=== PATIENT | male | born 1955 | race Caucasian/White ===

== ENCOUNTER 2020-04-09 14:09 | Inpatient (IN) | payer MEDICARE ==
[2020-04-09] MEDS ORDERED: PANTOPRAZOLE 40 MG/10 ML VIAL IVP ONE (14:18)
[2020-04-09] MEDS ORDERED: SODIUM CHLORIDE 0.9% 1,000 ML IV STA (14:18)
[2020-04-09] MEDS ORDERED: fentaNYL (PF) 50 MCG/ML 2 ML AMP IVP STA (14:28)
--- NOTE | 2020-04-09 14:31 | ED ---
General Adult HPI - General Chief complaint: GI Bleed Stated complaint: GI Bleed Time Seen by Provider: 04/09/20 14:17 Source: patient, EMS Mode of arrival: EMS Limitations: no limitations - History of Present Illness Initial comments: Dictation was produced using Xtone dictation software. please excuse any grammatical, word or spelling errors. This patient was cared for during a federal and state declared state of emergency secondary to Covid 19 Chief Complaint: 65-year-old male presents with coffee-ground emesis and pain after fall History of Present Illness: 65-year-old male. He states that he fell today at approximately 2 AM. Patient states she's been having several hours of coffee- ground emesis. Patient has history of GI bleed in the past that required inpatient hospitalization and blood transfusions. Patient states that he fell doesn't really remember what happened. He woke up on the floor and had pain in his right hip arms and believes he hit his head. Patient denies any abdominal pain. Denies any shortness of breath. The ROS documented in this emergency department record has been reviewed and confirmed by me. Those systems with pertinent positive or negative responses have been documented in the HPI. All other systems are other negative and/or noncontributory. PHYSICAL EXAM: General Impression: Alert and oriented x3, not in acute distress, pale, with chemotherapy to his extremities HEENT: Normocephalic atraumatic, extra-ocular movements intact, pupils equal and reactive to light bilaterally, mucous membranes moist. Cardiovascular: Heart regular rate and rhythm Chest: Able to complete full sentences, no retractions, no tachypnea Abdomen: abdomen soft, non-tender, non-distended, no organomegaly Musculoskeletal: Pulses present and equal in all extremities, no peripheral edema Motor: no focal deficits noted Neurological: CN II-XII grossly intact, no focal motor or sensory deficits noted Skin: Intact with no visualized rashes Psych: Normal affect and mood Rectal exam: Dark stool on MI, multiple anal skin tags ED course: 65-year-old male presents with GI bleed and fall. Vital signs upon arrival are within acceptable limits. Laboratory evaluation obtained. Leukopenia 2.8, hemoglobin of 8.5. No old labs for comparison. RDW is increased. Coag panel shows INR of 4.6. Metabolic panel shows sodium 131, potassium 5.4. Creatinine 1.2. Lactic acidosis 3.5. Still cold was positive. Patient given 80 mg of IV Protonix, fentanyl.Patient observed in the emergency department for approximately one hour and 30 minutes. Patient clinically stable. No repeat episodes of GI bleeding or hematemesis or coffee-ground emesis. Patient currently stable at this time. Case was discus sed with son physician Dr. Pickens who is willing to accept patients care for hospital admission. GI will be on consultation. EKG interpretation: Ventricular rate 65, normal sinus rhythm,. 176, QRS 92, QTC 405. No TN prolongation, no QTC prolongation, no ST or T-wave changes noted. O verall, this EKG is unremarkable - Related Data Allergies Allergy/AdvReac Type Severity Reaction Status Date / Time No Known Allergies Allergy Verified 04/09/20 14:17 Review of Systems ROS Statement: Those systems with pertinent positive or pertinent negative responses have been documented in the HPI. ROS Other: All systems not noted in ROS Statement are negative. Past Medical History Past Medical History: Asthma, COPD, GI Bleed, Osteoarthritis (OA) Additional Past Medical History / Comment(s): celiac disease, IBS, colitis, central tremors, hepatitis at 12 History of Any Multi-Drug Resistant Organisms: None Reported Past Surgical History: Appendectomy, Cholecystectomy, Heart Catheterization Past Psychological History: Anxiety, Depression Smoking Status: Current every day smoker Past Alcohol Use History: Daily Past Drug Use History: Marijuana General Exam Limitations: no limitations Course Vital Signs 04/09/20 14:12 Temperature 97.6 F Pulse Rate 71 Respiratory 16 Rate Blood Pressure 106/60 O2 Sat by Pulse 94 L Oximetry Medical Decision Making - Lab Data Result diagrams: 04/09/20 14:30 04/09/20 14:30 Lab Results 04/09/20 04/09/20 04/09/20 Range/Units 14:22 14:25 14:30 WBC 2.8 L (3.8-10.6) k/uL RBC 2.54 L (4.30-5.90) m/uL Hgb 8.5 L (13.0-17.5) gm/dL Hct 25.0 L (39.0-53.0) % MCV 98.3 (80.0-100.0) fL MCH 33.6 (25.0-35.0) pg MCHC 34.2 (31.0-37.0) g/dL RDW 16.7 H (11.5-15.5) % Plt Count 102 L (150-450) k/uL MPV 8.9 Neutrophils % 70 % Lymphocytes % 19 % Monocytes % 7 % Eosinophils % 2 % Basophils % 0 % Neutrophils # 2.0 (1.3-7.7) k/uL Lymphocytes # 0.6 L (1.0-4.8) k/uL Monocytes # 0.2 (0-1.0) k/uL Eosinophils # 0.0 (0-0.7) k/uL Basophils # 0.0 (0-0.2) k/uL Anisocytosis Slight Macrocytosis Slight PT (9.0-12.0) sec INR (<1.2) APTT (22.0-30.0) sec Sodium (137-145) mmol/L Potassium (3.5-5.1) mmol/L Chloride (98-107) mmol/L Carbon Dioxide (22-30) mmol/L Anion Gap mmol/L BUN (9-20) mg/dL Creatinine (0.66-1.25) mg/dL Est GFR (CKD-EPI)AfAm (>60 ml/min/1.73 sqM) Est GFR (CKD-EPI)NonAf (>60 ml/min/1.73 sqM) Glucose (74-99) mg/dL Plasma Lactic Acid Todd (0.7-2.0) mmol/L Calcium (8.4-10.2) mg/dL Total Bilirubin (0.2-1.3) mg/dL AST (17-59) U/L ALT (4-49) U/L Alkaline Phosphatase (38-126) U/L Total Protein (6.3-8.2) g/dL Albumin (3.5-5.0) g/dL Stool Occult Blood (Negative) Blood Type Confirm A Negative Blood Type Recheck No Previous Record Bld Type Recheck Status CABO Indicated Spec Expiration Date 04/12/2020 - 232904/09/20 04/09/20 04/09/20 Range/Units 14:30 14:30 14:30 WBC (3.8-10.6) k/uL RBC (4.30-5.90) m/uL Hgb (13.0-17.5) gm/dL Hct (39.0-53.0) % MCV (80.0-100.0) fL MCH (25.0-35.0) pg MCHC (31.0-37.0) g/dL RDW (11.5-15.5) % Plt Count (150-450) k/uL MPV Neutrophils % % Lymphocytes % % Monocytes % % Eosinophils % % Basophils % % Neutrophils # (1.3-7.7) k/uL Lymphocytes # (1.0-4.8) k/uL Monocytes # (0-1.0) k/uL Eosinophils # (0-0.7) k/uL Basophils # (0-0.2) k/uL Anisocytosis Macrocytosis PT 45.8 H (9.0-12.0) sec INR 4.6 H (<1.2) APTT 48.9 H (22.0-30.0) sec Sodium 131 L (137-145) mmol/L Potassium 5.4 H (3.5-5.1) mmol/L Chloride 101 (98-107) mmol/L Carbon Dioxide 25 (22-30) mmol/L Anion Gap 5 mmol/L BUN 39 H (9-20) mg/dL Creatinine 1.82 H (0.66-1.25) mg/dL Est GFR (CKD-EPI)AfAm 44 (>60 ml/min/1.73 sqM) Est GFR (CKD-EPI)NonAf 38 (>60 ml/min/1.73 sqM) Glucose 130 H (74-99) mg/dL Plasma Lactic Acid Todd (0.7-2.0) mmol/L Calcium 7.3 L (8.4-10.2) mg/dL Total Bilirubin 1.7 H (0.2-1.3) mg/dL AST 91 H (17-59) U/L ALT 55 H (4-49) U/L Alkaline Phosphatase 91 (38-126) U/L Total Protein 4.7 L (6.3-8.2) g/dL Albumin 2.2 L (3.5-5.0) g/dL Stool Occult Blood Positive (Negative) Blood Type Confirm Blood Type Recheck Bld Type Recheck Status Spec Expiration Date 04/09/20 Range/Units 14:30 WBC (3.8-10.6) k/uL RBC (4.30-5.90) m/uL Hgb (13.0-17.5) gm/dL Hct (39.0-53.0) % MCV (80.0-100.0) fL MCH (25.0-35.0) pg MCHC (31.0-37.0) g/dL RDW (11.5-15.5) % Plt Count (150-450) k/uL MPV Neutrophils % % Lymphocytes % % Monocytes % % Eosinophils % % Basophils % % Neutrophils # (1.3-7.7) k/uL Lymphocytes # (1.0-4.8) k/uL Monocytes # (0-1.0) k/uL Eosinophils # (0-0.7) k/uL Basophils # (0-0.2) k/uL Anisocytosis Macrocytosis PT (9.0-12.0) sec INR (<1.2) APTT (22.0-30.0) sec Sodium (137-145) mmol/L Potassium (3.5-5.1) mmol/L Chloride (98-107) mmol/L Carbon Dioxide (22-30) mmol/L Anion Gap mmol/L BUN (9-20) mg/dL Creatinine (0.66-1.25) mg/dL Est GFR (CKD-EPI)AfAm (>60 ml/min/1.73 sqM) Est GFR (CKD-EPI)NonAf (>60 ml/min/1.73 sqM) Glucose (74-99) mg/dL Plasma Lactic Acid Todd 3.5 H* (0.7-2.0) mmol/L Calcium (8.4-10.2) mg/dL Total Bilirubin (0.2-1.3) mg/dL AST (17-59) U/L ALT (4-49) U/L Alkaline Phosphatase (38-126) U/L Total Protein (6.3-8.2) g/dL Albumin (3.5-5.0) g/dL Stool Occult Blood (Negative) Blood Type Confirm Blood Type Recheck Bld Type Recheck Status Spec Expiration Date Disposition Clinical Impression: GI bleed Disposition: ADMITTED IP TO THIS [facility] Condition: Critical Referrals: Nonstaff,Physician [Primary Care Provider] - 1-2 days Decision Time: 15:22
[2020-04-09] MEDS ORDERED: PANTOPRAZOLE 40 MG/10 ML VIAL IVP STA (14:36)
[2020-04-09 14:42] LABS: Anisocytosis Slight; Basophils % (A) 0 %; Eosinophils % (A) 2 %; HGB 8.5 gm/dL (13.0-17.5); Lymphocytes # (A) 0.6 k/uL (1.0-4.8); Lymphocytes % (A) 19 %; MCH 33.6 pg (25.0-35.0); MCHC 34.2 g/dL (31.0-37.0); MCV 98.3 fL (80.0-100.0); Macrocytosis Slight; Mean Platelet Volume 8.9; Monocytes # (A) 0.2 k/uL (0-1.0); Monocytes % (A) 7 %; Neutrophils % (A) 70 %; Platelet Count 102 k/uL (150-450); RBC 2.54 m/uL (4.30-5.90); RDW 16.7 % (11.5-15.5); WBC 2.8 k/uL (3.8-10.6)
[2020-04-09 14:51] LABS: Albumin 2.2 g/dL (3.5-5.0); Calcium 7.3 mg/dL (8.4-10.2); Potassium 5.4 mmol/L (3.5-5.1); Total Bilirubin 1.7 mg/dL (0.2-1.3); Total Protein 4.7 g/dL (6.3-8.2)
[2020-04-09 14:56] LABS: INR 4.6 (<1.2); Partial Thromboplastin Time 48.9 sec (22.0-30.0); Prothrombin Time 45.8 sec (9.0-12.0)
--- NOTE | 2020-04-09 15:08 | XR ---
EXAMINATION TYPE: XR chest 1V DATE OF EXAM: 04/09/2020 HISTORY: Shortness of breath. COMPARISON: None. TECHNIQUE: Single view of the chest is submitted. FINDINGS: Demonstrated are scattered senescent parenchymal change. There is no evidence for focal infiltrate. No evidence for pneumothorax. The heart is stable. There is left hilar prominence of uncertain etiology and may reflect normal variant. Underlying adeno rico is difficult to exclude. Consider CT on a nonemergent basis. Degenerative changes are seen of the dorsal spine. IMPRESSION: 1. No acute pulmonary disease.
--- NOTE | 2020-04-09 15:09 | XR ---
EXAMINATION TYPE: XR pelvis AP view DATE OF EXAM: 04/09/2020 CLINICAL HISTORY: pain TECHNIQUE: Single view the pelvis is submitted. FINDINGS: No evidence for fracture, dislocation or bony lesion. Joint spaces are well-preserved. S I joints appear symmetric. IMPRESSION: 1. No acute fracture or dislocation seen. ICD 10 NO FRACTURE, INITIAL EVALUATION
--- NOTE | 2020-04-09 15:10 | CT ---
EXAMINATION TYPE: CT brain maria l cason DATE OF EXAM: 04/09/2020 COMPARISON: None HISTORY: Fall today with head injury. CT DLP: 1464.[address] of the brain was performed. The ventricles, basal cisterns and sulci overlying the cerebral convexities demonstrate mild enlargem ent. There is no evidence for intracranial hemorrhage or sulcal effacement. There is decreased attenuatio n about the periventricular white matter and deep white matter of both cerebral hemispheres, compatib le with chronic small vessel ischemia. No mass effects are seen. If symptoms persist consider MRI. Chronic maxillary and ethmoidal sinusitis. Osseous calvarium is intact. IMPRESSION: 1. Age related atrophic and chronic small vessel ischemic change without acute intracranial process seen at this time. CT Cervical Spine: Unenhanced CT of the cervical spine was performed with bone and soft tissue window settings submitted . Coronal and sagittal reconstruction is obtained. There is normal alignment and prevertebral soft tissues. No evidence for acute cervical fracture . Scattered degenerative disc disease and spondylosis. Biapical scarring. IMPRESSION: 1. No evidence for acute fracture or subluxation of the cervical spine.
[2020-04-09] MEDS ORDERED: NALOXONE 0.4 MG/ML 1 ML VIAL IV PRN (15:16)
[2020-04-09] MEDS ORDERED: ONDANSETRON 4 MG/2 ML VIAL IVP PRN (15:16)
[2020-04-09] MEDS ORDERED: ACETAMINOPHEN TAB 325 MG TAB PO PRN (15:16)
--- NOTE | 2020-04-09 17:12 | P.HPIM ---
History of Present Illness H&P Date: 04/09/20 Chief Complaint: melena This is a 65-year-old white male who reported to the hospital with melena. Symptoms started earlier today around 2 AM. He reports several episodes of melena. He also reports some coffee-ground emesis. He denies chest pain, no shortness of breath, no subjective fever no chills. He denies loss of consciousness but felt a little bit dizzy. He denies hematochezia. Patient reports chronic abdominal pain, that is not different than baseline. He had similar presentation previously. He also reports that he had an EGD/colonoscopy at [facility] a few months ago. He is on anticoagulation for pulmonary embolism with Coumadin, he also has been taking occasional Motrin. At the time of examination patient is in bed, he does not appear to be in distress. Review of Systems 10 systems reviewed pertinent + and negative findings as in HPI. Melena, no chest pain Past Medical History Past Medical History: Asthma, COPD, GI Bleed, Osteoarthritis (OA) Additional Past Medical History / Comment(s): celiac disease, IBS, colitis, central tremors, hepatitis at 12 History of Any Multi-Drug Resistant Organisms: None Reported Past Surgical History: Appendectomy, Cholecystectomy, Heart Catheterization Past Psychological History: Anxiety, Depression Smoking Status: Current every day smoker Past Alcohol Use History: Daily Past Drug Use History: Marijuana Medications and Allergies Allergies Allergy/AdvReac Type Severity Reaction Status Date / Time No Known Allergies Allergy Verified 04/09/20 14:17 Physical Exam Vitals: Vital Signs Temp Pulse Resp BP Pulse Ox 04/09/20 16:30 85 16 87/53 97 04/09/20 15:15 72 16 95/60 96 04/09/20 14:45 70 16 101/66 95 04/09/20 14:15 72 16 98/63 95 04/09/20 14:12 97.6 F 71 16 106/60 94 L Intake and Output 04/09/20 04/09/20 04/09/20 06:59 14:59 22:59 Other: Weight 72.575 kg Constitutional: No acute distress, conversant, pleasant Eyes: Anicteric sclerae, moist conjunctiva, no lid-lag, PERRLA ENMT: NC/AT,Oropharynx clear, no erythema, exudates Neck:Supple, FROM, no masses, or JVD, No carotid bruits; No thyromegaly Lungs: Clear to auscultation, Clear to percussion, Normal respiratory effort, no accessory muscle use Cardiovascular: Heart regular in rate and rhythm, No murmurs, gallops, or rubs no peripheral edema Abdominal: Soft nom distended, no guarding, no rebound or rigidity, Normoactive bowel sounds No hepatomegaly, No splenomegaly, No palpable mass No abdominal wall hernia noted , tender. Skin: Normal temperature, tone, texture, turgor, No induration No subcutaneous nodules, No rash, lesions, No ulcers Extremities:No digital cyanosis No clubbing, Pedal pulses intact and symmetrical Radial pulses intact and symmetrical Normal gait and station, No calf tenderness Psychiatric: Alert and oriented to person, place and time, Appropriate affect Intact judgement Neuro: Muscles Strength 5/5 in all 4 extremities, Sensation to light touch grossly present throughout, Cranial nerves II-XII grossly intact. No focal se nsory deficits Results CBC & Chem 7: 04/09/20 14:30 04/09/20 14:30 Labs: Abnormal Lab Results - Last 24 Hours (Table) 04/09/20 04/09/20 04/09/20 Range/Units 14:30 14:30 14:30 WBC 2.8 L (3.8-10.6) k/uL RBC 2.54 L (4.30-5.90) m/uL Hgb 8.5 L (13.0-17.5) gm/dL Hct 25.0 L (39.0-53.0) % RDW 16.7 H (11.5-15.5) % Plt Count 102 L (150-450) k/uL Lymphocytes # 0.6 L (1.0-4.8) k/uL PT 45.8 H (9.0-12.0) sec INR 4.6 H (<1.2) APTT 48.9 H (22.0-30.0) sec Sodium 131 L (137-145) mmol/L Potassium 5.4 H (3.5-5.1) mmol/L BUN 39 H (9-20) mg/dL Creatinine 1.82 H (0.66-1.25) mg/dL Glucose 130 H (74-99) mg/dL Plasma Lactic Acid Todd (0.7-2.0) mmol/L Calcium 7.3 L (8.4-10.2) mg/dL Total Bilirubin 1.7 H (0.2-1.3) mg/dL AST 91 H (17-59) U/L ALT 55 H (4-49) U/L Total Protein 4.7 L (6.3-8.2) g/dL Albumin 2.2 L (3.5-5.0) g/dL 04/09/20 Range/Units 14:30 WBC (3.8-10.6) k/uL RBC (4.30-5.90) m/uL Hgb (13.0-17.5) gm/dL Hct (39.0-53.0) % RDW (11.5-15.5) % Plt Count (150-450) k/uL Lymphocytes # (1.0-4.8) k/uL PT (9.0-12.0) sec INR (<1.2) APTT (22.0-30.0) sec Sodium (137-145) mmol/L Potassium (3.5-5.1) mmol/L BUN (9-20) mg/dL Creatinine (0.66-1.25) mg/dL Glucose (74-99) mg/dL Plasma Lactic Acid Todd 3.5 H* (0.7-2.0) mmol/L Calcium (8.4-10.2) mg/dL Total Bilirubin (0.2-1.3) mg/dL AST (17-59) U/L ALT (4-49) U/L Total Protein (6.3-8.2) g/dL Albumin (3.5-5.0) g/dL Assessment and Plan Plan: 1. Melena/ Hematemesis: likely associated with coumadin and NSAIDS, hold coumadin , INR 4.6, IV fluids, IV Protonix, GI consultation. Monitor H&H, transfuse as indicated. 2. Anemia, likely multifactorial, chronic as well as associated with acute bleeding of unspecified location: Monitor H&H, hemoglobin 8.5, transfuse as indicated. 3. Mild thrombocytopenia/leukopenia: Monitor 4. History of pulmonary embolism on Coumadin: Supratherapeutic INR, hold Coumadin for now in the setting of bleeding. 5. Elevated serum creatinine, serum creatinine 1.8, unknown if it's acute or chronic: IV fluid resuscitation and monitor, avoid nephrotoxins. 6. Hyperkalemia: Potassium 5.4, IV fluids and monitor potassium. 7. Lactic acidosis: Likely associated with decreased perfusion, lactic acid 3.5, IV fluid resuscitation and recheck. 8. COPD without exacerbation: Oxygen and bronchodilators as indicated 9. History of celiac disease/irritable bowel syndrome: Monitor. 10. Elevated LFTs: Monitor Admit to inpatient DVT prophylaxis: Holding Coumadin for supratherapeutic INR Disposition: Home in 2-3 days
[2020-04-09] MEDS ORDERED: ALBUTEROL NEBULIZED 2.5 MG/3 ML INHALATION PRN (17:14)
[2020-04-09] MEDS ORDERED: SODIUM CHLORIDE 0.9% 1,000 ML IV ONE ×2 (17:37→18:56)
[2020-04-09] MEDS: PRIMIDONE 250 MG TAB PO SCH (18:51)
[2020-04-09] MEDS ORDERED: OCTREOTIDE 100 MCG/ML INJ IVP ONE (19:00)
[2020-04-09] MEDS ORDERED: OCTREOTIDE 200 MCG/ML 5 ML VIAL IVP ONE (19:15)
[2020-04-09 19:24] LABS: Anisocytosis Slight; HCT 21.8 % (39.0-53.0); HGB 7.2 gm/dL (13.0-17.5); MCH 32.9 pg (25.0-35.0); MCV 99.6 fL (80.0-100.0); Macrocytosis Slight; Mean Platelet Volume 9.2; Platelet Count 95 k/uL (150-450); RBC 2.19 m/uL (4.30-5.90); RDW 17.3 % (11.5-15.5); WBC 3.9 k/uL (3.8-10.6)
[2020-04-09] MEDS: OCTREOTIDE 500 MCG in SODIUM CHLORIDE 0.9% 250 ML IV SCH (19:25)
[2020-04-09] MEDS: SODIUM CHLORIDE 0.9% 1,000 ML IV SCH (19:26)
[2020-04-09] MEDS: NOREPINEPHRINE 8 MG in SODIUM CHLORIDE 0.9% 250 ML IV SCH (22:19)
[2020-04-09] MEDS: NOREPINEPHRINE 4 MG in SODIUM CHLORIDE 0.9% 250 ML IV SCH (22:32)
[2020-04-09] MEDS: PANTOPRAZOLE 40 MG/10 ML VIAL IVP SCH (22:41)
[2020-04-09 23:47] LABS: Glucose,Whole Blood 152 mg/dL (75-99)
[2020-04-10] MEDS ORDERED: MORPHINE SULFATE 2 MG/ML SYRINGE IVP STA (01:58)
[2020-04-10] MEDS: ALPRAZolam 0.5 MG TAB PO SCH ×2 (02:45→20:15)
[2020-04-10] MEDS: PRIMIDONE 250 MG TAB PO SCH ×3 (03:01→17:51)
[2020-04-10] MEDS: SODIUM CHLORIDE 0.9% 1,000 ML IV SCH ×3 (03:07→22:55)
[2020-04-10 03:11] LABS: Anisocytosis Slight; Basophils % (A) 0 %; Eosinophils # (A) 0.2 k/uL (0-0.7); Eosinophils % (A) 3 %; HCT 26.4 % (39.0-53.0); HGB 8.5 gm/dL (13.0-17.5); Lymphocytes # (A) 0.7 k/uL (1.0-4.8); Lymphocytes % (A) 10 %; MCH 31.7 pg (25.0-35.0); MCHC 32.2 g/dL (31.0-37.0); MCV 98.6 fL (80.0-100.0); Macrocytosis Slight; Mean Platelet Volume 9.4; Monocytes # (A) 0.3 k/uL (0-1.0); Monocytes % (A) 4 %; Neutrophils # (A) 5.8 k/uL (1.3-7.7); Neutrophils % (A) 83 %; Platelet Count 132 k/uL (150-450); RBC 2.68 m/uL (4.30-5.90); RDW 17.3 % (11.5-15.5)
[2020-04-10 03:23] LABS: Albumin 2.2 g/dL (3.5-5.0); Potassium 5.7 mmol/L (3.5-5.1); Total Bilirubin 1.8 mg/dL (0.2-1.3); Total Protein 4.8 g/dL (6.3-8.2)
[2020-04-10 08:17] LABS: Anisocytosis Slight; Basophils % (A) 0 %; Eosinophils % (A) 1 %; HCT 22.5 % (39.0-53.0); HGB 7.6 gm/dL (13.0-17.5); Lymphocytes # (A) 1.2 k/uL (1.0-4.8); Lymphocytes % (A) 15 %; MCH 32.6 pg (25.0-35.0); MCHC 33.8 g/dL (31.0-37.0); MCV 96.6 fL (80.0-100.0); Macrocytosis Slight; Mean Platelet Volume 11.1; Monocytes # (A) 0.4 k/uL (0-1.0); Monocytes % (A) 5 %; Neutrophils # (A) 6.1 k/uL (1.3-7.7); Neutrophils % (A) 79 %; Platelet Count 106 k/uL (150-450); RBC 2.32 m/uL (4.30-5.90); RDW 17.1 % (11.5-15.5); WBC 7.8 k/uL (3.8-10.6)
[2020-04-10] MEDS ORDERED: SODIUM CHLORIDE 0.9% 1,000 ML IV ONE (08:42)
[2020-04-10] MEDS ORDERED: SODIUM BICARB 8.4% 50 ML SYR (1 MEQ/ML) IV STA (08:44)
[2020-04-10] MEDS ORDERED: PANTOPRAZOLE 40 MG/10 ML VIAL IV SCH (09:00)
[2020-04-10] MEDS: TAMSULOSIN 0.4 MG CAP.ER.24H PO SCH (09:03)
[2020-04-10] MEDS: PANTOPRAZOLE 40 MG/10 ML VIAL IVP SCH ×2 (09:03→21:03)
[2020-04-10] MEDS: SODIUM BICARBONATE TAB 650 MG TAB PO SCH ×2 (09:03→21:04)
[2020-04-10] MEDS: ESCITALOPRAM 20 MG TAB PO SCH (09:03)
[2020-04-10] MEDS: NOREPINEPHRINE 8 MG in SODIUM CHLORIDE 0.9% 250 ML IV SCH (09:06)
[2020-04-10] MEDS: SYMBICORT 80-4.5 MCG INHALER INHALATION SCH ×2 (10:00→23:08)
--- NOTE | 2020-04-10 10:47 | P.PN ---
Subjective Progress Note Date: 04/10/20 Principal diagnosis: GI bleed Denies gross bleeding, no chest pain, no abdominal pain. Remains on pressors. Objective - Vital Signs Vital signs: Vital Signs Temp 98.3 F 04/10/20 08:00 Pulse 79 04/10/20 10:00 Resp 20 04/10/20 10:00 BP 119/78 04/10/20 10:00 Pulse Ox 92 L 04/10/20 10:00 Intake & Output 04/09/20 04/10/20 04/10/20 18:59 06:59 18:59 Intake Total 113.183 7381 Output Total 1610 830 Balance -669.117 570 Weight 72.575 kg 79.8 kg Intake: IV 500 400 Sodium Chloride 0.9% 1, 500 400 000 ml @ 100 mls/hr IV . Q10H [facility] Rx#:[id number] Intake, IV Titration 574.338 0932 Amount Norepinephrine 4 mg In 130.883 Sodium Chloride 0.9% 250 ml @ 0.05 MCG/KG/MIN 13. 826 mls/hr IV .[id number] [facility] Rx#:[id number] Sodium Chloride 0.9% 1, 1000 000 ml @ 999 mls/hr IV . Q1H1M [facility] Rx#:[id number] Blood Product 310 Rc Pheresis 2 As3 Unit 310 [id number] Output: Urine 1610 830 Uretheral ([place]) 1400 700 Other: Voiding Method Indwelling Catheter Indwelling Catheter # Bowel Movements 1 - Exam Constitutional: No acute distress, conversant, pleasant Eyes: Anicteric sclerae, moist conjunctiva, no lid-lag, PERRLA ENMT: NC/AT,Oropharynx clear, no erythema, exudates Neck:Supple, FROM, no masses, or JVD, No carotid bruits; No thyromegaly Lungs: Clear to auscultation, Clear to percussion, Normal respiratory effort, no accessory muscle use Cardiovascular: Heart regular in rate and rhythm, No murmurs, gallops, or rubs no peripheral edema Abdominal: Soft Nontender, nom distended, no guarding, no rebound or rigidity, Normoactive bowel sounds No hepatomegaly Skin: Normal temperature, tone, texture, turgor, No induration No subcutaneous nodules, No rash, lesions, No ulcers Extremities:No digital cyanosis No clubbing, Pedal pulses intact and symmetrical Radial pulses intact and symmetrical Normal gait and station, No calf tenderness Psychiatric: Alert and oriented to person, place and time, Appropriate affect Intact judgement Neuro: Muscles Strength 5/5 in all 4 extremities, Sensation to light touch grossly present throughout, Cranial nerves II-XII grossly intact. No focal sensory deficits - Labs CBC & Chem 7: 04/10/20 06:40 04/10/20 02:58 Labs: Abnormal Lab Results - Last 24 Hours (Table) 04/09/20 04/09/20 04/09/20 Range/Units 14:22 14:30 14:30 WBC 2.8 L (3.8-10.6) k/uL RBC 2.54 L (4.30-5.90) m/uL Hgb 8.5 L (13.0-17.5) gm/dL Hct 25.0 L (39.0-53.0) % RDW 16.7 H (11.5-15.5) % Plt Count 102 L (150-450) k/uL Lymphocytes # 0.6 L (1.0-4.8) k/uL PT 45.8 H (9.0-12.0) sec INR 4.6 H (<1.2) APTT 48.9 H (22.0-30.0) sec Sodium (137-145) mmol/L Potassium (3.5-5.1) mmol/L Chloride (98-107) mmol/L Carbon Dioxide (22-30) mmol/L BUN (9-20) mg/dL Creatinine (0.66-1.25) mg/dL Glucose (74-99) mg/dL POC Glucose (mg/dL) (75-99) mg/dL Plasma Lactic Acid Todd (0.7-2.0) mmol/L Calcium (8.4-10.2) mg/dL Total Bilirubin (0.2-1.3) mg/dL AST (17-59) U/L ALT (4-49) U/L Total Protein (6.3-8.2) g/dL Albumin (3.5-5.0) g/dL Crossmatch See Detail 04/09/20 04/09/20 04/09/20 Range/Units 14:30 14:30 17:03 WBC (3.8-10.6) k/uL RBC (4.30-5.90) m/uL Hgb (13.0-17.5) gm/dL Hct (39.0-53.0) % RDW (11.5-15.5) % Plt Count (150-450) k/uL Lymphocytes # (1.0-4.8) k/uL PT (9.0-12.0) sec INR (<1.2) APTT (22.0-30.0) sec Sodium 131 L (137-145) mmol/L Potassium 5.4 H (3.5-5.1) mmol/L Chloride (98-107) mmol/L Carbon Dioxide (22-30) mmol/L BUN 39 H (9-20) mg/dL Creatinine 1.82 H (0.66-1.25) mg/dL Glucose 130 H (74-99) mg/dL POC Glucose (mg/dL) (75-99) mg/dL Plasma Lactic Acid Todd 3.5 H* 2.6 H* (0.7-2.0) mmol/L Calcium 7.3 L (8.4-10.2) mg/dL Total Bilirubin 1.7 H (0.2-1.3) mg/dL AST 91 H (17-59) U/L ALT 55 H (4-49) U/L Total Protein 4.7 L (6.3-8.2) g/dL Albumin 2.2 L (3.5-5.0) g/dL Crossmatch 04/09/20 04/09/20 04/09/20 Range/Units 19:13 22:59 23:46 WBC (3.8-10.6) k/uL RBC 2.19 L (4.30-5.90) m/uL Hgb 7.2 L (13.0-17.5) gm/dL Hct 21.8 L (39.0-53.0) % RDW 17.3 H (11.5-15.5) % Plt Count 95 L (150-450) k/uL Lymphocytes # (1.0-4.8) k/uL PT (9.0-12.0) sec INR (<1.2) APTT (22.0-30.0) sec Sodium (137-145) mmol/L Potassium (3.5-5.1) mmol/L Chloride (98-107) mmol/L Carbon Dioxide (22-30) mmol/L BUN (9-20) mg/dL Creatinine (0.66-1.25) mg/dL Glucose (74-99) mg/dL POC Glucose (mg/dL) 152 H (75-99) mg/dL Plasma Lactic Acid Todd 3.5 H* (0.7-2.0) mmol/L Calcium (8.4-10.2) mg/dL Total Bilirubin (0.2-1.3) mg/dL AST (17-59) U/L ALT (4-49) U/L Total Protein (6.3-8.2) g/dL Albumin (3.5-5.0) g/dL Crossmatch 04/09/20 04/10/20 04/10/20 Range/Units Unknown 02:58 02:58 WBC (3.8-10.6) k/uL RBC 2.68 L (4.30-5.90) m/uL Hgb 8.5 L (13.0-17.5) gm/dL Hct 26.4 L (39.0-53.0) % RDW 17.3 H (11.5-15.5) % Plt Count 132 L (150-450) k/uL Lymphocytes # 0.7 L (1.0-4.8) k/uL PT (9.0-12.0) sec INR (<1.2) APTT (22.0-30.0) sec Sodium 135 L (137-145) mmol/L Potassium 5.7 H (3.5-5.1) mmol/L Chloride 111 H (98-107) mmol/L Carbon Dioxide 16 L (22-30) mmol/L BUN 45 H (9-20) mg/dL Creatinine 1.89 H (0.66-1.25) mg/dL Glucose 162 H (74-99) mg/dL POC Glucose (mg/dL) (75-99) mg/dL Plasma Lactic Acid Todd 2.3 H* (0.7-2.0) mmol/L Calcium 7.0 L (8.4-10.2) mg/dL Total Bilirubin 1.8 H (0.2-1.3) mg/dL AST 95 H (17-59) U/L ALT 54 H (4-49) U/L Total Protein 4.8 L (6.3-8.2) g/dL Albumin 2.2 L (3.5-5.0) g/dL Crossmatch 04/10/20 04/10/20 04/10/20 Range/Units 02:58 06:40 06:40 WBC (3.8-10.6) k/uL RBC 2.32 L (4.30-5.90) m/uL Hgb 7.6 L (13.0-17.5) gm/dL Hct 22.5 L (39.0-53.0) % RDW 17.1 H (11.5-15.5) % Plt Count 106 L (150-450) k/uL Lymphocytes # (1.0-4.8) k/uL PT (9.0-12.0) sec INR (<1.2) APTT (22.0-30.0) sec Sodium (137-145) mmol/L Potassium (3.5-5.1) mmol/L Chloride (98-107) mmol/L Carbon Dioxide (22-30) mmol/L BUN (9-20) mg/dL Creatinine (0.66-1.25) mg/dL Glucose (74-99) mg/dL POC Glucose (mg/dL) (75-99) mg/dL Plasma Lactic Acid Todd 4.3 H* 4.4 H* (0.7-2.0) mmol/L Calcium (8.4-10.2) mg/dL Total Bilirubin (0.2-1.3) mg/dL AST (17-59) U/L ALT (4-49) U/L Total Protein (6.3-8.2) g/dL Albumin (3.5-5.0) g/dL Crossmatch Assessment and Plan Plan: 1. Melena/ Hematemesis: likely associated with coumadin and NSAIDS, holding coum charlie , INR 4.6, IV fluids, IV Protonix, continue IV octreotide GI consultation. Monitor H&H, transfuse as indicated.sp 1 unit of prbc transfusion. 2. Anemia, likely multifactorial, chronic as well as associated with acute bleeding of unspecified location: Monitor H&H, hemoglobin 8.5 down to 7.6, transfuse as indicated. 3. Mild thrombocytopenia/leukopenia: Monitor 4. History of pulmonary embolism on Coumadin: Supratherapeutic INR, hold Coumadin for now in the setting of bleeding. 5. Elevated serum creatinine, serum creatinine 1.8, unknown if it's acute or chronic: IV fluid resuscitation and monitor, avoid nephrotoxins.Remains at 1.8 . Nephrology following 6. Hyperkalemia: Potassium 5.7, IV fluids and monitor potassium. 7. Lactic acidosis: Likely associated with decreased perfusion, continue IV fluid resuscitation 8. COPD without exacerbation: Oxygen and bronchodilators as indicated 9. History of celiac disease/irritable bowel syndrome: Monitor. 10. Elevated LFTs: Monitor 11. Severe hypotension 2/2 hypovolemia : continue IV fluids and pressors , apprecaite crtical care input 12. Metabolic acidosis: 2/2 renal failure and hypoperfusion , bicarb down to 16 , recheck , consider bicarb DVT prophylaxis: Holding Coumadin for supratherapeutic INR Disposition: Home in 2-3 days
[2020-04-10 12:30] LABS: Prothrombin Time 56.3 sec (9.0-12.0)
[2020-04-10 12:36] LABS: Anisocytosis Slight; MCH 32.7 pg (25.0-35.0); MCHC 33.7 g/dL (31.0-37.0); MCV 97.1 fL (80.0-100.0); Macrocytosis Slight; Mean Platelet Volume 11.1; RBC 1.91 m/uL (4.30-5.90); RDW 17.2 % (11.5-15.5)
[2020-04-10 12:44] LABS: INR 5.6 (<1.2)
[2020-04-10 12:45] LABS: HGB 6.2 gm/dL (13.0-17.5)
[2020-04-10 12:46] LABS: HCT 18.6 % (39.0-53.0)
[2020-04-10 12:57] LABS: Platelet Count 80 k/uL (150-450)
--- NOTE | 2020-04-10 13:02 | P.NPCON ---
History of Present Illness - Reason for Consult Consult date: 04/10/20 acute renal failure, hyperkalemia - Chief Complaint Melena - History of Present Illness Admitted to ICU with the above complaint. Currently on levo fed and IV fluids. Hemoglobin 8.5. He was on Coumadin and was also taking NSAIDs. Denies nausea. He hasn't episodes of hematemesis and melena nor hematochezia. Denies having kidney problems in the past. On admission creatinine was 1.8 MG per DL. Creatinine stable. Good urine output. No recent contrast studies. Review of Systems Constitutional: Reports as per HPI Past Medical History Past Medical History: Asthma, COPD, GI Bleed, Osteoarthritis (OA) Additional Past Medical History / Comment(s): celiac disease, IBS, colitis, central tremors, hepatitis at 12 History of Any Multi-Drug Resistant Organisms: None Reported Past Surgical History: Appendectomy, Cholecystectomy, Heart Catheterization Past Anesthesia/Blood Transfusion Reactions: No Reported Reaction Past Psychological History: Anxiety, Depression Smoking Status: Current every day smoker Past Alcohol Use History: Daily Past Drug Use History: Marijuana Medications and Allergies Home Medications Medication Instructions Recorded Confirmed Type ALPRAZolam [Xanax] 0.5 mg PO HS 04/09/20 04/09/20 History Albuterol Sulfate [Ventolin HFA] 2 puff INHALATION RT-Q6H PRN 04/09/20 04/09/20 History Escitalopram Oxalate [Lexapro] 20 mg PO DAILY 04/09/20 04/09/20 History Fluticasone/Vilanterol [Breo 1 puff INHALATION RT-DAILY 04/09/20 04/09/20 H istory Ellipta 100-25 Mcg Inhaler] Furosemide [Lasix] 20 mg PO DAILY PRN 04/09/20 04/09/20 History Primidone [Mysoline] 250 mg PO Q8H 04/09/20 04/09/20 History RX: Omeprazole 20 mg PO BID 04/09/20 04/09/20 History RX: Warfarin Sodium 5 mg PO SUTUTHSA 04/09/20 04/09/20 History RX: Warfarin Sodium 7.5 mg PO MOWEFR 04/09/20 04/09/20 History Tamsulosin HCl [Flomax] 0.4 mg PO DAILY 04/09/20 04/09/20 History Allergies Allergy/AdvReac Type Severity Reaction Status Date / Time No Known Allergies Allergy Verified 04/09/20 17:05 Physical Exam Vitals: Vital Signs Temp Pulse Resp BP Pulse Ox 04/10/20 11:00 91 17 103/60 88 L 04/10/20 10:30 95 19 113/65 88 L 04/10/20 10:00 79 20 119/78 92 L 04/10/20 09:30 86 20 95/57 04/10/20 09:00 96 23 114/75 91 L 04/10/20 08:30 89 22 163/81 04/10/20 08:00 98.3 F 87 22 102/61 96 04/10/20 07:30 80 20 90/52 91 L 04/10/20 07:00 86 19 121/67 92 L 04/10/20 06:30 88 14 112/62 96 04/10/20 06:00 77 15 100/59 92 L 04/10/20 05:30 81 18 105/60 88 L 04/10/20 05:00 79 12 111/67 87 L 04/10/20 04:30 82 16 123/70 91 L 04/10/20 04:00 98.9 F 93 17 68/35 98 04/10/20 03:30 84 21 88/57 92 L 04/10/20 03:20 84 20 88/57 90 L 04/10/20 03:10 82 20 100/61 89 L 04/10/20 03:00 85 16 99/56 94 L 04/10/20 02:50 86 12 99/56 95 04/10/20 02:40 81 21 98/59 91 L 04/10/20 02:30 80 18 83/57 91 L 04/10/20 02:20 80 20 75/60 91 L 04/10/20 02:10 84 21 83/57 92 L 04/10/20 02:00 92 5 L 91/66 94 L 04/10/20 01:50 102 H 18 91/66 95 04/10/20 01:40 86 9 L 93/56 88 L 04/10/20 01:30 86 15 85/51 85 L 04/10/20 01:20 85 20 85/51 85 L 04/10/20 01:10 85 15 87/49 84 L 04/09/20 23:50 89 14 119/97 91 L 04/09/20 23:44 119/97 04/09/20 23:30 80 95/53 95 04/09/20 23:25 81 16 95/53 95 04/09/20 23:21 97.8 F 84 93/55 92 L 04/09/20 23:20 81 16 93/55 95 04/09/20 23:19 97.6 F 82 16 90/54 04/09/20 23:15 81 16 90/57 93 L 04/09/20 22:15 81 16 83/53 94 L 04/09/20 22:00 86 16 86/49 95 04/09/20 21:36 98.0 F 76 16 86/49 04/09/20 21:15 84 16 71/38 93 L 04/09/20 21:06 97.6 F 80 16 70/45 04/09/20 21:00 87 16 71/46 94 L 04/09/20 20:56 97.6 F 85 16 71/38 04/09/20 20:49 98.0 F 86 16 71/46 04/09/20 20:30 91 16 75/50 93 L 04/09/20 20:15 90 16 81/49 85 L 04/09/20 20:00 96 16 86/53 94 L 04/09/20 19:45 87 16 82/51 94 L 04/09/20 19:30 88 16 91/57 94 L 04/09/20 19:15 86 16 91/57 95 04/09/20 18:30 80 16 87/50 95 04/09/20 17:45 84 16 82/50 96 04/09/20 17:30 78 16 81/54 92 L 04/09/20 17:15 81 16 74/53 98 04/09/20 17:01 80 16 84/50 95 04/09/20 16:30 85 16 87/53 97 04/09/20 15:15 72 16 95/60 96 04/09/20 14:45 70 16 101/66 95 04/09/20 14:15 72 16 98/63 95 04/09/20 14:12 97.6 F 71 16 106/60 94 L Intake and Output 04/09/20 04/10/20 04/10/20 22:59 06:59 14:59 Intake Total 5.761 108.190 5595.117 Output Total 1610 1530 Balance 5.761 -674.878 -6.883 Intake: IV 500 400 Sodium Chloride 0.9% 1, 500 400 000 ml @ 100 mls/hr IV . Q10H [facility] Rx#:[id number] Intake, IV Titration 5.761 245.108 8084.117 Amount Norepinephrine 4 mg In 5.761 125.122 123.117 Sodium Chloride 0.9% 250 ml @ 0.05 MCG/KG/MIN 13. 826 mls/hr IV .[id number] [facility] Rx#:[id number] Sodium Chloride 0.9% 1, 1000 000 ml @ 999 mls/hr IV . Q1H1M [facility] Rx#:[id number] Blood Product 0 310 Rc Pheresis 2 As3 Unit 0 310 [id number] Output: Urine 1610 1530 Uretheral ([place]) 1400 1400 Other: Voiding Method Indwelling Catheter Indwelling Catheter # Bowel Movements 1 Weight 72.575 kg 79.8 kg No acute distress S1-S2 heard Diminished breath sounds Abdomen soft [place] No edema Results - Lab Results Most recent lab results Calcium 7.0 mg/dL (8.4-10.2) L 04/10/20 02:58 04/10/20 10:43 04/10/20 02:58 Assessment and Plan Assessment: #1 acute kidney injury suspect hemodynamic ATN with GI bleed. #2 lactic acidosis suspect hypotension. Rule out ischemia #3 hyperkalemia suspect secondary to acute kidney injury/GI absorption of the blood. #4 GI bleed #5 hypovolemic shock on levo fed #6: Colopathy secondary to warfarin Plan: 1 repeat BMP, if potassium more than 5.5 treat medically. #2 monitor strict I's and O's #3 renal function stable at this time. Avoid nephrotoxic agents #4 ICU care
[2020-04-10] MEDS: OCTREOTIDE 500 MCG in SODIUM CHLORIDE 0.9% 250 ML IV SCH ×2 (13:04→22:55)
[2020-04-10] MEDS: NOREPINEPHRINE 4 MG in SODIUM CHLORIDE 0.9% 250 ML IV SCH ×3 (13:53→21:04)
--- NOTE | 2020-04-10 15:58 | P.CNPUL ---
History of Present Illness Consult date: 04/10/20 Requesting physician: Jeannine Dallas Reason for consult: other (GI bleeding, ICU management.) Chief complaint: Dizziness lightheadedness and black stool History of present illness: This is a 65-year-old white male with history of multiple medical problems including chronic recurrent history of GI bleeding, history of pulmonary embolism, maintained on Coumadin, history of celiac sprue and irritable bowel syndrome, history of chronic colitis, and history of chronic abdominal pain. Patient used to live in the [facility], and his primary care physician is supposedly from that area, and most [place], mostly at [facility]. Patient had history of pulmonary embolism, and has been in the past on Xarelto, however because of the cost, he was switched few years ago to Coumadin. Patient is compliant with his Coumadin, and intermittently he takes Motrin for some vague abdominal pain and low back pain. Lives with his sister in the [facility], and he developed an episode around 2 AM of black stools, and some coffee-ground emesis. Patient had no chest pain, no shortness of breath, he did feel lightheaded and dizzy. Patient was brought into the ER, and he was noted to have low hemoglobin, 7.2. Repeat was 6.2. His INR was 5.6. Supratherapeutic. BUN was 39 and creatinine was 1.82, and his lactic acid was slightly elevated at 2.3, follow-up was 4.4. Patient had stool occult blood positive. Since admission, the patient received 1 unit of packed RBCs, he also received 2 units of fresh frozen plasma. Patient is yet to be seen by gastroenterology on consultation. He was already seen by nephrology and felt that the patient had acute kidney injury secondary to acute tubular necrosis with GI bleeding. Chest x-ray on admission showed no evidence of active disease. CT of the head and spine was also unremarkable. Considering the patient was admitted to the ICU, I was asked to see him on consultation. During my evaluation, the patient had no shortness of breath, no cough no wheezing no chest pain, patient is known to have history of COPD, maintained on bronchodilators, but presently asymptomatic. Patient had vague abdominal discomfort, and he does have chronic low back pain. Review of Systems Constitutional: Weakness no fever no chills no weight loss. HEENT: Negative. Cardiac: Negative. Pulmonary: History of COPD and history of pulmonary embolism, but presently asymptomatic. GI: As noted in HPI. Genitourinary: Negative. Musculoskeletal: Low back pain. Endocrine: Negative. Hematologic: History of chronic anemia patient had some recent workup at [facility]/in [facility] Skin: Negative. Neurologic: Negative Past Medical History Past Medical History: Asthma, COPD, GI Bleed, Osteoarthritis (OA) Additional Past Medical History / Comment(s): celiac disease, IBS, colitis, central tremors, hepatitis at 12 History of Any Multi-Drug Resistant Organisms: None Reported Past Surgical History: Appendectomy, Cholecystectomy, Heart Catheterization Past Anesthesia/Blood Transfusion Reactions: No Reported Reaction Past Psychological History: Anxiety, Depression Smoking Status: Current every day smoker Past Alcohol Use History: Daily Past Drug Use History: Marijuana Medications and Allergies Home Medications Medication Instructions Recorded Confirmed Type ALPRAZolam [Xanax] 0.5 mg PO HS 04/09/20 04/09/20 History Albuterol Sulfate [Ventolin HFA] 2 puff INHALATION RT-Q6H PRN 04/09/20 04/09/20 History Escitalopram Oxalate [Lexapro] 20 mg PO DAILY 04/09/20 04/09/20 History Fluticasone/Vilanterol [Breo 1 puff INHALATION RT-DAILY 04/09/20 04/09/20 H istory Ellipta 100-25 Mcg Inhaler] Furosemide [Lasix] 20 mg PO DAILY PRN 04/09/20 04/09/20 History Omeprazole 20 mg PO BID 04/09/20 04/09/20 History Primidone [Mysoline] 250 mg PO Q8H 04/09/20 04/09/20 History Tamsulosin HCl [Flomax] 0.4 mg PO DAILY 04/09/20 04/09/20 History Warfarin Sodium 5 mg PO SUTUTHSA 04/09/20 04/09/20 History Warfarin Sodium 7.5 mg PO MOWEFR 04/09/20 04/09/20 History Allergies Allergy/AdvReac Type Severity Reaction Status Date / Time No Known Allergies Allergy Verified 04/09/20 17:05 Physical Exam Vitals: Vital Signs Temp Pulse Resp BP Pulse Ox 04/10/20 15:09 98.3 F 107 H 16 94/62 91 L 04/10/20 15:00 107 H 16 92/56 89 L 04/10/20 14:59 98.1 F 106 H 16 98/61 89 L 04/10/20 14:55 98.1 F 105 H 16 92/56 89 L 04/10/20 14:30 101 H 18 94/46 87 L 04/10/20 14:22 98.4 F 98 16 94/46 88 L 04/10/20 14:12 98.3 F 111 H 16 98/60 91 L 04/10/20 14:00 93 19 99/57 89 L 04/10/20 13:30 92 19 93/46 89 L 04/10/20 13:00 92 18 81/49 88 L 04/10/20 12:30 94 12 89/50 84 L 04/10/20 12:00 98.0 F 98 16 92/53 84 L 04/10/20 11:30 91 17 95/54 84 L 04/10/20 11:00 91 17 103/60 88 L 04/10/20 10:30 95 19 113/65 88 L 04/10/20 10:00 79 20 119/78 92 L 04/10/20 09:30 86 20 95/57 04/10/20 09:00 96 23 114/75 91 L 04/10/20 08:30 89 22 163/81 04/10/20 08:00 98.3 F 87 22 102/61 96 04/10/20 07:30 80 20 90/52 91 L 04/10/20 07:00 86 19 121/67 92 L 04/10/20 06:30 88 14 112/62 96 04/10/20 06:00 77 15 100/59 92 L 04/10/20 05:30 81 18 105/60 88 L 04/10/20 05:00 79 12 111/67 87 L 04/10/20 04:30 82 16 123/70 91 L 04/10/20 04:00 98.9 F 93 17 68/35 98 04/10/20 03:30 84 21 88/57 92 L 04/10/20 03:20 84 20 88/57 90 L 04/10/20 03:10 82 20 100/61 89 L 04/10/20 03:00 85 16 99/56 94 L 04/10/20 02:50 86 12 99/56 95 04/10/20 02:40 81 21 98/59 91 L 04/10/20 02:30 80 18 83/57 91 L 04/10/20 02:20 80 20 75/60 91 L 04/10/20 02:10 84 21 83/57 92 L 04/10/20 02:00 92 5 L 91/66 94 L 04/10/20 01:50 102 H 18 91/66 95 04/10/20 01:40 86 9 L 93/56 88 L 04/10/20 01:30 86 15 85/51 85 L 04/10/20 01:20 85 20 85/51 85 L 04/10/20 01:10 85 15 87/49 84 L 04/09/20 23:50 89 14 119/97 91 L 04/09/20 23:44 119/97 04/09/20 23:30 80 95/53 95 04/09/20 23:25 81 16 95/53 95 04/09/20 23:21 97.8 F 84 93/55 92 L 04/09/20 23:20 81 16 93/55 95 04/09/20 23:19 97.6 F 82 16 90/54 04/09/20 23:15 81 16 90/57 93 L 04/09/20 22:15 81 16 83/53 94 L 04/09/20 22:00 86 16 86/49 95 04/09/20 21:36 98.0 F 76 16 86/49 04/09/20 21:15 84 16 71/38 93 L 04/09/20 21:06 97.6 F 80 16 70/45 04/09/20 21:00 87 16 71/46 94 L 04/09/20 20:56 97.6 F 85 16 71/38 04/09/20 20:49 98.0 F 86 16 71/46 04/09/20 20:30 91 16 75/50 93 L 04/09/20 20:15 90 16 81/49 85 L 04/09/20 20:00 96 16 86/53 94 L 04/09/20 19:45 87 16 82/51 94 L 04/09/20 19:30 88 16 91/57 94 L 04/09/20 19:15 86 16 91/57 95 04/09/20 18:30 80 16 87/50 95 04/09/20 17:45 84 16 82/50 96 04/09/20 17:30 78 16 81/54 92 L 04/09/20 17:15 81 16 74/53 98 04/09/20 17:01 80 16 84/50 95 04/09/20 16:30 85 16 87/53 97 Intake and Output 04/10/20 04/10/20 04/10/20 06:59 14:59 22:59 Intake Total 7443.782 3886.117 Output Total 1610 1654 700 Balance -424.878 558.117 -700 Intake: IV 500 800 Sodium Chloride 0.9% 1, 500 800 000 ml @ 100 mls/hr IV . Q10H [facility] Rx#:[id number] Intake, IV Titration 507.713 4294.117 Amount Norepinephrine 4 mg In 125.122 123.117 Sodium Chloride 0.9% 250 ml @ 0.05 MCG/KG/MIN 13. 826 mls/hr IV .[id number] [facility] Rx#:[id number] Octreotide 500 mcg In 250 Sodium Chloride 0.9% 250 ml @ 50 MCG/HR 25 mls/hr IV .Q10H [facility] Rx#: [id number] Sodium Chloride 0.9% 1, 1000 000 ml @ 999 mls/hr IV . Q1H1M [facility] Rx#:[id number] Blood Product 310 289 Ffp 24 Cpd Unit 289 [id number] Ffp 24 Cpd Unit 0 [id number] Rc Pheresis 2 As3 Unit 310 [id number] Output: Urine 1610 1654 700 Uretheral ([place]) 1400 1400 700 Other: Voiding Method Indwelling Catheter Indwelling Catheter Indwelling Catheter # Bowel Movements 1 Weight 79.8 kg Physical Exam: Revealed a 65-year-old white male, in no distress. Head: Atraumatic,normocephalic. HEENT:[Neck is supple.] [No neck masses.] [No thyromegaly.] [No JVD.] Chest: [Symmetrical chest expansion, diminished breath sounds at the bases, no crackles or rhonchi or wheezes. Cardiac Exam: Regular rate and rhythm. [Normal S1 and S2, no S3 gallop, no murmur.] Abdomen: [Soft, slightly tender left lower quadrant., no megaly, no rebound, no guarding, normal bowel sounds.] Extremities: [No clubbing, no edema, no cyanosis.] Good pulses bilaterally Neurological Exam: [No focal neurologic deficit.] Alert and oriented 3. Psychiatric: Normal mood, affect and normal mental status examination. Skin: No rashes. Results - Laboratory Findings CBC and BMP: 04/10/20 10:43 04/10/20 13:25 PT/INR, D-dimer PT 56.3 sec (9.0-12.0) H 04/10/20 10:43 INR 5.6 (<1.2) H* 04/10/20 10:43 Abnormal lab findings: Abnormal Labs 04/09/20 04/09/20 04/09/20 14:22 14:30 14:30 WBC 2.8 L RBC 2.54 L Hgb 8.5 L Hct 25.0 L RDW 16.7 H Plt Count 102 L Lymphocytes # 0.6 L PT 45.8 H INR 4.6 H APTT 48.9 H Sodium Potassium Chloride Carbon Dioxide BUN Creatinine Glucose POC Glucose (mg/dL) Plasma Lactic Acid Todd Calcium Total Bilirubin AST ALT Total Protein Albumin Crossmatch See Detail 04/09/20 04/09/20 04/09/20 14:30 14:30 17:03 WBC RBC Hgb Hct RDW Plt Count Lymphocytes # PT INR APTT Sodium 131 L Potassium 5.4 H Chloride Carbon Dioxide BUN 39 H Creatinine 1.82 H Glucose 130 H POC Glucose (mg/dL) Plasma Lactic Acid Todd 3.5 H* 2.6 H* Calcium 7.3 L Total Bilirubin 1.7 H AST 91 H ALT 55 H Total Protein 4.7 L Albumin 2.2 L Crossmatch 04/09/20 04/09/20 04/09/20 19:13 22:59 23:46 WBC RBC 2.19 L Hgb 7.2 L Hct 21.8 L RDW 17.3 H Plt Count 95 L Lymphocytes # PT INR APTT Sodium Potassium Chloride Carbon Dioxide BUN Creatinine Glucose POC Glucose (mg/dL) 152 H Plasma Lactic Acid Todd 3.5 H* Calcium Total Bilirubin AST ALT Total Protein Albumin Crossmatch 04/09/20 04/10/20 04/10/20 Unknown 02:58 02:58 WBC RBC 2.68 L Hgb 8.5 L Hct 26.4 L RDW 17.3 H Plt Count 132 L Lymphocytes # 0.7 L PT INR APTT Sodium 135 L Potassium 5.7 H Chloride 111 H Carbon Dioxide 16 L BUN 45 H Creatinine 1.89 H Glucose 162 H POC Glucose (mg/dL) Plasma Lactic Acid Todd 2.3 H* Calcium 7.0 L Total Bilirubin 1.8 H AST 95 H ALT 54 H Total Protein 4.8 L Albumin 2.2 L Crossmatch 04/10/20 04/10/20 04/10/20 02:58 06:40 06:40 WBC RBC 2.32 L Hgb 7.6 L Hct 22.5 L RDW 17.1 H Plt Count 106 L Lymphocytes # PT INR APTT Sodium Potassium Chloride Carbon Dioxide BUN Creatinine Glucose POC Glucose (mg/dL) Plasma Lactic Acid Todd 4.3 H* 4.4 H* Calcium Total Bilirubin AST ALT Total Protein Albumin Crossmatch 04/10/20 04/10/20 10:43 10:43 WBC RBC 1.91 L Hgb 6.2 L* Hct 18.6 L* RDW 17.2 H Plt Count 80 L Lymphocytes # PT 56.3 H INR 5.6 H* APTT Sodium Potassium Chloride Carbon Dioxide BUN Creatinine Glucose POC Glucose (mg/dL) Plasma Lactic Acid Todd Calcium Total Bilirubin AST ALT Total Protein Albumin Crossmatch - Diagnostic Findings Chest x-ray: image reviewed (As noted in HPI.) Assessment and Plan Assessment: Impression: Acute GI bleeding, strongly suspect upper GI source, differential diagnoses includes gastric ulcer disease, erosive gastritis, possibility of lower GI bleeding is not entirely ruled out, but felt to be less likely. Exacerbated by Motrin and supratherapeutic Coumadin. Coumadin related coagulopathy. History of pulmonary embolism, maintained on Coumadin. Used to be on Xarelto in the past, discontinued because of the cost. Acute kidney injury likely secondary to acute tubular necrosis. Hyperkalemia secondary to acute kidney injury. Hypovolemic and hemorrhagic shock. History of chronic obstructive pulmonary disease, presently inactive. History of celiac sprue and irritable bowel syndrome with chronic abdominal pain. Acute metabolic acidosis secondary to hypoperfusion, hypovolemia, and hemorrhagic shock. And secondary to acute kidney injury. Recommendation: Continue present supportive care measures, Transfuse to keep hemoglobin above 7. Monitor coagulation profile/pro time, and corrected to a therapeutic level GI to see on consultation for possible EGD. Continue Protonix. Continue close monitoring of blood pressure, Hold all anticoagulation therapy for now. Based on the GI recommendation, and based on the GI findings, patient may require IVC filter placement if there is absent contraindication to anticoagulat ions therapy on this patient Continue bronchodilators that he usually takes at home. We'll continue to monitor in the ICU for the next 24 hours. Will follow. Time with Patient: Greater than 30
[2020-04-10 23:15] LABS: Basophils % (A) 0 %; Eosinophils # (A) 0.1 k/uL (0-0.7); Eosinophils % (A) 1 %; Lymphocytes # (A) 0.8 k/uL (1.0-4.8); Lymphocytes % (A) 19 %; MCH 31.6 pg (25.0-35.0); Mean Platelet Volume 9.3; Monocytes # (A) 0.2 k/uL (0-1.0); Monocytes % (A) 5 %; Neutrophils # (A) 3.1 k/uL (1.3-7.7); Neutrophils % (A) 73 %; RBC 1.95 m/uL (4.30-5.90); RDW 14.9 % (11.5-15.5); WBC 4.3 k/uL (3.8-10.6)
[2020-04-10 23:34] LABS: HGB 6.2 gm/dL (13.0-17.5)
[2020-04-10 23:35] LABS: HCT 18.1 % (39.0-53.0); Platelet Count 40 k/uL (150-450)
[2020-04-11] MEDS: NOREPINEPHRINE 4 MG in SODIUM CHLORIDE 0.9% 250 ML IV SCH ×3 (01:09→11:28)
[2020-04-11 01:13] LABS: Glucose,Whole Blood 162 mg/dL (75-99)
[2020-04-11] MEDS: OCTREOTIDE 500 MCG in SODIUM CHLORIDE 0.9% 250 ML IV SCH (02:11)
[2020-04-11] MEDS: SODIUM CHLORIDE 0.9% 1,000 ML IV SCH (06:48)
--- NOTE | 2020-04-11 06:53 | PCN ---
PROCEDURE NOTE PROCEDURE PERFORMED: Placement of the right femoral triple-lumen catheter. PREOPERATIVE DIAGNOSES: Acute gastrointestinal bleeding, and Coumadin coagulopathy. POSTOPERATIVE DIAGNOSES: Acute gastrointestinal bleeding, and Coumadin coagulopathy. ANESTHESIA: 2 ml of 1% lidocaine. PROCEDURE: The patient was placed in the supine position, the right groin was prepared in a sterile fashion and drapes were applied. The area was locally anesthetized. Then the right femoral vein was easily cannulated, a guidewire was placed. The area of the guidewire was dilated. A triple-lumen catheter was inserted over the guidewire, and the guidewire was removed. Good blood flow noted and heparin flushes were given. The line was secured using 3.0 silk sutures, and no evidence of any immediate complications. MMODL / IJN: [id number] /
[2020-04-11] MEDS: PANTOPRAZOLE 40 MG/10 ML VIAL IVP SCH (07:56)
[2020-04-11 08:47] LABS: Basophils % (A) 0 %; Eosinophils # (A) 0.2 k/uL (0-0.7); Eosinophils % (A) 4 %; Lymphocytes # (A) 0.9 k/uL (1.0-4.8); Lymphocytes % (A) 19 %; MCH 30.7 pg (25.0-35.0); MCHC 33.3 g/dL (31.0-37.0); MCV 92.2 fL (80.0-100.0); Mean Platelet Volume 9.2; Monocytes # (A) 0.2 k/uL (0-1.0); Monocytes % (A) 5 %; Neutrophils # (A) 3.2 k/uL (1.3-7.7); Neutrophils % (A) 70 %; RBC 2.61 m/uL (4.30-5.90); RDW 15.2 % (11.5-15.5); WBC 4.5 k/uL (3.8-10.6)
[2020-04-11 08:49] LABS: Albumin 1.5 g/dL (3.5-5.0); Potassium 4.3 mmol/L (3.5-5.1); Total Protein 3.3 g/dL (6.3-8.2)
[2020-04-11 08:50] LABS: Platelet Count 43 k/uL (150-450)
[2020-04-11 08:54] LABS: INR 3.5 (<1.2); Prothrombin Time 33.8 sec (9.0-12.0)
--- NOTE | 2020-04-11 08:59 | P.CONS ---
History of Present Illness - Reason for Consult Consult date: 04/10/20 GI bleed Requesting physician: Louis Kemp - Chief Complaint Melena - History of Present Illness 65-year-old male with multiple medical comorbidities including a history of pulmonary embolism on Coumadin therapy, celiac sprue, irritable bowel syndrome and colitis as per the patient reported presented due to melanotic stool. He presented to the hospital after developing multiple episodes of dark-colored stools after Thanksgiving. The patient denied any gross red blood per rectum but did report dark colored stool that was tarry in nature. He also reported some dark colored emesis. He states that previously he underwent EGD and colonoscopy at [facility] and that at that time he was told he had colitis. However the patient denies being started on any chronic maintenance medication for the colitis. He was found to have an acute fall in his hemoglobin on presentation from 8.5-6.2 and is currently receiving transfusion with both FFP for a supratherapeutic INR of 5.6 as well as the anemia with 3 units of packed red blood cells ordered. Other laboratory evaluation significant for liver enzymes with total bilirubin 1.8, alkaline phosphatase 87, AST 95 and ALT 54. Past Medical History Past Medical History: Asthma, COPD, GI Bleed, Osteoarthritis (OA) Additional Past Medical History / Comment(s): celiac disease, IBS, colitis, central tremors, hepatitis at 12 History of Any Multi-Drug Resistant Organisms: None Reported Past Surgical History: Appendectomy, Cholecystectomy, Heart Catheterization Past Anesthesia/Blood Transfusion Reactions: No Reported Reaction Past Psychological History: Anxiety, Depression Smoking Status: Current every day smoker Past Alcohol Use History: Daily Past Drug Use History: Marijuana Additional History: Family history: Reviewed with the patient and noncontributory to current medical presentation. Medications and Allergies Home Medications Medication Instructions Recorded Confirmed Type ALPRAZolam [Xanax] 0.5 mg PO HS 04/09/20 04/09/20 History Albuterol Sulfate [Ventolin HFA] 2 puff INHALATION RT-Q6H PRN 04/09/20 04/09/20 History Escitalopram Oxalate [Lexapro] 20 mg PO DAILY 04/09/20 04/09/20 History Fluticasone/Vilanterol [Breo 1 puff INHALATION RT-DAILY 04/09/20 04/09/20 History Ellipta 100-25 Mcg Inhaler] Furosemide [Lasix] 20 mg PO DAILY PRN 04/09/20 04/09/20 History Omeprazole 20 mg PO BID 04/09/20 04/09/20 History Primidone [Mysoline] 250 mg PO Q8H 04/09/20 04/09/20 History Tamsulosin HCl [Flomax] 0.4 mg PO DAILY 04/09/20 04/09/20 History Warfarin Sodium 5 mg PO SUTUTHSA 04/09/20 04/09/20 History Warfarin Sodium 7.5 mg PO MOWEFR 04/09/20 04/09/20 History Allergies Allergy/AdvReac Type Severity Reaction Status Date / Time No Known Allergies Allergy Verified 04/09/20 17:05 Physical Exam Vitals: Vital Signs Temp Pulse Resp BP Pulse Ox 04/10/20 13:00 92 18 81/49 88 L 04/10/20 12:30 94 12 89/50 84 L 04/10/20 12:00 98.0 F 98 16 92/53 84 L 04/10/20 11:30 91 17 95/54 84 L 04/10/20 11:00 91 17 103/60 88 L 04/10/20 10:30 95 19 113/65 88 L 04/10/20 10:00 79 20 119/78 92 L 04/10/20 09:30 86 20 95/57 04/10/20 09:00 96 23 114/75 91 L 04/10/20 08:30 89 22 163/81 04/10/20 08:00 98.3 F 87 22 102/61 96 04/10/20 07:30 80 20 90/52 91 L 04/10/20 07:00 86 19 121/67 92 L 04/10/20 06:30 88 14 112/62 96 04/10/20 06:00 77 15 100/59 92 L 04/10/20 05:30 81 18 105/60 88 L 04/10/20 05:00 79 12 111/67 87 L 04/10/20 04:30 82 16 123/70 91 L 04/10/20 04:00 98.9 F 93 17 68/35 98 04/10/20 03:30 84 21 88/57 92 L 04/10/20 03:20 84 20 88/57 90 L 04/10/20 03:10 82 20 100/61 89 L 04/10/20 03:00 85 16 99/56 94 L 04/10/20 02:50 86 12 99/56 95 04/10/20 02:40 81 21 98/59 91 L 04/10/20 02:30 80 18 83/57 91 L 04/10/20 02:20 80 20 75/60 91 L 04/10/20 02:10 84 21 83/57 92 L 04/10/20 02:00 92 5 L 91/66 94 L 04/10/20 01:50 102 H 18 91/66 95 04/10/20 01:40 86 9 L 93/56 88 L 04/10/20 01:30 86 15 85/51 85 L 04/10/20 01:20 85 20 85/51 85 L 04/10/20 01:10 85 15 87/49 84 L 04/09/20 23:50 89 14 119/97 91 L 04/09/20 23:44 119/97 04/09/20 23:30 80 95/53 95 04/09/20 23:25 81 16 95/53 95 04/09/20 23:21 97.8 F 84 93/55 92 L 04/09/20 23:20 81 16 93/55 95 04/09/20 23:19 97.6 F 82 16 90/54 04/09/20 23:15 81 16 90/57 93 L 04/09/20 22:15 81 16 83/53 94 L 04/09/20 22:00 86 16 86/49 95 04/09/20 21:36 98.0 F 76 16 86/49 04/09/20 21:15 84 16 71/38 93 L 04/09/20 21:06 97.6 F 80 16 70/45 04/09/20 21:00 87 16 71/46 94 L 04/09/20 20:56 97.6 F 85 16 71/38 04/09/20 20:49 98.0 F 86 16 71/46 04/09/20 20:30 91 16 75/50 93 L 04/09/20 20:15 90 16 81/49 85 L 04/09/20 20:00 96 16 86/53 94 L 04/09/20 19:45 87 16 82/51 94 L 04/09/20 19:30 88 16 91/57 94 L 04/09/20 19:15 86 16 91/57 95 04/09/20 18:30 80 16 87/50 95 04/09/20 17:45 84 16 82/50 96 04/09/20 17:30 78 16 81/54 92 L 04/09/20 17:15 81 16 74/53 98 04/09/20 17:01 80 16 84/50 95 04/09/20 16:30 85 16 87/53 97 04/09/20 15:15 72 16 95/60 96 04/09/20 14:45 70 16 101/66 95 04/09/20 14:15 72 16 98/63 95 04/09/20 14:12 97.6 F 71 16 106/60 94 L Intake and Output 04/09/20 04/10/20 04/10/20 22:59 06:59 14:59 Intake Total 5.761 7200.980 4346.117 Output Total 1610 1530 Balance 5.761 -424.878 -6.883 Intake: IV 500 400 Sodium Chloride 0.9% 1, 500 400 000 ml @ 100 mls/hr IV . Q10H [facility] Rx#:[id number] Intake, IV Titration 5.761 547.588 4512.117 Amount Norepinephrine 4 mg In 5.761 125.122 123.117 Sodium Chloride 0.9% 250 ml @ 0.05 MCG/KG/MIN 13. 826 mls/hr IV .[id number] [facility] Rx#:[id number] Octreotide 500 mcg In 250 Sodium Chloride 0.9% 250 ml @ 50 MCG/HR 25 mls/hr IV .Q10H [facility] Rx#: [id number] Sodium Chloride 0.9% 1, 1000 000 ml @ 999 mls/hr IV . Q1H1M [facility] Rx#:[id number] Blood Product 0 310 Rc Pheresis 2 As3 Unit 0 310 [id number] Output: Urine 1610 1530 Uretheral ([place]) 1400 1400 Other: Voiding Method Indwelling Catheter Indwelling Catheter # Bowel Movements 1 Weight 72.575 kg 79.8 kg On physical examination, patient appears comfortable in no apparent distress. HEAD: Normocephalic, atraumatic. EYES: No scleral icterus. No conjunctival injection. MOUTH: No lesions, tongue midline. NECK: Trachea midline, no gross abnormalities. CHEST: Decreased air entry in all lung macias. HEART: Regular rate and rhythm. ABDOMEN: Soft, obese and mildly tender to palpation. Bowel sounds are positive. No organomegaly. No guarding or rigidity. EXTREMITIES: No pedal edema. SKIN: No rashes, no jaundice. NEUROLOGIC: Alert and oriented x3. No focal deficits. Results CBC & Chem 7: 04/10/20 23:00 04/10/20 13:25 Labs: Abnormal Lab Results - Last 24 Hours (Table) 04/09/20 04/09/20 04/09/20 Range/Units 14:22 14:30 14:30 WBC 2.8 L (3.8-10.6) k/uL RBC 2.54 L (4.30-5.90) m/uL Hgb 8.5 L (13.0-17.5) gm/dL Hct 25.0 L (39.0-53.0) % RDW 16.7 H (11.5-15.5) % Plt Count 102 L (150-450) k/uL Lymphocytes # 0.6 L (1.0-4.8) k/uL PT 45.8 H (9.0-12.0) sec INR 4.6 H (<1.2) APTT 48.9 H (22.0-30.0) sec Sodium (137-145) mmol/L Potassium (3.5-5.1) mmol/L Chloride (98-107) mmol/L Carbon Dioxide (22-30) mmol/L BUN (9-20) mg/dL Creatinine (0.66-1.25) mg/dL Glucose (74-99) mg/dL POC Glucose (mg/dL) (75-99) mg/dL Plasma Lactic Acid Todd (0.7-2.0) mmol/L Calcium (8.4-10.2) mg/dL Total Bilirubin (0.2-1.3) mg/dL AST (17-59) U/L ALT (4-49) U/L Total Protein (6.3-8.2) g/dL Albumin (3.5-5.0) g/dL Crossmatch See Detail 04/09/20 04/09/20 04/09/20 Range/Units 14:30 14:30 17:03 WBC (3.8-10.6) k/uL RBC (4.30-5.90) m/uL Hgb (13.0-17.5) gm/dL Hct (39.0-53.0) % RDW (11.5-15.5) % Plt Count (150-450) k/uL Lymphocytes # (1.0-4.8) k/uL PT (9.0-12.0) sec INR (<1.2) APTT (22.0-30.0) sec Sodium 131 L (137-145) mmol/L Potassium 5.4 H (3.5-5.1) mmol/L Chloride (98-107) mmol/L Carbon Dioxide (22-30) mmol/L BUN 39 H (9-20) mg/dL Creatinine 1.82 H (0.66-1.25) mg/dL Glucose 130 H (74-99) mg/dL POC Glucose (mg/dL) (75-99) mg/dL Plasma Lactic Acid Todd 3.5 H* 2.6 H* (0.7-2.0) mmol/L Calcium 7.3 L (8.4-10.2) mg/dL Total Bilirubin 1.7 H (0.2-1.3) mg/dL AST 91 H (17-59) U/L ALT 55 H (4-49) U/L Total Protein 4.7 L (6.3-8.2) g/dL Albumin 2.2 L (3.5-5.0) g/dL Crossmatch 04/09/20 04/09/20 04/09/20 Range/Units 19:13 22:59 23:46 WBC (3.8-10.6) k/uL RBC 2.19 L (4.30-5.90) m/uL Hgb 7.2 L (13.0-17.5) gm/dL Hct 21.8 L (39.0-53.0) % RDW 17.3 H (11.5-15.5) % Plt Count 95 L (150-450) k/uL Lymphocytes # (1.0-4.8) k/uL PT (9.0-12.0) sec INR (<1.2) APTT (22.0-30.0) sec Sodium (137-145) mmol/L Potassium (3.5-5.1) mmol/L Chloride (98-107) mmol/L Carbon Dioxide (22-30) mmol/L BUN (9-20) mg/dL Creatinine (0.66-1.25) mg/dL Glucose (74-99) mg/dL POC Glucose (mg/dL) 152 H (75-99) mg/dL Plasma Lactic Acid Todd 3.5 H* (0.7-2.0) mmol/L Calcium (8.4-10.2) mg/dL Total Bilirubin (0.2-1.3) mg/dL AST (17-59) U/L ALT (4-49) U/L Total Protein (6.3-8.2) g/dL Albumin (3.5-5.0) g/dL Crossmatch 04/09/20 04/10/20 04/10/20 Range/Units Unknown 02:58 02:58 WBC (3.8-10.6) k/uL RBC 2.68 L (4.30-5.90) m/uL Hgb 8.5 L (13.0-17.5) gm/dL Hct 26.4 L (39.0-53.0) % RDW 17.3 H (11.5-15.5) % Plt Count 132 L (150-450) k/uL Lymphocytes # 0.7 L (1.0-4.8) k/uL PT (9.0-12.0) sec INR (<1.2) APTT (22.0-30.0) sec Sodium 135 L (137-145) mmol/L Potassium 5.7 H (3.5-5.1) mmol/L Chloride 111 H (98-107) mmol/L Carbon Dioxide 16 L (22-30) mmol/L BUN 45 H (9-20) mg/dL Creatinine 1.89 H (0.66-1.25) mg/dL Glucose 162 H (74-99) mg/dL POC Glucose (mg/dL) (75-99) mg/dL Plasma Lactic Acid Todd 2.3 H* (0.7-2.0) mmol/L Calcium 7.0 L (8.4-10.2) mg/dL Total Bilirubin 1.8 H (0.2-1.3) mg/dL AST 95 H (17-59) U/L ALT 54 H (4-49) U/L Total Protein 4.8 L (6.3-8.2) g/dL Albumin 2.2 L (3.5-5.0) g/dL Crossmatch 04/10/20 04/10/20 04/10/20 Range/Units 02:58 06:40 06:40 WBC (3.8-10.6) k/uL RBC 2.32 L (4.30-5.90) m/uL Hgb 7.6 L (13.0-17.5) gm/dL Hct 22.5 L (39.0-53.0) % RDW 17.1 H (11.5-15.5) % Plt Count 106 L (150-450) k/uL Lymphocytes # (1.0-4.8) k/uL PT (9.0-12.0) sec INR (<1.2) APTT (22.0-30.0) sec Sodium (137-145) mmol/L Potassium (3.5-5.1) mmol/L Chloride (98-107) mmol/L Carbon Dioxide (22-30) mmol/L BUN (9-20) mg/dL Creatinine (0.66-1.25) mg/dL Glucose (74-99) mg/dL POC Glucose (mg/dL) (75-99) mg/dL Plasma Lactic Acid Todd 4.3 H* 4.4 H* (0.7-2.0) mmol/L Calcium (8.4-10.2) mg/dL Total Bilirubin (0.2-1.3) mg/dL AST (17-59) U/L ALT (4-49) U/L Total Protein (6.3-8.2) g/dL Albumin (3.5-5.0) g/dL Crossmatch 04/10/20 04/10/20 Range/Units 10:43 10:43 WBC (3.8-10.6) k/uL RBC 1.91 L (4.30-5.90) m/uL Hgb 6.2 L* (13.0-17.5) gm/dL Hct 18.6 L* (39.0-53.0) % RDW 17.2 H (11.5-15.5) % Plt Count 80 L (150-450) k/uL Lymphocytes # (1.0-4.8) k/uL PT 56.3 H (9.0-12.0) sec INR 5.6 H* (<1.2) APTT (22.0-30.0) sec Sodium (137-145) mmol/L Potassium (3.5-5.1) mmol/L Chloride (98-107) mmol/L Carbon Dioxide (22-30) mmol/L BUN (9-20) mg/dL Creatinine (0.66-1.25) mg/dL Glucose (74-99) mg/dL POC Glucose (mg/dL) (75-99) mg/dL Plasma Lactic Acid Todd (0.7-2.0) mmol/L Calcium (8.4-10.2) mg/dL Total Bilirubin (0.2-1.3) mg/dL AST (17-59) U/L ALT (4-49) U/L Total Protein (6.3-8.2) g/dL Albumin (3.5-5.0) g/dL Crossmatch Chest x-ray: report reviewed (No acute pulmonary disease on chest x-ray) Assessment and Plan (1) Melena Narrative/Plan: 65-year-old male with multiple medical comorbidities who presented with complaints of melena and coffee-ground emesis. The patient does report taking Motrin occasionally for pain. He is also on Coumadin therapy due to a pulmonary embolism. The patient had endoscopic evaluation within the past few months at [facility] for what he describes as abdominal pain and was told that he had colitis at that time but is not on any current medical treatment for colitis. He was found to have an acute fall in his hemoglobin at 6.2 from 8.5 on presentation and is currently receiving 3 units of packed red blood cells. Liver enzymes also mildly elevated with total bilirubin 1.8, alkaline phosphatase 87, AST 95 and ALT 54. Patient's INR was supratherapeutic on presentation of 5.6 and he has received FFP. Unclear etiology, concern is for u pper GI bleed with differential including peptic ulcer disease, esophagitis, gastritis, AVM or other etiology. Current Visit: Yes Status: Acute Code(s): K92.1 - MELENA SNOMED Code(s): 0273059 (2) Anemia associated with acute blood loss Current Visit: Yes Status: Acute Code(s): D62 - ACUTE POSTHEMORRHAGIC ANEMIA SNOMED Code(s): 582199253 (3) GI bleed Current Visit: Yes Status: Acute Code(s): K92.2 - GASTROINTESTINAL HEMORRHAGE, UNSPECIFIED SNOMED Code(s): 79970557 Plan: Supportive care Nothing by mouth Continue monitor hemoglobin and hematocrit and transfuse as needed Continue IV Protonix therapy Patient started on octreotide due to elevated liver enzymes and thrombocytopenia and unknown status of his liver Avoid NSAID use Plan for EGD tomorrow for further evaluation Appreciate recommendations from the full stack web developer service Thank you for allowing us to participate in the care of the patient
[2020-04-11] MEDS ORDERED: PROPOFOL 10 MG/ML 20 ML VIAL IV ONE (09:02)
[2020-04-11] MEDS ORDERED: WATER FOR INJECTION, STERILE 10 ML VIAL IV ONE (09:02)
[2020-04-11] MEDS ORDERED: PHENYLEPHRINE-0.9% NACL SYG 1 MG/10 ML SYRINGE ONE (09:02)
[2020-04-11] MEDS ORDERED: LIDOCAINE 1% INJ 10MG/ML (20 ML MDV) ONE (09:02)
[2020-04-11] MEDS ORDERED: IV FLUID CONTINUATION 1,000 ML IV ONE ×2 (09:04)
[2020-04-11] MEDS ORDERED: EPINEPHrine 10 ML SYRINGE (0.1 MG/ML) MISCELLANE ONE ×2 (09:22→09:32)
[2020-04-11] MEDS ORDERED: PHYTONADIONE 10 MG in SODIUM CHLORIDE 0.9% 50 ML IVPB STA (10:04)
--- NOTE | 2020-04-11 10:09 | P.PCN ---
Date of Procedure: 04/11/20 Description of Procedure: BRIEF HISTORY: 65-year-old male with multiple medical comorbidities including a history of pulmonary embolism on Coumadin therapy, celiac sprue, irritable bowel syndrome and colitis as per the patient reported presented due to melanotic stool. He presented to the hospital after developing multiple episodes of dark-colored stools after Thanksgiving. The patient denied any gross red blood per rectum but did report dark colored stool that was tarry in nature. He also reported some dark colored emesis. He states that previously he underwent EGD and colonoscopy at [facility] and that at that time he was told he had colitis. However the patient denies being started on any chronic maintenance medication for the colitis. He was found to have an acute fall in his hemoglobin on presentation from 8.5-6.2 and is currently receiving t ransfusion with both FFP for a supratherapeutic INR of 5.6 as well as the anemia with 3 units of packed red blood cells ordered. Other laboratory evaluation significant for liver enzymes with total bilirubin 1.8, alkaline phosphatase 87, AST 95 and ALT 54.. PROCEDURE PERFORMED: Esophagogastroduodenoscopy with epinephrine injection and Endo Clip placement. PREOPERATIVE DIAGNOSIS: GI bleed, anemia of acute blood loss. ESTIMATED BLOOD LOSS: Minimal. IV sedation per anesthesia. PROCEDURE: After informed consent was obtained, the patient was brought into the endoscopy unit. IV sedation was administered by Anesthesia under continuous monitoring. Initially the Olympus GIF-190 video endoscope was inserted into the mouth. Esophagus intubated without any difficulty. It was gradually advanced into the stomach and duodenum and carefully examined. The bulb and the second part of the duodenum appeared normal. The scope at this time was withdrawn to the stomach, adequately insufflated with air, and upon careful examination, mucosa of the antrum, body, cardia and the fundus appeared normal, with large amounts of blood noted which was lavaged and suctioned. The scope was then withdrawn into the esophagus. The GE junction was located at 38 cm from the incisors. The esophagus was significant for an actively bleeding tear in the distal esophagus just proximal to the gastroesophageal junction. Circumferential injection around the tear with 16 mL of epinephrine as well as Endo Clip placement 6 were used for hemostasis. No bleeding was noted at the end of the procedure. The patient tolerated the procedure well. IMPRESSION: 1. Actively bleeding distal esophageal tear treated with epinephrine injection and Endo Clip placement, with hemostasis achieved. 2. Fresh blood noted in the stomach and duodenum, lavaged and with no active bleeding in these areas. RECOMMENDATIONS: The findings of this examination were discussed with the patient . The ICU team and primary service were called and informed of the findings. If the patient has further bleeding he would not be a good candidate for local endoscopic evaluation and would benefit from transfer to a tertiary center for evaluation by cardiothoracic surgery and possibly advanced endoscopy for intervention. Continue to monitor hemoglobin and hematocrit and transfuse as needed. Vitamin K and platelets will be given. Continue with tonic therapy patient should remain nothing by mouth.
[2020-04-11] MEDS: SYMBICORT 80-4.5 MCG INHALER INHALATION SCH ×2 (10:24→11:56)
[2020-04-11] MEDS ORDERED: MORPHINE SULFATE 2 MG/ML SYRINGE IVP PRN (11:30)
[2020-04-11] MEDS: TAMSULOSIN 0.4 MG CAP.ER.24H PO SCH (11:38)
[2020-04-11] MEDS: ESCITALOPRAM 20 MG TAB PO SCH (11:38)
[2020-04-11] MEDS: SODIUM BICARBONATE TAB 650 MG TAB PO SCH (11:38)
[2020-04-11] MEDS: PRIMIDONE 250 MG TAB PO SCH ×2 (11:38)
[2020-04-11] MEDS ORDERED: OCTREOTIDE 500 MCG in SODIUM CHLORIDE 0.9% 250 ML IV SCH (11:45)
[2020-04-11] MEDS ORDERED: NOREPINEPHRINE 32 MG in SODIUM CHLORIDE 0.9% 218 ML IV SCH (13:00)
--- NOTE | 2020-04-11 14:35 | P.DS ---
Providers Date of admission: 04/09/20 15:16 Expected date of discharge: 04/11/20 Attending physician: Zenaida Pickens MD Consults: 04/09/20 15:15 Consult Physician Routine Consulting Provider: Laz Almanzar Consult Reason/Comments: gi bleed Do you want consulting provider notified?: Yes 04/09/20 19:00 Consult Physician Routine Consulting Provider: Louis Kemp Consult Reason/Comments: GI bleed needs octreotide Do you want consulting provider notified?: Yes 04/10/20 08:43 Consult Physician Routine Consulting Provider: Salma Gallegos Consult Reason/Comments: Renal failure Do you want consulting provider notified?: Yes Primary care physician: Physician Nonstaff Hospital Course: Discharge Diagnosis: #Hemorrhagic shock #Acute GI bleeding secondary to esophageal tear complicated by supratherapeutic INR and thrombocytopenia #Coumadin related coagulopathy. #Thrombocytopenia unknown etiology #History of pulmonary embolism, maintained on Coumadin. Used to be on Xarelto in the past, discontinued because of the cost. #Acute kidney injury likely secondary to acute tubular necrosis. #Hyperkalemia secondary to acute kidney injury. #History of chronic obstructive pulmonary disease, presently inactive. #History of celiac sprue and irritable bowel syndrome with chronic abdominal pain. #Acute metabolic acidosis secondary to hypoperfusion, hypovolemia, and hemorrhagic shock. And secondary to acute kidney injury. Hospital Course: Patient is a 65-year-old male who presented to the hospital with melanotic stool and coffee ground emesis. Patient is on anticoagulation for pulmonary embolism. He is on Coumadin. Patient has also been occasionally taking Motrin for vague abdominal pain. Patient was found to have elevated INR greater than 5. His initial hemoglobin was 7.2. Repeat hemoglobin was 6.2. Patient was admitted to the ICU for acute GI bleed. In ICU patient was started on pressors for hemorrhagic shock. Patient was seen by GI and he was found to have an esophageal tear. Patient had epinephrine injection as well as 6 clips. During EGD homeostasis was achieved. However GI recommended to transfer patient to a tertiary care center because if patient had recurrent bleed there was nothing that could be done by GI. During hospital course patient received a total of 6 units RBC, 3 units FFP and 1 unit platelets. Patient was accepted by reproduction technician at [facility]. At the time of transfer patient was hemodynamically stable. General examination - Alert and Oriented 3 in NAD Heart - + S1S2 no murmurs Lungs - Clear to auscultation Abdomen soft epigastric tenderness to palpate ND +ve BS Extremities - No edema WINDOW AND DOOR INSTALLER - Moving all 4 extremities spontaneously Psych - Calm and cooperative A total of 40 minutes of time were spent preparing this complex discharge summary . Patient Condition at Discharge: Critical Plan - Discharge Summary Discharge Rx Participant: Yes New Discharge Prescriptions: No Action Tamsulosin HCl [Flomax] 0.4 mg PO DAILY RX: Omeprazole 20 mg PO BID Furosemide [Lasix] 20 mg PO DAILY PRN PRN Reason: Edema Albuterol Sulfate [Ventolin HFA] 2 puff INHALATION RT-Q6H PRN PRN Reason: Shortness Of Breath Fluticasone/Vilanterol [Breo Ellipta 100-25 Mcg Inhaler] 1 puff INHALATION RT-DAILY RX: Warfarin Sodium 5 mg PO SUTUTHSA RX: Warfarin Sodium 7.5 mg PO MOWEFR Escitalopram Oxalate [Lexapro] 20 mg PO DAILY Primidone [Mysoline] 250 mg PO Q8H ALPRAZolam [Xanax] 0.5 mg PO HS Discharge Medication List ALPRAZolam [Xanax] 0.5 mg PO HS 04/09/20 [History] Albuterol Sulfate [Ventolin HFA] 2 puff INHALATION RT-Q6H PRN 04/09/20 [History] Escitalopram Oxalate [Lexapro] 20 mg PO DAILY 04/09/20 [History] Fluticasone/Vilanterol [Breo Ellipta 100-25 Mcg Inhaler] 1 puff INHALATION RT- DAILY 04/09/20 [History] Furosemide [Lasix] 20 mg PO DAILY PRN 04/09/20 [History] Primidone [Mysoline] 250 mg PO Q8H 04/09/20 [History] RX: Omeprazole 20 mg PO BID 04/09/20 [History] RX: Warfarin Sodium 5 mg PO SUTUTHSA 04/09/20 [History] RX: Warfarin Sodium 7.5 mg PO MOWEFR 04/09/20 [History] Tamsulosin HCl [Flomax] 0.4 mg PO DAILY 04/09/20 [History] Follow up Appointment(s)/Referral(s): Nonstaff,Physician [Primary Care Provider] - 1-2 days Discharge Disposition: OTHER INSTITUTION NOT DEFINED
[2020-04-11 14:36] LABS: MCH 31.8 pg (25.0-35.0); MCHC 34.4 g/dL (31.0-37.0); MCV 92.4 fL (80.0-100.0); Mean Platelet Volume 8.4; RBC 2.16 m/uL (4.30-5.90); RDW 15.6 % (11.5-15.5); WBC 5.2 k/uL (3.8-10.6)
--- NOTE | 2020-04-11 14:50 | P.PN ---
Subjective Progress Note Date: 04/11/20 Principal diagnosis: Acute upper GI bleeding secondary to esophageal tear This is a 65-year-old white male with history of multiple medical problems including chronic recurrent history of GI bleeding, history of pulmonary embolism, maintained on Coumadin, history of celiac sprue and irritable bowel syndrome, history of chronic colitis, and history of chronic abdominal pain. Teri hanna used to live in the [facility], and his primary care physician is supposedly from that area, and most of [place] [facility], mostly at [facility]. Patient had history of pulmonary embolism, and has been in the past on Xarelto, however because of the cost, he was switched few years ago to Coumadin. Patient is compliant with his Coumadin, and intermittently he takes Motrin for some vague abdominal pain and low back pain. Lives with his sister in the [facility], and he developed an episode around 2 AM of black stools, and some coffee-ground emesis. Patient had no chest pain, no shortness of breath, he did feel lightheaded and dizzy. Patient was brought into the ER, and he was noted to have low hemoglobin, 7.2. Repeat was 6.2. His INR was 5.6. Supratherapeutic. BUN was 39 and creatinine was 1.82, and his lactic acid was slightly elevated at 2.3, follow-up was 4.4. Patient had stool occult blood positive. Since admission, the patient received 1 unit of packed RBCs, he also received 2 units of fresh frozen plasma. Patient is yet to be seen by gastroenterology on consultation. He was already seen by nephrology and felt that the patient had acute kidney injury secondary to acute tubular necrosis with GI bleeding. Chest x-ray on admission showed no evidence of active disease. CT of the head and spine was also unremarkable. Considering the patient was admitted to the ICU, I was asked to see him on consultation. During my evaluation, the patient had no shortness of breath, no cough no wheezing no chest pain, patient is known to have history of COPD, maintained on bronchodilators, but presently asymptomatic. Patient had vague abdominal discomfort, and he does have chronic low back pain. Patient was reevaluated today on 04/11/20. Patient continues to have some active GI bleeding with melena, and he received a total of 6 units of packed RBCs 3 units of fresh frozen plasma and 1 unit of platelets since admission. His hemoglobin today is 8.0. Underwent EGD, and he was found to have an actively bleeding distal esophageal tear, treated with epinephrine injection and Endo Clip placement hemostasis was achieved, however the restaurant neurologist on the case felt that the patient could break loose again any time. And he felt it would be best to transfer the patient to a tertiary care center where cardiothoracic surgery would be available in the case that the patient requires surgical intervention on his esophagus. He also recommended more vitamin K and platelets given. Patient continues to have slightly elevated INR of 3.5. His electrolytes were normal except for bicarb of 20 BUN of 40 creatinine 1.73, and that seems to be improving compared to his admission creatinine. Patient remains on IV fluid at 100 mL/h in the form of 0.9 normal saline, he is still receiving Sandostatin, and on norepinephrine at 0.15 mcg/kg/m. Serum cortisol is normal. Albumin is 1.5 and calcium is 6.0, considering low albumin will not require calcium replacement. Objective - Vital Signs Vital signs: Vital Signs Temp 98.5 F 04/11/20 12:45 Pulse 88 04/11/20 13:00 Resp 23 04/11/20 13:00 BP 126/67 04/11/20 13:00 Pulse Ox 88 L 04/11/20 13:00 Intake & Output 04/10/20 04/11/20 04/11/20 18:59 06:59 18:59 Intake Total 3994.996 3637.548 971.236 Output Total 2644 920 130 Balance 1671.447 1232.548 841.236 Weight 82.5 kg Intake: IV 1300 1275 225 Octreotide 500 mcg In 75 25 Sodium Chloride 0.9% 250 ml @ 50 MCG/HR 25 mls/hr IV .Q10H [facility] Rx#: [id number] Sodium Chloride 0.9% 1, 1300 1200 100 000 ml @ 100 mls/hr IV . Q10H [facility] Rx#:[id number] Intake, IV Titration 1512.996 812.548 354.236 Amount Norepinephrine 4 mg In 512.996 566.298 354.236 Sodium Chloride 0.9% 250 ml @ 0.05 MCG/KG/MIN 13. 826 mls/hr IV .[id number] [facility] Rx#:[id number] Octreotide 500 mcg In 246.25 Sodium Chloride 0.9% 250 ml @ 50 MCG/HR 25 mls/hr IV .Q10H [facility] Rx#: [id number] Sodium Chloride 0.9% 1, 1000 000 ml @ 999 mls/hr IV . Q1H1M [facility] Rx#:[id number] Blood Product 1182 1550 392 Ffp 24 Cpd Unit 289 [id number] Ffp 24 Cpd Unit 283 [id number] Ffp 24 Cpd Unit 300 [id number] Platelet Pheresis Acd-A 392 Pasc 1 Unit [id number] Rc As-1 Unit 310 [id number] Rc As-1 Unit 310 [id number] Rc As-1 Unit 0 310 [id number] Rc As-1 Unit 310 [id number] Rc Pheresis 2 As3 Unit 310 [id number] Output: Urine 2644 920 130 Uretheral ([place]) 2100 Other: Voiding Method Indwelling Catheter Indwelling Catheter Indwelling Catheter # Bowel Movements 1 1 - Exam Physical Exam: Revealed a 65-year-old white male, in no distress. Head: Atraumatic,normocephalic. HEENT:[Neck is supple.] [No neck masses.] [No thyromegaly.] [No JVD.] Chest: [Symmetrical chest expansion, diminished breath sounds at the bases, no c rackles or rhonchi or wheezes. Cardiac Exam: Regular rate and rhythm. [Normal S1 and S2, no S3 gallop, no murmur.] Abdomen: [Soft, slightly tender left lower quadrant., no megaly, no rebound, no guarding, normal bowel sounds.] Extremities: [No clubbing, no edema, no cyanosis.] Good pulses bilaterally Neurological Exam: [No focal neurologic deficit.] Alert and oriented 3. Psychiatric: Normal mood, affect and normal mental status examination. Skin: No rashes. - Labs CBC & Chem 7: 04/11/20 07:47 04/11/20 07:47 Labs: Abnormal Lab Results - Last 24 Hours (Table) 04/09/20 04/10/20 04/11/20 Range/Units 14:22 23:00 01:11 RBC 1.95 L (4.30-5.90) m/uL Hgb 6.2 L* (13.0-17.5) gm/dL Hct 18.1 L* (39.0-53.0) % Plt Count 40 L (150-450) k/uL Lymphocytes # 0.8 L (1.0-4.8) k/uL PT (9.0-12.0) sec INR (<1.2) Chloride (98-107) mmol/L Carbon Dioxide (22-30) mmol/L BUN (9-20) mg/dL Creatinine (0.66-1.25) mg/dL Glucose (74-99) mg/dL POC Glucose (mg/dL) 162 H (75-99) mg/dL Calcium (8.4-10.2) mg/dL Total Protein (6.3-8.2) g/dL Albumin (3.5-5.0) g/dL Crossmatch See Detail 04/11/20 04/11/20 04/11/20 Range/Units 07:47 07:47 07:47 RBC 2.61 L (4.30-5.90) m/uL Hgb 8.0 L D (13.0-17.5) gm/dL Hct 24.0 L (39.0-53.0) % Plt Count 43 L (150-450) k/uL Lymphocytes # 0.9 L (1.0-4.8) k/uL PT 33.8 H (9.0-12.0) sec INR 3.5 H (<1.2) Chloride 117 H (98-107) mmol/L Carbon Dioxide 20 L (22-30) mmol/L BUN 40 H (9-20) mg/dL Creatinine 1.73 H (0.66-1.25) mg/dL Glucose 175 H (74-99) mg/dL POC Glucose (mg/dL) (75-99) mg/dL Calcium 6.0 L* (8.4-10.2) mg/dL Total Protein 3.3 L (6.3-8.2) g/dL Albumin 1.5 L (3.5-5.0) g/dL Crossmatch Assessment and Plan Assessment: Impression: Acute upper GI bleeding secondary to esophageal tear, exacerbated by the fact that the patient is on Coumadin with supratherapeutic dose, and taking Motrin in addition to Coumadin. Coumadin related coagulopathy. History of pulmonary embolism, maintained on Coumadin. Used to be on Xarelto in the past, discontinued because of the cost. Acute kidney injury likely secondary to acute tubular necrosis. Hyperkalemia secondary to acute kidney injury. Resolved. Hypovolemic and hemorrhagic shock. History of chronic obstructive pulmonary disease, presently inactive. History of celiac sprue and irritable bowel syndrome with chronic abdominal pain. Acute metabolic acidosis secondary to hypoperfusion, hypovolemia, and hemorrhagic shock. And secondary to acute kidney injury. Recommendation: Continue present supportive care measures, Maintain hemoglobin above 7, transfuse accordingly. Address the issue of his Coumadin coagulopathy. May have to consider IVC filter placement if the patient cannot be placed on anticoagulation therapy again. Or if there is absent contraindication to anticoagulation. Agree with transfer to tertiary care center after discussing the case with the wire lather. Continue Protonix. Continue hemodynamic support/norepinephrine for now. And transfuse accordingly. Keep hemoglobin above 8. Continue to hold any anticoagulation therapy for now.. Based on the GI recommendation, and based on the GI findings, patient may require IVC filter placement if there is absent contraindication to anticoagulations therapy on this patient Continue bronchodilators that he usually takes at home. We'll continue to follow while inpatient until transfer is made to a tertiary care center. Patient is critically ill. Critical care time is over 30 minutes Time with Patient: Greater than 30
[2020-04-11 14:53] LABS: HCT 19.9 % (39.0-53.0); HGB 6.9 gm/dL (13.0-17.5)
[2020-04-11 14:54] LABS: Platelet Count 77 k/uL (150-450)
--- NOTE | 2020-04-11 14:55 | P.PN ---
Subjective Progress Note Date: 04/11/20 Follow-up for acute kidney injury. EGD consistent with esophageal tear. Objective - Vital Signs Vital signs: Vital Signs Temp 98.5 F 04/11/20 12:45 Pulse 88 04/11/20 13:00 Resp 23 04/11/20 13:00 BP 126/67 04/11/20 13:00 Pulse Ox 88 L 04/11/20 13:00 Intake & Output 04/10/20 04/11/20 04/11/20 18:59 06:59 18:59 Intake Total 3994.996 3637.548 971.236 Output Total 2644 920 130 Balance 7520.768 3194.548 841.236 Weight 82.5 kg Intake: IV 1300 1275 225 Octreotide 500 mcg In 75 25 Sodium Chloride 0.9% 250 ml @ 50 MCG/HR 25 mls/hr IV .Q10H [facility] Rx#: [id number] Sodium Chloride 0.9% 1, 1300 1200 100 000 ml @ 100 mls/hr IV . Q10H [facility] Rx#:[id number] Intake, IV Titration 1512.996 812.548 354.236 Amount Norepinephrine 4 mg In 512.996 566.298 354.236 Sodium Chloride 0.9% 250 ml @ 0.05 MCG/KG/MIN 13. 826 mls/hr IV .[id number] [facility] Rx#:[id number] Octreotide 500 mcg In 246.25 Sodium Chloride 0.9% 250 ml @ 50 MCG/HR 25 mls/hr IV .Q10H [facility] Rx#: [id number] Sodium Chloride 0.9% 1, 1000 000 ml @ 999 mls/hr IV . Q1H1M [facility] Rx#:[id number] Blood Product 1182 1550 392 Ffp 24 Cpd Unit 289 [id number] Ffp 24 Cpd Unit 283 [id number] Ffp 24 Cpd Unit 300 [id number] Platelet Pheresis Acd-A 392 Pasc 1 Unit [id number] Rc As-1 Unit 310 [id number] Rc As-1 Unit 310 [id number] Rc As-1 Unit 0 310 [id number] Rc As-1 Unit 310 [id number] Rc Pheresis 2 As3 Unit 310 [id number] Output: Urine 2644 920 130 Uretheral ([place]) 2100 Other: Voiding Method Indwelling Catheter Indwelling Catheter Indwelling Catheter # Bowel Movements 1 1 - Exam Exam limited secondary to covid-19 pandemic and to limit PPE - Labs CBC & Chem 7: 04/11/20 07:47 04/11/20 07:47 Labs: Abnormal Lab Results - Last 24 Hours (Table) 04/09/20 04/10/20 04/11/20 Range/Units 14:22 23:00 01:11 RBC 1.95 L (4.30-5.90) m/uL Hgb 6.2 L* (13.0-17.5) gm/dL Hct 18.1 L* (39.0-53.0) % Plt Count 40 L (150-450) k/uL Lymphocytes # 0.8 L (1.0-4.8) k/uL PT (9.0-12.0) sec INR (<1.2) Chloride (98-107) mmol/L Carbon Dioxide (22-30) mmol/L BUN (9-20) mg/dL Creatinine (0.66-1.25) mg/dL Glucose (74-99) mg/dL POC Glucose (mg/dL) 162 H (75-99) mg/dL Calcium (8.4-10.2) mg/dL Total Protein (6.3-8.2) g/dL Albumin (3.5-5.0) g/dL Crossmatch See Detail 04/11/20 04/11/20 04/11/20 Range/Units 07:47 07:47 07:47 RBC 2.61 L (4.30-5.90) m/uL Hgb 8.0 L D (13.0-17.5) gm/dL Hct 24.0 L (39.0-53.0) % Plt Count 43 L (150-450) k/uL Lymphocytes # 0.9 L (1.0-4.8) k/uL PT 33.8 H (9.0-12.0) sec INR 3.5 H (<1.2) Chloride 117 H (98-107) mmol/L Carbon Dioxide 20 L (22-30) mmol/L BUN 40 H (9-20) mg/dL Creatinine 1.73 H (0.66-1.25) mg/dL Glucose 175 H (74-99) mg/dL POC Glucose (mg/dL) (75-99) mg/dL Calcium 6.0 L* (8.4-10.2) mg/dL Total Protein 3.3 L (6.3-8.2) g/dL Albumin 1.5 L (3.5-5.0) g/dL Crossmatch Assessment and Plan Assessment: #1 acute kidney injury suspect hemodynamic ATN with GI bleed. #2 lactic acidosis suspect hypotension. #3 hyperkalemia suspect secondary to acute kidney injury/GI absorption of the blood. #4 GI bleed #5 hypovolemic shock on levo fed #6: Colopathy secondary to warfarin Plan: 1 renal function improving, potassium better. #2 monitor strict I's and O's #3 ICU care
[2020-04-11 15:16] VITALS: PULSE 80
[2020-04-11 15:40] VITALS: BP 92/52; RESP 16; TEMP 98.1
== END 2020-04-11 15:30 | disposition short-term general hospital (02) | DRG 368 ==
LOC: EC 14:09 → 3SCARD 15:16 → 2SICU 19:08
PROVIDERS: ADMIT Internal Medicine; ATTEND Internal Medicine
DX: K22.3 Perforation of esophagus (principal); N17.0 Acute kidney failure with tubular necrosis; R57.1 Hypovolemic shock; R57.8 Other shock; D68.32 Hemorrhagic disorder due to extrinsic circulating anticoagulants; E87.2 Acidosis; D62 Acute posthemorrhagic anemia; D69.6 Thrombocytopenia, unspecified; Z20.828 Contact with and (suspected) exposure to other viral communicable diseases; D72.819 Decreased white blood cell count, unspecified; E86.1 Hypovolemia; E87.5 Hyperkalemia; F17.210 Nicotine dependence, cigarettes, uncomplicated; F32.9 Major depressive disorder, single episode, unspecified; F41.9 Anxiety disorder, unspecified; G89.29 Other chronic pain; Z86.711 Personal history of pulmonary embolism; Z79.01 Long term (current) use of anticoagulants; J44.9 Chronic obstructive pulmonary disease, unspecified; K64.4 Residual hemorrhoidal skin tags; K90.0 Celiac disease; T45.515A Adverse effect of anticoagulants, initial encounter; W19.XXXA Unspecified fall, initial encounter; Z79.899 Other long term (current) drug therapy; Z79.1 Long term (current) use of non-steroidal anti-inflammatories (NSAID); Z90.49 Acquired absence of other specified parts of digestive tract; R94.5 Abnormal results of liver function studies; M19.90 Unspecified osteoarthritis, unspecified site; K58.9 Irritable bowel syndrome, unspecified
CPT/HCPCS: 36415; 36430; 43243; 43255; 51702; 70450; 71045; 72125; 72170; 80053; 82140; 82272; 82533; 83605; 84132; 85025; 85027; 85610; 85730; 86850; 86900; 86901; 86920; 87635; 93005; 93306; 94640; 96361; 96374; 96375; 99285

== ENCOUNTER → 2020-11-03 | Outpatient (CLI) | payer MEDICARE ==
[2020-11-03 18:47] LABS: HCT 34.5 % (39.6-50.0); HGB 11.7 g/dL (13.0-17.0); MCH 35.2 pg (27.0-32.0); MCHC 33.9 g/dL (32.0-37.0); MCV 103.9 fL (80.0-97.0); Mean Platelet Volume 10.8 fL (9.5-12.2); Platelet Count 139 X 10*3/uL (140-440); RBC 3.32 X 10*6/uL (4.40-5.60); RDW 13.2 % (11.5-14.5); WBC 3.56 X 10*3/uL (4.50-10.00)
[2020-11-03 19:35] LABS: Basophils # (A) 0.03 X 10*3/uL (0.00-0.10); Basophils % (A) 0.8 %; Eosinophils # (A) 0.12 X 10*3/uL (0.04-0.35); Eosinophils % (A) 3.4 %; Lymphocytes # (A) 1.26 X 10*3/uL (0.90-5.00); Lymphocytes % (A) 35.4 %; Monocytes # (A) 0.36 X 10*3/uL (0.20-1.00); Monocytes % (A) 10.1 %; Neutrophils # (A) 1.78 X 10*3/uL (1.80-7.70)
[2020-11-04 01:18] LABS: Albumin 3.9 g/dL (3.80-4.90); Albumin/Globulin Ratio 1.5 (1.60-3.17); Bilirubin, Conjugated 0.2 mg/dL (0.20-0.40); Bilirubin,Unconjugated 0.3 mg/dL; Globulin 2.6 g/dL (1.6-3.3); Total Bilirubin 0.5 mg/dL (0.3-1.2); Total Protein 6.5 g/dL (6.2-8.2)
[2020-11-04 02:59] LABS: Hepatitis A Antibody IgM Non-Reactive (Non-Reactive); Hepatitis B Core IgM Non-Reactive (Non-Reactive); Hepatitis B Surface Antigen Non-Reactive (Non-Reactive); Hepatitis C IgG Antibody Non-Reactive (Non-Reactive)
== END | disposition home or self-care (01) ==
LOC: LABWHC1 14:10
PROVIDERS: ATTEND Family Medicine
DX: I10 Essential (primary) hypertension (principal); R97.8 Other abnormal tumor markers
CPT/HCPCS: 36415; 80074; 80076; 85025

== ENCOUNTER → 2020-11-26 | Outpatient (CLI) | payer MEDICARE ==
--- NOTE | 2020-11-28 12:17 | CT ---
EXAMINATION TYPE: CT lumbar spine wo con DATE OF EXAM: 11/26/2020 COMPARISON: None HISTORY: chronic low back pain CT DLP: 646.6 mGycm CONTRAST: None TECHNIQUE: CT of the lumbar spine is performed on a spiral scan at 3 mm thick sections. Reconstructed images are performed in the coronal and sagittal planes. FINDINGS: T12-L1: No focal disc herniation or significant disc bulge is evident. No spinal canal stenosis or neural foraminal stenosis is present. L1-L2: Mild disc bulges anterior thecal sac contact. No AP spinal canal stenosis is present. Neural f oramen are patent. L2-L3: There is a suggestion of minimal retrolisthesis of L2 on L3. Loss of disc height is present at this level. Nodule Disc bulges anterior thecal sac contact. Severe left foraminal stenosis is presen t. A small amount of air may be present within the left foramen L3-L4: Broad-based disc bulge is present with anterior thecal sac flattening. No AP spinal canal sten osis is present. Severe bilateral foraminal stenosis is present. L4-L5: Based disc bulge is present with mild anterior thecal sac compression. No AP spinal canal sten osis is present. Mild facet degenerative changes is present. Severe bilateral foraminal stenosis is p resent L5-S1: Minimal disc bulge is present with anterior thecal sac contact. No spinal canal stenosis is pr esent. Facet degenerative changes are present. Moderate to severe bilateral foraminal narrowing is pr esent. IMPRESSION: Moderate to severe foraminal stenosis is present L2-3 through L5-S1 discussed above. Consider MRI for additional evaluation. 2. Multilevel degenerative disc changes with disc bulges. Greatest degenerative disc changes present at L2-3. 3. Minimal retrolisthesis of L2 on L3.
== END | disposition home or self-care (01) ==
LOC: RADCTMAIN 18:11
PROVIDERS: ATTEND Family Medicine
DX: M51.27 Other intervertebral disc displacement, lumbosacral region (principal); M51.36 Other intervertebral disc degeneration, lumbar region; M99.73 Connective tissue and disc stenosis of intervertebral foramina of lumbar region; M43.16 Spondylolisthesis, lumbar region
CPT/HCPCS: 72131

== ENCOUNTER → 2020-12-20 | Outpatient (CLI) | payer MEDICARE ==
[2020-12-20 21:36] LABS: Hepatitis A Antibody IgM Non-Reactive (Non-Reactive); Hepatitis B Core IgM Non-Reactive (Non-Reactive); Hepatitis B Surface Antigen Non-Reactive (Non-Reactive); Hepatitis C IgG Antibody Non-Reactive (Non-Reactive)
== END | disposition home or self-care (01) ==
LOC: LABWHC1 12:27
PROVIDERS: ATTEND Family Medicine
DX: B89 Unspecified parasitic disease (principal)
CPT/HCPCS: 36415; 80074; 87522

== ENCOUNTER → 2021-04-12 | Outpatient (CLI) | payer MEDICARE ==
--- NOTE | 2021-04-13 04:43 | MR ---
EXAMINATION TYPE: MR lumbar spine wo con DATE OF EXAM: 04/12/2021 COMPARISON: None HISTORY: Low back pain into lower extremities Multiplanar multiecho imaging of the lumbar spine without contrast. Lumbar vertebra have normal alignment. There is degenerative disc space narrowing in the lumbar spine mainly at L2-3. There is no compression fracture. I see no focal bone destruction. There is small po sterior disc bulging from L1 to L5. There is no significant lumbar spinal stenosis. There is no lumba r paraspinal mass. Sacroiliac joints are intact. There is a small focal sequestered disc herniation i n the neural foramen of L2-3 on the left side measuring 6 mm. IMPRESSION: Spondylotic changes. Small sequestered disc herniation in the left side L2-3 neural foramen. No fract ure. No significant spinal stenosis. Multilevel posterior disc bulging.
== END | disposition home or self-care (01) ==
LOC: RADMRIMAIN 12:51
PROVIDERS: ATTEND Orthopaedic Surgery
DX: M51.26 Other intervertebral disc displacement, lumbar region (principal)
CPT/HCPCS: 72148

== ENCOUNTER 2021-12-05 11:40 | Observation (INO) | payer MEDICARE ==
[2021-12-05] MEDS ORDERED: SODIUM CHLORIDE 0.9% 500 ML 500 ML IV STA (12:16)
[2021-12-05] MEDS ORDERED: ASPIRIN 81 MG PO STA (12:16)
[2021-12-05] MEDS ORDERED: NITROGLYCERIN SL TABS 0.4 MG TAB SUBLINGUAL STA (12:16)
[2021-12-05] MEDS ORDERED: PANTOPRAZOLE 40 MG/10 ML VIAL IVP STA (12:17)
--- NOTE | 2021-12-05 12:22 | ED ---
General Adult HPI - General Chief complaint: Chest Pain Stated complaint: Chest Pain Time Seen by Provider: 12/05/21 11:55 Source: patient, family (sister), RN notes reviewed, old records reviewed Mode of arrival: wheelchair Limitations: no limitations - History of Present Illness Initial comments: 66-year-old male patient, alert and oriented 4, presents to the emergency room with midsternal chest pain for one week. Patient states chest pain presented while at rest. He states it feels like a pressure and is constant. He denies any nausea, vomiting, diarrhea or fevers. He does have a cough however states he does have COPD. He was given Trelegy by his primary care doctor but has been out of this for over a month. He states he drinks 2-3 beers a day and smokes one and a half pack of cigarettes a day. He does have a history of COPD, chroni c back pain, PE, gastrointestinal bleeding and IBS. States he has been off all anticoagulants and blood thinners since GI bleeding -: week(s) (1) Location: chest (Mid sternal) Severity scale (1-10): 10 Quality: constant, other (Pressure) Consistency: constant Improves with: none Worsens with: none Associated Symptoms: chest pain, cough, loss of appetite, shortness of breath Treatments Prior to Arrival: none - Related Data Home Medications Medication Instructions Recorded Confirmed Albuterol Sulfate [Ventolin HFA] 2 puff INHALATION RT-Q6H PRN 04/09/20 12/05/21 Primidone [Mysoline] 250 - 500 mg PO Q8H 04/09/20 12/05/21 Tamsulosin HCl [Flomax] 0.8 mg PO DAILY 04/09/20 12/05/21 ALPRAZolam [Xanax] 1 mg PO HS 12/05/21 12/05/21 Fexofenadine HCl [Jailyn Allergy] 180 mg PO DAILY 12/05/21 12/05/21 HYDROcodone/APAP 10-325MG [Taylor 1 tab PO BID 12/05/21 12/05/21 10-325] Indomethacin [Indocin] 50 mg PO TID 12/05/21 12/05/21 Montelukast [Singulair] 10 mg PO HS 12/05/21 12/05/21 Potassium Chloride [Klor-Con 10 ER] 10 meq PO DAILY 12/05/21 12/05/21 allopurinoL 300 mg PO DAILY 12/05/21 12/05/21 diphenhydrAMINE HCL [Benadryl] 25 mg PO QID PRN 12/05/21 12/05/21 Allergies Allergy/AdvReac Type Severity Reaction Status Date / Time No Known Allergies Allergy Verified 12/05/21 13:55 Review of Systems ROS Statement: Those systems with pertinent positive or pertinent negative responses have been documented in the HPI. ROS Other: All systems not noted in ROS Statement are negative. Past Medical History Past Medical History: Asthma, COPD, GI Bleed, Osteoarthritis (OA) Additional Past Medical History / Comment(s): celiac disease, IBS, colitis, central tremors, hepatitis at 12 History of Any Multi-Drug Resistant Organisms: None Reported Past Surgical History: Appendectomy, Cholecystectomy, Heart Catheterization Past Anesthesia/Blood Transfusion Reactions: No Reported Reaction Past Psychological History: Anxiety, Depression Smoking Status: Current every day smoker Past Alcohol Use History: Daily Past Drug Use History: Marijuana General Exam Limitations: no limitations General appearance: alert, in no apparent distress Head exam: Present: atraumatic Eye exam: Present: EOMI ENT exam: Present: mucous membranes moist Neck exam: Absent: tenderness, meningismus Respiratory exam: Present: wheezes, decreased breath sounds. Absent: respiratory distress, accessory muscle use Cardiovascular Exam: Present: regular rate, normal rhythm GI/Abdominal exam: Present: soft. Absent: distended, tenderness Extremities exam: Present: normal capillary refill, pedal edema Back exam: Absent: tenderness, CVA tenderness (R), CVA tenderness (L) Neurological exam: Present: alert, oriented X3, normal gait (with walker) Psychiatric exam: Present: normal affect, normal mood Skin exam: Present: warm, dry, other (Bilateral lower extremity purpura). Absent: cyanosis, diaphoretic Course Vital Signs 12/05/21 12/05/21 12/05/21 11:42 11:52 14:32 Temperature 98.2 F Pulse Rate 83 66 Pulse Rate [ 83 Manufacturing Tech ] Respiratory 20 Rate Blood Pressure 118/80 O2 Sat by Pulse 95 Oximetry 12/05/21 14:45 Temperature Pulse Rate 68 Pulse Rate [ Manufacturing Tech ] Respiratory Rate Blood Pressure O2 Sat by Pulse Oximetry EKG Findings - EKG Results: EKG: sinus rhythm (Ventricular rate 79, MA interval 0.180, QRS 0.92, QTC 0.403; right axis deviation ) Medical Decision Making - Medical Decision Making Patient presents with chest pain worsening over the past week with SOB. He does have history of asthma, COPD, and pulmonary embolism. He is a daily smoker and daily drinker. He does not take any blood thinners. He does have history of GI bleed when he was taking Coumadin and Xarelto. Chest x-ray shows heart above normal in size. Suggestion of some hilar/suprahilar opacity with no other consolidation or pleural effusion seen. Underlying pneumonia versus abnormal lymphadenopathy. There is no evidence of leukocytosis. Hemoglobin and hematocrit are stable. BUN and creatinine elevated however consistent with previous labs. Troponin is negative at 0.012, EKG shows sinus rhythm with no acute changes. BNP 3520. Patient was given IV Lasix in the ER. Patient states that Dr. Langford did increase his Lasix dose 2 weeks ago, however he continues to have shortness of breath and leg swelling. Lungs sounds are diminished in the bases. Case discussed with Dr. Owen. He does have a moderate heart score. He will be admitted to the hospital for cardiac evaluation and trending troponin. I did speak with Dr. Langford who recommended admission with cardiac consult and CT of the chest due to changes on chest x-ray. Patient was notified of the results and is agreeable to this plan of care. Sister at bedside. Vital signs are stable. - Lab Data Result diagrams: 12/05/21 12:37 12/05/21 12:37 Lab Results 12/05/21 12/05/21 12/05/21 Range/Units 12:37 12:37 12:37 WBC 5.1 (3.8-10.6) k/uL RBC 3.62 L (4.30-5.90) m/uL Hgb 12.3 L (13.0-17.5) gm/dL Hct 38.4 L (39.0-53.0) % MCV 106.2 H (80.0-100.0) fL MCH 33.8 (25.0-35.0) pg MCHC 31.9 (31.0-37.0) g/dL RDW 16.0 H (11.5-15.5) % Plt Count 100 L (150-450) k/uL MPV 11.0 Neutrophils % 69 % Lymphocytes % 15 % Monocytes % 10 % Eosinophils % 4 % Basophils % 1 % Neutrophils # 3.5 (1.3-7.7) k/uL Lymphocytes # 0.8 L (1.0-4.8) k/uL Monocytes # 0.5 (0-1.0) k/uL Eosinophils # 0.2 (0-0.7) k/uL Basophils # 0.0 (0-0.2) k/uL Hypochromasia Slight Anisocytosis Slight Macrocytosis Moderate PT 10.9 (9.0-12.0) sec INR 1.0 (<1.2) APTT 24.4 (22.0-30.0) sec Sodium 133 L (137-145) mmol/L Potassium 5.0 (3.5-5.1) mmol/L Chloride 103 (98-107) mmol/L Carbon Dioxide 23 (22-30) mmol/L Anion Gap 7 mmol/L BUN 38 H (9-20) mg/dL Creatinine 1.26 H (0.66-1.25) mg/dL Est GFR (CKD-EPI)AfAm 69 (>60 ml/min/1.73 sqM) Est GFR (CKD-EPI)NonAf 59 (>60 ml/min/1.73 sqM) Glucose 100 H (74-99) mg/dL Calcium 8.7 (8.4-10.2) mg/dL Magnesium 1.9 (1.6-2.3) mg/dL Total Bilirubin 0.6 (0.2-1.3) mg/dL AST 51 (17-59) U/L ALT 34 (4-49) U/L Alkaline Phosphatase 143 H (38-126) U/L Troponin I (0.000-0.034) ng/mL NT-Pro-B Natriuret Pep pg/mL Total Protein 7.3 (6.3-8.2) g/dL Albumin 3.9 (3.5-5.0) g/dL Serum Alcohol <10 mg/dL 12/05/21 12/05/21 Range/Units 12:37 12:37 WBC (3.8-10.6) k/uL RBC (4.30-5.90) m/uL Hgb (13.0-17.5) gm/dL Hct (39.0-53.0) % MCV (80.0-100.0) fL MCH (25.0-35.0) pg MCHC (31.0-37.0) g/dL RDW (11.5-15.5) % Plt Count (150-450) k/uL MPV Neutrophils % % Lymphocytes % % Monocytes % % Eosinophils % % Basophils % % Neutrophils # (1.3-7.7) k/uL Lymphocytes # (1.0-4.8) k/uL Monocytes # (0-1.0) k/uL Eosinophils # (0-0.7) k/uL Basophils # (0-0.2) k/uL Hypochromasia Anisocytosis Macrocytosis PT (9.0-12.0) sec INR (<1.2) APTT (22.0-30.0) sec Sodium (137-145) mmol/L Potassium (3.5-5.1) mmol/L Chloride (98-107) mmol/L Carbon Dioxide (22-30) mmol/L Anion Gap mmol/L BUN (9-20) mg/dL Creatinine (0.66-1.25) mg/dL Est GFR (CKD-EPI)AfAm (>60 ml/min/1.73 sqM) Est GFR (CKD-EPI)NonAf (>60 ml/min/1.73 sqM) Glucose (74-99) mg/dL Calcium (8.4-10.2) mg/dL Magnesium (1.6-2.3) mg/dL Total Bilirubin (0.2-1.3) mg/dL AST (17-59) U/L ALT (4-49) U/L Alkaline Phosphatase (38-126) U/L Troponin I <0.012 (0.000-0.034) ng/mL NT-Pro-B Natriuret Pep 3520 pg/mL Total Protein (6.3-8.2) g/dL Albumin (3.5-5.0) g/dL Serum Alcohol mg/dL Disposition Clinical Impression: CHF (congestive heart failure), Chest pain, COPD (chronic obstructive pulmonary disease), Generalized weakness Disposition: ADMITTED IP TO THIS [facility] Decision Date: 12/05/21 Decision Time: 14:26
[2021-12-05 12:59] LABS: Partial Thromboplastin Time 24.4 sec (22.0-30.0); Prothrombin Time 10.9 sec (9.0-12.0)
[2021-12-05 13:04] LABS: ALT 34 U/L (4-49); AST 51 U/L (17-59); African American GFR (CKD) 69 (>60 ml/min/1.73 sqM); Albumin 3.9 g/dL (3.5-5.0); Alcohol <10 mg/dL; Alkaline Phosphatase 143 U/L (38-126); Anion Gap 7 mmol/L; Blood Urea Nitrogen 38 mg/dL (9-20); Calcium 8.7 mg/dL (8.4-10.2); Carbon Dioxide 23 mmol/L (22-30); Chloride 103 mmol/L (98-107); Glucose 100 mg/dL (74-99); Magnesium 1.9 mg/dL (1.6-2.3); Non-African American GFR(CKD) 59 (>60 ml/min/1.73 sqM); Sodium 133 mmol/L (137-145); Total Bilirubin 0.6 mg/dL (0.2-1.3); Total Protein 7.3 g/dL (6.3-8.2)
--- NOTE | 2021-12-05 13:07 | XR ---
EXAMINATION TYPE: XR chest 2V DATE OF EXAM: 12/05/2021 COMPARISON: 04/09/2020 HISTORY: 66-year-old male with chest pain and cough TECHNIQUE: AP and lateral views FINDINGS: Heart upper limits of normal in size. There is suggestion of some or hilar/suprahilar opacity. No oth er consolidation or pleural effusion seen. IMPRESSION: Questionable hilar/suprahilar opacities. Underlying pneumonia or abnormal lymphadenopathy is difficul t to exclude.
[2021-12-05 13:09] LABS: Anisocytosis Slight; Basophils % (A) 1 %; Eosinophils # (A) 0.2 k/uL (0-0.7); Eosinophils % (A) 4 %; HCT 38.4 % (39.0-53.0); HGB 12.3 gm/dL (13.0-17.5); Hypochromasia Slight; Lymphocytes # (A) 0.8 k/uL (1.0-4.8); Lymphocytes % (A) 15 %; MCH 33.8 pg (25.0-35.0); MCHC 31.9 g/dL (31.0-37.0); MCV 106.2 fL (80.0-100.0); Macrocytosis Moderate; Monocytes # (A) 0.5 k/uL (0-1.0); Monocytes % (A) 10 %; Neutrophils # (A) 3.5 k/uL (1.3-7.7); Neutrophils % (A) 69 %; Platelet Count 100 k/uL (150-450); RBC 3.62 m/uL (4.30-5.90); WBC 5.1 k/uL (3.8-10.6)
[2021-12-05] MEDS ORDERED: FUROSEMIDE 10 MG/ML 4 ML VIAL IV STA (13:50)
[2021-12-05] MEDS ORDERED: IPRATROPIUM-ALBUTEROL 3 ML NEB INHALATION STA (13:53)
[2021-12-05] MEDS ORDERED: NALOXONE 0.4 MG/ML 1 ML VIAL IV PRN (14:36)
[2021-12-05] MEDS ORDERED: ACETAMINOPHEN TAB 325 MG TAB PO PRN (14:36)
--- NOTE | 2021-12-05 15:38 | CT ---
EXAMINATION TYPE: CT angio chest DATE OF EXAM: 12/05/2021 COMPARISON: Radiograph same day HISTORY: 66-year-old male Chest pain. SOB, hx PE TECHNIQUE: Contiguous axial scanning of the chest performed with IV Contrast, patient injected with 1 00 mL of Isovue 370. Coronal/sagittal MIP reconstructions performed. CT DLP: 338.6 mGycm Automated exposure control for dose reduction was used. FINDINGS: Heart normal size with small anterior pericardial effusion measuring 6 mm thick. No flattening of the interventricular septum though there is asymmetric enlargement of the right side of the heart. LAD c oronary artery calcifications. Moderate aortic valvular calcifications. Conventional vessel branching anatomy. Satisfactory opacification of the pulmonary to systemic. Large caliber to the main left pulmonary art angie at 3.1 cm. There is fairly heavy mural based soft tissue along the right main pulmonary artery wi th some extension into the lobar branches. Essential occlusion of the right lower lobar and subsequen t branches. Some extension into the right upper lobar branch. Mural based soft tissue density left lower lobar and segmental branch point levels, refer to axial im ages 65 through 67. Some web is noted as well, axial image 69. Mildly enlarged precarinal lymph node measuring up to 1.6 cm. COPD with mild emphysema. Scattered pleural parenchymal scarring. There is multifocal patchy groundglass change in the right lower lobe. Some possible small areas of c avitation also noted. Trace right pleural effusion. Mild generalized anasarca change. Visualized upper abdomen shows cholecystectomy clips. Bones: Normal variant sternal fragment. No osseous destructive process. IMPRESSION: 1. FAIRLY HEAVY MURAL BASED SOFT TISSUE INVOLVING THE RIGHT MAIN PULMONARY ARTERY. THE LUMEN IS NARRO WED BUT REMAINS PATENT. SOFT TISSUE EXTENDS INTO RIGHT-SIDED LOBAR ARTERIAL BRANCHES, OCCLUDING THE R IGHT LOWER LOBAR BRANCH. FINDINGS FAVORED TO REPRESENT CHRONIC PE RATHER THAN MURAL BASED NEOPLASM OLIVEIRA CH ANGIOSARCOMA. SHORT INTERVAL FOLLOW-UP IS RECOMMENDED AFTER INITIATION OF TREATMENT. 2. SMALLER, CHRONIC PULMONARY EMBOLI LEFT LOWER LOBAR BRANCH CHARACTERIZE BY MURAL BASED CLOT AND GORDO E WEB FORMATION. 3. ELEVATED RIGHT HEART PRESSURES WITH PULMONARY ARTERIAL HYPERTENSION. NO FLATTENING OF THE INTERVEN TRICULAR SEPTUM TO SUGGEST ALYCIA RIGHT HEART STRAIN. 4. MULTIFOCAL PATCHY GROUNDGLASS CHANGES IN THE RIGHT LOWER LOBE WITH POSSIBLE SMALL AREAS OF CAVITAT ION. CONSIDER PATCHY PNEUMONIA AND CORRELATE TO EXCLUDE SEPTIC EMBOLI. TRACE RIGHT EFFUSION. 5. COPD WITH MILD EMPHYSEMA. MILD ANASARCA CHANGE.
[2021-12-05] MEDS: INDOMETHACIN 25 MG CAP PO SCH ×2 (16:00→21:03)
[2021-12-05] MEDS: HEPARIN SODIUM,PORCINE/PF 5,000 UNIT/0.5 ML SYRINGE SQ SCH ×2 (17:46→21:08)
[2021-12-05] MEDS: ALBUTEROL NEBULIZED 2.5 MG/3 ML INHALATION PRN (19:24)
[2021-12-05] MEDS: ALPRAZolam 1 MG TAB PO SCH (21:03)
[2021-12-05] MEDS: MONTELUKAST 10 MG TAB PO SCH (21:03)
[2021-12-05] MEDS: HYDROcodone/APAP 10-325MG 1 EACH TAB PO SCH (21:06)
--- NOTE | 2021-12-05 21:31 | US ---
EXAMINATION TYPE: US venous doppler duplex LE DATE OF EXAM: 12/05/2021 9:04 PM COMPARISON: NONE CLINICAL HISTORY: dvt. Bilateral leg swelling Exam done portable SIDE PERFORMED: Bilateral TECHNIQUE: The lower extremity deep venous system is examined utilizing real time linear array sonog karlo with graded compression, doppler sonography and color-flow sonography. VESSELS IMAGED: Common Femoral Vein Deep Femoral Vein Greater Saphenous Vein * Femoral Vein Popliteal Vein Small Saphenous Vein * Proximal Calf Veins (* superficial vessels) 1. Right Leg: Positive for DVT external iliac vein and common femoral vein with partial compression of vein. Left Leg: Positive for DVT popliteal vein with no flow and unable to compress vein Thrombus seen and unable to compress left superficial greater saphenous vein. Streaky edema seen in the bilateral lower extremities. IMPRESSION: 1. Positive bilateral deep vein thrombosis in the left popliteal vein and the right external iliac v ein 2. Streaky bilateral subcutaneous edema.
[2021-12-06] MEDS ORDERED: HEPARIN SODIUM 1,000 UN/ML (10ML VL) IV ONE (00:40)
[2021-12-06] MEDS ORDERED: HEPARIN SODIUM 1,000 UN/ML (10ML VL) IV PRN (00:40)
[2021-12-06 01:03] LABS: Anisocytosis Slight; Basophils % (A) 1 %; Eosinophils # (A) 0.2 k/uL (0-0.7); Eosinophils % (A) 5 %; HCT 35.5 % (39.0-53.0); HGB 11.1 gm/dL (13.0-17.5); Hypochromasia Slight; Lymphocytes # (A) 0.7 k/uL (1.0-4.8); Lymphocytes % (A) 18 %; MCHC 31.3 g/dL (31.0-37.0); MCV 105.4 fL (80.0-100.0); Macrocytosis Moderate; Mean Platelet Volume 10.5; Monocytes # (A) 0.3 k/uL (0-1.0); Monocytes % (A) 9 %; Neutrophils # (A) 2.6 k/uL (1.3-7.7); Neutrophils % (A) 66 %; Platelet Count 100 k/uL (150-450); RBC 3.37 m/uL (4.30-5.90); RDW 16.1 % (11.5-15.5)
[2021-12-06 01:42] LABS: Partial Thromboplastin Time 25.3 sec (22.0-30.0); Prothrombin Time 11.2 sec (9.0-12.0)
[2021-12-06] MEDS: HEPARIN SOD,PORK IN 0.45% NACL 25,000 UNIT in 0.45% NACL 1 250ML.BAG IV SCH ×2 (01:42→20:46)
[2021-12-06] MEDS: POTASSIUM CHLORIDE ER 10 MEQ TAB.ER.PRT PO SCH (08:56)
[2021-12-06] MEDS: LORATADINE 10 MG TAB PO SCH (08:56)
[2021-12-06] MEDS: TAMSULOSIN 0.4 MG CAP.ER.24H PO SCH (08:56)
[2021-12-06] MEDS: INDOMETHACIN 25 MG CAP PO SCH ×3 (08:56→20:45)
[2021-12-06] MEDS: allopurinoL 300 MG TAB PO SCH (08:57)
[2021-12-06] MEDS: HYDROmorphone 1 MG/ML 1 ML SYRINGE IVP PRN ×2 (08:57→17:02)
--- NOTE | 2021-12-06 10:06 | P.CRDCN ---
History of Present Illness Consult date: 12/06/21 History of present illness: HISTORY OF PRESENT ILLNESS: This is a 66-year-old male with a past medical history significant for chronic back pain, COPD, GI bleeding, pulmonary embolism. Anxiety, depression, daily alcohol use, and nicotine dependence. Patient does not follow with a [employer]. We have been asked to see the patient in consultation for chest pain. Patient examined at the bedside. Patient presented to the hospital with a chief complaint of chest pain. He states the pain has been present for approximately one week. He denied any worsening shortness of breath. Denied nausea or vomiting. Denies dizziness or lightheadedness. * EKG reveals sinus mechanism with no signs of acute ischemia * Chest xray questionable hilar/suprahilar opacities. Underlying pneumonia or abnormal lymphadenopathy is difficult to exclude * Chest CT: Fairly have mural based soft tissue involving the right main pulmonary artery. The lumen is narrow but remains pain. Soft tissue extends into right-sided lobar arterial branches, occluding the right lower lobar branch. Findings favored to represent chronic PE rather than mural based neoplasm. Small or chronic pulmonary emboli left lower lobar branch. Elevated right heart pressures with pulmonary arterial hypertension. No flattening of the intraventricular septum to suggest perez right heart strain. Multifocal patchy groundglass changes in the right lower lobe with possible small areas of cavitation. Consider patchy pneumonia and correlate to exclude septic emboli. Trace right effusion. COPD with mild emphysema. Mild anasarca changes. * Lower extremity Doppler: Positive for DVT bilaterally * Laboratory data: WBC 4.0. Hemoglobin 11.1. Platelet count 100. Sodium 133. Potassium 5.0. BUN 38. Creatinine 1.26. Troponin negative 1 * Current home cardiac medications include none * Most recent echocardiogram obtained in March 2020 revealed ejection fraction 55-60% with severely enlarged right ventricle REVIEW OF SYSTEMS: At the time of my exam: CONSTITUTIONAL: Denies fever or chills. HEENT: Denies blurred vision, vision changes, or eye pain. Denies hemoptysis CARDIOVASCULAR: Denies chest pain. Denies orthopnea. Denies PND. Denies palpita tions RESPIRATORY: Denies shortness of breath. GASTROINTESTINAL: Denies abdominal pain. Denies nausea or vomiting. HEMATOLOGIC: Denies bleeding disorders. GENITOURINARY: Denies any blood in urine. SKIN: Denies pruitis. Denies rash. PHYSICAL EXAM: VITAL SIGNS: Reviewed. GENERAL: Well-developed in no acute distress. HEENT: Head is normocephalic. Pupils are equal, round. Sclerae anicteric. Mucous membranes of the mouth are moist. Neck supple. No JVD or thyromegaly LUNGS: Respirations even and unlabored. Lungs diminished to auscultation bilaterally. HEART: Regular rate and rhythm. S1 and S2 heard. ABDOMEN: Soft. Nondistended. Nontender. EXTREMITIES: Normal range of motion. No clubbing or cyanosis. Peripheral pulses intact. No lower extremity edema NEUROLOGIC: Awake and alert. Oriented x 3. ASSESSMENT: Chest pain, atypical, ACS ruled out History of pulmonary embolism Acute bilateral DVT History of GI bleeding History of Danny filter placement Chronic back pain COPD Anxiety Depression Daily alcohol use Nicotine dependence PLAN: Obtain 2D echo to assess cardiac structure and function Continue IV heparin. Defer transition to oral anticoagulation to pulmonary/primary medicine Further recommendations pending patient course Nurse practitioner note has been reviewed by physician. Signing provider agrees with the documented findings, assessment, and plan of care. Past Medical History Past Medical History: Asthma, COPD, GI Bleed, Osteoarthritis (OA) Additional Past Medical History / Comment(s): celiac disease, IBS, colitis, central tremors, hepatitis at 12 History of Any Multi-Drug Resistant Organisms: None Reported Past Surgical History: Appendectomy, Cholecystectomy, Heart Catheterization Past Anesthesia/Blood Transfusion Reactions: No Reported Reaction Past Psychological History: Anxiety, Depression Smoking Status: Current every day smoker Past Alcohol Use History: Daily Past Drug Use History: Marijuana Medications and Allergies Home Medications Medication Instructions Recorded Confirmed Type Albuterol Sulfate [Ventolin HFA] 2 puff INHALATION RT-Q6H PRN 04/09/20 12/05/21 History Primidone [Mysoline] 250 - 500 mg PO Q8H 04/09/20 12/05/21 History Tamsulosin HCl [Flomax] 0.8 mg PO DAILY 04/09/20 12/05/21 History ALPRAZolam [Xanax] 1 mg PO HS 12/05/21 12/05/21 History Fexofenadine HCl [Jailyn Allergy] 180 mg PO DAILY 12/05/21 12/05/21 History HYDROcodone/APAP 10-325MG [[place] 1 tab PO BID 12/05/21 12/05/21 History 10-325] Indomethacin [Indocin] 50 mg PO TID 12/05/21 12/05/21 History Montelukast [Singulair] 10 mg PO HS 12/05/21 12/05/21 History Potassium Chloride [Klor-Con 10 ER] 10 meq PO DAILY 12/05/21 12/05/21 History allopurinoL 300 mg PO DAILY 12/05/21 12/05/21 History diphenhydrAMINE HCL [Benadryl] 25 mg PO QID PRN 12/05/21 12/05/21 History Allergies Allergy/AdvReac Type Severity Reaction Status Date / Time No Known Allergies Allergy Verified 12/05/21 13:55 Physical Exam Vitals: Vital Signs Temp Pulse Pulse Pulse Resp BP BP 12/06/21 07:00 97.8 F 73 16 94/62 12/06/21 01:35 97.4 F L 69 15 96/68 12/05/21 20:00 18 12/05/21 19:37 83 12/05/21 19:24 87 12/05/21 19:21 97.6 F 85 17 101/68 12/05/21 16:00 97.9 F 79 18 143/91 12/05/21 14:45 68 12/05/21 14:32 66 12/05/21 11:52 83 12/05/21 11:42 98.2 F 83 20 118/80 Pulse Ox 12/06/21 07:00 92 L 12/06/21 01:35 92 L 12/05/21 20:00 12/05/21 19:37 12/05/21 19:24 12/05/21 19:21 94 L 12/05/21 16:00 97 12/05/21 14:45 12/05/21 14:32 12/05/21 11:52 12/05/21 11:42 95 Intake and Output 12/05/21 12/06/21 12/06/21 22:59 06:59 14:59 Intake Total 118 92.392 Balance 118 92.392 Intake: Intake, IV Titration 92.392 Amount Heparin Sod,Pork in 0.45% 92.392 NaCl 25,000 unit In 0.45 % NaCl 1 250ml.bag @ 18 UNITS/KG/HR 15.105 mls/hr IV .[id number] [facility] Rx#: [id number] Oral 118 Other: # Voids 0 1 Results 12/06/21 00:49 12/05/21 12:37 Cardiac Enzymes 12/05/21 12/05/21 Range/Units 12:37 12:37 AST 51 (17-59) U/L Troponin I <0.012 (0.000-0.034) ng/mL Coagulation 12/05/21 12/06/21 12/06/21 Range/Units 12:37 00:49 06:29 PT 10.9 11.2 (9.0-12.0) sec APTT 24.4 25.3 108.9 H* (22.0-30.0) sec CBC 12/05/21 12/06/21 Range/Units 12:37 00:49 WBC 5.1 4.0 (3.8-10.6) k/uL RBC 3.62 L 3.37 L (4.30-5.90) m/uL Hgb 12.3 L 11.1 L (13.0-17.5) gm/dL Hct 38.4 L 35.5 L (39.0-53.0) % Plt Count 100 L 100 L (150-450) k/uL Comprehensive Metabolic Panel 12/05/21 Range/Units 12:37 Sodium 133 L (137-145) mmol/L Potassium 5.0 (3.5-5.1) mmol/L Chloride 103 (98-107) mmol/L Carbon Dioxide 23 (22-30) mmol/L BUN 38 H (9-20) mg/dL Creatinine 1.26 H (0.66-1.25) mg/dL Glucose 100 H (74-99) mg/dL Calcium 8.7 (8.4-10.2) mg/dL AST 51 (17-59) U/L ALT 34 (4-49) U/L Alkaline Phosphatase 143 H (38-126) U/L Total Protein 7.3 (6.3-8.2) g/dL Albumin 3.9 (3.5-5.0) g/dL Current Medications Generic Name Dose Route Start Last Admin Trade Name Freq PRN Reason Stop Dose Admin Acetaminophen 650 mg 12/05/21 14:36 Acetaminophen Tab 325 Mg Tab PO Q6HR PRN Mild Pain or Fever > 100.5 Hydrocodone Bitart/Acetaminophen 1 each 12/05/21 21:00 12/05/21 21:06 Hydrocodone/Apap 10-325mg 1 Each Tab PO 1 each BID JILL Administration Albuterol Sulfate 2.5 mg 12/05/21 14:38 12/05/21 19:24 Albuterol Nebulized 2.5 Mg/3 Ml INHALATION 2.5 mg RT-Q6H PRN Administration Shortness Of Breath Allopurinol 300 mg 12/06/21 09:00 12/06/21 08:57 Allopurinol 300 Mg Tab PO 300 mg DAILY JILL Administration Alprazolam 1 mg 12/05/21 21:00 12/05/21 21:03 Alprazolam 1 Mg Tab PO 1 mg HS JILL Administration Heparin Sodium (Porcine) 0 unit 12/06/21 00:40 Heparin Sodium 1,000 Un/Ml (10ml Vl) IV PER PROTOCOL PRN Low PTT Protocol Hydromorphone HCl 1 mg 12/05/21 14:36 12/06/21 08:57 Hydromorphone 1 Mg/Ml 1 Ml Syringe IVP 1 mg Q3HR PRN Administration Severe Pain Heparin Sodium/Sodium Chloride 250 mls @ 15.105 mls/hr 12/06/21 00:45 12/06/21 09:01 25,000 unit/ Sodium Chloride IV 15 units/kg/hr .[id number] JILL 12.587 mls/hr Titration Protocol 18 UNITS/KG/HR Indomethacin 50 mg 12/05/21 16:00 12/06/21 08:56 Indomethacin 25 Mg Cap PO 50 mg TID JILL Administration Loratadine 10 mg 12/06/21 09:00 12/06/21 08:56 Loratadine 10 Mg Tab PO 10 mg DAILY JILL Administration Montelukast Sodium 10 mg 12/05/21 21:00 12/05/21 21:03 Montelukast 10 Mg Tab PO 10 mg HS JILL Administration Naloxone HCl 0.2 mg 12/05/21 14:36 Naloxone 0.4 Mg/Ml 1 Ml Vial IV Q2M PRN Opioid Reversal Potassium Chloride 10 meq 12/06/21 09:00 12/06/21 08:56 Potassium Chloride Er 10 Meq Tab.Er.Prt PO 10 meq DAILY JILL Administration Tamsulosin HCl 0.8 mg 12/06/21 09:00 12/06/21 08:56 Tamsulosin 0.4 Mg Cap.Er.24h PO 0.8 mg DAILY JILL Administration Intake and Output 12/05/21 12/06/21 12/06/21 22:59 06:59 14:59 Intake Total 118 92.392 Balance 118 92.392 Intake: Intake, IV Titration 92.392 Amount Heparin Sod,Pork in 0.45% 92.392 NaCl 25,000 unit In 0.45 % NaCl 1 250ml.bag @ 18 UNITS/KG/HR 15.105 mls/hr IV .[id number] [facility] Rx#: [id number] Oral 118 Other: # Voids 0 1 12/06/21 00:49 12/05/21 12:37
--- NOTE | 2021-12-06 10:11 | CA ---
Transthoracic Echo Report Name: Steven Steele Age: 66 Gender: M : 1955 Exam Date: 12/06/2021 08:13 Exam Location: [facility] Ht (in): 69 Wt (lb): 185 Ordering Physician: Giovanni Carroll Attending/Referring Phys: Dentist Attendant Zoey Henning RDCS Procedure CPT: Indications: Chest Pain Cardiac Hx: Technical Quality: Fair Contrast 1: Total Dose (mL): Contrast 2: Total Dose (mL): MEASUREMENTS (Male / Female) Normal Values 2D ECHO LV Diastolic Diameter PLAX 3.7 cm 4.2 - 5.9 / 3.9 - 5.3 cm LV Systolic Diameter PLAX 2.2 cm IVS Diastolic Thickness 1.3 cm 0.6 - 1.0 / 0.6 - 0.9 cm LVPW Diastolic Thickness 1.2 cm 0.6 - 1.0 / 0.6 - 0.9 cm LV Relative Wall Thickness 0.7 RV Internal Dim ED PLAX 4.7 cm LVOT Diameter 2.2 cm LA Systolic Diameter LX 3.5 cm 3.0 - 4.0 / 2.7 - 3.8 cm LA Volume 32.9 cm??? 18 - 58 / 22 - 52 cm??? M-MODE Aortic Root Diameter MM 3.3 cm MV E Point Septal Separation 1.0 cm AV Cusp Separation MM 1.8 cm DOPPLER AV Peak Velocity 208.7 cm/s AV Peak Gradient 17.4 mmHg AV Mean Velocity 143.9 cm/s AV Mean Gradient 9.6 mmHg AV Velocity Time Integral 35.8 cm LVOT Peak Velocity 83.0 cm/s LVOT Peak Gradient 2.8 mmHg AV Area Cont Eq pk 1.5 cm??? MV Area PHT 2.4 cm??? Mitral E Point Velocity 48.4 cm/s Mitral A Point Velocity 66.2 cm/s Mitral E to A Ratio 0.7 MV Deceleration Time 310.5 ms TR Peak Velocity 410.1 cm/s TR Peak Gradient 67.3 mmHg Right Ventricular Systolic Press 69.2 mmHg FINDINGS Left Ventricle Left ventricular ejection fraction is estimated at 50-55 %. Small left ventricular cavity. Mildly increased left ventricular wall thickness. Right Ventricle Severe right ventricular dilatation. Severe pulmonary hypertension. Right Atrium Moderate right atrial dilatation. Left Atrium Normal left atrial size. No evidence for an atrial septal defect. Mitral Valve Structurally normal mitral valve. No mitral stenosis, regurgitation or prolapse. Aortic Valve Trileaflet aortic valve. Mild aortic stenosis with a peak gradient of 17 mmHg and a mean gradient of 10 mmHg. Focal thickening of the aortic valve cusps. Tricuspid Valve [id number] tricuspid regurgitation. Pulmonic Valve Structurally normal pulmonic valve. Pericardium Normal pericardium. No pericardial effusion. Aorta Normal size aortic root and proximal ascending aorta. CONCLUSIONS LV size and systolic function is normal. There is severe right ventricular enlargement with severe pulmonary hypertension. Mild aortic valve sclerosis without significant restriction. Small moderate to severe tricuspid regurgitation. No pericardial effusion Previewed by: Dr. Katina Dunne MD (Electronically Signed) Final Date: 06 December 2021 10:10
[2021-12-06] MEDS: HYDROcodone/APAP 10-325MG 1 EACH TAB PO SCH ×2 (11:09→20:46)
[2021-12-06] MEDS: ALBUTEROL NEBULIZED 2.5 MG/3 ML INHALATION PRN ×2 (11:40→20:06)
--- NOTE | 2021-12-06 11:52 | P.CNPUL ---
History of Present Illness Consult date: 12/06/21 Requesting physician: Jethro Owen Chief complaint: Chest pain History of present illness: 66-year-old white male patient of Dr. Langford came into the emergency department on 12/05/2021 complaining of chest discomfort, which was midsternal, pressure-like, constant, and would come on at rest with the duration of symptoms for one week. This chest pain was not associated with any nausea or vomiting, no diarrhea, no fever or chills. Patient reports having a cough for the past 2 months, she was recently treated with antibiotics by his PCP. At times he has been coughing up some blood specks in his phlegm. He has been having increased nasal congestion as well. Patient has a long history of smoking, recently quit smoking 2 months ago for an upcoming back surgery. Patient used to be on blood thinners in the past including Coumadin and Xarelto, however he had GI bleeding episode in 2019. He did have IVC filter placed at that time, and had not been on any blood thinners since then. Other medical history includes celiac disease, IBS, anxiety, depression, chronic back pain. His EKG reveals sinus mechanism with no signs of acute ischemia, chest x-ray showed questionable hilar and suprahilar opacities. CTA chest showed fairly heavy based soft tissue involving the right main pulmonary artery narrowing the lumen and extending into the right sided lobar arterial branches, occluding the right lower lobar branch. These findings favored to represent chronic pulmonary embolism rather than mural based neoplasm. And there were smaller chronic pulmonary emboli in the left lower lobar branch characterized by mural based clot and some web formation. Elevated right heart pressures were noted with pulmonary arterial hypertension, there was no flattening of the intraventricular septum to suggest perez right heart strain. Multifocal patchy groundglass changes in the right lower lobe with possible small areas of cavitation with consideration of patchy pneumonia or septic emboli. However the serum procalcitonin level was low at 0.122 to suggest pneumonia. Lower extremity Dopplers showed positive bilateral DVT in the left popliteal vein in the right external iliac vein. Lab evaluation showed normal white count of 5.1, hemoglobin is 12.3, platelet count of 100, INR of 1.0, sodium of 133, potassium is 5.0, chloride is 103, BUN is 38 creatinine is 1.26, alk phos was 143, AST and ALT were within normal limits, troponin was less than 0.012, and 0.015, proBNP was 3520. Patient was started on heparin infusion for the findings of bilateral DVT and chronic pulmonary embolism echocardiogram has been completed showing EF 50-55%, small left ventricular cavity, severe right ventricular diameter patient, severe pulmonary hypertension moderate to severe tricuspid regurgitation. Review of Systems All systems: negative Constitutional: Denies chills, Denies fever Eyes: denies blurred vision, denies pain Ears, nose, mouth and throat: Denies headache, Denies sore throat Cardiovascular: Reports chest pain, Denies shortness of breath Respiratory: Reports cough, Reports cough with sputum Gastrointestinal: Denies abdominal pain, Denies diarrhea, Denies nausea, Denies vomiting Musculoskeletal: Denies myalgias Integumentary: Denies pruritus, Denies rash Neurological: Denies numbness, Denies weakness Psychiatric: Denies anxiety, Denies depression Endocrine: Denies fatigue, Denies weight change Past Medical History Past Medical History: Asthma, COPD, GI Bleed, Osteoarthritis (OA) Additional Past Medical History / Comment(s): celiac disease, IBS, colitis, central tremors, hepatitis at 12 History of Any Multi-Drug Resistant Organisms: None Reported Past Surgical History: Appendectomy, Cholecystectomy, Heart Catheterization Past Anesthesia/Blood Transfusion Reactions: No Reported Reaction Past Psychological History: Anxiety, Depression Smoking Status: Current every day smoker Past Alcohol Use History: Daily Past Drug Use History: Marijuana Medications and Allergies Home Medications Medication Instructions Recorded Confirmed Type Albuterol Sulfate [Ventolin HFA] 2 puff INHALATION RT-Q6H PRN 04/09/20 12/05/21 History Primidone [Mysoline] 250 - 500 mg PO Q8H 04/09/20 12/05/21 History Tamsulosin HCl [Flomax] 0.8 mg PO DAILY 04/09/20 12/05/21 History ALPRAZolam [Xanax] 1 mg PO HS 12/05/21 12/05/21 History Fexofenadine HCl [Jailyn Allergy] 180 mg PO DAILY 12/05/21 12/05/21 History HYDROcodone/APAP 10-325MG [[place] 1 tab PO BID 12/05/21 12/05/21 History 10-325] Indomethacin [Indocin] 50 mg PO TID 12/05/21 12/05/21 History Montelukast [Singulair] 10 mg PO HS 12/05/21 12/05/21 History Potassium Chloride [Klor-Con 10 ER] 10 meq PO DAILY 12/05/21 12/05/21 History allopurinoL 300 mg PO DAILY 12/05/21 12/05/21 History diphenhydrAMINE HCL [Benadryl] 25 mg PO QID PRN 12/05/21 12/05/21 History Allergies Allergy/AdvReac Type Severity Reaction Status Date / Time No Known Allergies Allergy Verified 12/05/21 13:55 Physical Exam Vitals: Vital Signs Temp Pulse Pulse Pulse Resp BP BP 12/06/21 07:00 97.8 F 73 16 94/62 12/06/21 01:35 97.4 F L 69 15 96/68 12/05/21 20:00 18 12/05/21 19:37 83 12/05/21 19:24 87 12/05/21 19:21 97.6 F 85 17 101/68 12/05/21 16:00 97.9 F 79 18 143/91 12/05/21 14:45 68 12/05/21 14:32 66 12/05/21 11:52 83 12/05/21 11:42 98.2 F 83 20 118/80 Pulse Ox 12/06/21 07:00 92 L 12/06/21 01:35 92 L 12/05/21 20:00 12/05/21 19:37 12/05/21 19:24 12/05/21 19:21 94 L 12/05/21 16:00 97 12/05/21 14:45 12/05/21 14:32 12/05/21 11:52 12/05/21 11:42 95 Intake and Output 12/05/21 12/06/21 12/06/21 22:59 06:59 14:59 Intake Total 118 332.392 Balance 118 332.392 Intake: Intake, IV Titration 92.392 Amount Heparin Sod,Pork in 0.45% 92.392 NaCl 25,000 unit In 0.45 % NaCl 1 250ml.bag @ 18 UNITS/KG/HR 15.105 mls/hr IV [id number] [facility] Rx#: [id number] Oral 118 240 Other: # Voids 0 1 GENERAL EXAM: Alert, pleasant, chronically ill-looking 66-year-old white male on room air with a pulse ox of 92% comfortable in no apparent distress. HEAD: Normocephalic/atraumatic. EYES: Normal reaction of pupils, equal size. Conjunctiva pink, sclera white. NOSE: Clear with pink turbinates. THROAT: No erythema or exudates. NECK: No masses, no JVD, no thyroid enlargement, no adenopathy. CHEST: No chest wall deformity. Symmetrical expansion. LUNGS: Equal air entry with no crackles, wheeze, rhonchi or dullness. CVS: Regular rate and rhythm, normal S1 and S2, no gallops, no murmurs, no rubs ABDOMEN: Soft, nontender. No hepatosplenomegaly, normal bowel sounds, no guarding or rigidity. EXTREMITIES: No clubbing, 1+ nonpitting edema, no cyanosis, 2+ pulses and upper and lower extremities. MUSCULOSKELETAL: Muscle strength and tone normal. SPINE: No scoliosis or deformity SKIN: No rashes CENTRAL NERVOUS SYSTEM: Alert and oriented -3. No focal deficits, tone is normal in all 4 extremities. PSYCHIATRIC: Alert and oriented -3. Appropriate affect. Intact judgment and insight. Results - Laboratory Findings CBC and BMP: 12/06/21 00:49 12/05/21 12:37 PT/INR, D-dimer PT 11.2 sec (9.0-12.0) 12/06/21 00:49 INR 1.0 (<1.2) 12/06/21 00:49 Abnormal lab findings: Abnormal Labs 12/05/21 12/05/21 12/05/21 12:37 12:37 12:37 RBC 3.62 L Hgb 12.3 L Hct 38.4 L MCV 106.2 H RDW 16.0 H Plt Count 100 L Lymphocytes # 0.8 L APTT Sodium 133 L BUN 38 H Creatinine 1.26 H Glucose 100 H Alkaline Phosphatase 143 H Procalcitonin 0.12 H 12/06/21 12/06/21 00:49 06:29 RBC 3.37 L Hgb 11.1 L Hct 35.5 L MCV 105.4 H RDW 16.1 H Plt Count 100 L Lymphocytes # 0.7 L APTT 108.9 H* Sodium BUN Creatinine Glucose Alkaline Phosphatase Procalcitonin - Diagnostic Findings Chest x-ray: report reviewed, image reviewed CT scan - chest: report reviewed, image reviewed Additional studies: Lower extremity Doppler reviewed EKG reviewed Assessment and Plan Plan: Assessment: #1. Chest pain, rule out ACS, cardiology is on the case, please refer to their consultation note #2. Chronic pulmonary embolism, CTA chest showed have a pleural-based soft tissue in the right main pulmonary artery narrowing the lumen and extending into the lobar arterial branches occluding the right lower lobar branch. In the findings favored to represent chronic pulmonary embolism rather than mural based neoplasm. Short interval follow-up was recommended #3. Bilateral lower extremity DVTs #4. History of pulmonary embolism, previously on Coumadin, currently not on any chronic anticoagulation related to an episode of GI bleeding #5. History of IVC filter placement in 2019 #6. Chronic back pain and chronic pain syndrome #7. History of celiac sprue and irritable bowel syndrome #8. History of chronic colitis #9. COPD, stable at this time #10. Anxiety/depression #11. Long history of smoking, currently in remission for the past 2 months Plan: Chest x-ray, CT chest, echocardiogram results reviewed Patient was seen and evaluated at the bedside Pulmonary embolism on CT chest although extensive but his chronic Continue with heparin infusion Patient will need oral anticoagulation, possibly with Xarelto, if his insurance covers it No right heart strain on the CTA scan of the chest Patient already has an IVC filter Patient's COPD is stable Pain management per primary care Patient likely will not be able to have his back surgery for at least 3 months, because his anticoagulation will not be able to be interrupted for at least 3 months We'll continue to follow and make further recommendations I have personally seen and examined the patient, performed the documentation and the assessment and plan as written. Number of minutes spent on the visit: [15] Time with Patient: Greater than 30
--- NOTE | 2021-12-06 20:07 | HP ---
HISTORY AND PHYSICAL DATE OF SERVICE: 12/05/2021 This is a 66-year-old white male with midsternal chest pain for one week. His chest pain presented while at rest. It feels like a pressure and is constant. Denies any nausea, vomiting, diarrhea or fevers. He has a cough; however, he states that is due to COPD. He by his primary care. He drinks 2 or 3 beers a day. He smokes half a pack a day of cigarettes. He is pending lumbar disc surgery per Dr. Khalil. He has a history of COPD, chronic back pain, PE with a [place] filter, GI bleeding, IBS. He has been off all anticoagulants since his GI bleeding and with blood thinners. MEDICATIONS: Please see list. They include albuterol, Flomax, Mysoline, Xanax, [place], Indocin, Singulair, Klor-Con, Benadryl. ALLERGIES: NEGATIVE. REVIEW OF SYSTEMS: Fourteen-point review of systems otherwise negative except for leg swelling and edema. PAST MEDICAL HISTORY: Asthma, COPD, GI bleed, osteoarthritis, DVT, PE, [place] filter, celiac disease, IBS, colitis. Current everyday smoker. Blood pressure 118/80, O2 saturation 90 to 95, respiratory rate 18 to 20, temperature 98.2, pulse is 60s to 80s. Cardiovascular S1-S2. Lungs scattered rhonchi and wheeze. Hematology negative Homans. Psych fair mood and affect. Ophthalmologic: Pupils equal, round, reactive. Neurologic: Alert and oriented x3. Extremities 2 to 3+ edema bilaterally. Skin warm, dry, intact. Sodium 133, potassium 5.0, BUN 38, creatinine 1.26, hemoglobin is 12.3. He has atypical chest pain over the last week with shortness of breath. He has asthma, COPD and new-onset pulmonary embolism with DVTs. Start him on IV heparin at this time due to diffuse pulmonary emboli, possibly pneumonia. Wait for pulmonary consultation. Treatment of some CHF with Cardiology. Prognosis is guarded. Wait for pulmonary and cardiology notes. MMODL / IJN: [id number] /
[2021-12-06] MEDS: MONTELUKAST 10 MG TAB PO SCH (20:45)
[2021-12-06] MEDS: ALPRAZolam 1 MG TAB PO SCH (20:45)
--- NOTE | 2021-12-06 23:15 | P.CONS ---
History of Present Illness - Reason for Consult Consult date: 12/06/21 Acute DVT BLE Requesting physician: Luisito Langford - Chief Complaint chest pain, SOB - History of Present Illness Mr. Steele is a pleasant man we have been asked to see for acute DVT. He states lots of leg swelling in recent few weeks, tops of his feet have been painful, de nied any pain or tenderness in calves. He showed us few scattered purpura on his BLE which he states are new. He denies any recent injury. Has Hx of PE- denied any provoking factors, has not been on any blood thinners for about 4 years-actually since 2019 on chart review. Chart review showed admit 04/09/20 for coffee ground emesis and melena after a fall. He was on coumadin, supratheraeutic INR >5. Had EGD 04/11/20 with findings of a ruptured esophagus, endo clip and epi injection. He received 6 units PRBCs, 3 units FFP, and 1 unit of platelets. Transferred to [place], coumadin discontinued. Reports he used to weigh 365 lbs. No personal history of cancer. He consumes ETOH daily, c urrent smoker. Review of Systems 10 point ROS is neg except as stated in HPI Past Medical History Past Medical History: Asthma, COPD, GI Bleed, Osteoarthritis (OA), Pulmonary Embolus (PE) Additional Past Medical History / Comment(s): celiac disease, IBS, colitis, central tremors, hepatitis at 12 History of Any Multi-Drug Resistant Organisms: None Reported Past Surgical History: Appendectomy, Cholecystectomy, Heart Catheterization Past Anesthesia/Blood Transfusion Reactions: No Reported Reaction Past Psychological History: Anxiety, Depression Smoking Status: Current every day smoker Past Alcohol Use History: Daily Past Drug Use History: Marijuana - Past Family History Father Family Medical History: Deep Vein Thrombosis (DVT) Medications and Allergies Home Medications Medication Instructions Recorded Confirmed Type Albuterol Sulfate [Ventolin HFA] 2 puff INHALATION RT-Q6H PRN 04/09/20 12/05/21 History Primidone [Mysoline] 250 - 500 mg PO Q8H 04/09/20 12/05/21 History Tamsulosin HCl [Flomax] 0.8 mg PO DAILY 04/09/20 12/05/21 History ALPRAZolam [Xanax] 1 mg PO HS 12/05/21 12/05/21 History Fexofenadine HCl [Jailyn Allergy] 180 mg PO DAILY 12/05/21 12/05/21 History HYDROcodone/APAP 10-325MG [[place] 1 tab PO BID 12/05/21 12/05/21 History 10-325] Indomethacin [Indocin] 50 mg PO TID 12/05/21 12/05/21 History Montelukast [Singulair] 10 mg PO HS 12/05/21 12/05/21 History Potassium Chloride [Klor-Con 10 ER] 10 meq PO DAILY 12/05/21 12/05/21 History allopurinoL 300 mg PO DAILY 12/05/21 12/05/21 History diphenhydrAMINE HCL [Benadryl] 25 mg PO QID PRN 12/05/21 12/05/21 History Allergies Allergy/AdvReac Type Severity Reaction Status Date / Time No Known Allergies Allergy Verified 12/05/21 13:55 Physical Exam Vitals: Vital Signs Temp Pulse Pulse Resp BP Pulse Ox 12/06/21 20:17 84 12/06/21 20:06 78 12/06/21 16:17 90 L 12/06/21 14:00 91 16 12/06/21 13:46 98.6 F 91 16 121/80 96 12/06/21 11:58 94 12/06/21 11:45 93 L 12/06/21 11:44 91 12/06/21 11:30 119/72 12/06/21 07:00 97.8 F 73 16 94/62 92 L 12/06/21 01:35 97.4 F L 69 15 96/68 92 L Intake and Output 12/06/21 12/06/21 12/06/21 06:59 14:59 22:59 Intake Total 450.392 265.897 Balance 450.392 265.897 Intake: Intake, IV Titration 92.392 147.897 Amount Heparin Sod,Pork in 0.45% 92.392 147.897 NaCl 25,000 unit In 0.45 % NaCl 1 250ml.bag @ 18 UNITS/KG/HR 15.105 mls/hr IV .[id number] [facility] Rx#: [id number] Oral 358 118 Other: # Voids 1 1 - Constitutional General appearance: cooperative, no acute distress, thin - EENT Eyes: anicteric sclerae, EOMI ENT: hearing grossly normal, normal oropharynx - Neck Neck: no lymphadenopathy - Respiratory Respiratory: bilateral: diminished - Cardiovascular Rhythm: regular Heart sounds: normal: S1, S2 Abnormal Heart Sounds: no systolic murmur, no diastolic murmur, no rub, no S3 Gallop, no S4 Gallop, no click, no other leg Peripheral Edema: bilateral: 2+ - Gastrointestinal General gastrointestinal: no absent bowel sounds, no decreased bowel sounds, no distended, no hepatomegaly, no hyperactive bowel sounds, normal bowel sounds, no organomegaly, no rigid, no scaphoid, soft, no splenomegaly, no tenderness, no umbilical hernia, no ventral hernia - Integumentary purpurpura on BLE Integumentary: normal - Neurologic Neurologic: CNII-XII intact - Musculoskeletal Musculoskeletal: strength equal bilaterally - Psychiatric Psychiatric: A&O x's 3, appropriate affect, intact judgment & insight Results CBC & Chem 7: 12/06/21 00:49 12/05/21 12:37 Labs: Abnormal Lab Results - Last 24 Hours (Table) 12/05/21 12/06/21 12/06/21 Range/Units 12:37 00:49 06:29 RBC 3.37 L (4.30-5.90) m/uL Hgb 11.1 L (13.0-17.5) gm/dL Hct 35.5 L (39.0-53.0) % MCV 105.4 H (80.0-100.0) fL RDW 16.1 H (11.5-15.5) % Plt Count 100 L (150-450) k/uL Lymphocytes # 0.7 L (1.0-4.8) k/uL APTT 108.9 H* (22.0-30.0) sec Procalcitonin 0.12 H (0.02-0.09) ng/mL CT scan - chest: report reviewed Venous US: report reviewed Assessment and Plan (1) DVT (deep venous thrombosis) Current Visit: Yes Status: Acute Priority: High Code(s): I82.409 - ACUTE EMBOLISM AND THOMBOS UNSP DEEP VN UNSP LOWER EXTREMITY SNOMED Code(s): 026005564 (2) Pulmonary embolism Current Visit: No Status: Chronic Priority: Low Code(s): I26.99 - OTHER PULMONARY EMBOLISM WITHOUT ACUTE COR PULMONALE SNOMED Code(s): 30482015 (3) History of GI bleed Current Visit: Yes Status: Chronic Priority: Medium Code(s): Z87.19 - PERSONAL HISTORY OF OTHER DISEASES OF THE DIGESTIVE SYSTEM SNOMED Code(s): 804593101 (4) History of fall within past 90 days Current Visit: Yes Status: Acute Priority: High Code(s): Z91.81 - HISTORY OF FALLING SNOMED Code(s): 416871053 Plan: Pt has Hx of PE, he cannot recall any precipitating events. CTA reporting chronic PE, nothing acute. Acute BLE DVT. Pt reports significant decrease in activity 2/2 pain. He is a current smoker. He has apnea and does not use his c-pap. Pt reports at least 10 falls in the last 6 months, last time he fell was 2-3 weeks ago. Has history of ruptured esophagus in 2019. This has been repaired. No documentation of bleeding or pt report of bleeding since. He was on coumadin at the time and INR was supratherapeutic when he bled. Agree with heparin drip for now, monitoring Hgb/Hct for preciptious drop, occult is pending. Phospholipid ab ordered. Pt reports father had blood clots, hypercoaguable work up outpt recommended. Risk vs benefit of anticoagulation being considered. See how pt does on heparin drip. Further recommendations to follow. Doctor attests: I performed a history and physical examination of this patient, developed impression and plan of care. Discussed with dictator. I agree with dictators note, documented as a scribe. Time with Patient: Greater than 30
[2021-12-07] MEDS: INDOMETHACIN 25 MG CAP PO SCH ×3 (07:59→20:10)
[2021-12-07] MEDS: TAMSULOSIN 0.4 MG CAP.ER.24H PO SCH (07:59)
[2021-12-07] MEDS: allopurinoL 300 MG TAB PO SCH (08:00)
[2021-12-07] MEDS: LORATADINE 10 MG TAB PO SCH (08:00)
[2021-12-07] MEDS: HYDROcodone/APAP 10-325MG 1 EACH TAB PO SCH ×2 (08:00→20:10)
[2021-12-07] MEDS: POTASSIUM CHLORIDE ER 10 MEQ TAB.ER.PRT PO SCH (08:01)
[2021-12-07] MEDS: ALBUTEROL NEBULIZED 2.5 MG/3 ML INHALATION PRN ×2 (08:53→20:14)
[2021-12-07 09:30] LABS: Basophils # (A) 0.04 X 10*3/uL (0.00-0.10); Eosinophils # (A) 0.17 X 10*3/uL (0.04-0.35); Eosinophils % (A) 4.1 %; HCT 30.2 % (39.6-50.0); HGB 9.9 g/dL (13.0-17.0); Immature Grans, Automated 0.2 %; Lymphocytes # (A) 1.06 X 10*3/uL (0.90-5.00); Lymphocytes % (A) 25.5 %; MCH 33.4 pg (27.0-32.0); MCHC 32.8 g/dL (32.0-37.0); Mean Platelet Volume 12.8 fL (9.5-12.2); Monocytes # (A) 0.52 X 10*3/uL (0.20-1.00); Monocytes % (A) 12.5 %; NRBC Per 100 WBC 0 /100 WBCS (0.0-0.0); Neutrophils # (A) 2.36 X 10*3/uL (1.80-7.70); Neutrophils % (A) 56.7 %; Platelet Count 111 X 10*3/uL (140-440); RBC 2.96 X 10*6/uL (4.40-5.60); WBC 4.16 X 10*3/uL (4.50-10.00)
--- NOTE | 2021-12-07 09:57 | P.PN ---
Subjective Progress Note Date: 12/07/21 HISTORY OF PRESENT ILLNESS: This is a 66-year-old male with a past medical history significant for chronic back pain, COPD, GI bleeding, pulmonary embolism. Anxiety, depression, daily alcohol use, and nicotine dependence. Patient does not follow with a chipper operator. We have been asked to see the patient in consultation for chest pain. Patient examined at the bedside. Patient presented to the hospital with a chief complaint of chest pain. He states the pain has been present for approximately one week. He denied any worsening shortness of breath. Denied nausea or vomiting. Denies dizziness or lightheadedness. * EKG reveals sinus mechanism with no signs of acute ischemia * Chest xray questionable hilar/suprahilar opacities. Underlying pneumonia or abnormal lymphadenopathy is difficult to exclude * Chest CT: Fairly have mural based soft tissue involving the right main pulmo nary artery. The lumen is narrow but remains pain. Soft tissue extends into right-sided lobar arterial branches, occluding the right lower lobar branch. Findings favored to represent chronic PE rather than mural based neoplasm. Small or chronic pulmonary emboli left lower lobar branch. Elevated right heart pressures with pulmonary arterial hypertension. No flattening of the intraventricular septum to suggest perez right heart strain. Multifocal patchy groundglass changes in the right lower lobe with possible small areas of cavitation. Consider patchy pneumonia and correlate to exclude septic emboli. Trace right effusion. COPD with mild emphysema. Mild anasarca changes. * Lower extremity Doppler: Positive for DVT bilaterally * Laboratory data: WBC 4.0. Hemoglobin 11.1. Platelet count 100. Sodium 133. Potassium 5.0. BUN 38. Creatinine 1.26. Troponin negative 1 * Current home cardiac medications include none * Most recent echocardiogram obtained in March 2020 revealed ejection fraction 55-60% with severely enlarged right ventricle 12/07/2021 Patient examined this morning at the bedside. He continues to report back pain which he states is chronic for him. He denies chest pain or pressure. Denies SOB. He remains on IV heparin. Echocardiogram completed revealing ejection fraction 50-55%, severe pulmonary hypertension, mild aortic stenosis, moderate to severe tricuspid regurgitation. PHYSICAL EXAM: VITAL SIGNS: Reviewed. GENERAL: Well-developed in no acute distress. HEENT: Head is normocephalic. Pupils are equal, round. Sclerae anicteric. Mucous membranes of the mouth are moist. Neck supple. No JVD or thyromegaly LUNGS: Respirations even and unlabored. Lungs diminished to auscultation bilaterally. HEART: Regular rate and rhythm. S1 and S2 heard. ABDOMEN: Soft. Nondistended. Nontender. EXTREMITIES: Normal range of motion. No clubbing or cyanosis. Peripheral pulses intact. No lower extremity edema NEUROLOGIC: Awake and alert. Oriented x 3. ASSESSMENT: Chest pain, atypical, ACS ruled out History of pulmonary embolism Acute bilateral DVT History of GI bleeding History of [place] filter placement Chronic back pain COPD Anxiety Depression Daily alcohol use Nicotine dependence PLAN: Patient currently stable from a cardiac standpoint Continue IV heparin. Defer transition to oral anticoagulation to pulmonary/primary medicine We will sign off. Please reconsult if needed. Nurse practitioner note has been reviewed by physician. Signing provider agrees with the documented findings, assessment, and plan of care. Objective - Vital Signs Vital signs: Vital Signs Temp 97.5 F L 12/07/21 07:00 Pulse 91 12/07/21 09:07 Resp 20 12/07/21 08:00 BP 112/77 12/07/21 07:00 Pulse Ox 95 12/07/21 07:00 FiO2 Intake & Output 12/06/21 12/07/21 12/07/21 18:59 06:59 18:59 Intake Total 568.392 220.272 209.54 Balance 568.392 220.272 209.54 Intake: Intake, IV Titration 92.392 220.272 91.54 Amount Heparin Sod,Pork in 0.45% 92.392 220.272 91.54 NaCl 25,000 unit In 0.45 % NaCl 1 250ml.bag @ 18 UNITS/KG/HR 15.105 mls/hr IV .[id number] [facility] Rx#: [id number] Oral 476 118 Other: Voiding Method Toilet Toilet # Voids 1 2 - Labs CBC & Chem 7: 12/07/21 04:32 12/05/21 12:37 Labs: Abnormal Lab Results - Last 24 Hours (Table) 12/07/21 12/07/21 12/07/21 Range/Units 00:57 04:32 07:23 WBC 4.16 L (4.50-10.00) X 10*3/uL RBC 2.96 L (4.40-5.60) X 10*6/uL Hgb 9.9 L (13.0-17.0) g/dL Hct 30.2 L (39.6-50.0) % MCV 102.0 H (80.0-97.0) fL MCH 33.4 H (27.0-32.0) pg RDW 16.0 H (11.5-14.5) % Plt Count 111 L (140-440) X 10*3/uL MPV 12.8 H (9.5-12.2) fL APTT 37.1 H 68.3 H (22.0-30.0) sec
--- NOTE | 2021-12-07 12:32 | P.PN ---
Subjective Progress Note Date: 12/07/21 Principal diagnosis: Chest discomfort 66-year-old white male patient of Dr. Langford came into the emergency department on 12/05/2021 complaining of chest discomfort, which was midsternal, pressure-like, constant, and would come on at rest with the duration of symptoms for one week. This chest pain was not associated with any nausea or vomiting, no diarrhea, no fever or chills. Patient reports having a cough for the past 2 months, she was recently treated with antibiotics by his PCP. At times he has been coughing up some blood specks in his phlegm. He has been having increased nasal congestion as well. Patient has a long history of smoking, recently quit smoking 2 months ago for an upcoming back surgery. Patient used to be on blood thinners in the past including Coumadin and Xarelto, however he had GI bleeding episode in 2019. He did have IVC filter placed at that time, and had not been on any blood thinners since then. Other medical history includes celiac disease, IBS, anxiety, depression, chronic back pain. His EKG reveals sinus mechanism with no signs of acute ischemia, chest x-ray showed questionable hilar and suprahilar opacities. CTA chest showed fairly heavy based soft tissue involving the right main pulmonary artery narrowing the lumen and extending into the right sided lobar arterial branches, occluding the right lower lobar branch. These findings favored to represent chronic pulmonary embolism rather than mural based neoplasm. And there were smaller chronic pulmonary emboli in the left lower lobar branch characterized by mural based clot and some web formation. Elevated right heart pressures were noted with pulmonary arterial h ypertension, there was no flattening of the intraventricular septum to suggest perez right heart strain. Multifocal patchy groundglass changes in the right lower lobe with possible small areas of cavitation with consideration of patchy pneumonia or septic emboli. However the serum procalcitonin level was low at 0.122 to suggest pneumonia. Lower extremity Dopplers showed positive bilateral DVT in the left popliteal vein in the right external iliac vein. Lab evaluation showed normal white count of 5.1, hemoglobin is 12.3, platelet count of 100, INR of 1.0, sodium of 133, potassium is 5.0, chloride is 103, BUN is 38 creatinine is 1.26, alk phos was 143, AST and ALT were within normal limits, troponin was less than 0.012, and 0.015, proBNP was 3520. Patient was started on heparin infusion for the findings of bilateral DVT and chronic pulmonary embolism echocardiogram has been completed showing EF 50-55%, small left ventricular cavity, severe right ventricular diameter patient, severe pulmonary hypertension moderate to severe tricuspid regurgitation. On 12/07/2021 patient seen in follow-up on medical surgical floor. Patient is breathing comfortably, room air pulse ox is 95%. Denies any worsening shortness of breath, no coughing or wheezing, no hemoptysis, no nausea or vomiting. Denies any chest pain. Patient remains on IV heparin. Echocardiogram showed EF of 50-55%, severe pulmonary hypertension, mild aortic stenosis, moderate to severe tricuspid regurgitation. No acute events overnight, from pulmonary perspective patient can be switched over to oral anticoagulants possibly with Eliquis or Xarelto, if insurance covers it, and heparin drip can be discontinued. Objective - Vital Signs Vital signs: Vital Signs Temp 97.5 F L 12/07/21 07:00 Pulse 91 12/07/21 09:07 Resp 20 12/07/21 08:00 BP 112/77 12/07/21 07:00 Pulse Ox 95 12/07/21 07:00 FiO2 Intake & Output 12/06/21 12/07/21 12/07/21 18:59 06:59 18:59 Intake Total 568.392 220.272 209.54 Balance 568.392 220.272 209.54 Intake: Intake, IV Titration 92.392 220.272 91.54 Amount Heparin Sod,Pork in 0.45% 92.392 220.272 91.54 NaCl 25,000 unit In 0.45 % NaCl 1 250ml.bag @ 18 UNITS/KG/HR 15.105 mls/hr IV .[id number] [facility] Rx#: [id number] Oral 476 118 Other: Voiding Method Toilet Toilet # Voids 1 2 - Exam GENERAL EXAM: Alert, pleasant, chronically ill-looking 66-year-old white male on room air with a pulse ox of 95% comfortable in no apparent distress. HEAD: Normocephalic/atraumatic. EYES: Normal reaction of pupils, equal size. Conjunctiva pink, sclera white. NOSE: Clear with pink turbinates. THROAT: No erythema or exudates. NECK: No masses, no JVD, no thyroid enlargement, no adenopathy. CHEST: No chest wall deformity. Symmetrical expansion. LUNGS: Equal air entry with no crackles, wheeze, rhonchi or dullness. CVS: Regular rate and rhythm, normal S1 and S2, no gallops, no murmurs, no rubs ABDOMEN: Soft, nontender. No hepatosplenomegaly, normal bowel sounds, no guarding or rigidity. EXTREMITIES: No clubbing, 1+ nonpitting edema, no cyanosis, 2+ pulses and upper and lower extremities. MUSCULOSKELETAL: Muscle strength and tone normal. SPINE: No scoliosis or deformity SKIN: No rashes CENTRAL NERVOUS SYSTEM: Alert and oriented -3. No focal deficits, tone is normal in all 4 extremities. PSYCHIATRIC: Alert and oriented -3. Appropriate affect. Intact judgment and insight. - Labs CBC & Chem 7: 12/07/21 04:32 12/05/21 12:37 Labs: Abnormal Lab Results - Last 24 Hours (Table) 12/07/21 12/07/21 12/07/21 Range/Units 00:57 04:32 07:23 WBC 4.16 L (4.50-10.00) X 10*3/uL RBC 2.96 L (4.40-5.60) X 10*6/uL Hgb 9.9 L (13.0-17.0) g/dL Hct 30.2 L (39.6-50.0) % MCV 102.0 H (80.0-97.0) fL MCH 33.4 H (27.0-32.0) pg RDW 16.0 H (11.5-14.5) % Plt Count 111 L (140-440) X 10*3/uL MPV 12.8 H (9.5-12.2) fL APTT 37.1 H 68.3 H (22.0-30.0) sec Assessment and Plan Plan: Assessment: #1. Chest pain, rule out ACS, cardiology is on the case, please refer to their consultation note #2. Chronic pulmonary embolism, CTA chest showed have a pleural-based soft tissue in the right main pulmonary artery narrowing the lumen and extending into the lobar arterial branches occluding the right lower lobar branch. The findings favored to represent chronic pulmonary embolism rather than mural based neoplasm. Short interval follow-up was recommended #3. Bilateral lower extremity DVTs #4. History of pulmonary embolism, previously on Coumadin, currently not on any chronic anticoagulation related to an episode of GI bleeding #5. History of IVC filter placement in 2019 #6. Chronic back pain and chronic pain syndrome #7. History of celiac sprue and irritable bowel syndrome #8. History of chronic colitis #9. COPD, stable at this time #10. Anxiety/depression #11. Long history of smoking, currently in remission for the past 2 months Plan: No complaints of chest pain, patient is breathing comfortably Vital signs are stable Echocardiogram results have been noted Patient can be switched over to Eliquis or Xarelto Eliquis prescription has been sent to pharmacy to check coverage We can stop the heparin infusion, if Eliquis is covered Patient can be considered for discharge home today I have personally seen and examined the patient, performed the documentation and the assessment and plan as written. Number of minutes spent on the visit: [15] Time with Patient: Less than 30
[2021-12-07 13:00] LABS: Cardiolipin Ab IgG Interp NEGATIVE (NEGATIVE); Cardiolipin Ab IgM Interp NEGATIVE (NEGATIVE); Cardiolipin IgA Antibody <2.0 U/mL; Cardiolipin IgM Antibody <1.5 U/mL
[2021-12-07] MEDS: HYDROmorphone 1 MG/ML 1 ML SYRINGE IVP PRN (14:00)
[2021-12-07 15:12] LABS: Reticulocyte % 1.66 % (0.10-1.80)
[2021-12-07] MEDS: APIXABAN 5 MG TAB PO SCH (15:42)
--- NOTE | 2021-12-07 16:24 | P.PN ---
Subjective Progress Note Date: 12/07/21 Principal diagnosis: Hx PE, new BLE DVT, Hx of GI bleed In f/u today on heparin drip pt reports no bleeding. Objective - Vital Signs Vital signs: Vital Signs Temp 98 F 12/07/21 13:53 Pulse 69 12/07/21 14:00 Resp 18 12/07/21 14:00 BP 99/61 12/07/21 13:53 Pulse Ox 92 L 12/07/21 13:53 FiO2 Intake & Output 12/06/21 12/07/21 12/07/21 18:59 06:59 18:59 Intake Total 568.392 220.272 209.54 Balance 568.392 220.272 209.54 Intake: Intake, IV Titration 92.392 220.272 91.54 Amount Heparin Sod,Pork in 0.45% 92.392 220.272 91.54 NaCl 25,000 unit In 0.45 % NaCl 1 250ml.bag @ 18 UNITS/KG/HR 15.105 mls/hr IV .[id number] [facility] Rx#: [id number] Oral 476 118 Other: Voiding Method Toilet Toilet # Voids 1 2 3 - Constitutional General appearance: Present: average body habitus, cooperative, no acute distress - EENT Eyes: Present: anicteric sclerae, EOMI ENT: Present: hearing grossly normal - Respiratory Details: resp even and unlabored at rest - Neurologic Neurologic: Present: CNII-XII intact (grossly) - Psychiatric Psychiatric: Present: A&O x's 3, appropriate affect, intact judgment & insight - Labs CBC & Chem 7: 12/07/21 04:32 12/05/21 12:37 Labs: Abnormal Lab Results - Last 24 Hours (Table) 12/07/21 12/07/21 12/07/21 Range/Units 00:57 04:32 07:23 WBC 4.16 L (4.50-10.00) X 10*3/uL RBC 2.96 L (4.40-5.60) X 10*6/uL Hgb 9.9 L (13.0-17.0) g/dL Hct 30.2 L (39.6-50.0) % MCV 102.0 H (80.0-97.0) fL MCH 33.4 H (27.0-32.0) pg RDW 16.0 H (11.5-14.5) % Plt Count 111 L (140-440) X 10*3/uL MPV 12.8 H (9.5-12.2) fL APTT 37.1 H 68.3 H (22.0-30.0) sec Assessment and Plan (1) DVT (deep venous thrombosis) Current Visit: Yes Status: Acute Priority: High Code(s): I82.409 - ACUTE EMBOLISM AND THOMBOS UNSP DEEP VN UNSP LOWER EXTREMITY SNOMED Code(s): 969147906 (2) Pulmonary embolism Current Visit: No Status: Chronic Priority: Low Code(s): I26.99 - OTHER PULMONARY EMBOLISM WITHOUT ACUTE COR PULMONALE SNOMED Code(s): 43666286 (3) History of GI bleed Current Visit: Yes Status: Chronic Priority: Medium Code(s): Z87.19 - PERSONAL HISTORY OF OTHER DISEASES OF THE DIGESTIVE SYSTEM SNOMED Code(s): 848427620 (4) History of fall within past 90 days Current Visit: Yes Status: Acute Priority: High Code(s): Z91.81 - HISTORY OF FALLING SNOMED Code(s): 004903925 Plan: Pt has Hx of dago filter, he doesn't remember when inserted but, thinks it was when he was transferred 2020 for bleed and taken off coumadin. If filter is several years old effectiveness is likely diminished 2/2 collateral circulation. Unknown if a retrievable filter. Pt started on eliquis by Attending. Pt will f/u with PCP for CBC monitoring. Phospholipid ab ordered, so far, neg results. Pt reports father had blood clots, hypercoaguable work up outpt recommended. Doctor attests: I performed a history and physical examination of this patient, developed impression and plan of care. Discussed with dictator. I agree with dictators note, documented as a scribe.
[2021-12-07] MEDS: HEPARIN SOD,PORK IN 0.45% NACL 25,000 UNIT in 0.45% NACL 1 250ML.BAG IV SCH (18:06)
[2021-12-07] MEDS: ALPRAZolam 1 MG TAB PO SCH (20:10)
[2021-12-07] MEDS: MONTELUKAST 10 MG TAB PO SCH (20:10)
[2021-12-08] MEDS: HYDROmorphone 1 MG/ML 1 ML SYRINGE IVP PRN (03:02)
[2021-12-08 04:15] VITALS: RESP 18
[2021-12-08 05:53] LABS: Anisocytosis Slight; Basophils % (A) 1 %; Eosinophils # (A) 0.1 k/uL (0-0.7); Eosinophils % (A) 5 %; HCT 34.4 % (39.0-53.0); HGB 10.5 gm/dL (13.0-17.5); Hypochromasia Moderate; Lymphocytes # (A) 0.7 k/uL (1.0-4.8); Lymphocytes % (A) 26 %; MCH 32.7 pg (25.0-35.0); MCHC 30.5 g/dL (31.0-37.0); MCV 107.1 fL (80.0-100.0); Macrocytosis Marked; Mean Platelet Volume 9.9; Monocytes # (A) 0.3 k/uL (0-1.0); Monocytes % (A) 10 %; Neutrophils # (A) 1.6 k/uL (1.3-7.7); Neutrophils % (A) 56 %; Platelet Count 108 k/uL (150-450); RBC 3.21 m/uL (4.30-5.90); RDW 16.2 % (11.5-15.5); WBC 2.8 k/uL (3.8-10.6)
[2021-12-08 06:17] LABS: Polychromasia Present
[2021-12-08] MEDS: POTASSIUM CHLORIDE ER 10 MEQ TAB.ER.PRT PO SCH (08:30)
[2021-12-08] MEDS: allopurinoL 300 MG TAB PO SCH (08:30)
[2021-12-08] MEDS: TAMSULOSIN 0.4 MG CAP.ER.24H PO SCH (08:30)
[2021-12-08] MEDS: INDOMETHACIN 25 MG CAP PO SCH ×2 (08:30→16:01)
[2021-12-08] MEDS: APIXABAN 5 MG TAB PO SCH (08:31)
[2021-12-08] MEDS: HYDROcodone/APAP 10-325MG 1 EACH TAB PO SCH (08:31)
[2021-12-08] MEDS: LORATADINE 10 MG TAB PO SCH (08:31)
--- NOTE | 2021-12-08 09:35 | CDI ---
Documentation Clarification Form Date: 12/08/2021 09:17:08 AM From: Raegan Ramirez RN, CCDS Admit Date: 12/05/2021 02:36:00 PM Patient Name: Steven Steele Visit Number: [id number] Discharge Date: ATTENTION: The Clinical Documentation Specialists (CDI) and [facility] Coding Staff appreciate your assistance in clarifying documentation. Please respond to the clarification below the line at the bottom and electronically sign. The CDI & [facility] Coding staff will review the response and follow-up if needed. Please note: Queries are made part of the Legal Health Record. If you have any questions, please contact the author of this message via ITS. Dr. Katina Dunne The patient has the documented diagnosis of unspecified CHF in the ER assessment. Additional information regarding the [type, acuity] of CHF is requested. History/Risk Factors: COPD, Asthma PE, current smoker, daily alcohol use Clinical Indicators: 66-year-old male present with midsternal chest pain for one week. He was short of breath with respiratory exam finding wheezes, decreased breath sounds. 12/05 VS Pulse OX: 118/80 83 20 98.2 95 % ra 12/05 BNP: 3520 12/06 Echocardiogram Results: EF 50-55 % severe right ventricular dilation. Severe pulmonary hypertension. Moderate right atrium dilation. Small moderate to severe tricuspid regurgitation. 12/05 Chest X Ray: questionable hilar/suprahilar opacities. Underlying pneumonia or abnormal lymphadenopathy is difficult to exclude Treatment: Cardiac/Telemetry monitoring Lasix 40 MG IVP Once In your professional opinion, can you please clarify the acuity and type of CHF if known? [ ] Acute Systolic Heart Failure (reduced EF) [ ] Chronic Systolic Heart Failure (reduced EF) [ ] Acute on Chronic Systolic Heart Failure (reduced EF) [ ] Acute Diastolic Heart Failure (preserved EF) [ ] Chronic Diastolic Heart Failure (preserved EF) [ ] Acute on Chronic Diastolic Heart Failure (preserved EF) [ ] Acute Systolic & Diastolic Heart Failure [ ] Chronic Systolic & Diastolic Heart Failure [ ] Acute on Chronic Heart Failure Systolic & Diastolic Heart Failure [ ] CHF Ruled out [ ] Other, please specify [ ] Unable to determine (Template Last Revised: June 2020) CHF Ruled out MTDD
--- NOTE | 2021-12-08 09:44 | PN ---
PROGRESS NOTE 66-year-old white male admitted with bilateral DVTs, worsening pulmonary embolism. IV heparin for the last 2 to 3 days. We are going to switch over to Eliquis 5 mg b.i.d. and possible discharge home tomorrow. Cardiovascular S1-S2. Lungs: Rhonchi and wheeze. Hematology: . GI is soft. ASSESSMENT AND PLAN: 1. Chest pain. 2. Pulmonary embolism. 3. Deep vein thrombosis bilaterally. 4. Generalized weakness. 5. Possible discharge home tomorrow as he is stable, ambulating on Eliquis. PROGNOSIS: Extremely guarded. MMODL / IJN: [id number] /
--- NOTE | 2021-12-08 10:47 | P.PN ---
Subjective Progress Note Date: 12/08/21 66-year-old white male patient of Dr. Langford came into the emergency department on 12/05/2021 complaining of chest discomfort, which was midsternal, pressure-like, constant, and would come on at rest with the duration of symptoms for one week. This chest pain was not associated with any nausea or vomiting, no diarrhea, no fever or chills. Patient reports having a cough for the past 2 months, she was recently treated with antibiotics by his PCP. At times he has been coughing up some blood specks in his phlegm. He has been having increased nasal congestion as well. Patient has a long history of smoking, recently quit smoking 2 months ago for an upcoming back surgery. Patient used to be on blood thinners in the past including Coumadin and Xarelto, however he had GI bleeding episode in 2019. He did have IVC filter placed at that time, and had not been on any blood thinners since then. Other medical history includes celiac disease, IBS, anxiety, depression, chronic back pain. His EKG reveals sinus mechanism with no signs of acute ischemia, chest x-ray showed questionable hilar and suprahilar opacities. CTA chest showed fairly heavy based soft tissue involving the right main pulmonary artery narrowing the lumen and extending into the right sided lobar arterial branches, occluding the right lower lobar branch. These findings favored to represent chronic pulmonary embolism rather than mural based neoplasm. And there were smaller chronic pulmonary emboli in the left lower lobar branch characterized by mural based clot and some web formation. Elevated right heart pressures were noted with pulmonary arterial hypertension, there was no flattening of the intraventricular septum to suggest perez right heart strain. Multifocal patchy groundglass changes in the right lower lobe with possible small areas of cavitation with consideration of patchy pneumonia or septic emboli. However the serum procalcitonin level was low at 0.122 to suggest pneumonia. Lower extremity Dopplers showed positive bilateral DVT in the left popliteal vein in the right external iliac vein. Lab evaluation showed normal white count of 5.1, hemoglobin is 12.3, platelet count of 100, INR of 1.0, sodium of 133, potassium is 5.0, chloride is 103, BUN is 38 creatinine is 1.26, alk phos was 143, AST and ALT were within normal limits, troponin was less than 0.012, and 0.015, proBNP was 3520. Patient was started on heparin infusion for the findings of bilateral DVT and chronic pulmonary embolism echocardiogram has been completed showing EF 50-55%, small left ventricular cavity, severe right ventricular diameter patient, severe pulmonary hypertension moderate to severe tricuspid regurgitation. On 12/07/2021 patient seen in follow-up on medical surgical floor. Patient is breathing comfortably, room air pulse ox is 95%. Denies any worsening shortness of breath, no coughing or wheezing, no hemoptysis, no nausea or vomiting. Denies any chest pain. Patient remains on IV heparin. Echocardiogram showed EF of 50-55%, severe pulmonary hypertension, mild aortic stenosis, moderate to severe tricuspid regurgitation. No acute events overnight, from pulmonary perspective patient can be switched over to oral anticoagulants possibly with Eliquis or Xarelto, if insurance covers it, and heparin drip can be discontinued. The patient is seen today 12/08/2021 in follow-up on the regular medical floor. He is currently sitting up in bed having breakfast. Awake and alert in no acute distress. No shortness of breath cough or congestion. No chest pain or palpitations. He is maintaining O2 saturations in the 90s on room air. Afebrile. Hemodynamically stable. White count 2.8. Hemoglobin 10.5. Platelets 108. He is currently on Eliquis. Objective - Vital Signs Vital signs: Vital Signs Temp 97.7 F 12/08/21 07:23 Pulse 89 12/08/21 07:23 Resp 18 12/08/21 08:00 BP 109/75 12/08/21 07:23 Pulse Ox 96 12/08/21 08:21 FiO2 Intake & Output 12/07/21 12/08/21 12/08/21 18:59 06:59 18:59 Intake Total 295.625 Balance 295.625 Intake: Intake, IV Titration 177.625 Amount Heparin Sod,Pork in 0.45% 177.625 NaCl 25,000 unit In 0.45 % NaCl 1 250ml.bag @ 18 UNITS/KG/HR 15.105 mls/hr IV .[id number] [facility] Rx#: [id number] Oral 118 Other: Voiding Method Toilet Toilet Toilet # Voids 3 2 1 - Exam GENERAL EXAM: Alert, pleasant 66-year-old male patient, on room air, comfortable in no apparent distress. HEAD: Normocephalic. EYES: Normal reaction of pupils, equal size. NOSE: Clear with pink turbinates. THROAT: No erythema or exudates. NECK: No masses, no JVD. CHEST: No chest wall deformity. LUNGS: Equal air entry with no crackles, wheeze, rhonchi or dullness. CVS: S1 and S2 normal with no audible murmur, regular rhythm. ABDOMEN: No hepatosplenomegaly, normal bowel sounds, no guarding or rigidity. SPINE: No scoliosis or deformity SKIN: No rashes CENTRAL NERVOUS SYSTEM: No focal deficits, tone is normal in all 4 extremities. EXTREMITIES: There is no peripheral edema. No clubbing, no cyanosis. Peripheral pulses are intact. - Labs CBC & Chem 7: 12/08/21 05:36 12/05/21 12:37 Labs: Abnormal Lab Results - Last 24 Hours (Table) 12/08/21 Range/Units 05:36 WBC 2.8 L (3.8-10.6) k/uL RBC 3.21 L (4.30-5.90) m/uL Hgb 10.5 L (13.0-17.5) gm/dL Hct 34.4 L (39.0-53.0) % MCV 107.1 H (80.0-100.0) fL MCHC 30.5 L (31.0-37.0) g/dL RDW 16.2 H (11.5-15.5) % Plt Count 108 L (150-450) k/uL Lymphocytes # 0.7 L (1.0-4.8) k/uL Macrocytosis Marked A Assessment and Plan Assessment: 1 Chest pain, rule out ACS, cardiology is on the case, please refer to their consultation note 2 Chronic pulmonary embolism, CTA chest showed have a pleural-based soft tissue in the right main pulmonary artery narrowing the lumen and extending into the lobar arterial branches occluding the right lower lobar branch. The findings favored to represent chronic pulmonary embolism rather than mural based neoplasm. Short interval follow-up was recommended 3 Bilateral lower extremity DVTs 4 History of pulmonary embolism, previously on Coumadin, currently not on any chronic anticoagulation related to an episode of GI bleeding 5 History of IVC filter placement in 2019 6 Chronic back pain and chronic pain syndrome 7 History of celiac sprue and irritable bowel syndrome 8 History of chronic colitis 9 COPD, stable at this time 10 Anxiety/depression 11 Long history of smoking, currently in remission for the past 2 months Plan: The patient was seen and evaluated Stable and on room air Cleared for discharge from pulmonary standpoint Remains on Eliquis I have personally seen and examined the patient, performed the documentation and the assessment and plan as written. Number of minutes spent on the visit: 10.
[2021-12-08 13:39] LABS: APTT >180 Sec(s) (<43); APTT 1:1 Mix 113 Sec(s) (<43); Dilute Russell Viper Venom 44 Sec(s) (<44); Hexagonal Phase Neutralization Positive (Negative)
[2021-12-08 13:42] VITALS: BP 126/83; TEMP 98.1
[2021-12-08 14:24] LABS: % Iron Saturation 14.4 (15.00-50.00); Ferritin 45.3 ng/mL (22.0-322.0)
[2021-12-08] MEDS: ALBUTEROL NEBULIZED 2.5 MG/3 ML INHALATION PRN (15:12)
[2021-12-08 15:17] VITALS: PULSE 88
== END 2021-12-08 18:24 | disposition home or self-care (01) ==
LOC: EC 11:40 → OBSVTOIN 14:36 → INTOOBSV 14:36 → 6NMEDSUR 14:36 → UNDODISIN 12-08 18:24
PROVIDERS: ADMIT Family Medicine; ATTEND Family Medicine
DX: R07.89 Other chest pain (principal); I27.82 Chronic pulmonary embolism; I82.411 Acute embolism and thrombosis of right femoral vein; I82.421 Acute embolism and thrombosis of right iliac vein; I82.432 Acute embolism and thrombosis of left popliteal vein; I27.21 Secondary pulmonary arterial hypertension; I87.1 Compression of vein; J43.9 Emphysema, unspecified; K90.0 Celiac disease; F17.210 Nicotine dependence, cigarettes, uncomplicated; D69.2 Other nonthrombocytopenic purpura; I08.2 Rheumatic disorders of both aortic and tricuspid valves; J45.909 Unspecified asthma, uncomplicated; M19.90 Unspecified osteoarthritis, unspecified site; G89.4 Chronic pain syndrome; M54.9 Dorsalgia, unspecified; F32.A Depression, unspecified; F41.9 Anxiety disorder, unspecified; K58.9 Irritable bowel syndrome, unspecified; Z79.1 Long term (current) use of non-steroidal anti-inflammatories (NSAID); Z79.891 Long term (current) use of opiate analgesic; Z79.899 Other long term (current) drug therapy; Z91.81 History of falling; Z95.828 Presence of other vascular implants and grafts; Z87.19 Personal history of other diseases of the digestive system; Z90.49 Acquired absence of other specified parts of digestive tract; Z98.890 Other specified postprocedural states; Z82.49 Family history of ischemic heart disease and other diseases of the circulatory system
CPT/HCPCS: 96376 ×3; 96361 ×3; 96365; 96366; 96372; 96375 ×2; 99285; 36415; 94640 ×6; 94760; 93005; 93306; 83921; 86146; 82747; 83880; 80053; 82607; 82728; 83540; 83550; 83735; 84484 ×2; 85025 ×4; 85610 ×2; 85045; 85730 ×3; 85613; 85732; 85598; 86147; 84145; 71046; 93970; 71275; G0378 ×4; G0480; J1940; J1644 ×4; J1170 ×3; C9113; Q9967; 80320; 96374

== ENCOUNTER → 2022-03-07 | Outpatient (CLI) | payer MEDICARE ==
--- NOTE | 2022-03-07 14:44 | CT ---
EXAMINATION TYPE: CT angio chest DATE OF EXAM: 03/07/2022 COMPARISON: 12/05/2021 HISTORY: 66-year-old male I27.24, thromboembolic pulmonary hypertension, blood clots, pre op screenin g TECHNIQUE: Contiguous axial scanning of the chest performed with IV Contrast, patient injected with 8 0 mL of Isovue 370. Coronal/sagittal MIP reconstructions performed. CT DLP: 320.1 mGycm Automated exposure control for dose reduction was used. FINDINGS: Heart normal size with trace pericardial fluid. While there is asymmetric enlargement of the right si de of the heart, there is no flattening of the interventricular septum. Some reflux of contrast is no kamini into the hepatic veins. Scattered three-vessel coronary artery calcifications are remarkable for coronary artery disease. [id number] aortic valvular calcifications noted. Aorta normal caliber with conventional arch vessel branching anatomy. Satisfactory opacification the pulmonary arterial system. Similar fairly heavy mural based soft tissu e along the right main pulmonary artery. This soft tissue density measures up to 7.5 x 2.7 cm, simila r to prior exam. However, the overall luminal caliber of the right main pulmonary artery shows slight improvement of 2.0 cm versus 1.7 cm, previously. Soft tissue continues to extend along the proximal lobar branches, narrowing part of the right upper lobe and right lower lobar branches. Eventual occlu adrian of the left lower lobar pulmonary artery, similar to prior exam. On the left, there is similar chronic embolus characterized by some mural based thrombus and webs wit hin the left lower lobar branch. No new pulmonary embolus is seen. Large caliber to the main left pul monary artery of 3.1 cm suggesting underlying pulmonary hypertension. Redemonstrated patchy opacities in the right mid and lower lung. A new cavitary area is present measu ring up to 1.3 cm peripheral right upper lobe. Other areas appear to show some improvement and greate r cystic component in the areas of previous cavitation, for example, right lower lobe axial image 89. Ongoing follow-up will be needed. Background mild emphysema. No pleural effusion. Small hiatal hernia. Cholecystectomy clips in the visualized upper abdomen. Bones: No osseous destructive process. IMPRESSION: 1. SIMILAR FAIRLY HEAVY MURAL BASED SOFT TISSUE INVOLVING THE RIGHT MAIN PULMONARY ARTERY. THE OVERAL L DEGREE OF LUMINAL NARROWING SHOWS SLIGHT IMPROVEMENT. HOWEVER, SOFT TISSUE CONTINUES TO EXTEND INTO RIGHT-SIDED LOBAR ARTERIAL BRANCHES. THE RIGHT LOWER LOBAR ARTERIAL BRANCH REMAINS OCCLUDED. THE BUL KIEST PART OF THE MURAL BASED DENSITY MEASURES UP TO 7.5 X 2.7 CM, SIMILAR TO PRIOR EXAM. AGAIN, EXTE NSIVE CHRONIC PE REMAINS FAVORED OVER NEOPLASM LIKE ANGIOSARCOMA. ONGOING FOLLOW-UP RECOMMENDED. 2. SIMILAR CHRONIC PE WITH WEBS IN THE LEFT LOWER LOBAR PULMONARY ARTERY BRANCH. 3. PULMONARY ARTERIAL HYPERTENSION. MILD EMPHYSEMA. 4. ONGOING PATCHY OPACITIES ON THE RIGHT WITH SOME ASSOCIATED CAVITARY CHANGE. THE AREAS SHOW SLIGHT IMPROVEMENT FROM 12/05/2021. HOWEVER, A NEW CAVITARY LESION MEASURING 1.3 CM IS NOW SEEN IN THE RIGHT UPPER LOBE. QUERY RECURRENT OR ONGOING ATYPICAL INFECTIONS OR SEPTIC EMBOLI.
== END | disposition home or self-care (01) ==
LOC: RADCTMAIN 11:47
PROVIDERS: ATTEND Internal Medicine
DX: I27.24 Chronic thromboembolic pulmonary hypertension (principal)
CPT/HCPCS: 82565; 84520; 71275; 36415; Q9967

== ENCOUNTER 2022-08-14 17:36 | Observation (INO) | payer MEDICARE ==
[2022-08-14] MEDS ORDERED: NALOXONE 0.4 MG/ML 1 ML VIAL IVP STA ×2 (17:52→18:38)
[2022-08-14] MEDS ORDERED: SODIUM CHLORIDE 0.9% 500 ML 500 ML IV STA (17:53)
[2022-08-14] MEDS ORDERED: ONDANSETRON 4 MG/2 ML VIAL IVP STA (17:55)
[2022-08-14 18:26] LABS: Basophils % (A) 0 %; Eosinophils # (A) 0.1 k/uL (0-0.7); Eosinophils % (A) 3 %; HCT 36.3 % (39.0-53.0); HGB 11.9 gm/dL (13.0-17.5); Hypochromasia Slight; Lymphocytes # (A) 0.5 k/uL (1.0-4.8); Lymphocytes % (A) 14 %; MCH 31.7 pg (25.0-35.0); MCHC 32.8 g/dL (31.0-37.0); Mean Platelet Volume 8.3; Monocytes # (A) 0.2 k/uL (0-1.0); Monocytes % (A) 7 %; Neutrophils # (A) 2.7 k/uL (1.3-7.7); Neutrophils % (A) 73 %; Platelet Count 137 k/uL (150-450); RBC 3.76 m/uL (4.30-5.90); RDW 15.6 % (11.5-15.5); WBC 3.7 k/uL (3.8-10.6)
[2022-08-14 18:33] LABS: MCV 96.4 fL (80.0-100.0)
[2022-08-14 18:34] LABS: Albumin 3.5 g/dL (3.5-5.0); Calcium 8.7 mg/dL (8.4-10.2); Magnesium 1.9 mg/dL (1.6-2.3); Potassium 4.3 mmol/L (3.5-5.1); Total Bilirubin 0.4 mg/dL (0.2-1.3); Total Protein 6.8 g/dL (6.3-8.2)
[2022-08-14 18:40] LABS: Partial Thromboplastin Time 28.5 sec (22.0-30.0); Prothrombin Time 55.2 sec (9.0-12.0)
--- NOTE | 2022-08-14 18:41 | CT ---
EXAMINATION TYPE: CT brain wo con CT DLP: 1184.4 mGycm, Automated exposure control for dose reduction was used. DATE OF EXAM: 08/14/2022 6:33 PM COMPARISON: 06/13/2022. CLINICAL INDICATION:Male, 67 years old with history of weakness, Hypotension and fatigued. TECHNIQUE: Brain: Axial CT images of the brain were obtained with coronal and sagittal reformats created and rev iewed. Contrast used: None. Oral contrast used: None. FINDINGS: Brain: Extra-axial spaces: No abnormal extra-axial fluid collections. Ventricular system: Within normal limits Cerebral parenchyma: No acute intraparenchymal hemorrhage or mass effect. The crisostomo-white junction is well differentiated. Cerebellum: Unremarkable. Mass effect: No evidence of midline shift. Intracranial vasculature: unremarkable Soft tissues: Normal. Calvarium/osseous structures: No depressed skull fracture. Paranasal sinuses and mastoid air cells: Mild scattered paranasal sinus disease most pronounced in th e right maxillary sinus with near complete opacification. Visualized orbits: Orbital contents are intact. IMPRESSION: 1. No acute intracranial process. 2. Paranasal sinus disease with near complete opacification of the right maxillary sinus.
[2022-08-14 18:43] LABS: INR 5.6 (<1.2)
--- NOTE | 2022-08-14 19:31 | XR ---
EXAMINATION TYPE: XR chest 2V DATE OF EXAM: 08/14/2022 6:34 PM COMPARISON: Chest radiographs from 06/14/2022 TECHNIQUE: XR chest 2V Frontal and lateral views of the chest. CLINICAL INDICATION:Male, 67 years old with history of Weakness; FINDINGS: Lungs/Pleura: Low lung volumes are present. There is no evidence of pleural effusion, focal consolida tion, or pneumothorax. Pulmonary vascularity: Unremarkable. Heart/mediastinum: Cardiomediastinal silhouette is unremarkable. Musculoskeletal: No acute osseous pathology. IMPRESSION: Low lung volumes, haziness of lungs could represent pulmonary vascular congestion. Correlate with BNP for congestive heart failure.
[2022-08-14 20:18] LABS: Appearance,Urine Clear (Clear); Bacteria,Urine Rare /hpf; Bilirubin,Urine Negative (Negative); Blood,Urine Small (Negative); Color,Urine Yellow; Glucose,Urine (UA) Negative (Negative); Hyaline Casts,Urine 7 /lpf (0-2); Ketones,Urine Negative (Negative); Leukocyte Esterase,Urine Negative (Negative); Mucus,Urine Rare /hpf; Nitrite,Urine Negative (Negative); PH, Urine 5.5 (5.0-8.0); Protein,Urine Trace (Negative); RBC,Urine <1 /hpf (0-5); Specific Gravity,Urine 1.023 (1.001-1.035); Squamous Epithelial Cell,Urine <1 /hpf (0-4); Urobilinogen,Urine <2.0 mg/dL (<2.0); WBC,Urine 1 /hpf (0-5)
[2022-08-14] MEDS ORDERED: NALOXONE 0.4 MG/ML 1 ML VIAL IV PRN (20:57)
[2022-08-14] MEDS ORDERED: ALBUTEROL NEBULIZED 2.5 MG/3 ML INHALATION PRN (21:11)
--- NOTE | 2022-08-15 01:02 | ED ---
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 Patient states he may have taken one to many of his pain medications. Presents drowsy, with a slower rate of breathing. Denies any chest pain, shortness breath, abdominal pain, nausea, vomiting. Apparently was hypotensive by home health nurse who called EMS, however patient had blood pressures with systolics in the 90s for a mass which appears to be at the patient's baseline. Denies any hematemesis or GI bleeding. His no other acute complaints at this time. Denies any fevers, chills, cough. Presents for further evaluation. - Related Data Home Medications Medication Instructions Recorded Confirmed Albuterol Sulfate [Ventolin HFA] 2 puff INHALATION RT-Q6H PRN 04/09/20 08/14/22 Tamsulosin HCl [Flomax] 0.4 mg PO DAILY 04/09/20 08/14/22 ALPRAZolam [Xanax] 1 mg PO BID PRN 12/05/21 08/14/22 allopurinoL 300 mg PO DAILY 12/05/21 08/14/22 Cyanocobalamin (Vitamin B-12) 2,000 mcg PO DAILY 06/14/22 08/14/22 [Vitamin B-12] Midodrine [ProAmatine] 5 mg PO BID@0900,1700 06/14/22 08/14/22 Montelukast [Singulair] 10 mg PO DAILY 06/14/22 08/14/22 Omeprazole 20 mg PO DAILY 06/14/22 08/14/22 Sildenafil [Revatio] 20 mg PO AC-TID 06/14/22 08/14/22 lamoTRIgine 50 mg PO BID 06/14/22 08/14/22 HYDROcodone/APAP 7.5-325MG [[place] 1 tab PO TID PRN 08/14/22 08/14/22 7.5-325] Tiotropium 2.5 Mcg/Puff [Spiriva 2 puff INHALATION RT-DAILY 08/14/22 08/14/22 Respimat 2.5 Mcg] Warfarin [Coumadin] 10 mg PO SUTUTHSA 08/14/22 08/14/22 Warfarin [Coumadin] 15 mg PO MOWEFR 08/14/22 08/14/22 Previous Rx's Medication Instructions Recorded Budesonide-Formot 160-4.5 Mcg 2 puff INHALATION RT-BID each 06/15/22 [Symbicort 160-4.5 Mcg Inhaler] Allergies Allergy/AdvReac Type Severity Reaction Status Date / Time No Known Allergies Allergy Verified 12/05/21 13:55 Review of Systems ROS Statement: Those systems with pertinent positive or pertinent negative responses have been documented in the HPI. Review of Systems: CONST: Denies fever EYES: Denies blurry vision ENT: Denies nasal congestion C/V: Denies Chest pain RESP: Denies shortness of breath GI: Denies abdominal pain : Denies dysuria SKIN: Denies rash. MSK: Denies joint pain. NEURO: Endorses fatigue ROS Other: All systems not noted in ROS Statement are negative. Past Medical History Past Medical History: Asthma, COPD, GI Bleed, Osteoarthritis (OA), Pulmonary Embolus (PE) Additional Past Medical History / Comment(s): celiac disease, IBS, colitis, central tremors, hepatitis at 12 History of Any Multi-Drug Resistant Organisms: None Reported Past Surgical History: Appendectomy, Cholecystectomy, Heart Catheterization Past Anesthesia/Blood Transfusion Reactions: No Reported Reaction Past Psychological History: Anxiety, Depression Smoking Status: Former smoker Past Alcohol Use History: Daily Past Drug Use History: Marijuana - Past Family History Father Family Medical History: Deep Vein Thrombosis (DVT) General Exam - General Exam Comments Initial Comments: General: He is drowsy, suspect opiate intoxication. HEAD: Normal with no signs of head trauma. EYES: EOMI, conjunctiva normal. Pinpoint pupils. Minimal reactive to light. ENT: Hearing grossly intact, normal oropharynx. RESPIRATORY: Clear breath sounds bilaterally. No wheezes, rales, or rhonchi. Decreased work of breathing, mild hypoxia. C/V: Regular rate and rhythm. S1 and S2 auscultated, no edema, peripheral pulses 2+ and intact throughout ABD: Abd is soft, nontender, nondistended EXT: Normal range of motion, no obvious deformity SKIN: No rashes or lesions observed on exposed skin. NEURO: Alert and oriented x 4. Cranial nerves II-XII intact. No focal sensory or strength deficits. Appears drowsy. Limitations: no limitations Course Vital Signs 08/14/22 08/14/22 08/14/22 17:37 17:42 17:51 Temperature 97.0 F L Pulse Rate 75 73 Pulse Rate [ 75 Form Tamper Operator ] Respiratory 8 L 8 L Rate Blood Pressure 87/53 93/58 O2 Sat by Pulse 90 L 98 Oximetry 08/14/22 08/14/22 08/14/22 18:00 18:38 18:41 Temperature Pulse Rate 70 Pulse Rate [ Form Tamper Operator ] Respiratory 8 L 10 L 10 L Rate Blood Pressure 94/54 O2 Sat by Pulse 100 Oximetry 08/14/22 08/14/22 08/14/22 19:40 21:32 23:05 Temperature Pulse Rate 71 79 66 Pulse Rate [ Form Tamper Operator ] Respiratory 16 20 18 Rate Blood Pressure 100/63 93/62 106/63 O2 Sat by Pulse 95 95 93 L Oximetry Medical Decision Making - Medical Decision Making Was pt. sent in by a medical professional or institution (, PA, MECHANICAL MAINTENANCE TECHNICIAN, urgent care, hospital, or care home...) When possible be specific @ -Sent in by home nursing care reevaluation for drowsiness and low blood pressure Did you speak to anyone other than the patient for history (EMS, parent, family, police, friend...)? What history was obtained from this source @ -No Did you review nursing and triage notes (agree or disagree)? Why? @ -I reviewed and agree with nursing and triage notes Were old charts reviewed (outside hosp., previous admission, EMS record, old EKG, old radiological studies, urgent care reports/EKG's, care home records)? Report findings @ -old charts reviewed from June 2022. Differential Diagnosis (chest pain, altered mental status, abdominal pain women, abdominal pain men, vaginal bleeding, weakness, fever, dyspnea, syncope, headache, dizziness, GI bleed, back pain, seizure, CVA, palpatations, mental health, musculoskeletal)? @ -Differential Weakness: Hypoglycemia, shock, sepsis, hyponatremia, anemia, infection, UT, ETOH, adverse medicine reaction, overdose, stroke, this is not meant to be an all-inclusive list. EKG interpreted by me (3pts min.). @ -As above X-rays interpreted by me (1pt min.). @ -Chest x-ray reveals no obvious acute cardiopulmonary process. Possible mild pulmonary vascular congestion. CT interpreted by me (1pt min.). @ -CT brain reveals no acute obvious intracranial process. U/S interpreted by me (1pt. min.). @ -None done What testing was considered but not performed or refused? (CT, X-rays, U/S, labs)? Why? @ -None What meds were considered but not given or refused? Why? @ -None Did you discuss the management of the patient with other professionals (professionals i.e. , PA, MECHANICAL MAINTENANCE TECHNICIAN, lab, RT, psych nurse, medical social worker, doctor's assistant, teacher, tax compliance officer, rn case management)? Give summary @ -Spoke with [facility] JOHN North who accepted the patient. Was smoking cessation discussed for >3mins.? @ -No Was critical care preformed (if so, how long)? @ -No Were there social determinants of health that impacted care today? How? (Homelessness, low income, unemployed, alcoholism, drug addiction, trans portation, low edu. Level, literacy, decrease access to med. care, shelter, rehab)? @ -No Was there de-escalation of care discussed even if they declined (Discuss DNR or withdrawal of care, Hospice)? DNR status @ -No What co-morbidities impacted this encounter? (DM, HTN, Smoking, COPD, CAD, Cancer, CVA, ARF, Chemo, Hep., AIDS, mental health diagnosis, sleep apnea, morbid obesity)? @ -On blood thinners for chronic thromboembolic process of the lungs, pulmonary hypertension, hypertension, and chronic pain meds Was patient admitted / discharged? Hospital course, mention meds given and route, prescriptions, significant lab abnormalities, going to OR and other pertinent info. @ -Based on the presentation and physical exam, does appear to be drowsy from likely opiate intoxication. Does admit to using some of his extra pain pills possibly. We will obtain a general workup, CT brain and patient will be administered Narcan and a low-dose fluid bolus. He was in agreement this plan. Vital signs otherwise within except for limits.Patient is chronically mildly hy potensive with normal systolics ranging from the mid 90s to 110. Following Narcan administration, patient is more alert, awake, interactive. Respiratory depression has resolved. Hypoxia is resolved. We will continue to monitor. Imaging is unremarkable. Labs are remarkable for chronic anemia, a supratherapeutic INR of 5.6 in the setting of Coumadin use, and undetectable troponin. On reevaluation, patient is resting comfortably. Due to his high risk factors, multiple Narcan administration said did recommend we observe him overnight for evaluation considering his supratherapeutic INR as well. He was in agreement with this plan. He is a fall risk. I spoke with admitting team JOHN North of [facility] who accepted the patient. We will hold his Coumadin. No active source of bleeding at this time and therefore we will continue to monitor. Does not require vitamin K or other intervention at this time. We will also hold his pain medication until he is fully back to baseline. Undiagnosed new problem with uncertain prognosis? @ -No Drug Therapy requiring intensive monitoring for toxicity (Heparin, Nitro, Insulin, Cardizem)? @ -No Were any procedures done? @ -No Diagnosis/symptom? @ -Accidental opiate overdose Acute, or Chronic, or Acute on Chronic? @ -Acute Uncomplicated (without systemic symptoms) or Complicated (systemic symptoms)? @ -.Complicated Side effects of treatment? @ -No Exacerbation, Progression, or Severe Exacerbation? @ -No Poses a threat to life or bodily function? How? (Chest pain, [place], UT, pneumonia, PE, COPD, DKA, ARF, appy, cholecystitis, CVA, Diverticulitis, Homicidal, Suicidal, threat to staff... and all critical care pts) @ -Yes Diagnosis/symptom? @ -Supratherapeutic INR Acute, or Chronic, or Acute on Chronic? @ -Acute Uncomplicated (without systemic symptoms) or Complicated (systemic symptoms)? @ -Uncomplicated Side effects of treatment? @ -none Exacerbation, Progression, or Severe Exacerbation] @ -no Poses a threat to life or bodily function? @ -Yes, if bleeding can result in significant morbidity and mortality. - Lab Data Result diagrams: 08/14/22 18:02 08/14/22 18:02 Lab Results 08/14/22 08/14/22 08/14/22 Range/Units 18:02 18:02 18:02 WBC 3.7 L (3.8-10.6) k/uL RBC 3.76 L (4.30-5.90) m/uL Hgb 11.9 L (13.0-17.5) gm/dL Hct 36.3 L (39.0-53.0) % MCV 96.4 D (80.0-100.0) fL MCH 31.7 (25.0-35.0) pg MCHC 32.8 (31.0-37.0) g/dL RDW 15.6 H (11.5-15.5) % Plt Count 137 L (150-450) k/uL MPV 8.3 Neutrophils % 73 % Lymphocytes % 14 % Monocytes % 7 % Eosinophils % 3 % Basophils % 0 % Neutrophils # 2.7 (1.3-7.7) k/uL Lymphocytes # 0.5 L (1.0-4.8) k/uL Monocytes # 0.2 (0-1.0) k/uL Eosinophils # 0.1 (0-0.7) k/uL Basophils # 0.0 (0-0.2) k/uL Hypochromasia Slight PT 55.2 H (9.0-12.0) sec INR 5.6 H* (<1.2) APTT 28.5 (22.0-30.0) sec Sodium 139 (137-145) mmol/L Potassium 4.3 (3.5-5.1) mmol/L Chloride 108 H (98-107) mmol/L Carbon Dioxide 21 L (22-30) mmol/L Anion Gap 10 mmol/L BUN 43 H (9-20) mg/dL Creatinine 1.17 (0.66-1.25) mg/dL Est GFR (CKD-EPI)AfAm 75 (>60 ml/min/1.73 sqM) Est GFR (CKD-EPI)NonAf 65 (>60 ml/min/1.73 sqM) Glucose 108 H (74-99) mg/dL Plasma Lactic Acid Todd (0.7-2.0) mmol/L Calcium 8.7 (8.4-10.2) mg/dL Magnesium 1.9 (1.6-2.3) mg/dL Total Bilirubin 0.4 (0.2-1.3) mg/dL AST 173 H (17-59) U/L ALT 54 H (4-49) U/L Alkaline Phosphatase 73 (38-126) U/L Troponin I (0.000-0.034) ng/mL NT-Pro-B Natriuret Pep pg/mL Total Protein 6.8 (6.3-8.2) g/dL Albumin 3.5 (3.5-5.0) g/dL Urine Color Urine Appearance (Clear) Urine pH (5.0-8.0) Ur Specific Gladys (1.001-1.035) Urine Protein (Negative) Urine Glucose (UA) (Negative) Urine Ketones (Negative) Urine Blood (Negative) Urine Nitrite (Negative) Urine Bilirubin (Negative) Urine Urobilinogen (<2.0) mg/dL Ur Leukocyte Esterase (Negative) Urine RBC (0-5) /hpf Urine WBC (0-5) /hpf Ur Squamous Epith Cells (0-4) /hpf Urine Bacteria (None) /hpf Hyaline Casts (0-2) /lpf Urine Mucus (None) /hpf Influenza Type A (PCR) (Not Detectd) Influenza Type B (PCR) (Not Detectd) RSV (PCR) (Not Detectd) SARS-CoV-2 (PCR) (Not Detectd) 08/14/22 08/14/22 08/14/22 Range/Units 18:02 18:02 18:02 WBC (3.8-10.6) k/uL RBC (4.30-5.90) m/uL Hgb (13.0-17.5) gm/dL Hct (39.0-53.0) % MCV (80.0-100.0) fL MCH (25.0-35.0) pg MCHC (31.0-37.0) g/dL RDW (11.5-15.5) % Plt Count (150-450) k/uL MPV Neutrophils % % Lymphocytes % % Monocytes % % Eosinophils % % Basophils % % Neutrophils # (1.3-7.7) k/uL Lymphocytes # (1.0-4.8) k/uL Monocytes # (0-1.0) k/uL Eosinophils # (0-0.7) k/uL Basophils # (0-0.2) k/uL Hypochromasia PT (9.0-12.0) sec INR (<1.2) APTT (22.0-30.0) sec Sodium (137-145) mmol/L Potassium (3.5-5.1) mmol/L Chloride (98-107) mmol/L Carbon Dioxide (22-30) mmol/L Anion Gap mmol/L BUN (9-20) mg/dL Creatinine (0.66-1.25) mg/dL Est GFR (CKD-EPI)AfAm (>60 ml/min/1.73 sqM) Est GFR (CKD-EPI)NonAf (>60 ml/min/1.73 sqM) Glucose (74-99) mg/dL Plasma Lactic Acid Todd 1.2 (0.7-2.0) mmol/L Calcium (8.4-10.2) mg/dL Magnesium (1.6-2.3) mg/dL Total Bilirubin (0.2-1.3) mg/dL AST (17-59) U/L ALT (4-49) U/L Alkaline Phosphatase (38-126) U/L Troponin I <0.012 (0.000-0.034) ng/mL NT-Pro-B Natriuret Pep 1330 pg/mL Total Protein (6.3-8.2) g/dL Albumin (3.5-5.0) g/dL Urine Color Urine Appearance (Clear) Urine pH (5.0-8.0) Ur Specific Gladys (1.001-1.035) Urine Protein (Negative) Urine Glucose (UA) (Negative) Urine Ketones (Negative) Urine Blood (Negative) Urine Nitrite (Negative) Urine Bilirubin (Negative) Urine Urobilinogen (<2.0) mg/dL Ur Leukocyte Esterase (Negative) Urine RBC (0-5) /hpf Urine WBC (0-5) /hpf Ur Squamous Epith Cells (0-4) /hpf Urine Bacteria (None) /hpf Hyaline Casts (0-2) /lpf Urine Mucus (None) /hpf Influenza Type A (PCR) (Not Detectd) Influenza Type B (PCR) (Not Detectd) RSV (PCR) (Not Detectd) SARS-CoV-2 (PCR) (Not Detectd) 08/14/22 08/14/22 Range/Units 18:02 19:50 WBC (3.8-10.6) k/uL RBC (4.30-5.90) m/uL Hgb (13.0-17.5) gm/dL Hct (39.0-53.0) % MCV (80.0-100.0) fL MCH (25.0-35.0) pg MCHC (31.0-37.0) g/dL RDW (11.5-15.5) % Plt Count (150-450) k/uL MPV Neutrophils % % Lymphocytes % % Monocytes % % Eosinophils % % Basophils % % Neutrophils # (1.3-7.7) k/uL Lymphocytes # (1.0-4.8) k/uL Monocytes # (0-1.0) k/uL Eosinophils # (0-0.7) k/uL Basophils # (0-0.2) k/uL Hypochromasia PT (9.0-12.0) sec INR (<1.2) APTT (22.0-30.0) sec Sodium (137-145) mmol/L Potassium (3.5-5.1) mmol/L Chloride (98-107) mmol/L Carbon Dioxide (22-30) mmol/L Anion Gap mmol/L BUN (9-20) mg/dL Creatinine (0.66-1.25) mg/dL Est GFR (CKD-EPI)AfAm (>60 ml/min/1.73 sqM) Est GFR (CKD-EPI)NonAf (>60 ml/min/1.73 sqM) Glucose (74-99) mg/dL Plasma Lactic Acid Todd (0.7-2.0) mmol/L Calcium (8.4-10.2) mg/dL Magnesium (1.6-2.3) mg/dL Total Bilirubin (0.2-1.3) mg/dL AST (17-59) U/L ALT (4-49) U/L Alkaline Phosphatase (38-126) U/L Troponin I (0.000-0.034) ng/mL NT-Pro-B Natriuret Pep pg/mL Total Protein (6.3-8.2) g/dL Albumin (3.5-5.0) g/dL Urine Color Yellow Urine Appearance Clear (Clear) Urine pH 5.5 (5.0-8.0) Ur Specific Gladys 1.023 (1.001-1.035) Urine Protein Trace H (Negative) Urine Glucose (UA) Negative (Negative) Urine Ketones Negative (Negative) Urine Blood Small H (Negative) Urine Nitrite Negative (Negative) Urine Bilirubin Negative (Negative) Urine Urobilinogen <2.0 (<2.0) mg/dL Ur Leukocyte Esterase Negative (Negative) Urine RBC <1 (0-5) /hpf Urine WBC 1 (0-5) /hpf Ur Squamous Epith Cells <1 (0-4) /hpf Urine Bacteria Rare H (None) /hpf Hyaline Casts 7 H (0-2) /lpf Urine Mucus Rare H (None) /hpf Influenza Type A (PCR) Not Detected (Not Detectd) Influenza Type B (PCR) Not Detected (Not Detectd) RSV (PCR) Not Detected (Not Detectd) SARS-CoV-2 (PCR) Not Detected (Not Detectd) - EKG Data -: EKG Interpreted by Me EKG Comments: 12-lead Electrocardiogram Interpretation Note EKG was reviewed and interpreted by myself. 12-lead ECG performed at 1757 is interpreted by me as revealing normal sinus rhythm at a rate of 75 beats per minute.. Boaz deviation. IL interval is 143 ms, QRS duration is 98 ms, QTc is 407 ms.. There were no ST or T wave abnormalities to suggest myocardial ischemia or injury. R wave progression across the precordium was satisfactory. By my interpretation this EKG is non-diagnostic for acute ischemia. When compared with EKG from May 2022, no significant change. Disposition Clinical Impression: Supratherapeutic INR, Opiate overdose Disposition: ADMITTED IP TO THIS HOSP Condition: Stable Time of Disposition: 20:40
[2022-08-15] MEDS: ACETAMINOPHEN TAB 325 MG TAB PO PRN (04:36)
[2022-08-15 07:18] LABS: African American GFR (CKD) >90 (>60 ml/min/1.73 sqM); Anion Gap 7 mmol/L; Blood Urea Nitrogen 32 mg/dL (9-20); Calcium 8.7 mg/dL (8.4-10.2); Carbon Dioxide 25 mmol/L (22-30); Chloride 109 mmol/L (98-107); Glucose 80 mg/dL (74-99); Non-African American GFR(CKD) 79 (>60 ml/min/1.73 sqM); Potassium 4.3 mmol/L (3.5-5.1); Sodium 141 mmol/L (137-145)
[2022-08-15 07:21] LABS: Basophils % (A) 0 %; Eosinophils # (A) 0.3 k/uL (0-0.7); Eosinophils % (A) 7 %; HCT 26.7 % (39.0-53.0); Hypochromasia Slight; Lymphocytes # (A) 1.1 k/uL (1.0-4.8); Lymphocytes % (A) 24 %; MCH 31.4 pg (25.0-35.0); MCHC 32.5 g/dL (31.0-37.0); MCV 96.7 fL (80.0-100.0); Mean Platelet Volume 8.5; Monocytes # (A) 0.4 k/uL (0-1.0); Monocytes % (A) 8 %; Neutrophils # (A) 2.7 k/uL (1.3-7.7); Neutrophils % (A) 59 %; Platelet Count 213 k/uL (150-450); RBC 2.76 m/uL (4.30-5.90); RDW 15.7 % (11.5-15.5); WBC 4.6 k/uL (3.8-10.6)
[2022-08-15 07:24] LABS: Prothrombin Time 57.5 sec (9.0-12.0)
[2022-08-15 07:29] LABS: INR 5.8 (<1.2)
[2022-08-15 07:52] LABS: HGB 8.7 gm/dL (13.0-17.5)
[2022-08-15] MEDS: allopurinoL 300 MG TAB PO SCH (10:41)
[2022-08-15] MEDS: MONTELUKAST 10 MG TAB PO SCH (10:41)
[2022-08-15] MEDS: PANTOPRAZOLE 40 MG TABLET PO SCH (10:42)
[2022-08-15] MEDS: SYMBICORT 160-4.5 MCG INHALER INHALATION SCH ×2 (10:51→18:35)
[2022-08-15] MEDS: MIDODRINE 5 MG TAB PO SCH ×2 (10:51→19:01)
[2022-08-15] MEDS: SILDENAFIL 20 MG TAB PO SCH ×3 (10:51→19:02)
[2022-08-15] MEDS: TIOTROPIUM 2.5 MCG INHALER INHALATION SCH (10:52)
[2022-08-15] MEDS: lamoTRIgine 25 MG TAB PO SCH ×2 (13:11→20:10)
[2022-08-15] MEDS: TAMSULOSIN 0.4 MG CAP.ER.24H PO SCH (13:11)
[2022-08-15] MEDS: HYDROcodone/APAP 7.5-325MG 1 EACH TAB PO PRN (18:21)
[2022-08-15] MEDS ORDERED: PHYTONADIONE 10 MG in SODIUM CHLORIDE 0.9% 50 ML IVPB STA (18:57)
[2022-08-15] MEDS: ALPRAZolam 0.25 MG TAB PO PRN (23:34)
[2022-08-16] MEDS: HYDROcodone/APAP 7.5-325MG 1 EACH TAB PO PRN ×3 (03:58→22:23)
--- NOTE | 2022-08-16 05:00 | HP ---
HISTORY AND PHYSICAL HISTORY OF PRESENT ILLNESS: This is a 67-year-old white male with chronic thromboembolism of the lungs, status post valve repair down in the tertiary center, came in with elevated INRs. He was called from [facility] to tell him he had a high INR up to 8, he has been 5.7, we are going to reverse it with vitamin K. Denies any fever, chills, or GI bleeding. HOME MEDICINES: 1. Singulair 10 mg daily. 2. 5 mg b.i.d. orthostatic hypotension. 3. Vitamin B12 2000 mcg daily. 4. Allopurinol 300 mg daily for gout. 5. Xanax 1 mg b.i.d. 6. Flomax 0.4 mg daily. 7. Albuterol sulfate 2 puffs q.4 hours p.r.n. 8. Omeprazole 20 daily. 9. Revatio 20 mg t.i.d. 10.Lamictal 50 b.i.d. 11.Sobieski 7.5 t.i.d. 12.Spiriva 2 puffs daily. 13.Coumadin, he was on 15 mg 3 days a week and 10 mg 4 days a week. ALLERGIES: Negative. REVIEW OF SYSTEMS: A 14-point review of systems otherwise negative. PAST MEDICAL HISTORY: History of asthma, COPD, GI bleed, osteoarthritis, pulmonary embolism, pulmonary hypertension, celiac disease, IBS, colitis, status post valve repair, appendectomy, cholecystectomy, heart catheterization, history of anxiety and depression. PHYSICAL EXAMINATION: GENERAL: He is sitting up, giving appropriate answers. HEENT: Normocephalic, atraumatic. Pupils equal, round, reactive. LUNGS: Clear. GI: Soft, hematology negative Homans. NEUROLOGIC: Cranial nerves are intact. PSYCH: He is appropriate to me. EXTREMITIES: No cyanosis, clubbing, or edema. SKIN: No rash or excoriations. LABORATORY DATA: Labs are reviewed. Vital signs are reviewed. INR is elevated. He has hypotension. He will probably need increase in midodrine, gave him some fluids. He has elevated INR in the setting of Coumadin use. Prognosis is guarded. Reverse Coumadin levels. Vitamin K will be given. Prognosis guarded. Please see further orders. MMODL / IJN: [id number] /
[2022-08-16] MEDS: PANTOPRAZOLE 40 MG TABLET PO SCH (06:33)
[2022-08-16] MEDS: MIDODRINE 5 MG TAB PO SCH ×2 (06:33→17:43)
[2022-08-16] MEDS: SILDENAFIL 20 MG TAB PO SCH ×3 (06:33→17:43)
[2022-08-16 07:54] LABS: Basophils % (A) 0 %; Eosinophils # (A) 0.3 k/uL (0-0.7); Eosinophils % (A) 8 %; HCT 28.8 % (39.0-53.0); HGB 9.4 gm/dL (13.0-17.5); Lymphocytes # (A) 1.1 k/uL (1.0-4.8); Lymphocytes % (A) 26 %; MCH 31.5 pg (25.0-35.0); MCHC 32.8 g/dL (31.0-37.0); MCV 96.2 fL (80.0-100.0); Mean Platelet Volume 7.6; Monocytes # (A) 0.3 k/uL (0-1.0); Monocytes % (A) 7 %; Neutrophils # (A) 2.4 k/uL (1.3-7.7); Neutrophils % (A) 57 %; Platelet Count 221 k/uL (150-450); RBC 2.99 m/uL (4.30-5.90); RDW 15.3 % (11.5-15.5); WBC 4.1 k/uL (3.8-10.6)
[2022-08-16 08:05] LABS: INR 1.2 (<1.2); Prothrombin Time 12.7 sec (9.0-12.0)
[2022-08-16] MEDS: MONTELUKAST 10 MG TAB PO SCH (08:12)
[2022-08-16] MEDS: lamoTRIgine 25 MG TAB PO SCH ×2 (08:12→20:05)
[2022-08-16] MEDS: TAMSULOSIN 0.4 MG CAP.ER.24H PO SCH (08:12)
[2022-08-16] MEDS: allopurinoL 300 MG TAB PO SCH (08:14)
[2022-08-16] MEDS: SYMBICORT 160-4.5 MCG INHALER INHALATION SCH ×2 (08:55→18:38)
[2022-08-16] MEDS: TIOTROPIUM 2.5 MCG INHALER INHALATION SCH (08:56)
[2022-08-16] MEDS: ACETAMINOPHEN TAB 325 MG TAB PO PRN (09:40)
[2022-08-16] MEDS ORDERED: WARFARIN 5 MG TAB PO ONE (18:15)
[2022-08-16 21:03] LABS: % Iron Saturation 17.2 (15.00-50.00); Ferritin 34.8 ng/mL (22.0-322.0)
[2022-08-16] MEDS: ALPRAZolam 0.25 MG TAB PO PRN (22:23)
[2022-08-17] MEDS: MIDODRINE 5 MG TAB PO SCH ×2 (06:20→17:28)
[2022-08-17] MEDS: SILDENAFIL 20 MG TAB PO SCH ×3 (06:20→17:28)
[2022-08-17] MEDS: PANTOPRAZOLE 40 MG TABLET PO SCH (06:20)
[2022-08-17] MEDS: HYDROcodone/APAP 7.5-325MG 1 EACH TAB PO PRN ×2 (07:20→23:31)
[2022-08-17] MEDS: lamoTRIgine 25 MG TAB PO SCH ×2 (09:03→20:35)
[2022-08-17] MEDS: allopurinoL 300 MG TAB PO SCH (09:03)
[2022-08-17] MEDS: MONTELUKAST 10 MG TAB PO SCH (09:03)
[2022-08-17] MEDS: TAMSULOSIN 0.4 MG CAP.ER.24H PO SCH (09:03)
[2022-08-17 09:35] LABS: Basophils # (A) 0.01 X 10*3/uL (0.00-0.10); Basophils % (A) 0.2 %; Eosinophils # (A) 0.43 X 10*3/uL (0.04-0.35); Eosinophils % (A) 8.6 %; HCT 28.5 % (39.6-50.0); HGB 9.2 g/dL (13.0-17.0); Immature Grans, Automated 0 %; Lymphocytes # (A) 1.37 X 10*3/uL (0.90-5.00); Lymphocytes % (A) 27.4 %; MCH 31.1 pg (27.0-32.0); MCHC 32.3 g/dL (32.0-37.0); MCV 96.3 fL (80.0-97.0); Mean Platelet Volume 10.2 fL (9.5-12.2); Monocytes # (A) 0.59 X 10*3/uL (0.20-1.00); Monocytes % (A) 11.8 %; NRBC Per 100 WBC 0 /100 WBCS (0.0-0.0); Platelet Count 208 X 10*3/uL (140-440); RBC 2.96 X 10*6/uL (4.40-5.60); RDW 14.8 % (11.5-14.5)
[2022-08-17 09:45] LABS: African American GFR (CKD) 102.8 (60.0-200.0); Albumin 3.4 g/dL (3.8-4.9); Albumin/Globulin Ratio 1.17 (1.60-3.17); Anion Gap 7.3 mmol/L (10.00-18.00); BUN/Creat Ratio 16.89 Ratio (12.00-20.00); Blood Urea Nitrogen 15.2 mg/dL (9.0-27.0); Calcium 9.2 mg/dL (8.7-10.3); Carbon Dioxide 27.7 mmol/L (20.0-27.5); Globulin 2.9 g/dL (1.6-3.3); Non-African American GFR(CKD) 88.7 (60.0-200.0); Potassium 4.8 mmol/L (3.5-5.5); Total Bilirubin 0.3 mg/dL (0.30-1.20); Total Protein 6.3 g/dL (6.2-8.2)
[2022-08-17] MEDS: SYMBICORT 160-4.5 MCG INHALER INHALATION SCH ×2 (10:08→18:25)
[2022-08-17] MEDS: TIOTROPIUM 2.5 MCG INHALER INHALATION SCH (10:08)
[2022-08-17 11:49] LABS: INR 0.95 (0.90-1.11); Prothrombin Time 10.8 sec (9.9-11.9)
[2022-08-17] MEDS: FOLIC ACID 1 MG TAB PO SCH (15:05)
[2022-08-17] MEDS: ENOXAPARIN 80 MG/0.8 ML SYRINGE SQ SCH (17:26)
[2022-08-17] MEDS: WARFARIN 10 MG TAB PO SCH (17:28)
--- NOTE | 2022-08-17 22:23 | P.CONS ---
History of Present Illness - Reason for Consult Consult date: 08/17/22 supratherapeutic INR Requesting physician: Luisito Langford - Chief Complaint Supratherapeutic INR - History of Present Illness Mr. Steele is a 66 year old male PMH CAD, [place], Hx PE, ruptured esophagus after a fall 03/2020 while on anticoagulation leading to a significant GI bleed, BLE DVT 12/02. He was on coumadin in the past, he was started on eliquis November 2021. He was seen in the office 01/18/[address] Karel Murcia's recommendation was, having a second episode of pulmonary embolism, family history, smoking and limited mobility-lifelong anticoagulation. Patient previously had an IVC filter placed and the patient was referred to have removed but, is not sure if that happened. Patient was prescribed oral iron and B12. He no call, no showed subsequent appointment. He has not been seen since. Patient is currently admitted because of supratherapeutic INR. He reports INR 8.1 was communicated to him and he was told to come in to hospital. In the system the first INR is 5.6, and next was 5.8, 10mg vit K IV was given, subsequent INR 1.2. He denied any bleeding prior to admit. He reports he was on eliquis up until his hospitalization at of in Jun. He reports that he had a pulm thrombectomy, it is reported in the medical record he had a heart valve repaired/replaced. He has been on Coumadin since then. Patient is also noted to be anemic. Hemoglobin is stable today. RBC indices are normal, ferritin and saturation are low normal, iron is low. Review of Systems 10 point ROS is neg except as stated in HPI Past Medical History Past Medical History: Asthma, COPD, GI Bleed, Osteoarthritis (OA), Pulmonary Embolus (PE) Additional Past Medical History / Comment(s): celiac disease, IBS, colitis, central tremors, hepatitis at 12 History of Any Multi-Drug Resistant Organisms: None Reported Past Surgical History: Appendectomy, Cholecystectomy, Heart Catheterization Past Anesthesia/Blood Transfusion Reactions: No Reported Reaction Past Psychological History: Anxiety, Depression Smoking Status: Former smoker Past Alcohol Use History: Daily Additional Past Alcohol Use History / Comment(s): PT STATES HE DRINKS 3 BEERS A DAY Past Drug Use History: Marijuana - Past Family History Father Family Medical History: Deep Vein Thrombosis (DVT) Medications and Allergies Home Medications Medication Instructions Recorded Confirmed Type Albuterol Sulfate [Ventolin HFA] 2 puff INHALATION RT-Q6H PRN 04/09/20 08/14/22 History Tamsulosin HCl [Flomax] 0.4 mg PO DAILY 04/09/20 08/14/22 History ALPRAZolam [Xanax] 1 mg PO BID PRN 12/05/21 08/14/22 History allopurinoL 300 mg PO DAILY 12/05/21 08/14/22 History Cyanocobalamin (Vitamin B-12) 2,000 mcg PO DAILY 06/14/22 08/14/22 History [Vitamin B-12] Midodrine [ProAmatine] 5 mg PO BID@0900,1700 06/14/22 08/14/22 History Montelukast [Singulair] 10 mg PO DAILY 06/14/22 08/14/22 History Omeprazole 20 mg PO DAILY 06/14/22 08/14/22 History Sildenafil [Revatio] 20 mg PO AC-TID 06/14/22 08/14/22 History lamoTRIgine 50 mg PO BID 06/14/22 08/14/22 History Budesonide-Formot 160-4.5 Mcg 2 puff INHALATION RT-BID each 06/15/22 08/14/22 Rx [Symbicort 160-4.5 Mcg Inhaler] HYDROcodone/APAP 7.5-325MG [[employer] 1 tab PO TID PRN 08/14/22 08/14/22 History 7.5-325] Tiotropium 2.5 Mcg/Puff [Spiriva 2 puff INHALATION RT-DAILY 08/14/22 08/14/22 History Respimat 2.5 Mcg] Warfarin [Coumadin] 10 mg PO SUTUTHSA 08/14/22 08/14/22 History Warfarin [Coumadin] 15 mg PO MOWEFR 08/14/22 08/14/22 History Allergies Allergy/AdvReac Type Severity Reaction Status Date / Time No Known Allergies Allergy Verified 12/05/21 13:55 Physical Exam Vitals: Vital Signs Temp Pulse Resp BP BP Pulse Ox 08/17/22 10:55 16 08/17/22 07:02 98.2 F 57 L 17 149/88 100 08/17/22 06:20 147/86 08/17/22 02:00 98.5 F 64 15 121/65 95 08/16/22 20:45 98.9 F 67 18 120/74 97 08/16/22 17:39 97 08/16/22 14:54 98.4 F 70 17 104/65 97 08/16/22 12:30 133/82 Intake and Output 08/16/22 08/17/22 08/17/22 22:59 06:59 14:59 Intake Total 118 240 Output Total 800 Balance 118 -800 240 Intake: Oral 118 240 Output: Urine 800 Other: Voiding Method Urinal # Voids 1 # Bowel Movements 1 - Constitutional General appearance: average body habitus, cooperative, no acute distress - EENT Eyes: anicteric sclerae, EOMI ENT: hearing grossly normal, normal oropharynx - Neck Neck: no lymphadenopathy - Respiratory Respiratory: bilateral: CTA - Cardiovascular Rhythm: regular Heart sounds: normal: S1, S2 Abnormal Heart Sounds: systolic murmur leg Peripheral Edema: bilateral: None - Gastrointestinal General gastrointestinal: no absent bowel sounds, no decreased bowel sounds, distended, hepatomegaly, no hyperactive bowel sounds, normal bowel sounds, no o rganomegaly, no rigid, no scaphoid, soft, no splenomegaly, no tenderness, no umbilical hernia, no ventral hernia - Integumentary Integumentary: normal - Neurologic Essential hand tremor bilaterally Neurologic: CNII-XII intact (Grossly) - Musculoskeletal Musculoskeletal: generalized weakness, strength equal bilaterally - Psychiatric Psychiatric: A&O x's 3, appropriate affect, intact judgment & insight Results CBC & Chem 7: 08/17/22 05:13 08/17/22 05:13 Labs: Abnormal Lab Results - Last 24 Hours (Table) 08/16/22 08/16/22 08/17/22 Range/Units 13:01 13:01 05:13 RBC 2.96 L (4.40-5.60) X 10*6/uL Hgb 9.2 L (13.0-17.0) g/dL Hct 28.5 L (39.6-50.0) % RDW 14.8 H (11.5-14.5) % Eosinophils # 0.43 H (0.04-0.35) X 10*3/uL Carbon Dioxide (20.0-27.5) mmol/L Anion Gap (10.00-18.00) mmol/L Iron 61 L (65-175) ug/dL AST (14-35) U/L Albumin (3.8-4.9) g/dL Albumin/Globulin Ratio (1.60-3.17) g/dL Vitamin B12 1158.0 H (200.0-944.0) pg/mL Homocysteine 14.10 H (4.00-14.00) umol/L 08/17/22 Range/Units 05:13 RBC (4.40-5.60) X 10*6/uL Hgb (13.0-17.0) g/dL Hct (39.6-50.0) % RDW (11.5-14.5) % Eosinophils # (0.04-0.35) X 10*3/uL Carbon Dioxide 27.7 H (20.0-27.5) mmol/L Anion Gap 7.30 L (10.00-18.00) mmol/L Iron (65-175) ug/dL AST 55 H (14-35) U/L Albumin 3.4 L (3.8-4.9) g/dL Albumin/Globulin Ratio 1.17 L (1.60-3.17) g/dL Vitamin B12 (200.0-944.0) pg/mL Homocysteine (4.00-14.00) umol/L Chest x-ray: report reviewed CT Scan - head: report reviewed Assessment and Plan (1) Supratherapeutic INR Current Visit: Yes Status: Acute Priority: Medium Code(s): R79.1 - ABNORMAL COAGULATION PROFILE SNOMED Code(s): 729230926 (2) DVT (deep venous thrombosis) Current Visit: No Status: Chronic Priority: Low Code(s): I82.409 - ACUTE EMBOLISM AND THOMBOS UNSP DEEP VN UNSP LOWER EXTREMITY SNOMED Code(s): 808895275 (3) History of GI bleed Current Visit: No Status: Chronic Priority: Medium Code(s): Z87.19 - PERSONAL HISTORY OF OTHER DISEASES OF THE DIGESTIVE SYSTEM SNOMED Code(s): 975516095 (4) Pulmonary embolism Current Visit: No Status: Chronic Priority: Low Code(s): I26.99 - OTHER PULMONARY EMBOLISM WITHOUT ACUTE COR PULMONALE SNOMED Code(s): 44823285 Plan: Supratherapeutic INR -INR reversed with vit K -Pt is resumed on coumadin DVT/PE -Blow Down Helper recommended lifelong anticoagulation 01/2022 due to unprovoked DVT and PE 2, family history, smoking and mobility issues. Pt was on eliquis at that time. Had been on since at least November of 2021 for blood clots. Pt did not f/u as scheduled and has not been in office since. Unfortunately pt a very poor historian and is not able to communicate his medical history, what procedures he has had done or when and why his anticoagulation was changed. It is not exactly clear if pt HAS to be on coumadin. IF pt is on because of Hx DVT/PE, then DOAC is reasonable. We requested info from [facility] but, from the reports we received, pt had no procedures or new diagnoses that would have warranted a change from eliquis to coumadin in Jun 2022. It was documented in [facility] paperwork that the pt was at [facility] recently as well so, we are looking into that to see if something happened there that he needs to be on coumadin. We will see what we are able to find out. Pt will need to remain on coumadin for now until more is known. Time with Patient: Greater than 30 (75 min spent requesting info, sorting through documents and reports)
[2022-08-17] MEDS: ALPRAZolam 0.25 MG TAB PO PRN (23:32)
[2022-08-18] MEDS: PANTOPRAZOLE 40 MG TABLET PO SCH (06:04)
[2022-08-18] MEDS: SILDENAFIL 20 MG TAB PO SCH ×3 (06:04→16:58)
[2022-08-18] MEDS: MIDODRINE 5 MG TAB PO SCH ×3 (06:04→19:47)
[2022-08-18] MEDS: SYMBICORT 160-4.5 MCG INHALER INHALATION SCH ×2 (08:31→21:07)
[2022-08-18] MEDS: TIOTROPIUM 2.5 MCG INHALER INHALATION SCH (08:32)
[2022-08-18] MEDS: allopurinoL 300 MG TAB PO SCH (08:47)
[2022-08-18] MEDS: HYDROcodone/APAP 7.5-325MG 1 EACH TAB PO PRN ×2 (08:47→16:58)
[2022-08-18] MEDS: TAMSULOSIN 0.4 MG CAP.ER.24H PO SCH (08:47)
[2022-08-18] MEDS: FOLIC ACID 1 MG TAB PO SCH (08:47)
[2022-08-18] MEDS: MONTELUKAST 10 MG TAB PO SCH (08:47)
[2022-08-18] MEDS: ENOXAPARIN 80 MG/0.8 ML SYRINGE SQ SCH (08:48)
[2022-08-18] MEDS: lamoTRIgine 25 MG TAB PO SCH ×2 (08:48→19:47)
[2022-08-18 09:37] LABS: INR 0.98 (0.90-1.11); Prothrombin Time 11.1 sec (9.9-11.9)
[2022-08-18 13:23] LABS: Basophils % (A) 0 %; Eosinophils # (A) 0.3 k/uL (0-0.7); Eosinophils % (A) 7 %; HCT 32.6 % (39.0-53.0); HGB 10.3 gm/dL (13.0-17.5); Hypochromasia Slight; Lymphocytes % (A) 21 %; MCH 31.3 pg (25.0-35.0); MCHC 31.5 g/dL (31.0-37.0); MCV 99.4 fL (80.0-100.0); Macrocytosis Slight; Monocytes # (A) 0.3 k/uL (0-1.0); Monocytes % (A) 6 %; Neutrophils # (A) 3.1 k/uL (1.3-7.7); Neutrophils % (A) 65 %; Platelet Count 246 k/uL (150-450); RBC 3.28 m/uL (4.30-5.90); RDW 15.7 % (11.5-15.5); WBC 4.7 k/uL (3.8-10.6)
--- NOTE | 2022-08-18 13:28 | PN ---
PROGRESS NOTE SUBJECTIVE: Steven Steele status post valvular heart disease repair, PE. He has been on Coumadin since leaving [facility]. Due to PE, he was started on Coumadin at [facility], status post valvular repair. We gave him vitamin K and took his INR down to 1.2 and then went to 0.9, gave him 10 mg Coumadin yesterday. OBJECTIVE: CARDIOVASCULAR: S1, S2. LUNGS: Clear. O2 is 2 L. GI: Soft. HEMATOLOGY: Negative Homans. PSYCH: Fair mood and affect. Hand tremors stable. LABORATORY DATA: White count is 5, and hemoglobin is 9.2, BUN is 15, creatinine 0.9, supratherapeutic INR. ASSESSMENT: DVT, history of PE, history of GI bleed. Status post valvular heart repair, lifelong anticoagulation per Hematology. Continue Coumadin, wait for therapeutic prior to discharge. MMODL / SAVANNAHN: [id number] /
[2022-08-18] MEDS: FERROUS SULFATE 325 MG TAB PO SCH (16:11)
[2022-08-18] MEDS: WARFARIN 10 MG TAB PO SCH (16:59)
[2022-08-19] MEDS: ALPRAZolam 0.25 MG TAB PO PRN ×2 (00:33→13:29)
[2022-08-19] MEDS: HYDROcodone/APAP 7.5-325MG 1 EACH TAB PO PRN ×2 (00:33→09:41)
[2022-08-19 04:02] VITALS: RESP 18; TEMP 97.9
[2022-08-19] MEDS: PANTOPRAZOLE 40 MG TABLET PO SCH (06:11)
[2022-08-19] MEDS: SILDENAFIL 20 MG TAB PO SCH ×2 (06:11→13:29)
[2022-08-19] MEDS: TIOTROPIUM 2.5 MCG INHALER INHALATION SCH (07:39)
[2022-08-19] MEDS: SYMBICORT 160-4.5 MCG INHALER INHALATION SCH (07:39)
[2022-08-19 08:47] VITALS: BP 142/84; PULSE 73
[2022-08-19 08:56] LABS: INR 1.1 (<1.2); Prothrombin Time 11.1 sec (9.0-12.0)
[2022-08-19] MEDS: ENOXAPARIN 80 MG/0.8 ML SYRINGE SQ SCH (09:35)
[2022-08-19] MEDS: lamoTRIgine 25 MG TAB PO SCH (09:35)
[2022-08-19] MEDS: MONTELUKAST 10 MG TAB PO SCH (09:35)
[2022-08-19] MEDS: FERROUS SULFATE 325 MG TAB PO SCH (09:36)
[2022-08-19] MEDS: allopurinoL 300 MG TAB PO SCH (09:36)
[2022-08-19] MEDS: FOLIC ACID 1 MG TAB PO SCH (09:36)
[2022-08-19] MEDS: TAMSULOSIN 0.4 MG CAP.ER.24H PO SCH (09:36)
[2022-08-19] MEDS ORDERED: WARFARIN 7.5 MG TAB PO SCH (18:00)
== END 2022-08-19 14:20 ==
LOC: EC 17:36 → 6NMEDSUR 08-15 00:17
PROVIDERS: ADMIT Family Medicine; ATTEND Family Medicine
DX: I10 Essential (primary) hypertension (principal); J44.9 Chronic obstructive pulmonary disease, unspecified; K92.2 Gastrointestinal hemorrhage, unspecified; I95.9 Hypotension, unspecified; M19.90 Unspecified osteoarthritis, unspecified site; Z86.711 Personal history of pulmonary embolism; K58.9 Irritable bowel syndrome, unspecified; K90.0 Celiac disease; G25.2 Other specified forms of tremor; Z90.49 Acquired absence of other specified parts of digestive tract; Z98.890 Other specified postprocedural states; F41.9 Anxiety disorder, unspecified; F32.A Depression, unspecified; Z87.891 Personal history of nicotine dependence; Z82.49 Family history of ischemic heart disease and other diseases of the circulatory system; Z79.899 Other long term (current) drug therapy; Z79.51 Long term (current) use of inhaled steroids; Z79.01 Long term (current) use of anticoagulants
CPT/HCPCS: 96376 ×2; 96365; 96375 ×2; 96361; 99285; 36415; 94640 ×8; 94760; 93005; 97116; 97530; 97162; 97535 ×2; 97166; 83921; 83880; 80053 ×2; 80048; 82607; 82728; 82746; 83540; 83550; 83605; 83735; 84484; 85025 ×5; 85610 ×6; 85730; 81001; 83090; 87636; 71046; 70450; G0378 ×6; J3430; J2310; J2405; J1650 ×3

== ENCOUNTER → 2022-11-13 | Outpatient (CLI) | payer MEDICARE ==
[2022-11-13 12:42] LABS: African American GFR (CKD) >90 (>60 ml/min/1.73 sqM); Blood Urea Nitrogen 30 mg/dL (9-20); Non-African American GFR(CKD) 79 (>60 ml/min/1.73 sqM)
--- NOTE | 2022-11-13 13:54 | CT ---
EXAMINATION TYPE: CT angio chest DATE OF EXAM: 11/13/2022 COMPARISON: 06/14/2022 HISTORY: SOB, hx of PE CT DLP: 378.8 mGycm CONTRAST: CT chest with contrast and 3D reconstruction with MIP imaging is performed with IV Contrast, patient injected with 100 mL of Isovue 370. Contrast-enhanced CT of the chest was performed through the course of the pulmonary arteries with marcella g and mediastinal window settings submitted. 3D reconstruction with MIP imaging was also performed. PULMONARY ARTERIES: Previously noted right infrahilar mass is not redemonstrated on today's study. In addition there is improved filling of the lower lobe pulmonary arteries compatible with resolution o f previously noted chronic PE. No acute disease this time. Prominence of the central pulmonary arteri es compatible pulmonary arterial hypertension. ] LUNGS: The lungs are clear and free of infiltrate. No evidence for atelectasis. No pulmonary nodule or mass is detected. No pleural effusion. Mild scattered subpleural fibrosis. MEDIASTINUM: Thoracic aorta is of normal caliber. If there is concern for thoracic aortic pathology consider TREY. Correlate clinically . The heart is not enlarged. No evidence for mediastinal mass. No mediastinal lymph nodes greater than 1cm. HILAR STRUCTURES: No evidence for mass. No hilar lymph nodes greater than 1 cm. UPPER ABDOMEN: No significant abnormality is seen. IMPRESSION: 1. Previously noted right infrahilar mass is not redemonstrated on today's study. In addition there is improved filling of the lower lobe pulmonary arteries compatible with resolution of previously not ed chronic PE. No acute disease this time. Prominence of the central pulmonary arteries compatible pu lmonary arterial hypertension.
== END | disposition home or self-care (01) ==
LOC: RADCTMAIN 11:57
PROVIDERS: ATTEND Internal Medicine
DX: I27.24 Chronic thromboembolic pulmonary hypertension (principal)
CPT/HCPCS: 82565; 84520; 71275; 36415; Q9967

== ENCOUNTER → 2022-11-21 | Outpatient (CLI) | payer MEDICARE ==
--- NOTE | 2022-11-22 08:50 | MR ---
EXAMINATION TYPE: MR brain wo/w con DATE OF EXAM: 11/21/2022 5:10 PM CLINICAL INDICATION:Male, 67 years old with history of I63.9 CEREBRAL INFARCTION, UNSPECIFIED CVA COMPARISON: 06/15/2022 TECHNIQUE: Multi planar, multi sequence imaging was performed through the brain including: T1, T2, In version recovery, susceptibility weighted imaging and gradient echo imaging and Diffusion weighted im aging. The patient was then given intravenous contrast and multi planar, T1 fat-saturation images wer e obtained. IV Contrast: 8 cc Gadavist FINDINGS: The crisostomo-white junctions, ventricular system, basal cisterns appear unremarkable. Diffusion-weighted imaging shows no evidence of restricted diffusion to suggest acute/subacute infarct. Intracranial art erial flow voids are maintained. Midline structures show no abnormality. Scattered foci of high T2 si gnal intensity are seen within the periventricular white matter. The susceptibility weighted images d o not reveal any evidence for micro-hemorrhage. After administration of gadolinium, no abnormal enhan cement is seen. The bone marrow signal is within normal limits. Paranasal sinuses and mastoid air cells: Mild scattered paranasal sinus disease. Visualized orbits: Orbital contents are intact. IMPRESSION: 1. No evidence of intracranial mass, acute/subacute infarct, or abnormal enhancement. 2. Nonspecific white matter changes, likely related to small vessel ischemic disease 3. Right maxillary sinus paranasal sinus disease.
== END | disposition home or self-care (01) ==
LOC: RADMRIMAIN 15:23
PROVIDERS: ATTEND Family Medicine
DX: I63.9 Cerebral infarction, unspecified (principal); J34.89 Other specified disorders of nose and nasal sinuses; R90.82 White matter disease, unspecified
CPT/HCPCS: 70553; A9585

== ENCOUNTER → 2023-01-11 | Outpatient (CLI) | payer MEDICARE ==
[2023-01-11 12:00] LABS: INR 1.1 (<1.2); Prothrombin Time 11.1 sec (9.0-12.0)
== END | disposition home or self-care (01) ==
LOC: LABWHC1 11:01
PROVIDERS: ATTEND Family Medicine
DX: Z51.81 Encounter for therapeutic drug level monitoring (principal); Z79.01 Long term (current) use of anticoagulants
CPT/HCPCS: 36415; 85610

== ENCOUNTER 2023-04-12 10:06 | Observation (INO) | payer MEDICARE ==
--- NOTE | 2023-04-12 11:06 | ED ---
Extremity Problem HPI - General Source: patient, RN notes reviewed Mode of arrival: wheelchair Limitations: no limitations <Aniket Rubalcava - Last Filed: 04/12/23 11:03> <Domingo Roberto - Last Filed: 04/12/23 13:28> - General Chief complaint: Extremity Problem,Nontraumatic Stated complaint: Leg swelling Time Seen by Provider: 04/12/23 11:03 - History of Present Illness Initial comments: 68-year-old male presents emergency Department with chief complaint of back pain, leg pain. Patient states he fell couple weeks ago he states he has a bad back but states worse now. He states now he has bilateral leg swelling, redness. patient denies any chest pain currently states he does feel very weak, shortness of breath. (Aniket Rubalcava) - Related Data Home Medications Medication Instructions Recorded Confirmed Albuterol Sulfate [Ventolin HFA] 2 puff INHALATION RT-Q6H PRN 04/09/20 08/14/22 Tamsulosin HCl [Flomax] 0.4 mg PO DAILY 04/09/20 08/14/22 ALPRAZolam [Xanax] 1 mg PO BID PRN 12/05/21 08/14/22 allopurinoL 300 mg PO DAILY 12/05/21 08/14/22 Cyanocobalamin (Vitamin B-12) 2,000 mcg PO DAILY 06/14/22 08/14/22 [Vitamin B-12] Midodrine [ProAmatine] 5 mg PO BID@0900,1700 06/14/22 08/14/22 Montelukast [Singulair] 10 mg PO DAILY 06/14/22 08/14/22 Omeprazole 20 mg PO DAILY 06/14/22 08/14/22 Sildenafil [Revatio] 20 mg PO AC-TID 06/14/22 08/14/22 lamoTRIgine 50 mg PO BID 06/14/22 08/14/22 HYDROcodone/APAP 10-325MG [[employer] 1 tab PO TID 04/12/23 04/12/23 10-325] Warfarin [Coumadin] 5 mg PO SUTUWETHFRSA 04/12/23 04/12/23 Warfarin [Coumadin] 10 mg PO MO 04/12/23 04/12/23 Previous Rx's Medication Instructions Recorded Budesonide-Formot 160-4.5 Mcg 2 puff INHALATION RT-BID each 06/15/22 [Symbicort 160-4.5 Mcg Inhaler] Ferrous Sulfate [Iron (65 MG 325 mg PO DAILY tab 08/19/22 Elemental)] Allergies Allergy/AdvReac Type Severity Reaction Status Date / Time No Known Allergies Allergy Verified 04/12/23 13:20 Review of Systems ROS Other: All systems not noted in ROS Statement are negative. <Aniket Rubalcava - Last Filed: 04/12/23 11:03> ROS Other: All systems not noted in ROS Statement are negative. <Domingo Roberto - Last Filed: 04/12/23 13:28> ROS Statement: Those systems with pertinent positive or pertinent negative responses have been documented in the HPI. Past Medical History Past Medical History: Asthma, COPD, GI Bleed, Osteoarthritis (OA), Pulmonary Embolus (PE) Additional Past Medical History / Comment(s): celiac disease, IBS, colitis, central tremors, hepatitis at 12 History of Any Multi-Drug Resistant Organisms: None Reported Past Surgical History: Appendectomy, Cholecystectomy, Heart Catheterization Past Anesthesia/Blood Transfusion Reactions: No Reported Reaction Past Psychological History: Anxiety, Depression Smoking Status: Former smoker Past Alcohol Use History: Daily Past Drug Use History: Marijuana - Past Family History Father Family Medical History: Deep Vein Thrombosis (DVT) <Aniket Rubalcava - Last Filed: 04/12/23 11:03> General Exam Limitations: no limitations <Aniket Rubalcava - Last Filed: 04/12/23 11:03> General appearance: alert, in no apparent distress Head exam: Present: atraumatic, normocephalic Eye exam: Present: normal appearance, PERRL Respiratory exam: Present: normal lung sounds bilaterally. Absent: respiratory distress, wheezes Cardiovascular Exam: Present: regular rate, normal rhythm GI/Abdominal exam: Present: soft. Absent: distended Extremities exam: Present: pedal edema, other (Bilateral pitting edema, warmth, and erythema) Neurological exam: Present: alert, oriented X3, CN II-XII intact Psychiatric exam: Present: normal affect, normal mood Skin exam: Present: warm, dry, intact, erythema. Absent: cyanosis, diaphoretic <Dominog Roberto - Last Filed: 04/12/23 13:28> - General Exam Comments Initial Comments: Visual Physical Exam Vital signs reviewed General: Well-appearing, nontoxic, no acute distress. Head: Normocephalic, atraumatic Eyes: PERRLA, EOMI ENT: Airway patent Chest: Nonlabored breathing Skin: No visual rash, normal skin tone Neuro: Alert and oriented 3 Musculoskeletal: No gross abnormalities (Aniket Rubalcava) Course Vital Signs 04/12/23 04/12/23 10:22 12:42 Temperature 98.3 F 99.1 F Pulse Rate 77 65 Respiratory 16 20 Rate Blood Pressure 108/77 172/94 O2 Sat by Pulse 97 99 Oximetry Medical Decision Making <Aniket Rubalcava - Last Filed: 04/12/23 11:03> - Lab Data Result diagrams: 04/12/23 11:58 04/12/23 11:58 <Domingo Roberto - Last Filed: 04/12/23 13:28> - Medical Decision Making I completed the quick note portion of this chart signed Aniket Rubalcava PA-C (Aniket Rubalcava) Was pt. sent in by a medical professional or institution (MATTY Soni, POST HOLE DIGGING MACHINE OPERATOR, urgent care, hospital, or custodial...) When possible be specific @ -No Did you speak to anyone other than the patient for history (EMS, parent, family, police, friend...)? What history was obtained from this source @ -No Did you review nursing and triage notes (agree or disagree)? Why? @ -I reviewed and agree with nursing and triage notes Were old charts reviewed (outside hosp., previous admission, EMS record, old EKG, old radiological studies, urgent care reports/EKG's, custodial records)? Report findings @ -No old charts were reviewed Differential Diagnosis (chest pain, altered mental status, abdominal pain women, abdominal pain men, vaginal bleeding, weakness, fever, dyspnea, syncope, headache, dizziness, GI bleed, back pain, seizure, CVA, palpatations, mental health, musculoskeletal)? @ -not applicable EKG interpreted by me (3pts min.). @ Sinus rhythm rate of 67, TN interval 172, QRS duration 97, QTC [address] segment elevation. X-rays interpreted by me (1pt min.). @ X-rays of the chest and lumbar spine performed, chest x-ray negative for acute findings no pneumothorax, no focal pneumonia. Lumbar spine x-ray shows no displ aced fracture. There is incidental note of IVC filter. CT interpreted by me (1pt min.). @ -None done U/S interpreted by me (1pt. min.). @ -None done What testing was considered but not performed or refused? (CT, X-rays, U/S, labs)? Why? @ -None What meds were considered but not given or refused? Why? @ -None Did you discuss the management of the patient with other professionals (professionals i.e. , PA, POST HOLE DIGGING MACHINE OPERATOR, lab, RT, psych nurse, social science manager, detasseling crew supervisor, teacher, military source operations officer, case planner)? Give summary @ -[Dr. Langford Was smoking cessation discussed for >3mins.? @ -No Was critical care preformed (if so, how long)? @ -No Were there social determinants of health that impacted care today? How? (Homelessness, low income, unemployed, alcoholism, drug addiction, transportation, low edu. Level, literacy, decrease access to med. care, snf, rehab)? @ -No Was there de-escalation of care discussed even if they declined (Discuss DNR or withdrawal of care, Hospice)? DNR status @ -No What co-morbidities impacted this encounter? (DM, HTN, Smoking, COPD, CAD, Cancer, CVA, ARF, Chemo, Hep., AIDS, mental health diagnosis, sleep apnea, morbid obesity)? @ History of DVT, on Coumadin Was patient admitted / discharged? Hospital course, mention meds given and route, prescriptions, significant lab abnormalities, going to OR and other pertinent info. @ 68-year-old male with increased bilateral lower extremity swelling, history of DVT on Coumadin. His INR is therapeutic at 2.4. He has history of IVC filter. He had a fall with low back pain, x-ray negative for displaced fr acture. Chest x-ray is clear without perez pneumonia or pulmonary edema. He has normal white blood cell count, negative troponin, normal electrolytes. He has significant bilateral lower extremity swelling and cellulitis. Ultrasound has been ordered, results pending to rule out DVT. Patient will be admitted for pain control and IV antibiotics. Undiagnosed new problem with uncertain prognosis? @ -No Drug Therapy requiring intensive monitoring for toxicity (Heparin, Nitro, Insulin, Cardizem)? @ -No Were any procedures done? @ -No Diagnosis/symptom? @ -Bilateral cellulitis Acute, or Chronic, or Acute on Chronic? @ Acute Uncomplicated (without systemic symptoms) or Complicated (systemic symptoms)? @ -default Side effects of treatment? @ -No] Exacerbation, Progression, or Severe Exacerbation? @ -[No] Poses a threat to life or bodily function? How? (Chest pain, USA, CA, pneumonia, PE, COPD, DKA, ARF, appy, cholecystitis, CVA, Diverticulitis, Homicidal, Suicidal, threat to staff... and all critical care pts) @ -Yes, sepsis (Domingo Roberto) - Lab Data Lab Results 04/12/23 04/12/23 04/12/23 Range/Units 11:58 11:58 11:58 WBC 6.2 (3.8-10.6) k/uL RBC 3.46 L (4.30-5.90) m/uL Hgb 11.1 L (13.0-17.5) gm/dL Hct 34.2 L (39.0-53.0) % MCV 98.9 (80.0-100.0) fL MCH 32.2 (25.0-35.0) pg MCHC 32.5 (31.0-37.0) g/dL RDW 14.8 (11.5-15.5) % Plt Count 384 (150-450) k/uL MPV 7.8 Neutrophils % 71 % Lymphocytes % 14 % Monocytes % 7 % Eosinophils % 6 % Basophils % 0 % Neutrophils # 4.4 (1.3-7.7) k/uL Lymphocytes # 0.9 L (1.0-4.8) k/uL Monocytes # 0.4 (0-1.0) k/uL Eosinophils # 0.4 (0-0.7) k/uL Basophils # 0.0 (0-0.2) k/uL Hypochromasia Slight Macrocytosis Slight PT 24.1 H (10.0-12.5) sec INR 2.4 H (<1.2) APTT 26.5 (22.0-30.0) sec Sodium 136 L (137-145) mmol/L Potassium 4.7 (3.5-5.1) mmol/L Chloride 100 (98-107) mmol/L Carbon Dioxide 24 (22-30) mmol/L Anion Gap 12 mmol/L BUN 14 (9-20) mg/dL Creatinine 1.21 (0.66-1.25) mg/dL Est GFR (CKD-EPI)AfAm 71 (>60 ml/min/1.73 sqM) Est GFR (CKD-EPI)NonAf 62 (>60 ml/min/1.73 sqM) Glucose 98 (74-99) mg/dL Calcium 9.0 (8.4-10.2) mg/dL Magnesium 1.8 (1.6-2.3) mg/dL Total Bilirubin 0.8 (0.2-1.3) mg/dL AST 47 (17-59) U/L ALT 13 (4-49) U/L Alkaline Phosphatase 83 (38-126) U/L Troponin I (0.000-0.034) ng/mL NT-Pro-B Natriuret Pep 904 pg/mL Total Protein 8.1 (6.3-8.2) g/dL Albumin 4.2 (3.5-5.0) g/dL 04/12/23 Range/Units 11:58 WBC (3.8-10.6) k/uL RBC (4.30-5.90) m/uL Hgb (13.0-17.5) gm/dL Hct (39.0-53.0) % MCV (80.0-100.0) fL MCH (25.0-35.0) pg MCHC (31.0-37.0) g/dL RDW (11.5-15.5) % Plt Count (150-450) k/uL MPV Neutrophils % % Lymphocytes % % Monocytes % % Eosinophils % % Basophils % % Neutrophils # (1.3-7.7) k/uL Lymphocytes # (1.0-4.8) k/uL Monocytes # (0-1.0) k/uL Eosinophils # (0-0.7) k/uL Basophils # (0-0.2) k/uL Hypochromasia Macrocytosis PT (10.0-12.5) sec INR (<1.2) APTT (22.0-30.0) sec Sodium (137-145) mmol/L Potassium (3.5-5.1) mmol/L Chloride (98-107) mmol/L Carbon Dioxide (22-30) mmol/L Anion Gap mmol/L BUN (9-20) mg/dL Creatinine (0.66-1.25) mg/dL Est GFR (CKD-EPI)AfAm (>60 ml/min/1.73 sqM) Est GFR (CKD-EPI)NonAf (>60 ml/min/1.73 sqM) Glucose (74-99) mg/dL Calcium (8.4-10.2) mg/dL Magnesium (1.6-2.3) mg/dL Total Bilirubin (0.2-1.3) mg/dL AST (17-59) U/L ALT (4-49) U/L Alkaline Phosphatase (38-126) U/L Troponin I 0.018 (0.000-0.034) ng/mL NT-Pro-B Natriuret Pep pg/mL Total Protein (6.3-8.2) g/dL Albumin (3.5-5.0) g/dL Disposition <Aniket Rubalcava - Last Filed: 04/12/23 11:03> Is patient prescribed a controlled substance at d/c from ED?: No Time of Disposition: 13:28 <Domingo Roberto - Last Filed: 04/12/23 13:28> Clinical Impression: Cellulitis, Peripheral edema Disposition: ADMITTED IP TO THIS HOSP Condition: Stable Referrals: Luisito Langford MD [Primary Care Provider] - 1-2 days
--- NOTE | 2023-04-12 12:02 | XR ---
EXAMINATION TYPE: XR chest 2V DATE OF EXAM: 04/12/2023 COMPARISON: 08/14/2021 HISTORY: Shortness of breath TECHNIQUE: Frontal and lateral views of the chest are obtained. FINDINGS: Scattered senescent parenchymal changes noted. Hyperinflation compatible with COPD. No evidence for infiltrate. No evidence for atelectasis. Heart size is stable. Mediastinal structures are stable and grossly unremarkable. No evidence for hilar prominence. Degenerative changes dorsal spine. IMPRESSION: 1. No evidence for acute pulmonary disease.
--- NOTE | 2023-04-12 12:13 | XR ---
EXAMINATION TYPE: XR lumbar spine 2 or 3V DATE OF EXAM: 04/12/2023 CLINICAL HISTORY: pain TECHNIQUE: Three views of the lumbar spine are submitted. COMPARISON: None. FINDINGS: There are 5 lumbar type vertebral bodies identified. The lumbar spine shows satisfactory alignment w ithout evidence of acute fracture or dislocation. Vertebral body heights are within normal limits. Severe multilevel degenerative disc space narrowing. 8 mm retrolisthesis L3 on L4. Severe facet joint arthropathy. IVC filter. The overlying soft tissue appears unremarkable. IMPRESSION: No acute fracture or dislocation is seen in the lumbar spine. ICD 10 NO FRACTURE, INITIAL EVALUATION
[2023-04-12 12:21] LABS: Basophils % (A) 0 %; Eosinophils # (A) 0.4 k/uL (0-0.7); Eosinophils % (A) 6 %; HCT 34.2 % (39.0-53.0); HGB 11.1 gm/dL (13.0-17.5); Hypochromasia Slight; Lymphocytes # (A) 0.9 k/uL (1.0-4.8); Lymphocytes % (A) 14 %; MCH 32.2 pg (25.0-35.0); MCHC 32.5 g/dL (31.0-37.0); MCV 98.9 fL (80.0-100.0); Macrocytosis Slight; Mean Platelet Volume 7.8; Monocytes # (A) 0.4 k/uL (0-1.0); Monocytes % (A) 7 %; Neutrophils # (A) 4.4 k/uL (1.3-7.7); Neutrophils % (A) 71 %; Platelet Count 384 k/uL (150-450); RBC 3.46 m/uL (4.30-5.90); RDW 14.8 % (11.5-15.5); WBC 6.2 k/uL (3.8-10.6)
[2023-04-12] MEDS ORDERED: MORPHINE SULFATE 4 MG/ML SYRINGE IVP STA (12:26)
[2023-04-12 12:35] LABS: ALT 13 U/L (4-49); African American GFR (CKD) 71 (>60 ml/min/1.73 sqM); Albumin 4.2 g/dL (3.5-5.0); Anion Gap 12 mmol/L; Blood Urea Nitrogen 14 mg/dL (9-20); Carbon Dioxide 24 mmol/L (22-30); Chloride 100 mmol/L (98-107); Glucose 98 mg/dL (74-99); Non-African American GFR(CKD) 62 (>60 ml/min/1.73 sqM); Sodium 136 mmol/L (137-145); Total Bilirubin 0.8 mg/dL (0.2-1.3); Total Protein 8.1 g/dL (6.3-8.2)
[2023-04-12 12:36] LABS: AST 47 U/L (17-59); Alkaline Phosphatase 83 U/L (38-126); Magnesium 1.8 mg/dL (1.6-2.3); Potassium 4.7 mmol/L (3.5-5.1)
[2023-04-12 12:43] LABS: NT-Pro-B-Type Natriuretic Pept 904 pg/mL
[2023-04-12 13:04] LABS: INR 2.4 (<1.2); Partial Thromboplastin Time 26.5 sec (22.0-30.0); Prothrombin Time 24.1 sec (10.0-12.5)
[2023-04-12] MEDS ORDERED: NALOXONE 0.4 MG/ML 1 ML VIAL IV PRN (13:23)
[2023-04-12] MEDS ORDERED: ACETAMINOPHEN TAB 325 MG TAB PO PRN (13:23)
[2023-04-12] MEDS ORDERED: FUROSEMIDE 10 MG/ML 2 ML VIAL IV STA (13:23)
--- NOTE | 2023-04-12 14:33 | US ---
EXAMINATION TYPE: US venous doppler duplex LE DATE OF EXAM: 04/12/2023 2:24 PM COMPARISON: US 12/05/2021 CLINICAL INDICATION: Male, 68 years old with history of swelling; Hx of DVT. Patient is on coumadin. SIDE PERFORMED: Bilateral TECHNIQUE: The lower extremity deep venous system is examined utilizing real time linear array sonog karlo with graded compression, doppler sonography and color-flow sonography. VESSELS IMAGED: Common Femoral Vein Deep Femoral Vein Greater Saphenous Vein * Femoral Vein Popliteal Vein Small Saphenous Vein * Proximal Calf Veins (* superficial vessels) Right Leg: Positive. Internal echoes within CFV. CFV is partially compressible with color defect. Color flow seen within remaining veins imaged. Complex area seen right popliteal fossa: 5.9 x 3.4 x 2.7 cm. Prominent lymph node in right groin measures 2.7 x 2.8 x 1.2 cm. Left Leg: Positive. Internal echoes within CFV and throughout femoral vein. Femoral vein does not appear to compress. Little color flow shown within femoral vein. IMPRESSION: There appears to be some deep venous thrombus within the common femoral vein and femoral vein access appears incompletely compressible with internal echoes. 2. Garza's cyst.
[2023-04-12] MEDS ORDERED: ALBUTEROL NEBULIZED 2.5 MG/3 ML INHALATION PRN (17:53)
[2023-04-12] MEDS: MORPHINE SULFATE 4 MG/ML SYRINGE IV PRN ×2 (18:09→23:39)
[2023-04-12] MEDS ORDERED: WARFARIN 5 MG TAB PO SCH (19:00)
[2023-04-12] MEDS: IPRATROPIUM-ALBUTEROL 3 ML NEB INHALATION SCH (20:01)
[2023-04-12] MEDS: SYMBICORT 160-4.5 MCG INHALER INHALATION SCH (20:01)
[2023-04-12] MEDS: HYDROcodone/APAP 10-325MG 1 EACH TAB PO SCH (22:33)
[2023-04-12] MEDS: lamoTRIgine 100 MG TAB PO SCH (22:34)
[2023-04-12] MEDS: MIDODRINE 5 MG TAB PO SCH (22:35)
[2023-04-12] MEDS ORDERED: HEPARIN SODIUM 1,000 UN/ML (10ML VL) IV ONE (23:16)
[2023-04-13] MEDS: HEPARIN SOD,PORK IN 0.45% NACL 25,000 UNIT in 0.45% NACL 1 250ML.BAG IV SCH (00:18)
--- NOTE | 2023-04-13 01:34 | CT ---
EXAM: CT Angiography Chest With Intravenous Contrast CLINICAL HISTORY: ITS.REASON CT Reason: Bilateral Leg DVT TECHNIQUE: Axial computed tomographic angiography images of the chest with intravenous contrast. CTDI is 20.3 mGy and DLP is 347.8 mGy-cm. This CT exam was performed using one or more of the following dose reduction techniques: automated exposure control, adjustment of the mA and/or kV according to patient size, and/or use of iterative reconstruction technique. MIP reconstructed images were created and reviewed. COMPARISON: June 14, 2022 FINDINGS: Pulmonary arteries: No pulmonary embolism. Aorta: No acute findings. Normal caliber. No dissection. Lungs: Unremarkable. Pleural space: Unremarkable. Heart: Unremarkable. Bones/joints: Status post median sternotomy. Nonunited sternotomy defect. Soft tissues: Unremarkable. Lymph nodes: Unremarkable. IMPRESSION: No pulmonary embolism.
[2023-04-13 01:38] LABS: Basophils % (A) 0 %; Eosinophils # (A) 0.3 k/uL (0-0.7); Eosinophils % (A) 6 %; HCT 29.3 % (39.0-53.0); Hypochromasia Slight; Lymphocytes # (A) 1.4 k/uL (1.0-4.8); Lymphocytes % (A) 26 %; MCH 32.5 pg (25.0-35.0); MCHC 32.9 g/dL (31.0-37.0); MCV 98.9 fL (80.0-100.0); Mean Platelet Volume 7.6; Monocytes # (A) 0.5 k/uL (0-1.0); Monocytes % (A) 9 %; Neutrophils # (A) 3.1 k/uL (1.3-7.7); Neutrophils % (A) 57 %; Platelet Count 346 k/uL (150-450); RBC 2.96 m/uL (4.30-5.90); RDW 14.3 % (11.5-15.5); WBC 5.3 k/uL (3.8-10.6)
[2023-04-13 01:59] LABS: HGB 9.6 gm/dL (13.0-17.5)
[2023-04-13 06:08] LABS: INR 1.5 (<1.2); Partial Thromboplastin Time 37.6 sec (22.0-30.0); Prothrombin Time 15.6 sec (10.0-12.5)
[2023-04-13] MEDS: SILDENAFIL 20 MG TAB PO SCH ×3 (06:35→17:03)
[2023-04-13] MEDS: PANTOPRAZOLE 40 MG TABLET PO SCH (06:35)
[2023-04-13] MEDS: MORPHINE SULFATE 4 MG/ML SYRINGE IV PRN ×3 (06:35→21:29)
[2023-04-13 08:35] LABS: Basophils # (A) 0.04 X 10*3/uL (0.00-0.10); Basophils % (A) 0.8 %; Eosinophils # (A) 0.34 X 10*3/uL (0.04-0.35); Eosinophils % (A) 7.1 %; HCT 28.5 % (39.6-50.0); HGB 9.1 g/dL (13.0-17.0); Lymphocytes # (A) 1.51 X 10*3/uL (0.90-5.00); Lymphocytes % (A) 31.3 %; MCH 31.3 pg (27.0-32.0); MCHC 31.9 g/dL (32.0-37.0); MCV 97.9 FL (80.0-97.0); Mean Platelet Volume 9.9 FL (9.5-12.2); Monocytes # (A) 0.65 X 10*3/uL (0.20-1.00); Monocytes % (A) 13.5 %; NRBC Per 100 WBC 0 X 10*3/uL (0.00-0.01); Neutrophils # (A) 2.27 X 10*3/uL (1.80-7.70); Neutrophils % (A) 47.1 %; Platelet Count 338 X 10*3/uL (140-440); RBC 2.91 X 10*6/uL (4.40-5.60); RDW 14.6 % (11.5-14.5); WBC 4.82 X 10*3/uL (4.50-10.00)
[2023-04-13] MEDS: SYMBICORT 160-4.5 MCG INHALER INHALATION SCH ×2 (09:07→21:12)
[2023-04-13] MEDS: IPRATROPIUM-ALBUTEROL 3 ML NEB INHALATION SCH ×4 (09:07→21:12)
[2023-04-13] MEDS: CYANOCOBALAMIN 500 MCG TAB PO SCH (09:17)
[2023-04-13] MEDS: lamoTRIgine 100 MG TAB PO SCH ×2 (09:17→20:40)
[2023-04-13] MEDS: FERROUS SULFATE 325 MG TAB PO SCH (09:17)
[2023-04-13] MEDS: HYDROcodone/APAP 10-325MG 1 EACH TAB PO SCH ×2 (09:17→16:05)
[2023-04-13] MEDS: MIDODRINE 5 MG TAB PO SCH ×2 (09:18→20:40)
[2023-04-13] MEDS: MONTELUKAST 10 MG TAB PO SCH (09:18)
[2023-04-13] MEDS: TAMSULOSIN 0.4 MG CAP.ER.24H PO SCH (09:18)
[2023-04-13] MEDS: allopurinoL 300 MG TAB PO SCH (09:24)
[2023-04-13] MEDS: ALPRAZolam 1 MG TAB PO PRN (09:46)
--- NOTE | 2023-04-13 10:47 | P.GSCN ---
History of Present Illness Consult date: 04/13/23 Reason for Consult: DVT Requesting physician: Luisito Langford History of present illness: a pleasant 68-year-old male with multiple comorbidities including multiple lower extremity deep vein thrombosis as well as pulmonary embolisms. Patient states at least 15 years ago was the first time that he had a DVT. Denies any previous workup with hematology or known clotting disorder. Former smoker of 2-3 packs per day for 50 years now states he smokes maybe 1 or 2 cigarettes a day. Has history of cardiac arrest in May 2022 and underwent cardiopulmonary surgery in June 2022. Patient is a poor historian as to what surgery was done. States he has been on Coumadin since leaving the hospital in July. States his pain in her last known at home about 1-2 months ago that has been monitored by his PCP Dr. Langford was around 1.4. Patient states that they have had a hard time keeping his INR therapeutic. He has been on multiple anticoagulations in the past. States he has been on Xarelto and Eliquis with recurrent DVT/PE.He came into the emergency department for back pain and lower extremity swelling af ter sustaining a fall about a week ago down his stairs and hitting his back. patient states he has chronic back pain and was supposed to have surgery about a year ago prior to cardiac arrest. He states he is not followed with a manager call center that he knows of. He does have an IVC filter that is in place that was put in approximately 5 years ago at [facility]. He had a venous duplex which was positive for bilateral lower extremity DVTs. CT angiogram chest negative for pulmonary embolism.dates right lower extremity is painful with palpation. Denies any fevers or chills, no shortness of breath or chest pain at this time. Review of Systems A 14 point review systems was completed all pertinent positives and negatives as stated in the HPI. Past Medical History Past Medical History: Asthma, COPD, GI Bleed, Osteoarthritis (OA), Pulmonary Embolus (PE) Additional Past Medical History / Comment(s): celiac disease, IBS, colitis, central tremors, hepatitis at 12 History of Any Multi-Drug Resistant Organisms: None Reported Past Surgical History: Appendectomy, Cholecystectomy, Heart Catheterization Past Anesthesia/Blood Transfusion Reactions: No Reported Reaction Past Psychological History: Anxiety, Depression Smoking Status: Former smoker Past Alcohol Use History: Daily Additional Past Alcohol Use History / Comment(s): PT STATES HE DRINKS 3 BEERS A DAY Past Drug Use History: Marijuana - Past Family History Father Family Medical History: Deep Vein Thrombosis (DVT) Medications and Allergies Home Medications Medication Instructions Recorded Confirmed Type Albuterol Sulfate [Ventolin HFA] 2 puff INHALATION RT-Q6H PRN 04/09/20 04/12/23 History Tamsulosin HCl [Flomax] 0.4 mg PO DAILY 04/09/20 04/12/23 History ALPRAZolam [Xanax] 1 mg PO BID PRN 12/05/21 04/12/23 History allopurinoL 300 mg PO DAILY 12/05/21 04/12/23 History Cyanocobalamin (Vitamin B-12) 2,000 mcg PO DAILY 06/14/22 04/12/23 History [Vitamin B-12] Midodrine [ProAmatine] 5 mg PO BID 06/14/22 04/12/23 History Montelukast [Singulair] 10 mg PO DAILY 06/14/22 04/12/23 History Omeprazole 20 mg PO DAILY 06/14/22 04/12/23 History Sildenafil [Revatio] 20 mg PO AC-TID 06/14/22 04/12/23 History lamoTRIgine 100 mg PO BID 06/14/22 04/12/23 History Budesonide-Formot 160-4.5 Mcg 2 puff INHALATION RT-BID each 06/15/22 04/12/23 Rx [Symbicort 160-4.5 Mcg Inhaler] Ferrous Sulfate [Iron (65 MG 325 mg PO DAILY tab 08/19/22 04/12/23 Rx Elemental)] HYDROcodone/APAP 10-325MG [[place] 1 tab PO TID 04/12/23 04/12/23 History 10-325] Ipratropium-Albuterol Nebulize 3 ml INHALATION RT-QID 04/12/23 04/12/23 History [Duoneb 0.5 mg-3 mg/3 ml Soln] Warfarin [Coumadin] 5 mg PO SUTUWETHFRSA 04/12/23 04/12/23 History Warfarin [Coumadin] 10 mg PO MO 04/12/23 04/12/23 History Allergies Allergy/AdvReac Type Severity Reaction Status Date / Time No Known Allergies Allergy Verified 04/12/23 13:20 Surgical - Exam Vital Signs Temp Pulse Resp BP Pulse Ox 98.3 F 77 16 108/77 97 04/12/23 10:22 04/12/23 10:22 04/12/23 10:22 04/12/23 10:22 04/12/23 10:22 General appearance: The patient is alert, oriented, appears in no acute distress. HET: Head is normocephalic and atraumatic. Pupils are equal and reactive. Neck: Supple. Heart: Regular. Lungs: Equal expansion, normal respiratory effort. Abdomen: Soft, nontender, nondistended. Extremities: Bilateral lower extremity pitting edema up to knees. erythema to bilateral shins. Tender to palpation. Palpable bilateral femoral and dorsalis pedis pulses. Neurological: No focal deficits. Strength and sensation are grossly intact. Results - Labs 04/13/23 05:21 04/12/23 11:58 Abnormal Lab Results - Last 24 Hours (Table) 04/12/23 04/12/23 04/12/23 Range/Units 11:58 11:58 11:58 RBC 3.46 L (4.30-5.90) m/uL Hgb 11.1 L (13.0-17.5) gm/dL Hct 34.2 L (39.0-53.0) % Lymphocytes # 0.9 L (1.0-4.8) k/uL PT 24.1 H (10.0-12.5) sec INR 2.4 H (<1.2) APTT (22.0-30.0) sec Sodium 136 L (137-145) mmol/L 04/13/23 04/13/23 04/13/23 Range/Units 01:16 01:16 05:21 RBC 2.96 L (4.30-5.90) m/uL Hgb 9.6 L D (13.0-17.5) gm/dL Hct 29.3 L (39.0-53.0) % Lymphocytes # (1.0-4.8) k/uL PT 15.6 H (10.0-12.5) sec INR 1.5 H (<1.2) APTT 104.2 H* 37.6 H (22.0-30.0) sec Sodium (137-145) mmol/L Diabetes panel 04/12/23 Range/Units 11:58 Sodium 136 L (137-145) mmol/L Potassium 4.7 (3.5-5.1) mmol/L Chloride 100 (98-107) mmol/L Carbon Dioxide 24 (22-30) mmol/L BUN 14 (9-20) mg/dL Creatinine 1.21 (0.66-1.25) mg/dL Glucose 98 (74-99) mg/dL Calcium 9.0 (8.4-10.2) mg/dL AST 47 (17-59) U/L ALT 13 (4-49) U/L Alkaline Phosphatase 83 (38-126) U/L Total Protein 8.1 (6.3-8.2) g/dL Albumin 4.2 (3.5-5.0) g/dL Calcium panel 04/12/23 Range/Units 11:58 Calcium 9.0 (8.4-10.2) mg/dL Albumin 4.2 (3.5-5.0) g/dL Pituitary panel 04/12/23 Range/Units 11:58 Sodium 136 L (137-145) mmol/L Potassium 4.7 (3.5-5.1) mmol/L Chloride 100 (98-107) mmol/L Carbon Dioxide 24 (22-30) mmol/L BUN 14 (9-20) mg/dL Creatinine 1.21 (0.66-1.25) mg/dL Glucose 98 (74-99) mg/dL Calcium 9.0 (8.4-10.2) mg/dL Adrenal panel 04/12/23 Range/Units 11:58 Sodium 136 L (137-145) mmol/L Potassium 4.7 (3.5-5.1) mmol/L Chloride 100 (98-107) mmol/L Carbon Dioxide 24 (22-30) mmol/L BUN 14 (9-20) mg/dL Creatinine 1.21 (0.66-1.25) mg/dL Glucose 98 (74-99) mg/dL Calcium 9.0 (8.4-10.2) mg/dL Total Bilirubin 0.8 (0.2-1.3) mg/dL AST 47 (17-59) U/L ALT 13 (4-49) U/L Alkaline Phosphatase 83 (38-126) U/L Total Protein 8.1 (6.3-8.2) g/dL Albumin 4.2 (3.5-5.0) g/dL - Imaging Comments: venous duplex bilateral lower extremities: Reports appears to be some deep venous thrombus within the common femoral vein and femoral vein access appears incompletely compressible with internal echoes. Garza's cyst. chest CT angiogram reports no pulmonary embolism Assessment and Plan Assessment: 1. Bilateral lower extremity DVT 2. 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 Nicotine dependence 4. Chronic back pain 5. COPD 6. History of alcohol abuse Plan: 1. Elevate lower extremities 2. Compression stockings to bilateral lower extremities 3. There is no indication for any vascular surgical intervention 4. Defer anticoagulation management to hematology, patient has been on multiple anticoagulations in the past Thank you for this consultation, we will sign off at this time. The impression and plan of care has been dictated as directed. Dr. Duckworth I performed a history and examination of this patient, discussed the same with the dictator. I agree with the dictator's note ,documented as a scribe. Any additional findings or plans will be noted.
[2023-04-13] MEDS: bisacodyL 5 MG TABLET.DR PO PRN (20:39)
--- NOTE | 2023-04-13 22:38 | P.CONS ---
History of Present Illness - Reason for Consult Consult date: 04/13/23 Cellulitis Requesting physician: Luisito Langford - Chief Complaint Bilateral lower extremity pain swelling and redness x few days - History of Present Illness Patient is a 68-year-old male with a past medical history clinical asthma COPD PE IBS hepatitis patient presenting to the ER for evaluation of increasing pain to bilateral lower extremity as well as back pain and increasing swelling to both legs patient's symptom has been getting worse for the last few days patient denies any history of any trauma patient describes the pain to be sharp moderate to severe intensity without any radiation he also noted to have increasing swelling and some redness to bilateral lower extremity with the symptoms the patient was evaluated patient did have a low-grade fever of 99.1 degrees 100 patient was not tachycardic hypotensive or hypoxic patient did have white count of 6.2 creatinine is 1.21 liver enzymes are normal blood cultures obtained which are currently pending patient did have a chest x-ray no evidence for acute cardiopulmonary disease, lumbar x-ray no acute fracture or dislocation venous Doppler DVT within the common femoral vein and Garza's cyst CT angiogram of the chest was negative for PE and did not show any evidence of pneumonia or pulmonary infiltrate infectious disease was consulted regarding lower extremity cellulitis and antibiotic treatment Review of Systems Positive point and negatives has been mentioned in the HPI, complete review of systems was performed and all other systems are negative Past Medical History Past Medical History: Asthma, COPD, GI Bleed, Osteoarthritis (OA), Pulmonary Embolus (PE) Additional Past Medical History / Comment(s): celiac disease, IBS, colitis, central tremors, hepatitis at 12 History of Any Multi-Drug Resistant Organisms: None Reported Past Surgical History: Appendectomy, Cholecystectomy, Heart Catheterization Past Anesthesia/Blood Transfusion Reactions: No Reported Reaction Past Psychological History: Anxiety, Depression Smoking Status: Former smoker Past Alcohol Use History: Daily Additional Past Alcohol Use History / Comment(s): PT STATES HE DRINKS 3 BEERS A DAY Past Drug Use History: Marijuana - Past Family History Father Family Medical History: Deep Vein Thrombosis (DVT) Medications and Allergies Home Medications Medication Instructions Recorded Confirmed Type Albuterol Sulfate [Ventolin HFA] 2 puff INHALATION RT-Q6H PRN 04/09/20 04/12/23 History Tamsulosin HCl [Flomax] 0.4 mg PO DAILY 04/09/20 04/12/23 History ALPRAZolam [Xanax] 1 mg PO BID PRN 12/05/21 04/12/23 History allopurinoL 300 mg PO DAILY 12/05/21 04/12/23 History Cyanocobalamin (Vitamin B-12) 2,000 mcg PO DAILY 06/14/22 04/12/23 History [Vitamin B-12] Midodrine [ProAmatine] 5 mg PO BID 06/14/22 04/12/23 History Montelukast [Singulair] 10 mg PO DAILY 06/14/22 04/12/23 History Omeprazole 20 mg PO DAILY 06/14/22 04/12/23 History Sildenafil [Revatio] 20 mg PO AC-TID 06/14/22 04/12/23 History lamoTRIgine 100 mg PO BID 06/14/22 04/12/23 History Budesonide-Formot 160-4.5 Mcg 2 puff INHALATION RT-BID each 06/15/22 04/12/23 Rx [Symbicort 160-4.5 Mcg Inhaler] Ferrous Sulfate [Iron (65 MG 325 mg PO DAILY tab 08/19/22 04/12/23 Rx Elemental)] HYDROcodone/APAP 10-325MG [[place] 1 tab PO TID 04/12/23 04/12/23 History 10-325] Ipratropium-Albuterol Nebulize 3 ml INHALATION RT-QID 04/12/23 04/12/23 History [Duoneb 0.5 mg-3 mg/3 ml Soln] Warfarin [Coumadin] 5 mg PO SUTUWETHFRSA 04/12/23 04/12/23 History Warfarin [Coumadin] 10 mg PO MO 04/12/23 04/12/23 History Fondaparinux [Arixtra] 7.5 mg SQ DAILY #30 each 04/13/23 Rx Allergies Allergy/AdvReac Type Severity Reaction Status Date / Time No Known Allergies Allergy Verified 04/12/23 13:20 Physical Exam Vitals: Vital Signs Temp Pulse Pulse Resp BP BP Pulse Ox 04/13/23 09:17 76 04/13/23 09:07 72 04/13/23 08:00 65 16 04/13/23 07:00 98.7 F 65 16 142/84 96 04/13/23 02:51 98.2 F 77 15 133/79 96 04/12/23 21:15 98.6 F 72 15 135/85 97 04/12/23 20:16 76 04/12/23 20:05 74 04/12/23 18:07 98.8 F 74 19 121/77 95 04/12/23 17:05 66 17 127/74 97 04/12/23 16:15 66 17 124/86 100 04/12/23 15:07 70 18 101/87 96 04/12/23 14:30 99.0 F 86 20 126/80 99 04/12/23 12:42 99.1 F 65 20 172/94 99 Intake and Output 04/12/23 04/13/23 04/13/23 22:59 06:59 14:59 Intake Total 22.167 46.461 Output Total 1000 Balance -977.833 46.461 Intake: Intake, IV Titration 22.167 46.461 Amount Heparin Sod,Pork in 0.45% 22.167 46.461 NaCl 25,000 unit In 0.45 % NaCl 1 250ml.bag @ 11. 6032 UNITS/KG/HR 10 mls/ hr IV .Q24H [facility] Rx#: [id number] Output: Urine 1000 Other: Voiding Method Urinal # Voids 1 GENERAL DESCRIPTION: Elderly male lying in bed, no distress. No tachypnea or accessory muscle of respiration use. HEENT: Shows Pallor , no scleral icterus. Oral mucous membrane is dry. No pharyngeal erythema or thrush NECK: Trachea central, no thyromegaly. LUNGS: Unlabored breathing. Clear to auscultation anteriorly. No wheeze or crackle. HEART: S1, S2, regular rate and rhythm. No loud murmur ABDOMEN: Soft, no tenderness , guarding or rigidity, no organomegaly EXTREMITIES: Bilateral lower extremity with swelling and minimal redness which is warm and tender to touch SKIN: No rash, no masses palpable. NEUROLOGICAL: The patient is awake, alert, oriented x3, mood and affect normal. Results CBC & Chem 7: 04/13/23 05:21 04/12/23 11:58 Labs: Abnormal Lab Results - Last 24 Hours (Table) 04/12/23 04/12/23 04/12/23 Range/Units 11:58 11:58 11:58 RBC 3.46 L (4.30-5.90) m/uL Hgb 11.1 L (13.0-17.5) gm/dL Hct 34.2 L (39.0-53.0) % MCV (80.0-97.0) FL MCHC (32.0-37.0) g/dL RDW (11.5-14.5) % Lymphocytes # 0.9 L (1.0-4.8) k/uL PT 24.1 H (10.0-12.5) sec INR 2.4 H (<1.2) APTT (22.0-30.0) sec Sodium 136 L (137-145) mmol/L 04/13/23 04/13/23 04/13/23 Range/Units 01:16 01:16 05:21 RBC 2.96 L 2.91 L (4.30-5.90) m/uL Hgb 9.6 L D 9.1 L (13.0-17.5) gm/dL Hct 29.3 L 28.5 L (39.0-53.0) % MCV 97.9 H (80.0-97.0) FL MCHC 31.9 L (32.0-37.0) g/dL RDW 14.6 H (11.5-14.5) % Lymphocytes # (1.0-4.8) k/uL PT (10.0-12.5) sec INR (<1.2) APTT 104.2 H* (22.0-30.0) sec Sodium (137-145) mmol/L 04/13/23 Range/Units 05:21 RBC (4.30-5.90) m/uL Hgb (13.0-17.5) gm/dL Hct (39.0-53.0) % MCV (80.0-97.0) FL MCHC (32.0-37.0) g/dL RDW (11.5-14.5) % Lymphocytes # (1.0-4.8) k/uL PT 15.6 H (10.0-12.5) sec INR 1.5 H (<1.2) APTT 37.6 H (22.0-30.0) sec Sodium (137-145) mmol/L Assessment and Plan (1) Bilateral lower leg cellulitis Current Visit: Yes Status: Acute Code(s): L03.116 - CELLULITIS OF LEFT LOWER LIMB; L03.115 - CELLULITIS OF RIGHT LOWER LIMB SNOMED Code(s): 486827995 Plan: 1patient presented to hospital with increasing pain and swelling and redness to the lower extremity and this patient has been diagnosed with a DVT involving the common femoral vein and also have a component of cellulitis to the lower extremity likely from gram-positive skin matthew 2-marked area of the redness 3-we will start the patient on cefazolin 2 g every 8 hours We will follow on clinical condition and cultures to further adjust medication if needed Thank you for this consultation we will follow the patient along with you Dictation was produced using [employer] dictation software. please excuse any grammatical, word or spelling errors. Time with Patient: Greater than 30
[2023-04-14] MEDS: HYDROcodone/APAP 10-325MG 1 EACH TAB PO SCH ×4 (00:29→23:28)
[2023-04-14] MEDS: HEPARIN SOD,PORK IN 0.45% NACL 25,000 UNIT in 0.45% NACL 1 250ML.BAG IV SCH ×2 (00:56→21:38)
[2023-04-14] MEDS: HEPARIN SODIUM 1,000 UN/ML (10ML VL) IV PRN (01:03)
[2023-04-14] MEDS: ALPRAZolam 1 MG TAB PO PRN ×2 (01:03→09:49)
[2023-04-14] MEDS: PANTOPRAZOLE 40 MG TABLET PO SCH (06:23)
[2023-04-14] MEDS: SILDENAFIL 20 MG TAB PO SCH ×3 (06:23→16:08)
[2023-04-14] MEDS: MORPHINE SULFATE 4 MG/ML SYRINGE IV PRN ×2 (06:43→21:37)
[2023-04-14 07:15] LABS: INR 1.3 (<1.2); Prothrombin Time 13.5 sec (10.0-12.5)
[2023-04-14] MEDS: lamoTRIgine 100 MG TAB PO SCH ×2 (08:39→21:33)
[2023-04-14] MEDS: TAMSULOSIN 0.4 MG CAP.ER.24H PO SCH (08:39)
[2023-04-14] MEDS: MONTELUKAST 10 MG TAB PO SCH (08:40)
[2023-04-14] MEDS: FERROUS SULFATE 325 MG TAB PO SCH (08:40)
[2023-04-14] MEDS: MIDODRINE 5 MG TAB PO SCH ×2 (08:40→21:33)
[2023-04-14] MEDS: CYANOCOBALAMIN 500 MCG TAB PO SCH (08:40)
[2023-04-14] MEDS: allopurinoL 300 MG TAB PO SCH (08:41)
[2023-04-14] MEDS: SYMBICORT 160-4.5 MCG INHALER INHALATION SCH ×2 (08:53→18:47)
[2023-04-14] MEDS: IPRATROPIUM-ALBUTEROL 3 ML NEB INHALATION SCH ×4 (08:53→18:47)
--- NOTE | 2023-04-14 09:02 | HP ---
HISTORY AND PHYSICAL HISTORY OF PRESENT ILLNESS: A 68-year-old white male in the emergency room complaining of low back pain and leg pain past couple of weeks, back pain worse now, bilateral leg redness and swelling, increasing shortness of breath. MEDICATIONS: Home medicines were reviewed and include: 1. Albuterol. 2. Flomax. 3. Xanax. 4. Vitamin B12. 5. Primatene. 6. Singulair. 7. Omeprazole. 8. Revatio. 9. Lamictal. 10. . 11.Coumadin. ALLERGIES: Aspirin. REVIEW OF SYSTEMS: A 14-point review of systems is positive for worsening shortness of breath, increased leg swelling and redness, admitted for cellulitis of the legs. PAST MEDICAL HISTORY: Asthma, COPD, O2-dependent GI bleed, osteoarthritis, pulmonary embolism, celiac disease, IBS, colitis, essential tremors, hepatitis. PAST SURGICAL HISTORY: Appendectomy, cholecystectomy, heart catheterization. FAMILY HISTORY: Father with DVT. PHYSICAL EXAMINATION: VITAL SIGNS: Stable, afebrile. CARDIOVASCULAR: S1, S2. LUNGS: Scattered wheeze x4. HEMATOLOGIC: 2+ edema bilaterally with redness up to the knees. NEUROLOGIC: Alert and oriented x3. PSYCH: Fair mood and affect. SKIN: Redness and swelling and warmth to the lower legs from the knees to the feet. LABORATORY DATA: Temperature is 98 to 99, pulse of 65 to 77, respiratory rate 16 to 20, blood pressure is 108/77. Hemoglobin is 11.1, white count 6.2, sodium 136, potassium 4.7, BUN is 14, creatinine 1.21. EKG sinus rhythm. Chest and lumbar x-rays done. No pneumothorax. No pneumonia. Lumbar x-rays, no fractures. He is admitted with cellulitis of the legs, history of CHF, COPD, possible worsening of CHF with increased leg edema, cellulitis of the legs, history of DVT. In the past, he has been on Coumadin. History of valvular heart disease with valve surgery in the past. INR is therapeutic at 2.4. History of IVC filter. X-rays negative for displaced fracture his back. Chest x-ray is negative. Negative troponin. Normal electrolytes. Normal white count. Ultrasound has been ordered to rule out DVT is pending. Admitted, started on IV antibiotics. Possible diuresis. Prognosis is guarded. MMODL / IJN: [id number] /
[2023-04-14 09:34] LABS: Basophils # (A) 0.04 X 10*3/uL (0.00-0.10); Basophils % (A) 0.7 %; Eosinophils # (A) 0.31 X 10*3/uL (0.04-0.35); Eosinophils % (A) 5.6 %; HGB 9.2 g/dL (13.0-17.0); Lymphocytes # (A) 1.57 X 10*3/uL (0.90-5.00); Lymphocytes % (A) 28.4 %; MCH 31.6 pg (27.0-32.0); MCHC 31.7 g/dL (32.0-37.0); MCV 99.7 FL (80.0-97.0); Mean Platelet Volume 10.4 FL (9.5-12.2); Monocytes # (A) 0.52 X 10*3/uL (0.20-1.00); Monocytes % (A) 9.4 %; NRBC Per 100 WBC 0 X 10*3/uL (0.00-0.01); Neutrophils # (A) 3.07 X 10*3/uL (1.80-7.70); Neutrophils % (A) 55.5 %; Platelet Count 364 X 10*3/uL (140-440); RBC 2.91 X 10*6/uL (4.40-5.60); RDW 14.7 % (11.5-14.5); WBC 5.53 X 10*3/uL (4.50-10.00)
--- NOTE | 2023-04-14 09:36 | P.CONS ---
History of Present Illness - Reason for Consult Consult date: 04/13/23 DVT Requesting physician: Luisito Langford - Chief Complaint DVT - History of Present Illness Patient is a 68-year-old male with an extensive medical history. Consult was placed for recurrent DVT. Patient presented to the emergency room with bilateral lower extremity swelling, shortness of breath and weakness. Patient reports he had a mechanical fall a couple weeks ago and has been experiencing increasing lower back pain and lower extremity pain. Upon admission Dopplers of bilateral lower extremities revealed positive DVTs in bilateral common femoral veins. Patient has been started on IV heparin drip. CTA chest negative for PE. Patient has been on Coumadin for previous history of DVTs and PEs. Upon admission INR was found to be 1.5. Per patient there has been some difficulties maintaining his Coumadin in therapeutic range. Patient is supposed to follow-up with his PCP every 2 weeks for INR checks but states sometimes he is unable to go in but every 3 weeks. Patient reports he was started on Coumadin earlier this year after experiencing cardiac arrest in May 2022 and was subsequently found to have multiple PEs. Patient states he is was previously started on blood thinners approximately 15 years ago for DVTs and has failed both Xarelto and Eliquis. Patient denies any known personal or family history of blood clotting disorders, and does not believe he has been worked up for this in the past. Review of Systems 10 point ROS is negative except as stated in the HPI Past Medical History Past Medical History: Asthma, COPD, GI Bleed, Osteoarthritis (OA), Pulmonary Embolus (PE) Additional Past Medical History / Comment(s): celiac disease, IBS, colitis, central tremors, hepatitis at 12 History of Any Multi-Drug Resistant Organisms: None Reported Past Surgical History: Appendectomy, Cholecystectomy, Heart Catheterization Past Anesthesia/Blood Transfusion Reactions: No Reported Reaction Past Psychological History: Anxiety, Depression Smoking Status: Former smoker Past Alcohol Use History: Daily Additional Past Alcohol Use History / Comment(s): PT STATES HE DRINKS 3 BEERS A DAY Past Drug Use History: Marijuana - Past Family History Father Family Medical History: Deep Vein Thrombosis (DVT) Medications and Allergies Home Medications Medication Instructions Recorded Confirmed Type Albuterol Sulfate [Ventolin HFA] 2 puff INHALATION RT-Q6H PRN 04/09/20 04/12/23 History Tamsulosin HCl [Flomax] 0.4 mg PO DAILY 04/09/20 04/12/23 History ALPRAZolam [Xanax] 1 mg PO BID PRN 12/05/21 04/12/23 History allopurinoL 300 mg PO DAILY 12/05/21 04/12/23 History Cyanocobalamin (Vitamin B-12) 2,000 mcg PO DAILY 06/14/22 04/12/23 History [Vitamin B-12] Midodrine [ProAmatine] 5 mg PO BID 06/14/22 04/12/23 History Montelukast [Singulair] 10 mg PO DAILY 06/14/22 04/12/23 History Omeprazole 20 mg PO DAILY 06/14/22 04/12/23 History Sildenafil [Revatio] 20 mg PO AC-TID 06/14/22 04/12/23 History lamoTRIgine 100 mg PO BID 06/14/22 04/12/23 History Budesonide-Formot 160-4.5 Mcg 2 puff INHALATION RT-BID each 06/15/22 04/12/23 Rx [Symbicort 160-4.5 Mcg Inhaler] Ferrous Sulfate [Iron (65 MG 325 mg PO DAILY tab 08/19/22 04/12/23 Rx Elemental)] HYDROcodone/APAP 10-325MG [Seminary 1 tab PO TID 04/12/23 04/12/23 History 10-325] Ipratropium-Albuterol Nebulize 3 ml INHALATION RT-QID 04/12/23 04/12/23 History [Duoneb 0.5 mg-3 mg/3 ml Soln] Warfarin [Coumadin] 5 mg PO SUTUWETHFRSA 04/12/23 04/12/23 History Warfarin [Coumadin] 10 mg PO MO 04/12/23 04/12/23 History Fondaparinux [Arixtra] 7.5 mg SQ DAILY #30 each 04/13/23 Rx Allergies Allergy/AdvReac Type Severity Reaction Status Date / Time No Known Allergies Allergy Verified 04/12/23 13:20 Physical Exam Vitals: Vital Signs Temp Pulse Pulse Resp BP Pulse Ox 04/13/23 19:22 98.4 F 94 16 108/69 96 04/13/23 16:20 76 04/13/23 16:07 72 04/13/23 14:58 98.0 F 85 16 102/67 94 L 04/13/23 14:00 65 16 04/13/23 12:32 76 04/13/23 12:21 76 04/13/23 09:17 76 04/13/23 09:07 72 04/13/23 08:00 65 16 04/13/23 07:00 98.7 F 65 16 142/84 96 04/13/23 02:51 98.2 F 77 15 133/79 96 04/12/23 21:15 98.6 F 72 15 135/85 97 Intake and Output 04/13/23 04/13/23 04/13/23 06:59 14:59 22:59 Intake Total 22.167 164.461 70.833 Output Total 1000 700 300 Balance -977.833 -535.539 -229.167 Intake: Intake, IV Titration 22.167 46.461 70.833 Amount Heparin Sod,Pork in 0.45% 22.167 46.461 70.833 NaCl 25,000 unit In 0.45 % NaCl 1 250ml.bag @ 11. 6032 UNITS/KG/HR 10 mls/ hr IV .Q24H COUNTS INCLUDE 234 BEDS AT THE [facility] Rx#: [id number] Oral 118 Output: Urine 1000 700 300 Other: Voiding Method Urinal - Constitutional General appearance: average body habitus, no acute distress - EENT Eyes: anicteric sclerae, EOMI ENT: hearing grossly normal - Respiratory Respiratory: bilateral: CTA - Cardiovascular Rhythm: regular Heart sounds: normal: S1, S2 leg Peripheral Edema: bilateral: 2+ - Gastrointestinal General gastrointestinal: soft, no tenderness - Integumentary erythema noted to BLE - Neurologic grossly intact - Musculoskeletal Musculoskeletal: strength equal bilaterally - Psychiatric Psychiatric: A&O x's 3 Results CBC & Chem 7: 04/13/23 05:21 04/12/23 11:58 Labs: Abnormal Lab Results - Last 24 Hours (Table) 04/13/23 04/13/23 04/13/23 Range/Units 01:16 01:16 05:21 RBC 2.96 L 2.91 L (4.30-5.90) m/uL Hgb 9.6 L D 9.1 L (13.0-17.5) gm/dL Hct 29.3 L 28.5 L (39.0-53.0) % MCV 97.9 H (80.0-97.0) FL MCHC 31.9 L (32.0-37.0) g/dL RDW 14.6 H (11.5-14.5) % PT (10.0-12.5) sec INR (<1.2) APTT 104.2 H* (22.0-30.0) sec 04/13/23 04/13/23 Range/Units 05:21 15:56 RBC (4.30-5.90) m/uL Hgb (13.0-17.5) gm/dL Hct (39.0-53.0) % MCV (80.0-97.0) FL MCHC (32.0-37.0) g/dL RDW (11.5-14.5) % PT 15.6 H (10.0-12.5) sec INR 1.5 H (<1.2) APTT 37.6 H 38.9 H (22.0-30.0) sec Microbiology - Last 24 Hours (Table) 04/12/23 13:00 Blood Culture - Preliminary Blood 04/12/23 13:11 Blood Culture - Preliminary Blood CT scan - chest: report reviewed Venous US: report reviewed Assessment and Plan (1) DVT (deep venous thrombosis) Current Visit: Yes Status: Chronic Priority: High Code(s): I82.409 - ACUTE EMBOLISM AND THOMBOS UNSP DEEP VN UNSP LOWER EXTREMITY SNOMED Code(s): 258551987 Plan: DVT: -Hx of DVTs and PE. Currently anticoagulated with Coumadin. Per pt he has failed xarelto and Eliquis in the past. Upon admission INR was found to be 1.5. Per patient there has been some difficulties maintaining his Coumadin in therapeutic range. Patient is supposed to follow-up with his PCP every 2 weeks for INR checks but states he often is unable to go in but every 3 weeks. -Dopplers of bilateral lower extremities revealed positive DVTs in bilateral common femoral veins. Patient has been started on IV heparin drip. CTA chest negative for PE. -Since he has had failure of both xarelto and eliquis and difficulties maintaining coumadin in a therapeutic range, will switch pt to Arixtra. Consult placed to care management, for insurance prior auth. Once obtained, pt can be switched to Arixtra 7.5mg daily. -Patient denies any known personal or family history of blood clotting disorders, and does not believe he has been worked up for this in the past. Will request records from [facility]. If he has not had previous workup, will workup hypercoaguable state -ECHO obtained at request of his cardiology team at [facility]. Asked nursing to send ECHO and CTA report to his primary metal dresser Attests: I have seen and examined pt, performed H&P, developed impression and plan of care. Discussed with dictator. Agree with documentation, dictated as a scribe.
[2023-04-14 09:51] LABS: ALT 6 U/L (10-49); AST 8 U/L (14-35); Albumin 3.1 g/dL (3.8-4.9); Albumin/Globulin Ratio 1.24 Ratio (1.60-3.17); Alkaline Phosphatase 61 U/L (41-126); BUN/Creat Ratio 8.27 Ratio (12.00-20.00); Blood Urea Nitrogen 9.1 mg/dL (9.0-27.0); Calcium 8.5 mg/dL (8.7-10.3); Carbon Dioxide 23.8 mmol/L (21.6-31.8); Chloride 104 mmol/L (96-109); Globulin 2.5 g/dL (1.6-3.3); Glucose 100 mg/dL (70-110); Sodium 137 mmol/L (135-145); Total Bilirubin <0.2 mg/dL (0.3-1.2); Total Protein 5.6 g/dL (6.2-8.2)
--- NOTE | 2023-04-14 19:48 | CA ---
Transthoracic Echo Report Name: Steven Steele Age: 68 Gender: M : 1955 Exam Date: 04/14/2023 07:51 Exam Location: [place] Echo Ht (in): 69 Wt (lb): 190 Ordering Physician: Chema Watson Attending/Referring Phys: Wire Stretcher Zoey Henning RDCS Procedure CPT: Indications: hx of heart failure, eval for EF Cardiac Hx: former smoker, COPD, Asthma, Hx of PE Technical Quality: Fair Contrast 1: Total Dose (mL): Contrast 2: Total Dose (mL): MEASUREMENTS (Male / Female) Normal Values 2D ECHO LV Diastolic Diameter PLAX 4.5 cm 4.2 - 5.9 / 3.9 - 5.3 cm LV Systolic Diameter PLAX 3.5 cm IVS Diastolic Thickness 1.1 cm 0.6 - 1.0 / 0.6 - 0.9 cm LVPW Diastolic Thickness 1.3 cm 0.6 - 1.0 / 0.6 - 0.9 cm LV Relative Wall Thickness 0.5 RV Internal Dim ED PLAX 3.3 cm LVOT Diameter 2.1 cm LA Systolic Diameter LX 4.2 cm 3.0 - 4.0 / 2.7 - 3.8 cm LV Diastolic Volume MOD BP 111.4 cm??? 67 - 155 / 56 - 104 cm??? LV Systolic Volume MOD BP 42.3 cm??? 22 - 58 / 19 - 49 cm??? LV Ejection Fraction MOD BP 62.0 % >= 55 % LV Cardiac Index MOD BP 2341.1 cm???/min???m??? LV Diastolic Volume MOD 4C 112.6 cm??? LV Systolic Volume MOD 4C 47.4 cm??? LV Ejection Fraction MOD 4C 57.9 % LV Cardiac Index MOD 4C 2209.5 cm???/min???m??? LV Diastolic Length 4C 8.8 cm LV Systolic Length 4C 7.6 cm LV Diastolic Volume MOD 2C 111.6 cm??? LV Systolic Volume MOD 2C 37.8 cm??? LV Ejection Fraction MOD 2C 66.2 % LV Cardiac Index MOD 2C 2502.6 cm???/min???m??? LV Diastolic Length 2C 8.8 cm LV Systolic Length 2C 7.4 cm LA Volume 57.8 cm??? 18 - 58 / 22 - 52 cm??? LA Volume Index 28.0 cm???/m??? 16 - 28 cm???/m??? M-MODE Aortic Root Diameter MM 3.4 cm MV E Point Septal Separation 0.4 cm AV Cusp Separation MM 1.8 cm DOPPLER AV Peak Velocity 286.7 cm/s AV Peak Gradient 32.9 mmHg AV Mean Velocity 190.3 cm/s AV Mean Gradient 16.8 mmHg AV Velocity Time Integral 65.2 cm LVOT Peak Velocity 101.8 cm/s LVOT Peak Gradient 4.1 mmHg AV Area Cont Eq pk 1.2 cm??? MV Area PHT 4.9 cm??? Mitral E Point Velocity 109.9 cm/s Mitral A Point Velocity 89.1 cm/s Mitral E to A Ratio 1.2 MV Deceleration Time 156.2 ms MV E' Velocity 6.6 cm/s Mitral E to MV E' Ratio 16.6 TR Peak Velocity 286.1 cm/s TR Peak Gradient 32.7 mmHg Right Ventricular Systolic Press 37.7 mmHg FINDINGS Left Ventricle Left ventricular ejection fraction is estimated at 55-60 %. Left ventricular cavity size normal. Mildly increased septal wall thickness. Right Ventricle Mild right ventricular dilatation. Mild pulmonary hypertension. Right Atrium Normal right atrial size. Left Atrium Mildly increased left atrial diameter. Mildly increased left atrial area. Mitral Valve Structurally normal mitral valve. Mitral annular calcification. No mitral stenosis, regurgitation or prolapse. Aortic Valve There is a gradient on AOV with max 33 and mean 17 mmHg. Mild aortic regurgitation. Tricuspid Valve Structurally normal tricuspid valve. Mild tricuspid regurgitation. Pulmonic Valve Pulmonic valve not well visualized. Pericardium No pericardial effusion. Aorta Normal size aortic root and proximal ascending aorta. CONCLUSIONS Left ventricular ejection fraction is estimated at 55-60 %. Left ventricular cavity size normal. Mildly increased septal wall thickness. Mild aortic stenosis, mild aortic regurgitation No pericardial effusion Previewed by: Dr Sylvain Gamez (Electronically Signed) Final Date: 14 April 2023 19:47
--- NOTE | 2023-04-14 22:49 | P.PN ---
Subjective Progress Note Date: 04/14/23 Principal diagnosis: Reason for follow-up is bilateral lower extremity cellulitis Patient is a 68-year-old male with a past medical history clinical asthma COPD PE IBS hepatitis patient presenting to the ER for evaluation of increasing pain to bilateral lower extremity as well as back pain and increasing swelling to both legs, patient has been diagnosed with a cellulitis. On today's evaluation that is 04/14/2023, the patient denies having any fever or any chills he is breathing comfortably on 2 L nasal cannula oxygen denies any chest pain occasional cough no abdominal pain oral pain and swelling to the legs has slightly decreased. Patient did have vital of 5.53, creatinine is 1.1. Objective - Vital Signs Vital signs: Vital Signs Temp 98.1 F 04/14/23 07:15 Pulse 84 04/14/23 12:16 Resp 16 04/14/23 07:15 BP 136/81 04/14/23 07:15 Pulse Ox 98 04/14/23 07:15 FiO2 Intake & Output 04/13/23 04/14/23 04/14/23 18:59 06:59 18:59 Intake Total 235.294 97.8 208.552 Output Total 1000 800 Balance -764.706 -702.2 208.552 Intake: Intake, IV Titration 117.294 97.8 90.552 Amount Heparin Sod,Pork in 0.45% 117.294 97.8 90.552 NaCl 25,000 unit In 0.45 % NaCl 1 250ml.bag @ 11. 6032 UNITS/KG/HR 10 mls/ hr IV .Q24H [facility] Rx#: [id number] Oral 118 118 Output: Urine 1000 800 Other: Voiding Method Urinal Urinal Urinal # Voids 1 - Exam GENERAL DESCRIPTION: An elderly male lying in bed in no distress RESPIRATORY SYSTEM: Unlabored breathing , clear to auscultation anteriorly HEART: S1 S2 regular rate and rhythm , ABDOMEN: Soft , no tenderness EXTREMITIES: Bilateral legs with compression stocking swelling has decreased - Labs CBC & Chem 7: 04/14/23 05:55 04/14/23 05:55 Labs: Abnormal Lab Results - Last 24 Hours (Table) 04/13/23 04/13/23 04/14/23 Range/Units 15:56 23:42 05:55 RBC (4.40-5.60) X 10*6/uL Hgb (13.0-17.0) g/dL Hct (39.6-50.0) % MCV (80.0-97.0) FL MCHC (32.0-37.0) g/dL RDW (11.5-14.5) % PT 13.5 H (10.0-12.5) sec INR 1.3 H (<1.2) APTT 38.9 H 41.3 H (22.0-30.0) sec BUN/Creatinine Ratio (12.00-20.00) Ratio Calcium (8.7-10.3) mg/dL Total Bilirubin (0.3-1.2) mg/dL AST (14-35) U/L ALT (10-49) U/L Total Protein (6.2-8.2) g/dL Albumin (3.8-4.9) g/dL Albumin/Globulin Ratio (1.60-3.17) Ratio 04/14/23 04/14/23 04/14/23 Range/Units 05:55 05:55 05:55 RBC 2.91 L (4.40-5.60) X 10*6/uL Hgb 9.2 L (13.0-17.0) g/dL Hct 29.0 L (39.6-50.0) % MCV 99.7 H (80.0-97.0) FL MCHC 31.7 L (32.0-37.0) g/dL RDW 14.7 H (11.5-14.5) % PT (10.0-12.5) sec INR (<1.2) APTT 62.0 H (22.0-30.0) sec BUN/Creatinine Ratio 8.27 L (12.00-20.00) Ratio Calcium 8.5 L (8.7-10.3) mg/dL Total Bilirubin <0.2 L (0.3-1.2) mg/dL AST 8 L (14-35) U/L ALT 6 L (10-49) U/L Total Protein 5.6 L (6.2-8.2) g/dL Albumin 3.1 L (3.8-4.9) g/dL Albumin/Globulin Ratio 1.24 L (1.60-3.17) Ratio Microbiology - Last 24 Hours (Table) 04/12/23 13:00 Blood Culture - Preliminary Blood 04/12/23 13:11 Blood Culture - Preliminary Blood Assessment and Plan (1) Bilateral lower leg cellulitis Current Visit: Yes Status: Acute Code(s): L03.116 - CELLULITIS OF LEFT LOWER LIMB; L03.115 - CELLULITIS OF RIGHT LOWER LIMB SNOMED Code(s): 362760887 Plan: 1patient presented to hospital with increasing pain and swelling and redness to the lower extremity and this patient has been diagnosed with a DVT involving the common femoral vein and also have a component of cellulitis to the lower extremity likely from gram-positive skin matthew 2we will give the patient cefazolin 2 g every 8 hours along with the compression stocking to keep the swelling down questions concern answered Dictation was produced using [employer] dictation software. please excuse any grammatical, word or spelling errors. Time with Patient: Less than 30
[2023-04-14] MEDS: bisacodyL 5 MG TABLET.DR PO PRN (23:29)
[2023-04-15] MEDS: ALPRAZolam 1 MG TAB PO PRN (00:16)
--- NOTE | 2023-04-15 00:47 | PN ---
PROGRESS NOTE A 68-year-old white male with DVTs bilaterally. Remains on heparin. Wait for Dr. Adan to come up with a sort of nebulizer, sort of kind of blood thinner to go home on, possibly Lovenox. The patient is noncompliant with medications at home. Echo, ejection fraction 66%, RVSP 37, normal mitral valve, pulmonary hypertension, mild aortic stenosis, mild aortic regurg. Continue current treatment. Prognosis guarded. Possible discharge home soon. Please see further orders. MMODL / IJN: [id number] /
[2023-04-15] MEDS: PANTOPRAZOLE 40 MG TABLET PO SCH (06:28)
[2023-04-15] MEDS: SILDENAFIL 20 MG TAB PO SCH ×3 (06:29→17:24)
[2023-04-15 07:09] LABS: INR 1.1 (<1.2); Prothrombin Time 11.9 sec (10.0-12.5)
[2023-04-15] MEDS: allopurinoL 300 MG TAB PO SCH (08:13)
[2023-04-15] MEDS: CYANOCOBALAMIN 500 MCG TAB PO SCH (08:13)
[2023-04-15] MEDS: lamoTRIgine 100 MG TAB PO SCH ×2 (08:14→20:32)
[2023-04-15] MEDS: MONTELUKAST 10 MG TAB PO SCH (08:14)
[2023-04-15] MEDS: FERROUS SULFATE 325 MG TAB PO SCH (08:14)
[2023-04-15] MEDS: TAMSULOSIN 0.4 MG CAP.ER.24H PO SCH (08:14)
[2023-04-15] MEDS: MIDODRINE 5 MG TAB PO SCH ×2 (08:14→20:32)
[2023-04-15] MEDS: HYDROcodone/APAP 10-325MG 1 EACH TAB PO SCH ×3 (08:15→20:33)
[2023-04-15] MEDS: IPRATROPIUM-ALBUTEROL 3 ML NEB INHALATION SCH ×4 (08:44→19:53)
[2023-04-15] MEDS: SYMBICORT 160-4.5 MCG INHALER INHALATION SCH ×2 (08:45→19:53)
[2023-04-15 09:46] LABS: Basophils # (A) 0.04 X 10*3/uL (0.00-0.10); Basophils % (A) 0.8 %; Eosinophils # (A) 0.44 X 10*3/uL (0.04-0.35); Eosinophils % (A) 8.7 %; HCT 28.2 % (39.6-50.0); HGB 8.8 g/dL (13.0-17.0); Lymphocytes % (A) 25.7 %; MCH 31.1 pg (27.0-32.0); MCHC 31.2 g/dL (32.0-37.0); MCV 99.6 FL (80.0-97.0); Mean Platelet Volume 10.3 FL (9.5-12.2); Monocytes # (A) 0.53 X 10*3/uL (0.20-1.00); Monocytes % (A) 10.5 %; NRBC Per 100 WBC 0 X 10*3/uL (0.00-0.01); Neutrophils # (A) 2.73 X 10*3/uL (1.80-7.70); Neutrophils % (A) 54.1 %; Platelet Count 314 X 10*3/uL (140-440); RBC 2.83 X 10*6/uL (4.40-5.60); RDW 14.6 % (11.5-14.5); WBC 5.05 X 10*3/uL (4.50-10.00)
[2023-04-15 09:55] LABS: ALT 5 U/L (10-49); AST 11 U/L (14-35); Albumin 3.2 g/dL (3.8-4.9); Albumin/Globulin Ratio 1.33 Ratio (1.60-3.17); Alkaline Phosphatase 58 U/L (41-126); Blood Urea Nitrogen 7.8 mg/dL (9.0-27.0); Calcium 8.7 mg/dL (8.7-10.3); Carbon Dioxide 25.4 mmol/L (21.6-31.8); Chloride 104 mmol/L (96-109); Globulin 2.4 g/dL (1.6-3.3); Glucose 94 mg/dL (70-110); Potassium 4.2 mmol/L (3.5-5.5); Sodium 138 mmol/L (135-145); Total Bilirubin <0.2 mg/dL (0.3-1.2); Total Protein 5.6 g/dL (6.2-8.2)
[2023-04-15] MEDS: MORPHINE SULFATE 4 MG/ML SYRINGE IV PRN (11:36)
--- NOTE | 2023-04-15 15:56 | P.PN ---
Subjective Progress Note Date: 04/15/23 Principal diagnosis: Reason for follow-up is bilateral lower extremity cellulitis Patient is a 68-year-old male with a past medical history clinical asthma COPD PE IBS hepatitis patient presenting to the ER for evaluation of increasing pain to bilateral lower extremity as well as back pain and increasing swelling to both legs, patient has been diagnosed with a cellulitis. On today's evaluation that is 04/15/2023 the patient denies any fever or any chills, the patient denies shortness of breath, currently on 2 L nasal cannula oxygen, the patient denies chest pain or cough, the patient nausea/vomiting or diarrhea and no abdominal pain. Pain and swelling to the leg have decreased Patient did have a white count of 5.05, creatinine 1.3 Objective - Vital Signs Vital signs: Vital Signs Temp 98.2 F 04/15/23 14:40 Pulse 70 04/15/23 14:40 Resp 15 04/15/23 14:40 BP 137/84 04/15/23 14:40 Pulse Ox 100 04/15/23 14:40 FiO2 Intake & Output 04/14/23 04/15/23 04/15/23 18:59 06:59 18:59 Intake Total 1034.552 703.962 5639.712 Output Total 325 1225 450 Balance 709.552 -1067.352 635.712 Intake: Intake, IV Titration 90.552 157.648 131.712 Amount Heparin Sod,Pork in 0.45% 90.552 157.648 131.712 NaCl 25,000 unit In 0.45 % NaCl 1 250ml.bag @ 11. 6032 UNITS/KG/HR 10 mls/ hr IV .Q24H [facility] Rx#: [id number] Oral 944 954 Output: Urine 325 1225 450 Other: Voiding Method Urinal Urinal Urinal # Bowel Movements 1 - Exam GENERAL DESCRIPTION: An elderly male lying in bed in no distress RESPIRATORY SYSTEM: Unlabored breathing , clear to auscultation anteriorly HEART: S1 S2 regular rate and rhythm , ABDOMEN: Soft , no tenderness EXTREMITIES: Bilateral legs with compression stocking swelling has decreased - Labs CBC & Chem 7: 04/15/23 06:18 04/15/23 06:18 Labs: Abnormal Lab Results - Last 24 Hours (Table) 12/08/0304/15/23 04/15/23 Range/Units 06:18 06:18 06:18 RBC 2.83 L (4.40-5.60) X 10*6/uL Hgb 8.8 L (13.0-17.0) g/dL Hct 28.2 L (39.6-50.0) % MCV 99.6 H (80.0-97.0) FL MCHC 31.2 L (32.0-37.0) g/dL RDW 14.6 H (11.5-14.5) % Eosinophils # 0.44 H (0.04-0.35) X 10*3/uL APTT 48.6 H (22.0-30.0) sec BUN 7.8 L (9.0-27.0) mg/dL BUN/Creatinine Ratio 6.00 L (12.00-20.00) Ratio Total Bilirubin <0.2 L (0.3-1.2) mg/dL AST 11 L (14-35) U/L ALT 5 L (10-49) U/L Total Protein 5.6 L (6.2-8.2) g/dL Albumin 3.2 L (3.8-4.9) g/dL Albumin/Globulin Ratio 1.33 L (1.60-3.17) Ratio Microbiology - Last 24 Hours (Table) 04/12/23 13:00 Blood Culture - Preliminary Blood 04/12/23 13:11 Blood Culture - Preliminary Blood Assessment and Plan (1) Bilateral lower leg cellulitis Current Visit: Yes Status: Acute Code(s): L03.116 - CELLULITIS OF LEFT LOWER LIMB; L03.115 - CELLULITIS OF RIGHT LOWER LIMB SNOMED Code(s): 076601870 Plan: 1patient presented to hospital with increasing pain and swelling and redness to the lower extremity and this patient has been diagnosed with a DVT involving the common femoral vein and also have a component of cellulitis to the lower extremity likely from gram-positive skin matthew 2patient to continue with cefazolin 2 g every 8 hours along with the compression stocking to keep the swelling down and plan to finish therapy with oral Keflex Dictation was produced using [employer] dictation software. please excuse any grammatical, word or spelling errors.
[2023-04-15] MEDS: HEPARIN SOD,PORK IN 0.45% NACL 25,000 UNIT in 0.45% NACL 1 250ML.BAG IV SCH (17:21)
[2023-04-16] MEDS: ALPRAZolam 1 MG TAB PO PRN ×2 (00:56→12:39)
--- NOTE | 2023-04-16 01:43 | PN ---
PROGRESS NOTE SUBJECTIVE: This is a 68-year-old white male, on IV heparin, waiting for Hematology to recommend home medications for discharge. Echo was reviewed. OBJECTIVE: VITAL SIGNS: Reviewed. Blood pressure is 120s to 130s over 70s, 100% on room air on 2 L, and 98 on room air, temp 98.4, pulse 75, and respiratory rate 16 to 18. CARDIOVASCULAR: S1, S2. LUNGS: Transmitted upper sounds. HEMATOLOGY: Negative for Homans. PSYCH: Fair mood and affect. Continue with current treatment. Await for our anticoagulated recommendations prior to discharge, can go home. Prognosis guarded. Lungs clear; cardiovascular S1, S2; hematology negative for Homans. Please see further orders. MMODL / IJN: [id number] /
[2023-04-16 03:12] VITALS: RESP 16
[2023-04-16] MEDS: SILDENAFIL 20 MG TAB PO SCH ×3 (06:35→17:58)
[2023-04-16] MEDS: PANTOPRAZOLE 40 MG TABLET PO SCH (06:35)
--- NOTE | 2023-04-16 07:56 | PN ---
PROGRESS NOTE SUBJECTIVE: This is a 68-year-old white male, bilateral DVTs in both legs. OBJECTIVE: VITAL SIGNS: Blood pressure 108/69, 82, O2 of 96, temp 98.4, and respiratory rate 16 to 18. CARDIOVASCULAR: S1, S2. LUNGS: Scattered wheeze x4. ASSESSMENT: 1. COPD. 2. CHF. 3. DVT bilaterally. Dr. Adan will be evaluating for medications to give as he failed to go to Coumadin. He has a history of [place] filter. He stopped his heparin, he has been on heparin drip at this time until Dr. Adan comes up with the medicine. He wants to see if like Lovenox is covered on the patient on discharge. Continue PT, OT, ambulation. Temp 98.4, O2 of 96 on room air, blood pressure over 108/70s. Prognosis guarded. Continue current treatment. Home medicines have been treated. Blood pressure control, breathing control. IV heparin until possible Lovenox is approved by insurance company per Dr. Adan. Please see further orders. MMODL / IJN: [id number] /
[2023-04-16] MEDS: IPRATROPIUM-ALBUTEROL 3 ML NEB INHALATION SCH ×4 (08:25→20:37)
[2023-04-16] MEDS: SYMBICORT 160-4.5 MCG INHALER INHALATION SCH ×2 (08:25→20:37)
[2023-04-16] MEDS: HEPARIN SODIUM 1,000 UN/ML (10ML VL) IV PRN (08:27)
[2023-04-16] MEDS: FERROUS SULFATE 325 MG TAB PO SCH (08:28)
[2023-04-16] MEDS: TAMSULOSIN 0.4 MG CAP.ER.24H PO SCH (08:28)
[2023-04-16] MEDS: lamoTRIgine 100 MG TAB PO SCH ×2 (08:28→22:17)
[2023-04-16] MEDS: allopurinoL 300 MG TAB PO SCH (08:28)
[2023-04-16] MEDS: CYANOCOBALAMIN 500 MCG TAB PO SCH (08:28)
[2023-04-16] MEDS: MONTELUKAST 10 MG TAB PO SCH (08:29)
[2023-04-16] MEDS: MIDODRINE 5 MG TAB PO SCH ×2 (08:29→22:17)
[2023-04-16] MEDS: MORPHINE SULFATE 4 MG/ML SYRINGE IV PRN ×2 (08:41→12:39)
[2023-04-16] MEDS: HYDROcodone/APAP 10-325MG 1 EACH TAB PO SCH ×3 (11:20→22:17)
[2023-04-16] MEDS: HEPARIN SOD,PORK IN 0.45% NACL 25,000 UNIT in 0.45% NACL 1 250ML.BAG IV SCH (16:45)
[2023-04-16] MEDS ORDERED: WARFARIN 10 MG TAB PO SCH (18:00)
[2023-04-17] MEDS: MORPHINE SULFATE 4 MG/ML SYRINGE IV PRN (02:35)
[2023-04-17] MEDS: ALPRAZolam 1 MG TAB PO PRN ×2 (02:35→09:38)
[2023-04-17] MEDS: PANTOPRAZOLE 40 MG TABLET PO SCH (07:01)
[2023-04-17] MEDS: SILDENAFIL 20 MG TAB PO SCH (07:01)
[2023-04-17] MEDS: HEPARIN SOD,PORK IN 0.45% NACL 25,000 UNIT in 0.45% NACL 1 250ML.BAG IV SCH (07:43)
[2023-04-17 07:48] VITALS: BP 139/83; TEMP 97.9
[2023-04-17] MEDS: IPRATROPIUM-ALBUTEROL 3 ML NEB INHALATION SCH ×2 (08:43→12:48)
[2023-04-17] MEDS: SYMBICORT 160-4.5 MCG INHALER INHALATION SCH (08:44)
[2023-04-17 09:03] VITALS: PULSE 88
[2023-04-17] MEDS: HYDROcodone/APAP 10-325MG 1 EACH TAB PO SCH (09:17)
[2023-04-17] MEDS: TAMSULOSIN 0.4 MG CAP.ER.24H PO SCH (09:18)
[2023-04-17] MEDS: MIDODRINE 5 MG TAB PO SCH (09:18)
[2023-04-17] MEDS: lamoTRIgine 100 MG TAB PO SCH (09:18)
[2023-04-17] MEDS: allopurinoL 300 MG TAB PO SCH (09:18)
[2023-04-17] MEDS: FERROUS SULFATE 325 MG TAB PO SCH (09:18)
[2023-04-17] MEDS: MONTELUKAST 10 MG TAB PO SCH (09:18)
[2023-04-17] MEDS: CYANOCOBALAMIN 500 MCG TAB PO SCH (09:18)
== END 2023-04-17 12:48 | disposition home or self-care (01) ==
LOC: EC 10:06 → 6NMEDSUR 13:23
PROVIDERS: ADMIT Family Medicine; ATTEND Family Medicine
DX: L03.115 Cellulitis of right lower limb (principal); L03.116 Cellulitis of left lower limb; J44.9 Chronic obstructive pulmonary disease, unspecified; I11.0 Hypertensive heart disease with heart failure; I50.9 Heart failure, unspecified; F41.9 Anxiety disorder, unspecified; F32.A Depression, unspecified; G89.29 Other chronic pain; M54.50 Low back pain, unspecified; F10.11 Alcohol abuse, in remission; F17.200 Nicotine dependence, unspecified, uncomplicated; Z86.711 Personal history of pulmonary embolism; Z86.718 Personal history of other venous thrombosis and embolism; Z86.74 Personal history of sudden cardiac arrest; Z79.01 Long term (current) use of anticoagulants; Z79.51 Long term (current) use of inhaled steroids; Z79.899 Other long term (current) drug therapy; Z91.148 Patient's other noncompliance with medication regimen for other reason
CPT/HCPCS: 96376 ×7; 96366 ×5; 96367 ×2; 96365; 96375; 99285; 36415; 94640 ×11; 93005; 93306; 83880; 80053 ×3; 83735; 84484; 85025 ×4; 85610 ×4; 85730 ×6; 87040; 72100; 71046; 93970; 71275; G0378 ×6; J2270 ×6; J1940; J0690 ×5; J0696; J1644 ×8

== ENCOUNTER 2023-10-04 16:07 | Inpatient (IN) | payer MEDICARE ==
--- NOTE | 2023-10-04 16:57 | ED ---
URI HPI - General Source: patient, RN notes reviewed Mode of arrival: wheelchair <Noy Cummings - Last Filed: 10/04/23 16:54> - General Source: RN notes reviewed, old records reviewed Mode of arrival: wheelchair Limitations: no limitations - History of Present Illness MD Complaint: fever, cough, sore throat -: days(s) Severity: moderate Severity scale (1-10): 6 Quality: sharp Consistency: constant Improves With: nothing Associated Symptoms: chills, myalgias Treatments Prior to Arrival: none <Levy Rincon - Last Filed: 10/06/23 23:06> - General Chief Complaint: Upper Respiratory Infection Stated Complaint: N/V Time Seen by Provider: 10/04/23 16:54 - History of Present Illness Initial Comments: Quick [id number] male with history of COPD presents to the ER by PCP for concern of cough. Patient reports he is coughing so hard that he is vomiting. Cough is productive, patient admits shortness of breath as well. Patient's PCP is Dr. Langford who told them patient should be admitted to the hospital for this. (Noy Cummings) This is a 68-year-old male who presents today for evaluation of worsening shortness of breath with productive cough chest pain body aches and pains. (Levy Rincon) - Related Data Home Medications Medication Instructions Recorded Confirmed Albuterol Sulfate [Ventolin HFA] 2 puff INHALATION RT-Q4H PRN 04/09/20 10/04/23 Tamsulosin HCl [Flomax] 0.4 mg PO DAILY 04/09/20 10/04/23 ALPRAZolam [Xanax] 1 mg PO BID 12/05/21 10/04/23 allopurinoL 300 mg PO DAILY 12/05/21 10/04/23 Midodrine [ProAmatine] 5 mg PO BID 06/14/22 10/04/23 Montelukast [Singulair] 10 mg PO DAILY 06/14/22 10/04/23 Sildenafil [Revatio] 20 mg PO AC-TID 06/14/22 10/04/23 lamoTRIgine 100 mg PO BID 06/14/22 10/04/23 HYDROcodone/APAP 10-325MG [[place] 1 tab PO TID 04/12/23 10/04/23 10-325] Ipratropium-Albuterol Nebulize 3 ml INHALATION RT-QID 04/12/23 10/04/23 [Duoneb 0.5 mg-3 mg/3 ml Soln] Apixaban [Eliquis] 5 mg PO BID 10/04/23 10/04/23 Cephalexin [Keflex] 250 mg PO BID 10/04/23 10/04/23 Furosemide [Lasix] 40 mg PO DAILY 10/04/23 10/04/23 Potassium Chloride ER [K-Dur 10] 10 meq PO DAILY 10/04/23 10/04/23 Potassium Chloride ER [K-Dur 20] 20 meq PO DAILY 10/04/23 10/04/23 Previous Rx's Medication Instructions Recorded Ferrous Sulfate [Iron (65 MG 325 mg PO DAILY tab 08/19/22 Elemental)] Allergies Allergy/AdvReac Type Severity Reaction Status Date / Time No Known Allergies Allergy Verified 10/04/23 19:56 Review of Systems ROS Other: All systems not noted in ROS Statement are negative. <Noy Cummings - Last Filed: 10/04/23 16:54> ROS Other: All systems not noted in ROS Statement are negative. <Levy Rincon - Last Filed: 10/06/23 23:06> ROS Statement: Those systems with pertinent positive or pertinent negative responses have been documented in the HPI. Past Medical History Past Medical History: Asthma, COPD, GI Bleed, Osteoarthritis (OA), Pulmonary Embolus (PE) Additional Past Medical History / Comment(s): celiac disease, IBS, colitis, central tremors, hepatitis at 12 History of Any Multi-Drug Resistant Organisms: None Reported Past Surgical History: Appendectomy, Cholecystectomy, Heart Catheterization Past Anesthesia/Blood Transfusion Reactions: No Reported Reaction Past Psychological History: Anxiety, Depression Smoking Status: Former smoker Past Alcohol Use History: Daily Past Drug Use History: Marijuana - Past Family History Father Family Medical History: Deep Vein Thrombosis (DVT) <Noy Cummings - Last Filed: 10/04/23 16:54> General Exam <Noy Cummings - Last Filed: 10/04/23 16:54> General appearance: alert, in no apparent distress Head exam: Present: atraumatic, normocephalic, normal inspection Eye exam: Present: normal appearance, PERRL, EOMI. Absent: scleral icterus, conjunctival injection, periorbital swelling ENT exam: Present: normal exam, mucous membranes moist Neck exam: Present: normal inspection. Absent: tenderness, meningismus, lymphadenopathy Respiratory exam: Present: normal lung sounds bilaterally. Absent: respiratory distress, wheezes, rales, rhonchi, stridor Cardiovascular Exam: Present: regular rate, normal rhythm, normal heart sounds. Absent: systolic murmur, diastolic murmur, rubs, gallop, clicks GI/Abdominal exam: Present: soft, normal bowel sounds. Absent: distended, tenderness, guarding, rebound, rigid Extremities exam: Present: normal inspection, full ROM, normal capillary refill. Absent: tenderness, pedal edema, joint swelling, calf tenderness Back exam: Present: normal inspection Neurological exam: Present: alert, oriented X3, CN II-XII intact Psychiatric exam: Present: normal affect, normal mood Skin exam: Present: warm, dry, intact, normal color. Absent: rash <Levy Rincon - Last Filed: 10/06/23 23:06> - General Exam Comments Initial Comments: Visual Physical Exam Vital signs reviewed General: Well-appearing, nontoxic, no acute distress. Head: Normocephalic, atraumatic Eyes: PERRLA, EOMI ENT: Airway patent Chest: Nonlabored breathing Skin: No visual rash, normal skin tone Neuro: Alert and oriented 3 Musculoskeletal: No gross abnormalities (Noy Cummings) Course <Levy Rincon - Last Filed: 10/06/23 23:06> Vital Signs 10/04/23 10/04/23 10/04/23 16:09 19:33 19:44 Temperature 98.2 F 98.2 F Pulse Rate 82 84 79 Pulse Rate [ Pulse Oximetery ] Respiratory 16 18 20 Rate Blood Pressure 111/69 119/83 Blood Pressure [Left Arm] O2 Sat by Pulse 95 95 Oximetry 10/04/23 10/04/23 10/05/23 19:56 21:00 00:00 Temperature Pulse Rate 79 75 92 Pulse Rate [ Pulse Oximetery ] Respiratory 20 18 18 Rate Blood Pressure 153/87 129/71 Blood Pressure [Left Arm] O2 Sat by Pulse 94 L 96 Oximetry 10/05/23 10/05/23 01:00 02:00 Temperature 97.6 F Pulse Rate 70 Pulse Rate [ 73 Pulse Oximetery ] Respiratory 18 15 Rate Blood Pressure 140/80 Blood Pressure 132/80 [Left Arm] O2 Sat by Pulse 100 95 Oximetry - Reevaluation(s) Reevaluation #1: 10/04/23 21:31 Medical records reviewed (Levy Rincon) Reevaluation #2: 10/04/23 21:31 Patient informed of results and questions asked (Levy Rincon) Reevaluation #3: 10/04/23 21:31 Patient has no real improvement in symptoms here in the ER (Levy Rincon) Reevaluation #4: Was pt. sent in by a medical professional or institution ([facility], [facility], urgent care, hospital, or [facility]...) When possible be specific @ -no Did you speak to anyone other than the patient for history (EMS, parent, family, police, friend...)? What history was obtained from this source @ -no Did you review nursing and triage notes (agree or disagree)? Why? @ -agree Are old charts reviewed (outside hosp., previous admission, EMS record, old EKG, old radiological studies, urgent care reports/EKG's, [facility] records)? Report findings @ -yes Differential Diagnosis (chest pain, altered mental status, abdominal pain women, abdominal pain men, vaginal bleeding, weakness, fever, dyspnea, syncope, headache, dizziness, GI bleed, back pain, seizure, CVA, palpatations, mental health, musculoskeletal)? @ -prior EKG interpreted by me (3pts min.). @ -yes X-rays interpreted by me (1pt min.). @ -yes negative for acute disease CT interpreted by me (1pt min.). @ -no U/S interpreted by me (1pt. min.). @ -no What testing was considered but not performed or refused? (CT, X-rays, U/S, labs)? Why? @ -none What meds were considered but not given or refused? Why? @ -none Did you discuss the management of the patient with other professionals (professionals i.e. [facility], [facility], lab, RT, psych nurse, social economist, lawyers, teacher, wildlife officer, heel caser)? Give summary @ -no Was smoking cessation discussed for >3mins.? @ -no Was critical care preformed (if so, how long)? @ -no Were there social determinants of health that impacted care today? How? (Homele ssness, low income, unemployed, alcoholism, drug addiction, transportation, low edu. Level, literacy, decrease access to med. care, assisted, rehab)? @ -none Was there de-escalation of care discussed even if they declined (Discuss DNR or withdrawal of care, Hospice)? DNR status @ -no What co-morbidities impacted this encounter? (DM, HTN, Smoking, COPD, CAD, Cancer, CVA, ARF, Chemo, Hep., AIDS, mental health diagnosis, sleep apnea, morbid obesity)? @ -none Was patient admitted / discharged? Hospital course, mention meds given and route, prescriptions, significant lab abnormalities, going to OR and other pertinent info. @ - 68 male be admitted for severe shortness of breath and cough congestion fever symptoms chest pain body aches and pains Admitted Undiagnosed new problem with uncertain prognosis? @ -no Drug Therapy requiring intensive monitoring for toxicity (Heparin, Nitro, Insulin, Cardizem)? @ -no Were any procedures done? @ -no Diagnosis/symptom? @ -COPD shortness of breath bronchitis Acute, or Chronic, or Acute on Chronic? @ -Acute Uncomplicated (without systemic symptoms) or Complicated (systemic symptoms)? @ -Complicated Side effects of treatment? @ -no Exacerbation, Progression, or Severe Exacerbation? @ -exacerbation Poses a threat to life or bodily function? How? (Chest pain, [place], [place], pneumonia, PE, COPD, DKA, ARF, appy, cholecystitis, CVA, Diverticulitis, Homicidal, Suicidal, threat to staff... and all critical care pts) @ -yes with significant dyspnea (Levy Rincon) Reevaluation #5: Differential Dyspnea: Coronary syndrome, arrhythmia, tamponade, asthma, COPD, pulmonary embolism, pneumonia, pneumothorax, pulmonary effusion, anaphylaxis, diabetic ketoacidosis, flailed chest, pulmonary contusion, diaphragmatic rupture, anemia, neuromuscular, this is not meant to be an all-inclusive list. (Levy Rincon) - Consultations Consultation #1: With Dr. Rodas who will admit this patient (Levy Rincon) Medical Decision Making <Noy Cummings - Last Filed: 10/04/23 16:54> - Lab Data Result diagrams: 10/06/23 04:41 10/06/23 04:41 - Radiology Data Radiology results: report reviewed (Chest x-ray is negative for acute disease), image reviewed <Levy Rincon - Last Filed: 10/06/23 23:06> - Medical Decision Making I completed the quick note portion of this chart signed Noy Cummings PA-C (Noy Cummings) 68 male be admitted for severe shortness of breath and cough congestion fever symptoms chest pain body aches and pains (Levy Rincon) - Lab Data Lab Results 10/04/23 10/04/23 10/04/23 Range/Units 17:15 17:15 17:15 WBC 4.9 (3.8-10.6) k/uL RBC 3.87 L (4.30-5.90) m/uL Hgb 12.6 L (13.0-17.5) gm/dL Hct 39.3 (39.0-53.0) % MCV 101.6 H (80.0-100.0) fL MCH 32.6 (25.0-35.0) pg MCHC 32.1 (31.0-37.0) g/dL RDW 14.4 (11.5-15.5) % Plt Count 149 L (150-450) k/uL MPV 8.3 Neutrophils % 57 % Lymphocytes % 18 % Monocytes % 9 % Eosinophils % 14 % Basophils % 1 % Neutrophils # 2.8 (1.3-7.7) k/uL Lymphocytes # 0.9 L (1.0-4.8) k/uL Monocytes # 0.4 (0-1.0) k/uL Eosinophils # 0.7 (0-0.7) k/uL Basophils # 0.0 (0-0.2) k/uL Macrocytosis Slight PT 10.3 (10.0-12.5) sec INR 0.9 (<1.2) APTT 27.5 (22.0-30.0) sec Sodium 130 L (137-145) mmol/L Potassium 4.1 (3.5-5.1) mmol/L Chloride 96 L (98-107) mmol/L Carbon Dioxide 24 (22-30) mmol/L Anion Gap 10 mmol/L BUN 15 (9-20) mg/dL Creatinine 1.27 H (0.66-1.25) mg/dL Est GFR (CKD-EPI)AfAm 67 (>60 ml/min/1.73 sqM) Est GFR (CKD-EPI)NonAf 58 (>60 ml/min/1.73 sqM) Glucose 82 (74-99) mg/dL Calcium 9.0 (8.4-10.2) mg/dL Total Bilirubin 0.5 (0.2-1.3) mg/dL AST 29 (17-59) U/L ALT 14 (4-49) U/L Alkaline Phosphatase 65 (38-126) U/L Troponin I (0.000-0.034) ng/mL Total Protein 6.8 (6.3-8.2) g/dL Albumin 4.1 (3.5-5.0) g/dL Procalcitonin (0.02-0.09) ng/mL Influenza Type A (PCR) (Not Detectd) Influenza Type B (PCR) (Not Detectd) RSV (PCR) (Not Detectd) SARS-CoV-2 (PCR) (Not Detectd) 10/04/23 10/04/23 10/04/23 Range/Units 17:15 17:15 17:15 WBC (3.8-10.6) k/uL RBC (4.30-5.90) m/uL Hgb (13.0-17.5) gm/dL Hct (39.0-53.0) % MCV (80.0-100.0) fL MCH (25.0-35.0) pg MCHC (31.0-37.0) g/dL RDW (11.5-15.5) % Plt Count (150-450) k/uL MPV Neutrophils % % Lymphocytes % % Monocytes % % Eosinophils % % Basophils % % Neutrophils # (1.3-7.7) k/uL Lymphocytes # (1.0-4.8) k/uL Monocytes # (0-1.0) k/uL Eosinophils # (0-0.7) k/uL Basophils # (0-0.2) k/uL Macrocytosis PT (10.0-12.5) sec INR (<1.2) APTT (22.0-30.0) sec Sodium (137-145) mmol/L Potassium (3.5-5.1) mmol/L Chloride (98-107) mmol/L Carbon Dioxide (22-30) mmol/L Anion Gap mmol/L BUN (9-20) mg/dL Creatinine (0.66-1.25) mg/dL Est GFR (CKD-EPI)AfAm (>60 ml/min/1.73 sqM) Est GFR (CKD-EPI)NonAf (>60 ml/min/1.73 sqM) Glucose (74-99) mg/dL Calcium (8.4-10.2) mg/dL Total Bilirubin (0.2-1.3) mg/dL AST (17-59) U/L ALT (4-49) U/L Alkaline Phosphatase (38-126) U/L Troponin I <0.012 (0.000-0.034) ng/mL Total Protein (6.3-8.2) g/dL Albumin (3.5-5.0) g/dL Procalcitonin 0.08 (0.02-0.09) ng/mL Influenza Type A (PCR) Not Detected (Not Detectd) Influenza Type B (PCR) Not Detected (Not Detectd) RSV (PCR) Not Detected (Not Detectd) SARS-CoV-2 (PCR) Not Detected (Not Detectd) Disposition <Noy Cummings - Last Filed: 10/04/23 16:54> Is patient prescribed a controlled substance at d/c from ED?: No Time of Disposition: 19:00 <Levy Rincon - Last Filed: 10/06/23 23:06> Clinical Impression: COPD (chronic obstructive pulmonary disease), Acute exacerbation of chronic bronchitis Disposition: ADMITTED IP TO THIS HOSP Condition: Fair
[2023-10-04 17:26] LABS: Basophils % (A) 1 %; Eosinophils # (A) 0.7 k/uL (0-0.7); Eosinophils % (A) 14 %; HCT 39.3 % (39.0-53.0); HGB 12.6 gm/dL (13.0-17.5); Lymphocytes # (A) 0.9 k/uL (1.0-4.8); Lymphocytes % (A) 18 %; MCH 32.6 pg (25.0-35.0); MCHC 32.1 g/dL (31.0-37.0); MCV 101.6 fL (80.0-100.0); Macrocytosis Slight; Mean Platelet Volume 8.3; Monocytes # (A) 0.4 k/uL (0-1.0); Monocytes % (A) 9 %; Neutrophils # (A) 2.8 k/uL (1.3-7.7); Neutrophils % (A) 57 %; Platelet Count 149 k/uL (150-450); RBC 3.87 m/uL (4.30-5.90); RDW 14.4 % (11.5-15.5); WBC 4.9 k/uL (3.8-10.6)
[2023-10-04 17:36] LABS: ALT 14 U/L (4-49); AST 29 U/L (17-59); African American GFR (CKD) 67 (>60 ml/min/1.73 sqM); Albumin 4.1 g/dL (3.5-5.0); Alkaline Phosphatase 65 U/L (38-126); Anion Gap 10 mmol/L; Blood Urea Nitrogen 15 mg/dL (9-20); Carbon Dioxide 24 mmol/L (22-30); Chloride 96 mmol/L (98-107); Glucose 82 mg/dL (74-99); Non-African American GFR(CKD) 58 (>60 ml/min/1.73 sqM); Potassium 4.1 mmol/L (3.5-5.1); Sodium 130 mmol/L (137-145); Total Bilirubin 0.5 mg/dL (0.2-1.3); Total Protein 6.8 g/dL (6.3-8.2)
[2023-10-04 17:37] LABS: INR 0.9 (<1.2); Partial Thromboplastin Time 27.5 sec (22.0-30.0); Prothrombin Time 10.3 sec (10.0-12.5)
--- NOTE | 2023-10-04 17:58 | XR ---
EXAMINATION TYPE: XR chest 2V DATE OF EXAM: 10/04/2023 5:29 PM CLINICAL INDICATION:Male, 68 years old with history of cough; [facility] COMPARISON: Chest radiographs from 04/12/2023 TECHNIQUE: XR chest 2V Frontal and lateral views of the chest. FINDINGS: Lungs/Pleura: There is no evidence of pleural effusion, focal consolidation, or pneumothorax. Pulmonary vascularity: Unremarkable. Heart/mediastinum: Cardiomediastinal silhouette is unremarkable. Musculoskeletal: No acute osseous pathology. There is lower spine fixation hardware is present. Midli ne sternotomy wires are noted. IMPRESSION: No acute cardiopulmonary disease/process.
[2023-10-04] MEDS ORDERED: ONDANSETRON 4 MG/2 ML VIAL IVP PRN (19:03)
[2023-10-04] MEDS ORDERED: NALOXONE 0.4 MG/ML 1 ML VIAL IV PRN (19:03)
[2023-10-04] MEDS ORDERED: ACETAMINOPHEN TAB 325 MG TAB PO PRN (19:03)
[2023-10-04] MEDS: IPRATROPIUM-ALBUTEROL 3 ML NEB INHALATION STA (19:43)
[2023-10-04] MEDS: SODIUM CHLORIDE 0.9% 1,000 ML IV SCH ×2 (19:54)
[2023-10-04] MEDS: SODIUM CHLORIDE 0.9% 500 ML 500 ML IV STA (19:54)
[2023-10-04] MEDS: methylPREDNISolone SOD SUCCI 125 MG/2 ML VIAL IV STA (19:55)
[2023-10-04] MEDS: KETOROLAC 15 MG/ML 1 ML VIAL IVP STA (19:56)
[2023-10-04] MEDS: HYDROmorphone 1 MG/ML 1 ML SYRINGE IVP STA (19:57)
[2023-10-04] MEDS: MAGNESIUM SULFATE-D5W PMX 1 GM in DEXTROSE/WATER 1 100ML.BAG IVPB ONE (20:01)
[2023-10-04] MEDS: SODIUM CHLORIDE 0.9% 1,000 ML IV STA (21:20)
[2023-10-05] MEDS: methylPREDNISolone SOD SUCCI 125 MG/2 ML VIAL IV SCH (01:06)
[2023-10-05] MEDS: ALPRAZolam 1 MG TAB PO STA (01:21)
[2023-10-05] MEDS: APIXABAN 5 MG TAB PO SCH ×2 (01:21→20:43)
--- NOTE | 2023-10-05 02:08 | P.CNPUL ---
History of Present Illness Consult date: 10/05/23 Requesting physician: Louis Kemp Reason for consult: COPD Chief complaint: Shortness of breath and cough History of present illness: Patient is a 68-year-old white male with past medical history significant for chronic obstructive pulmonary disease, chronic ongoing tobacco dependence, obstructive sleep apnea with home CPAP, pulmonary hypertension, DVT/PEs with IVC filter, chronically anticoagulated on Eliquis. Of note, back in June, patient was noted to have a chest CTA revealing a masslike density in the right hilum with some infiltration of the pulmonary artery, indicating possible thrombus or tumor. Patient was transferred to a tertiary care facility, originally [facility], but then subsequently diverted to [facility]. Patient describes that he had open surgical removal of his pulmonary embolism, possible pulmonary thromboendarterectomy. He also had a repair of a "hole" in his heart. Most recent chest CTA done April, which showed resolution of the presumed chronic thrombus. Patient has seen Dr. Arriaza in the pulmonary office in the past, but does not routinely follow-up. His primary care provider is Dr. Luisito Langford. Patient presented to emergency room last night complaining of progressively worsening shortness of breath and severe cough that was originally noted about a week ago. Originally started with URI-like symptoms including runny nose, sore throat, and a minimally productive cough. Now is producing milky sputum. He endorses chest tightness and wheezing. Denies any chest pain. No lightheadedness or syncope. No hemoptysis. He is chronically anticoagulated on Eliquis. He does have chronic lower extremity swelling and history of bilateral DVTs. He also was having nausea and vomiting, but not in the last 3 days. His appetite has been reduced. He denies any fevers. Denies sick contacts. Chest x-ray done admission does not show any acute cardiopulmonary process. There are midline sternotomy wires present. CBC unremarkable, no leukocytosis. Hemoglobin stable at 12.6. BMP includes a sodium 130, potassium 4.1, chloride 96, serum bicarb 24, BUN 15, creatinine 1.27, glucose 82. Normal saline infusing at 130 MLS per hour. LFTs not elevated. Troponin less than 0.012. Negative for influenza, RSV, COVID. Patient is currently sitting up in bed, on room air, in no acute distress. SpO2 reading 94%. Speaks in full sentences without dyspnea. He states that he recently started smoking again within the last 5 weeks. Smoking about 1/2 pack/day. He did try to quit after his surgery at [facility] in June,. Remaining vital signs are also stable. Review of Systems REVIEW OF SYSTEMS: CONSTITUTIONAL: Denies any recent significant weight loss or weight gain. EYES: Denies change in vision. EARS, NOSE, MOUTH, THROAT: Denies headaches, denies sore throat. CARDIOVASCULAR: Denies chest pain, palpitations or syncopal episodes. RESPIRATORY: See HPI. GASTROINTESTINAL: Admits reduced appetite and nausea/vomiting, no reported emesis in the last 3 days. No hematemesis. No perez blood in his stool or melena. Denies abdominal pain. Denies any change in his chronic diarrhea, states he has a lot of chronic stomach issues GENITOURINARY: Denies hematuria, denies infections. MUSKULOSKELETAL: Denies pain, denies swelling. INTEGUMENTARY: Denies rash, denies eczema. NEUROLOGICAL: Denies recent memory loss, no recent seizure activity. PSYCHIATRIC: Denies anxiety, denies depression. HEMATOLOGIC/LYMPHATIC: Denies anemia, denies enlarged lymph node Past Medical History Past Medical History: Asthma, COPD, GI Bleed, Osteoarthritis (OA), Pulmonary Embolus (PE) Additional Past Medical History / Comment(s): celiac disease, IBS, colitis, central tremors, hepatitis at 12 History of Any Multi-Drug Resistant Organisms: None Reported Past Surgical History: Appendectomy, Cholecystectomy, Heart Catheterization Past Anesthesia/Blood Transfusion Reactions: No Reported Reaction Past Psychological History: Anxiety, Depression Smoking Status: Former smoker Past Alcohol Use History: Daily Past Drug Use History: Marijuana - Past Family History Father Family Medical History: Deep Vein Thrombosis (DVT) Medications and Allergies Home Medications Medication Instructions Recorded Confirmed Type Albuterol Sulfate [Ventolin HFA] 2 puff INHALATION RT-Q4H PRN 04/09/20 10/04/23 History Tamsulosin HCl [Flomax] 0.4 mg PO DAILY 04/09/20 10/04/23 History ALPRAZolam [Xanax] 1 mg PO BID 12/05/21 10/04/23 History allopurinoL 300 mg PO DAILY 12/05/21 10/04/23 History Midodrine [ProAmatine] 5 mg PO BID 06/14/22 10/04/23 History Montelukast [Singulair] 10 mg PO DAILY 06/14/22 10/04/23 History Sildenafil [Revatio] 20 mg PO AC-TID 06/14/22 10/04/23 History lamoTRIgine 100 mg PO BID 06/14/22 10/04/23 History Ferrous Sulfate [Iron (65 MG 325 mg PO DAILY tab 08/19/22 10/04/23 Rx Elemental)] HYDROcodone/APAP 10-325MG [Letcher 1 tab PO TID 04/12/23 10/04/23 History 10-325] Ipratropium-Albuterol Nebulize 3 ml INHALATION RT-QID 04/12/23 10/04/23 History [Duoneb 0.5 mg-3 mg/3 ml Soln] Apixaban [Eliquis] 5 mg PO BID 10/04/23 10/04/23 History Cephalexin [Keflex] 250 mg PO BID 10/04/23 10/04/23 History Furosemide [Lasix] 40 mg PO DAILY 10/04/23 10/04/23 History Potassium Chloride ER [K-Dur 10] 10 meq PO DAILY 10/04/23 10/04/23 History Potassium Chloride ER [K-Dur 20] 20 meq PO DAILY 10/04/23 10/04/23 History Allergies Allergy/AdvReac Type Severity Reaction Status Date / Time No Known Allergies Allergy Verified 10/04/23 19:56 Physical Exam Vitals: Vital Signs Temp Pulse Resp BP Pulse Ox 10/04/23 21:00 75 18 153/87 94 L 10/04/23 19:56 79 20 10/04/23 19:44 79 20 10/04/23 19:33 98.2 F 84 18 119/83 95 10/04/23 16:09 98.2 F 82 16 111/69 95 Intake and Output 10/04/23 10/04/23 10/05/23 14:59 22:59 06:59 Other: Weight 87.09 kg GENERAL EXAM: Alert, 68-year-old white male, on room air, comfortable in no apparent distress. HEAD: Normocephalic and atraumatic EYES: Normal reaction of pupils, equal size. NOSE: Clear with pink turbinates. THROAT: No erythema or exudates. NECK: No masses, no JVD. CHEST: No chest wall deformity. LUNGS: Equal air entry with expiratory wheezes heard with forced expiratory maneuver. On room air. No conversational dyspnea or accessory muscle use CVS: S1 and S2 normal with no audible murmur, regular rhythm. No extra heart sounds ABDOMEN: No hepatosplenomegaly, active bowel sounds, no guarding or rigidity. SPINE: No scoliosis or deformity SKIN: No rashes CENTRAL NERVOUS SYSTEM: No focal deficits, tone is normal in all 4 extremities. EXTREMITIES: There is bilateral lower extremity nonpitting edema with chronic venous stasis changes. There is some mild erythema, not particularly warm/hot, nontender, and without induration. No clubbing, or cyanosis. Peripheral pulses are intact. Results - Laboratory Findings CBC and BMP: 10/05/23 06:14 10/05/23 06:14 PT/INR, D-dimer PT 10.3 sec (10.0-12.5) 10/04/23 17:15 INR 0.9 (<1.2) 10/04/23 17:15 Abnormal lab findings: Abnormal Labs 10/04/23 10/04/23 17:15 17:15 RBC 3.87 L Hgb 12.6 L MCV 101.6 H Plt Count 149 L Lymphocytes # 0.9 L Sodium 130 L Chloride 96 L Creatinine 1.27 H - Diagnostic Findings Chest x-ray: image reviewed Assessment and Plan Assessment: Acute dyspnea, secondary to suspected acute COPD exacerbation. Chest x-ray done on admission does not show any focal infiltrates or evidence of pneumonia. No acute cardiopulmonary process noted. Negative for influenza, RSV, COVID on arrival. Acute COPD exacerbation with secondary bronchospasm wheezing. The patient's presentation is typical for COPD exacerbation. In the current presentation has nothing to do with his previous history of pulmonary embolism. I reviewed the most recent CAT scan of the chest from April 2023 and there is no filling defect and the patient had surgical thrombectomy. History of bilateral DVTs and pulmonary embolism, patient was seen June, at our facility and chest CTA identified a right hilar masslike density with associated decreased blood flow to the right lower lobe, later determined to be a thrombus. Patient was transferred to [facility] and then reportedl y diverted to [facility], he underwent open surgical intervention, possibly PTE. Follow-up chest CTA done November, shows resolution of the chronic PE and improved filling of the lower lobe pulmonary arteries. History of IVC filter placement in 2019 History of severe pulmonary hypertension, on sildenafil Chronic ongoing tobacco dependence, smoking 1/2 pack/day currently Chronic obstructive pulmonary disease Obstructive sleep apnea, with home CPAP with a pressure of 5 Chronic back pain Severe dehydration and reduced oral intake Acute kidney injury, possibly secondary to above and ATN History of GI bleed History of celiac disease and IBS History of acute hepatitis History of anxiety/depression History of daily alcohol use Chronic bilateral lower extremity edema Essential tremors Plan: Patient's medications, labs, imaging were reviewed Currently on room air Start patient on DuoNebs [id number], and continue IV Solu-Medrol 60 mg every 6 hours Negative for influenza, RSV, COVID Chest x-ray does not show any focal infiltrates or pneumonia. No leukocytosis. No fever. Not currently covered on any antibiotics. Possible viral URI. Patient recently started smoking again within the last 5 weeks. Smoking cessation encouraged. He refused nicotine patch/replacement Patient encouraged to bring in home CPAP, in the meantime we will provide him with a device. Resume home medications including Eliquis Anticipate 24 to 48 hours hospitalization. We will continue to follow I have personally seen and examined the patient, performed the documentation and the assessment and plan as written. Number of minutes spent on the visit:20 This is a joint evaluation that was done along with the nurse practitioner and this evaluation was done more than 30 minutes. In summary, the patient presents with worsening shortness of breath, suspecting underlying COPD exacerbation. The patient has had previous history of DVTs and pulmonary embolism and he was treated through [facility] and the patient underwent a surgical thrombectomy. Follow-up CAT scan of the chest from April 2023 shows no evidence of any pulmonary embolism. The Doppler of the lower extremity done in March 2023 showed a Garza's cyst and some deep venous thrombosis within the common femoral vein was noted. Echocardiogram from April 2023 shows presence of normal left ventricular ejection fraction. The patient had mild dilatation of the RV with mild pulmonary hypertension. Estimated RV systolic pressure was around 37 mmHg. Time with Patient: Greater than 30
[2023-10-05] MEDS: HYDROmorphone 1 MG/ML 1 ML SYRINGE IVP PRN (03:38)
[2023-10-05] MEDS: SILDENAFIL 20 MG TAB PO SCH (06:21)
[2023-10-05 08:33] LABS: Basophils # (A) 0 X 10*3/uL (0.00-0.10); Basophils % (A) 0 %; Eosinophils # (A) 0 X 10*3/uL (0.04-0.35); Eosinophils % (A) 0 %; HCT 37.5 % (39.6-50.0); HGB 12.6 g/dL (13.0-17.0); Immature Grans, Automated 0 %; Lymphocytes # (A) 0.12 X 10*3/uL (0.90-5.00); Lymphocytes % (A) 6.9 %; MCH 32.6 pg (27.0-32.0); MCHC 33.6 g/dL (32.0-37.0); MCV 97.2 FL (80.0-97.0); Mean Platelet Volume 10.5 FL (9.5-12.2); Monocytes # (A) 0.03 X 10*3/uL (0.20-1.00); Monocytes % (A) 1.7 %; NRBC Per 100 WBC 0 X 10*3/uL (0.00-0.01); Neutrophils # (A) 1.59 X 10*3/uL (1.80-7.70); Neutrophils % (A) 91.4 %; Platelet Count 145 X 10*3/uL (140-440); RBC 3.86 X 10*6/uL (4.40-5.60); WBC 1.74 X 10*3/uL (4.50-10.00)
[2023-10-05 08:49] LABS: ALT 14 U/L (10-49); AST 21 U/L (14-35); Albumin 4.3 g/dL (3.8-4.9); Albumin/Globulin Ratio 1.79 Ratio (1.60-3.17); Alkaline Phosphatase 73 U/L (41-126); BUN/Creat Ratio 14.82 Ratio (12.00-20.00); Blood Urea Nitrogen 16.3 mg/dL (9.0-27.0); Calcium 9.3 mg/dL (8.7-10.3); Carbon Dioxide 23.8 mmol/L (21.6-31.8); Chloride 96 mmol/L (96-109); Globulin 2.4 g/dL (1.6-3.3); Glucose 159 mg/dL (70-110); Magnesium 2.1 mg/dL (1.5-2.4); Phosphorus 3.8 mg/dL (2.4-5.1); Potassium 4.7 mmol/L (3.5-5.5); Sodium 132 mmol/L (135-145); Total Bilirubin 0.3 mg/dL (0.3-1.2); Total Protein 6.7 g/dL (6.2-8.2)
[2023-10-05] MEDS: IPRATROPIUM-ALBUTEROL 3 ML NEB INHALATION SCH (08:56)
[2023-10-05] MEDS: TAMSULOSIN 0.4 MG CAP.ER.24H PO SCH (10:21)
[2023-10-05] MEDS: FUROSEMIDE 40 MG TAB PO SCH (10:21)
[2023-10-05] MEDS: lamoTRIgine 100 MG TAB PO SCH (10:22)
[2023-10-05] MEDS: MONTELUKAST 10 MG TAB PO SCH (10:22)
[2023-10-05] MEDS: POTASSIUM CHLORIDE ER 10 MEQ TAB.ER.PRT PO SCH (10:22)
[2023-10-05] MEDS: allopurinoL 300 MG TAB PO SCH (10:22)
[2023-10-05] MEDS: FERROUS SULFATE 325 MG TAB PO SCH (10:22)
[2023-10-05] MEDS: ALPRAZolam 1 MG TAB PO SCH (14:02)
[2023-10-05] MEDS: MIDODRINE 5 MG TAB PO SCH (16:27)
[2023-10-05] MEDS ORDERED: MIDODRINE 5 MG TAB PO SCH (17:30)
[2023-10-05] MEDS: AZITHROMYCIN 500 MG in SODIUM CHLORIDE 0.9% 250 ML IVPB SCH (18:03)
[2023-10-05] MEDS: SODIUM CHLORIDE 0.9% 1,000 ML IV SCH (18:10)
[2023-10-05] MEDS: PIPERACILLIN-TAZOBACTAM 3.375 GM in SODIUM CHLORIDE 0.9% 100 ML IVPB SCH (19:42)
[2023-10-05] MEDS: HYDROcodone/APAP 10-325MG 1 EACH TAB PO SCH (20:42)
--- NOTE | 2023-10-06 01:54 | HP ---
HISTORY AND PHYSICAL HISTORY OF PRESENT ILLNESS: 68-year-old white male, progressive shortness of breath, cough, URI with runny nose, sputum nausea and vomiting, severe cough and congestion. He is unable to stop coughing. I suspect he has pneumonia hospital. We admitted him for pneumonia, most likely some kind of pneumonia making his COPD greatly worsened. He cannot breathe at home even though he is on oxygen 2 L all the time. History of valvular heart surgery. History of pulmonary embolism. REVIEW OF SYSTEMS: Cough, congestion, shortness of breath, wheezing, unable to be treated outpatient as it failed, otherwise negative. MEDICAL HISTORY: History of asthma, COPD, GI bleed, osteoarthritis, pulmonary embolism, valvular heart disease, and pulmonary hypertension. PAST SURGICAL HISTORY: Cholecystectomy, appendectomy, heart catheterization. FAMILY HISTORY: Father with DVT. HOME MEDICATIONS: Include: 1. Flomax. 2. Xanax. 3. Allopurinol. 4. Ventolin HFA. 5. Singulair 10 daily. 6. Midodrine 5 mg b.i.d. 7. Revatio 20 t.i.d. 8. Lamictal 100 b.i.d. 9. Ferrous sulfate daily. 10.Davenport 10/325 t.i.d. 11.DuoNeb q.i.d. 12.Eliquis 5 b.i.d. 13.Keflex 250 b.i.d. 14.Lasix 40 daily. ALLERGIES: No known drug allergies. PHYSICAL EXAMINATION: VITAL SIGNS: Temp 98.2, pulse 70s to 80s, respiratory rate 20-25, blood pressure is 111 to 150s over 80s to 60s, O2 is 94 on 2 L down to 92 on 2 L. HEENT: Normocephalic, atraumatic. Pupils equal, round, and reactive. LUNGS: Show scattered rhonchi and wheeze x4. HEART: S1, S2. ABDOMEN: Soft. SKIN: No rashes. CLOTH COVERER: No focal deficits. He has pitting edema in bilateral lower extremities 2 to 3+ hard as a rock. LABORATORY DATA: White count is 1.74, 12.6 hemoglobin, 145 platelets. IMPRESSION: Acute hypoxic respiratory failure secondary to chronic obstructive pulmonary disease exacerbation, emphysema, chronic obstructive pulmonary disease, history of bilateral Deep venous thrombosis, pulmonary embolism, acute valvular heart disease, history of IVC filter, severe pulmonary hypertension, chronic nicotine addiction, sleep apnea, dehydration, acute kidney injury, history of GI bleed, celiac disease, acute hepatitis, anxiety, depression, chronic alcohol. He might have had a seizure at home. I told him that he cannot drink alcohol any more. He is to stay off alcohol. If he has another seizure, he will need a workup. The patient has to stay on his breathing treatments at home as oxygen and secondhand smoke in the house all the time and he recently started smoking again weeks. He wears a CPAP. Continue his home medications. PROGNOSIS: Guarded. Please see further orders. MMODL / IJN: [id number] /
[2023-10-06] MEDS: ALBUTEROL NEBULIZED 2.5 MG/3 ML INHALATION PRN (03:38)
[2023-10-06] MEDS: FUROSEMIDE 20 MG TAB PO SCH (08:51)
[2023-10-06] MEDS: POTASSIUM CHLORIDE ER 20 MEQ TAB.ER PO SCH (08:52)
[2023-10-06] MEDS ORDERED: POTASSIUM CHLORIDE ER 20 MEQ TAB.ER PO SCH (09:00)
[2023-10-06 09:15] LABS: Basophils # (A) 0 X 10*3/uL (0.00-0.10); Basophils % (A) 0 %; Eosinophils # (A) 0 X 10*3/uL (0.04-0.35); Eosinophils % (A) 0 %; HGB 12.1 g/dL (13.0-17.0); Lymphocytes # (A) 0.12 X 10*3/uL (0.90-5.00); MCH 32.2 pg (27.0-32.0); MCHC 33.6 g/dL (32.0-37.0); MCV 95.7 FL (80.0-97.0); Mean Platelet Volume 10.2 FL (9.5-12.2); Monocytes % (A) 2.5 %; NRBC Per 100 WBC 0 X 10*3/uL (0.00-0.01); Neutrophils # (A) 3.82 X 10*3/uL (1.80-7.70); Neutrophils % (A) 94.3 %; Platelet Count 153 X 10*3/uL (140-440); RBC 3.76 X 10*6/uL (4.40-5.60); RDW 13.9 % (11.5-14.5); WBC 4.05 X 10*3/uL (4.50-10.00)
[2023-10-06 09:22] LABS: BUN/Creat Ratio 21.45 Ratio (12.00-20.00); Blood Urea Nitrogen 23.6 mg/dL (9.0-27.0); Glucose 172 mg/dL (70-110)
[2023-10-06 09:23] LABS: ALT 12 U/L (10-49); AST 16 U/L (14-35); Albumin 4.1 g/dL (3.8-4.9); Albumin/Globulin Ratio 1.71 Ratio (1.60-3.17); Alkaline Phosphatase 60 U/L (41-126); Calcium 9.4 mg/dL (8.7-10.3); Carbon Dioxide 23.8 mmol/L (21.6-31.8); Chloride 99 mmol/L (96-109); Globulin 2.4 g/dL (1.6-3.3); Potassium 4.6 mmol/L (3.5-5.5); Sodium 134 mmol/L (135-145); Total Bilirubin 0.3 mg/dL (0.3-1.2); Total Protein 6.5 g/dL (6.2-8.2)
--- NOTE | 2023-10-06 09:46 | CT ---
EXAMINATION TYPE: CT chest wo con DATE OF EXAM: 10/06/2023 COMPARISON: 11/13/2022 HISTORY: cap CT DLP: 349.40 mGycm, Automated exposure control for dose reduction was used. CONTRAST: Performed injected with 0 mL of Isovue 300. TECHNIQUE: Axial images were obtained at 5 mm thick sections. Reconstructed images are reviewed on [employer] computer in the coronal plane. FINDINGS: The thyroid has limited evaluation. No suspicious lung nodules or focal infiltrates are present. No enlarged mediastinal or hilar adenopathy is evident. The ascending aorta diameter at the level o f the main pulmonary artery is 4.2 cm. The main pulmonary artery diameter at the bifurcation is 3.5 cm. Coronary artery calcifications present. Limited CT sections are obtained through the upper abdomen. Abdomen is essentially unremarkable. Gall bladder surgically absent. IMPRESSION: 1. No acute pulmonary process. 2. Ascending thoracic aortic aneurysm measuring 4.2 cm.
--- NOTE | 2023-10-06 11:36 | CA ---
Transthoracic Echo Report Name: Steven Steele Age: 68 Gender: M : 1955 Exam Date: 10/06/2023 07:19 Exam Location: [place] [facility] Ht (in): 69 Wt (lb): 192 Ordering Physician: Luisito Langford MD Attending/Referring Phys: Club Attendant Kathrin Cohen RDCS Procedure CPT: Indications: dyspnea Cardiac Hx: Technical Quality: Fair Contrast 1: Total Dose (mL): Contrast 2: Total Dose (mL): MEASUREMENTS (Male / Female) Normal Values 2D ECHO LVOT Diameter 1.9 cm LV Diastolic Volume MOD BP 124.6 cm??? 67 - 155 / 56 - 104 cm??? LV Systolic Volume MOD BP 49.1 cm??? 22 - 58 / 19 - 49 cm??? LV Ejection Fraction MOD BP 60.6 % >= 55 % LV Cardiac Index MOD BP 2289.2 cm???/min???m??? LV Diastolic Volume MOD 4C 116.8 cm??? LV Systolic Volume MOD 4C 45.8 cm??? LV Ejection Fraction MOD 4C 60.7 % LV Cardiac Index MOD 4C 2150.1 cm???/min???m??? LV Diastolic Length 4C 9.9 cm LV Systolic Length 4C 8.5 cm LV Diastolic Volume MOD 2C 133.0 cm??? LV Systolic Volume MOD 2C 51.5 cm??? LV Ejection Fraction MOD 2C 61.3 % LV Cardiac Index MOD 2C 2470.0 cm???/min???m??? LV Diastolic Length 2C 9.9 cm LV Systolic Length 2C 8.2 cm LA Volume 53.4 cm??? 18 - 58 / 22 - 52 cm??? LA Volume Index 25.7 cm???/m??? 16 - 28 cm???/m??? DOPPLER AV Peak Velocity 251.2 cm/s AV Peak Gradient 25.2 mmHg AV Mean Velocity 164.1 cm/s AV Mean Gradient 12.5 mmHg AV Velocity Time Integral 60.8 cm LVOT Peak Velocity 118.8 cm/s LVOT Peak Gradient 5.6 mmHg LVOT Velocity Time Integral 30.2 cm LVOT Stroke Volume 84.6 cm??? LVOT Stroke Volume Index 41.7 ml/m??? LVOT Cardiac Index 2565.3 cm???/min???m??? AV Area Cont Eq vti 1.4 cm??? AV Area Cont Eq pk 1.3 cm??? MV Area PHT 4.3 cm??? Mitral E Point Velocity 75.1 cm/s Mitral A Point Velocity 65.1 cm/s Mitral E to A Ratio 1.2 MV Deceleration Time 176.2 ms FINDINGS Left Ventricle Left ventricular ejection fraction is estimated at 55-60 %. Left ventricular cavity size normal. Left ventricular wall thickness normal. No obvious regional wall motion abnormalities. Right Ventricle Normal right ventricular size with mildly reduced function. Unable to estimate the right ventricular systolic pressure. Right Atrium Normal right atrial size. Left Atrium Normal left atrial size. Mitral Valve Structurally normal mitral valve. No mitral stenosis, regurgitation or prolapse. Aortic Valve Aortic valve not well visualized. Mild aortic stenosis. No aortic regurgitation. Tricuspid Valve Structurally normal tricuspid valve. No tricuspid stenosis. No tricuspid regurgitation. Pulmonic Valve Pulmonic valve not well visualized. No pulmonic stenosis. No pulmonic regurgitation. Pericardium No pericardial effusion. Aorta Aortic annulus normal. Ascending aorta not well visualized. CONCLUSIONS Left ventricular ejection fraction 55-60% No mitral regurgitation Mild aortic stenosis No pericardial effusion Previewed by: Dr. Bruno Mcmahon DO (Electronically Signed) Final Date: 06 Oct 2023 11:35
--- NOTE | 2023-10-06 14:42 | P.PN ---
Subjective Progress Note Date: 10/06/23 Patient is a 68-year-old white male with past medical history significant for chronic obstructive pulmonary disease, chronic ongoing tobacco dependence, obstructive sleep apnea with home CPAP, pulmonary hypertension, DVT/PEs with IVC filter, chronically anticoagulated on Eliquis. Of note, back in June, patient was noted to have a chest CTA revealing a masslike density in the right hilum with some infiltration of the pulmonary artery, indicating possible thrombus or tumor. Patient was transferred to a tertiary care facility, originally [facility], but then subsequently diverted to [facility]. Patient describes that he had open surgical removal of his pulmonary embolism, possible pulmonary thromboendarterectomy. He also had a repair of a "hole" in his heart. Most recent chest CTA done April, which showed resolution of the presumed chronic thrombus. Patient has seen Dr. Arriaza in the pulmonary office in the past, but does not routinely follow-up. His primary care provider is Dr. Luisito Langford. Patient presented to emergency room last night complaining of progressively worsening shortness of breath and severe cough that was originally noted about a week ago. Originally started with URI-like symptoms including runny nose, sore throat, and a minimally productive cough. Now is producing milky sputum. He endorses chest tightness and wheezing. Denies any chest pain. No lightheadedness or syncope. No hemoptysis. He is chronically anticoagulated on Eliquis. He does have chronic lower extremity swelling and history of bilateral DVTs. He also was having nausea and vomiting, but not in the last 3 days. His appetite has been reduced. He denies any fevers. Denies sick contacts. Chest x-ray done admission does not show any acute cardiopulmonary process. There are midline sternotomy wires present. CBC unremarkable, no leukocytosis. Hemoglobin stable at 12.6. BMP includes a sodium 130, potassium 4.1, chloride 96, serum bicarb 24, BUN 15, creatinine 1.27, glucose 82. Normal saline infusing at 130 MLS per hour. LFTs not elevated. Troponin less than 0.012. Negative for influenza, RSV, COVID. Patient is currently sitting up in bed, on room air, in no acute distress. SpO2 reading 94%. Speaks in full sentences without dyspnea. He states that he recently started smoking again within the last 5 weeks. Smoking about 1/2 pack/day. He did try to quit after his surgery at [facility] in June,. Remaining vital signs are also stable. Patient is being seen for a follow-up. The patient is doing slightly better compared to yesterday. Less bronchospastic and wheezy. He is currently being treated for an acute exacerbation. CT of the chest was done and showed noticeably pulmonary embolism with filling defects. Echocardiogram showed a preserved LV function without any significant pulm hypertension. Remains on anticoagulation with Eliquis. Remains on Zosyn and Zithromax. Remains on IV Solu-Medrol. Blood work from today shows a white cell count of 4 with a hemoglobin 12 and platelet count of 153. BUN is at 23 with a creatinine of 1.1 and sodium is at 134. Objective - Vital Signs Vital signs: Vital Signs Temp 98.0 F 10/06/23 07:03 Pulse 90 10/06/23 12:35 Resp 18 10/06/23 07:03 BP 136/80 10/06/23 07:03 Pulse Ox 94 L 10/06/23 07:03 FiO2 Intake & Output 10/05/23 10/06/23 10/06/23 18:59 06:59 18:59 Intake Total 1356 Output Total 1300 Balance 1356 -1300 Intake: Oral 1356 Output: Urine 1300 Other: Voiding Method Urinal Urinal Urinal # Voids 3 - Exam GENERAL EXAM: Alert, 68-year-old white male, on room air, comfortable in no apparent distress. HEAD: Normocephalic and atraumatic EYES: Normal reaction of pupils, equal size. NOSE: Clear with pink turbinates. THROAT: No erythema or exudates. NECK: No masses, no JVD. CHEST: No chest wall deformity. LUNGS: Equal air entry with expiratory wheezes heard with forced expiratory maneuver. On room air. No conversational dyspnea or accessory muscle use CVS: S1 and S2 normal with no audible murmur, regular rhythm. No extra heart sounds ABDOMEN: No hepatosplenomegaly, active bowel sounds, no guarding or rigidity. SPINE: No scoliosis or deformity SKIN: No rashes CENTRAL NERVOUS SYSTEM: No focal deficits, tone is normal in all 4 extremities. EXTREMITIES: There is bilateral lower extremity nonpitting edema with chronic venous stasis changes. There is some mild erythema, not particularly warm/hot, nontender, and without induration. No clubbing, or cyanosis. Peripheral pulses are intact. - Labs CBC & Chem 7: 10/06/23 04:41 10/06/23 04:41 Labs: Abnormal Lab Results - Last 24 Hours (Table) 10/06/23 10/06/23 Range/Units 04:41 04:41 WBC 4.05 L (4.50-10.00) X 10*3/uL RBC 3.76 L (4.40-5.60) X 10*6/uL Hgb 12.1 L (13.0-17.0) g/dL Hct 36.0 L (39.6-50.0) % MCH 32.2 H (27.0-32.0) pg Lymphocytes # 0.12 L (0.90-5.00) X 10*3/uL Monocytes # 0.10 L (0.20-1.00) X 10*3/uL Eosinophils # 0 L (0.04-0.35) X 10*3/uL Sodium 134 L (135-145) mmol/L BUN/Creatinine Ratio 21.45 H (12.00-20.00) Ratio Glucose 172 H (70-110) mg/dL Assessment and Plan Assessment: Acute dyspnea, secondary to suspected acute COPD exacerbation. Chest x-ray done on admission does not show any focal infiltrates or evidence of pneumonia. No acute cardiopulmonary process noted. Negative for influenza, RSV, COVID on arrival. Daily angiogram shows no evidence of any pulmonary embolism. Presentation is typical for an acute COPD exacerbation. Acute COPD exacerbation with secondary bronchospasm wheezing. The patient's pre sentation is typical for COPD exacerbation. In the current presentation has nothing to do with his previous history of pulmonary embolism. I reviewed the most recent CAT scan of the chest from April 2023 and there is no filling defect and the patient had surgical thrombectomy. History of bilateral DVTs and pulmonary embolism, patient was seen June, at our facility and chest CTA identified a right hilar masslike density with associated decreased blood flow to the right lower lobe, later determined to be a thrombus. Patient was transferred to [facility] and then reportedly diverted to [facility], he underwent open surgical intervention, possibly PTE. Follow-up chest CTA done November, shows resolution of the chronic PE and improved filling of the lower lobe pulmonary arteries. History of IVC filter placement in 2019 History of severe pulmonary hypertension, on sildenafil Chronic ongoing tobacco dependence, smoking 1/2 pack/day currently Chronic obstructive pulmonary disease Obstructive sleep apnea, with home CPAP with a pressure of 5 Chronic back pain Severe dehydration and reduced oral intake Acute kidney injury, possibly secondary to above and ATN History of GI bleed History of celiac disease and IBS History of acute hepatitis History of anxiety/depression History of daily alcohol use Chronic bilateral lower extremity edema Essential tremors Plan: Patient is currently on room air oxygen Continue DuoNebs [id number] continue IV Solu-Medrol 60 mg every 6 hours Negative for influenza, RSV, COVID Chest x-ray does not show any focal infiltrates or pneumonia. No leukocytosis. No fever. Not currently covered on any antibiotics. Possible viral URI. Patient recently started smoking again within the last 5 weeks. Smoking berta sation encouraged. He refused nicotine patch/replacement Patient encouraged to bring in home CPAP, in the meantime we will provide him with a device. Resume home medications including Eliquis CTA shows no evidence of any pulmonary embolism or filling defects Echocardiogram shows no evidence of any significant pulmonary hypertension Will continue to follow
--- NOTE | 2023-10-07 10:47 | P.PN ---
Subjective Progress Note Date: 10/07/23 Principal diagnosis: chronic back pain Dehydration and protein calorie malnourishment History of GI bleed History of inflammatory bowel disease and celiac disease History of alcohol-related hepatitis Mood disorder depression acute COPD exacerbation History of bilateral DVT and pulmonary embolism Pulmonary hypertension group 3 Obstructive sleep apnea 10/07/2023, patient seen and evaluated examined during the rounds labs reviewed medications reviewed care plan discussed, remains on 2 L oxygen, both lower extremity covered with this Robert wrap, patient remains on broad-spectrum antibiotics along with IV steroids breathing treatments,patient is afebrile saturation is 96% on2 L nasal cannula, computed tomography scan of the chest dilated pulmonary vasculature consistent with papillary hypertension and ascending thoracic aortic aneurysm of 4.2 cm Objective - Vital Signs Vital signs: Vital Signs Temp 97.6 F 10/07/23 07:23 Pulse 96 10/07/23 09:08 Resp 19 10/07/23 07:23 BP 113/74 10/07/23 07:23 Pulse Ox 95 10/07/23 07:23 FiO2 Intake & Output 10/06/23 10/07/23 10/07/23 18:59 06:59 18:59 Other: Voiding Method Urinal Urinal Urinal # Voids 2 1 - Constitutional General appearance: Present: average body habitus, cooperative, disheveled, mild distress - EENT Eyes: Present: EOMI, PERRLA ENT: Present: normal oropharynx Ears: bilateral: normal - Neck Carotids: bilateral: upstroke normal Thyroid: bilateral: normal size - Respiratory Respiratory: bilateral: diminished, wheezing - Cardiovascular Rhythm: regular Heart sounds: normal: S1, S2 - Gastrointestinal General gastrointestinal: Present: hyperactive bowel sounds, normal bowel sounds - Neurologic Neurologic: Present: CNII-XII intact - Musculoskeletal Musculoskeletal: Present: gait normal, generalized weakness, strength equal bilaterally - Psychiatric Psychiatric: Present: A&O x's 3, appropriate affect, intact judgment & insight - Labs CBC & Chem 7: 10/06/23 04:41 10/06/23 04:41 - Imaging and Cardiology Chest x-ray: report reviewed, image reviewed Abdominal x-ray: report reviewed, image reviewed Assessment and Plan Assessment: chronic back pain Dehydration and protein calorie malnourishment History of GI bleed History of inflammatory bowel disease and celiac disease History of alcohol-related hepatitis Mood disorder depression acute COPD exacerbation History of bilateral DVT and pulmonary embolism Pulmonary hypertension group 3 Obstructive sleep apnea Plan: continue Tylenol for chronic pain control Continue dietary control and take Augmentin for recurrent DVT PE status post IVC filter as well Continue bronchodilators and IV steroids Midodrine for blood pressure support Continue Singulair 4 bronchial asthma Time with Patient: Greater than 30
--- NOTE | 2023-10-07 15:12 | P.PN ---
Subjective Progress Note Date: 10/07/23 Patient is a 68-year-old white male with past medical history significant for chronic obstructive pulmonary disease, chronic ongoing tobacco dependence, obstructive sleep apnea with home CPAP, pulmonary hypertension, DVT/PEs with IVC filter, chronically anticoagulated on Eliquis. Of note, back in June, patient was noted to have a chest CTA revealing a masslike density in the right hilum with some infiltration of the pulmonary artery, indicating possible thrombus or tumor. Patient was transferred to a tertiary care facility, originally [facility], but then subsequently diverted to [facility]. Patient describes that he had open surgical removal of his pulmonary embolism, possible pulmonary thromboendarterectomy. He also had a repair of a "hole" in his heart. Most recent chest CTA done April, which showed resolution of the presumed chronic thrombus. Patient has seen Dr. Arriaza in the pulmonary office in the past, but does not routinely follow-up. His primary care provider is Dr. Luisito Langford. Patient presented to emergency room last night complaining of progressively worsening shortness of breath and severe cough that was originally noted about a week ago. Originally started with URI-like symptoms including runny nose, sore throat, and a minimally productive cough. Now is producing milky sputum. He endorses chest tightness and wheezing. Denies any chest pain. No lightheadedness or syncope. No hemoptysis. He is chronically anticoagulated on Eliquis. He does have chronic lower extremity swelling and history of bilateral DVTs. He also was having nausea and vomiting, but not in the last 3 days. His appetite has been reduced. He denies any fevers. Denies sick contacts. Chest x-ray done admission does not show any acute cardiopulmonary process. There are midline sternotomy wires present. CBC unremarkable, no leukocytosis. Hemoglobin stable at 12.6. BMP includes a sodium 130, potassium 4.1, chloride 96, serum bicarb 24, BUN 15, creatinine 1.27, glucose 82. Normal saline infusing at 130 MLS per hour. LFTs not elevated. Troponin less than 0.012. Negative for influenza, RSV, COVID. Patient is currently sitting up in bed, on room air, in no acute distress. SpO2 reading 94%. Speaks in full sentences without dyspnea. He states that he recently started smoking again within the last 5 weeks. Smoking about 1/2 pack/day. He did try to quit after his surgery at [facility] in June,. Remaining vital signs are also stable. Patient is being seen for a follow-up. The patient is doing slightly better compared to yesterday. Less bronchospastic and wheezy. He is currently being treated for an acute exacerbation. CT of the chest was done and showed noticeably pulmonary embolism with filling defects. Echocardiogram showed a preserved LV function without any significant pulm hypertension. Remains on anticoagulation with Eliquis. Remains on Zosyn and Zithromax. Remains on IV Solu-Medrol. Blood work from today shows a white cell count of 4 with a hemoglobin 12 and platelet count of 153. BUN is at 23 with a creatinine of 1.1 and sodium is at 134. 10/07/2023, the patient is being seen for a follow-up. He is bronchospastic and wheezy without any major changes in his condition compared to yesterday. Remains on DuoNeb. Remains on IV Solu-Medrol 60 mg every 6 hours. Remains on empiric antibiotic coverage with IV Zosyn. Objective - Vital Signs Vital signs: Vital Signs Temp 97.6 F 10/07/23 07:23 Pulse 96 10/07/23 09:08 Resp 19 10/07/23 07:23 BP 113/74 10/07/23 07:23 Pulse Ox 95 10/07/23 07:23 FiO2 Intake & Output 10/06/23 10/07/23 10/07/23 18:59 06:59 18:59 Other: Voiding Method Urinal Urinal Urinal # Voids 2 1 - Exam GENERAL EXAM: Alert, 68-year-old white male, on room air, comfortable in no apparent distress. HEAD: Normocephalic and atraumatic EYES: Normal reaction of pupils, equal size. NOSE: Clear with pink turbinates. THROAT: No erythema or exudates. NECK: No masses, no JVD. CHEST: No chest wall deformity. LUNGS: Equal air entry with expiratory wheezes heard with forced expiratory maneuver. On room air. No conversational dyspnea or accessory muscle use CVS: S1 and S2 normal with no audible murmur, regular rhythm. No extra heart so unds ABDOMEN: No hepatosplenomegaly, active bowel sounds, no guarding or rigidity. SPINE: No scoliosis or deformity SKIN: No rashes CENTRAL NERVOUS SYSTEM: No focal deficits, tone is normal in all 4 extremities. EXTREMITIES: There is bilateral lower extremity nonpitting edema with chronic venous stasis changes. There is some mild erythema, not particularly warm/hot, nontender, and without induration. No clubbing, or cyanosis. Peripheral pulses are intact. - Labs CBC & Chem 7: 10/06/23 04:41 10/06/23 04:41 Assessment and Plan Assessment: Acute dyspnea, secondary to suspected acute COPD exacerbation. Chest x-ray done on admission does not show any focal infiltrates or evidence of pneumonia. No acute cardiopulmonary process noted. Negative for influenza, RSV, COVID on arrival. Daily angiogram shows no evidence of any pulmonary embolism. Presentation is typical for an acute COPD exacerbation. Acute COPD exacerbation with secondary bronchospasm wheezing. The patient's presentation is typical for COPD exacerbation. In the current presentation has nothing to do with his previous history of pulmonary embolism. I reviewed the most recent CAT scan of the chest from April 2023 and there is no filling defect and the patient had surgical thrombectomy. History of bilateral DVTs and pulmonary embolism, patient was seen June, at our facility and chest CTA identified a right hilar masslike density with associated decreased blood flow to the right lower lobe, later determined to be a thrombus. Patient was transferred to [facility] and then reportedly diverted to [facility], he underwent open surgical intervention, possibly PTE. Follow-up chest CTA done November, shows resolution of the chronic PE and improved filling of the lower lobe pulmonary arteries. History of IVC filter placement in 2019 History of severe pulmonary hypertension, on sildenafil Chronic ongoing tobacco dependence, smoking 1/2 pack/day currently Chronic obstructive pulmonary disease Obstructive sleep apnea, with home CPAP with a pressure of 5 Chronic back pain Severe dehydration and reduced oral intake Acute kidney injury, possibly secondary to above and ATN History of GI bleed History of celiac disease and IBS History of acute hepatitis History of anxiety/depression History of daily alcohol use Chronic bilateral lower extremity edema Essential tremors Plan: Change compared to yesterday and based on that we will continue same treatment for now. No changes will be done. No modifications. Patient is currently on room air oxygen Continue DuoNebs [id number] continue IV Solu-Medrol 60 mg every 6 hours Negative for influenza, RSV, COVID Chest x-ray does not show any focal infiltrates or pneumonia. No leukocytosis. No fever. Not currently covered on any antibiotics. Possible viral URI. Patient recently started smoking again within the last 5 weeks. Smoking cessation encouraged. He refused nicotine patch/replacement Patient encouraged to bring in home CPAP, in the meantime we will provide him with a device. Resume home medications including Eliquis CTA shows no evidence of any pulmonary embolism or filling defects Echocardiogram shows no evidence of any significant pulmonary hypertension Will continue to follow
--- NOTE | 2023-10-08 16:57 | P.PN ---
Subjective Progress Note Date: 10/08/23 Principal diagnosis: chronic back pain Dehydration and protein calorie malnourishment History of GI bleed History of inflammatory bowel disease and celiac disease History of alcohol-related hepatitis Mood disorder depression acute COPD exacerbation History of bilateral DVT and pulmonary embolism Pulmonary hypertension group 3 Obstructive sleep apnea Oct 08 2023, patient seen and examined medication discussed with the patient continued to be short of breath and wheezing patient described that this morning she was more tired and exhausted but the day progress improvement in respiratory status noted, patient is still short of breath, labs reviewed medications, shay pineda remains on bronchodilators and IV steroids and breathing treatmentsshe has been on treatment for pulmonary hypertension also IV Zosyn as wellroom air oxygen saturation 97% patient has been 2 L nasal cannula off and on 10/07/2023, patient seen and evaluated examined during the rounds labs reviewed medications reviewed care plan discussed, remains on 2 L oxygen, both lower extremity covered with this Robert wrap, patient remains on broad-spectrum antibiotics along with IV steroids breathing treatments,patient is afebrile saturation is 96% on2 L nasal cannula, computed tomography scan of the chest dilated pulmonary vasculature consistent with papillary hypertension and ascending thoracic aortic aneurysm of 4.2 cm Objective - Vital Signs Vital signs: Vital Signs Temp 98.6 F 10/08/23 13:53 Pulse 96 10/08/23 13:53 Resp 16 10/08/23 14:00 BP 135/86 10/08/23 13:53 Pulse Ox 96 10/08/23 13:53 FiO2 Intake & Output 10/07/23 10/08/23 10/08/23 18:59 06:59 18:59 Intake Total 236 Balance 236 Intake: Oral 236 Other: Voiding Method Urinal Urinal Urinal # Voids 2 2 - Exam - Constitutional General appearance: Present: average body habitus, cooperative, disheveled, mild distress - EENT Eyes: Present: EOMI, PERRLA ENT: Present: normal oropharynx Ears: bilateral: normal - Neck Carotids: bilateral: upstroke normal Thyroid: bilateral: normal size - Respiratory Respiratory: bilateral: diminished, wheezing - Cardiovascular Rhythm: regular Heart sounds: normal: S1, S2 - Gastrointestinal General gastrointestinal: Present: hyperactive bowel sounds, normal bowel sounds - Neurologic Neurologic: Present: CNII-XII intact - Musculoskeletal Musculoskeletal: Present: gait normal, generalized weakness, strength equal bilaterally - Psychiatric Psychiatric: Present: A&O x's 3, appropriate affect, intact judgment & insight - Labs CBC & Chem 7: 10/06/23 04:41 10/06/23 04:41 Assessment and Plan Assessment: chronic back pain Dehydration and protein calorie malnourishment History of GI bleed History of inflammatory bowel disease and celiac disease History of alcohol-related hepatitis Mood disorder depression acute COPD exacerbation History of bilateral DVT and pulmonary embolism Pulmonary hypertension group 3 Obstructive sleep apnea Plan: continue Tylenol for chronic pain control Continue ddirect acting oral anticoagulant for recurrent DVT PE status post IVC filter as well Continue bronchodilators and IV steroids Midodrine for blood pressure support Continue Singulair 4 bronchial asthma continue sildenafil for pulmonary hypertension Time with Patient: Greater than 30
--- NOTE | 2023-10-09 12:48 | P.PN ---
Subjective Progress Note Date: 10/09/23 Patient is a 68-year-old white male with past medical history significant for chronic obstructive pulmonary disease, chronic ongoing tobacco dependence, obstructive sleep apnea with home CPAP, pulmonary hypertension, DVT/PEs with IVC filter, chronically anticoagulated on Eliquis. Of note, back in June, patient was noted to have a chest CTA revealing a masslike density in the right hilum with some infiltration of the pulmonary artery, indicating possible thrombus or tumor. Patient was transferred to a tertiary care facility, originally [facility], but then subsequently diverted to [facility]. Patient describes that he had open surgical removal of his pulmonary embolism, possible pulmonary thromboendarterectomy. He also had a repair of a "hole" in his heart. Most recent chest CTA done April, which showed resolution of the presumed chronic thrombus. Patient has seen Dr. Arriaza in the pulmonary office in the past, but does not routinely follow-up. His primary care provider is Dr. Luisito Langford. Patient presented to emergency room last night complaining of progressively worsening shortness of breath and severe cough that was originally noted about a week ago. Originally started with URI-like symptoms including runny nose, sore throat, and a minimally productive cough. Now is producing milky sputum. He endorses chest tightness and wheezing. Denies any chest pain. No lightheadedness or syncope. No hemoptysis. He is chronically anticoagulated on Eliquis. He does have chronic lower extremity swelling and history of bilateral DVTs. He also was having nausea and vomiting, but not in the last 3 days. His appetite has been reduced. He denies any fevers. Denies sick contacts. Chest x-ray done admission does not show any acute cardiopulmonary process. There are midline sternotomy wires present. CBC unremarkable, no leukocytosis. Hemoglobin stable at 12.6. BMP includes a sodium 130, potassium 4.1, chloride 96, serum bicarb 24, BUN 15, creatinine 1.27, glucose 82. Normal saline infusing at 130 MLS per hour. LFTs not elevated. Troponin less than 0.012. Negative for influenza, RSV, COVID. Patient is currently sitting up in bed, on room air, in no acute distress. SpO2 reading 94%. Speaks in full sentences without dyspnea. He states that he recently started smoking again within the last 5 weeks. Smoking about 1/2 pack/day. He did try to quit after his surgery at [facility] in June,. Remaining vital signs are also stable. Patient is being seen for a follow-up. The patient is doing slightly better compared to yesterday. Less bronchospastic and wheezy. He is currently being treated for an acute exacerbation. CT of the chest was done and showed noticeably pulmonary embolism with filling defects. Echocardiogram showed a preserved LV function without any significant pulm hypertension. Remains on anticoagulation with Eliquis. Remains on Zosyn and Zithromax. Remains on IV Solu-Medrol. Blood work from today shows a white cell count of 4 with a hemoglobin 12 and platelet count of 153. BUN is at 23 with a creatinine of 1.1 and sodium is at 134. 10/07/2023, the patient is being seen for a follow-up. He is bronchospastic and wheezy without any major changes in his condition compared to yesterday. Remains on DuoNeb. Remains on IV Solu-Medrol 60 mg every 6 hours. Remains on empiric antibiotic coverage with IV Zosyn. The patient is seen today October 09, 2023 in follow-up on the regular medical floor. He is currently sitting up in bed. Awake and alert in no acute distress. He is maintaining O2 saturations in the 90s on 2 L/min per nasal cannula. He is improved but not quite back to his baseline. Still with some wheezing. He is continued on DuoNeb inhalations, Solu-Medrol, Singulair. Remains on antibiotics in the form of Zosyn. Anticoagulated with Eliquis. Remains on oral diuretics. Objective - Vital Signs Vital signs: Vital Signs Temp 97.8 F 10/09/23 07:00 Pulse 80 10/09/23 11:32 Resp 16 10/09/23 07:00 BP 165/96 10/09/23 07:00 Pulse Ox 98 10/09/23 07:00 FiO2 Intake & Output 10/08/23 10/09/23 10/09/23 18:59 06:59 18:59 Intake Total 354 916 Balance 354 916 Intake: Oral 354 916 Other: Voiding Method Urinal Urinal # Voids 4 2 - Exam GENERAL EXAM: Alert, 68-year-old male, on 2 L nasal cannula, comfortable in no apparent distress. HEAD: Normocephalic and atraumatic EYES: Normal reaction of pupils, equal size. NOSE: Clear with pink turbinates. THROAT: No erythema or exudates. NECK: No masses, no JVD. CHEST: No chest wall deformity. LUNGS: Equal air entry with expiratory wheezes heard with forced expiratory maneuver. No conversational dyspnea. CVS: S1 and S2 normal with no audible murmur, regular rhythm. No extra heart sounds. ABDOMEN: No hepatosplenomegaly, active bowel sounds, no guarding or rigidity. SPINE: No scoliosis or deformity SKIN: No rashes CENTRAL NERVOUS SYSTEM: No focal deficits, tone is normal in all 4 extremities. EXTREMITIES: There is bilateral lower extremity nonpitting edema with chronic venous stasis changes. No clubbing, or cyanosis. Peripheral pulses are intact. - Labs CBC & Chem 7: 10/06/23 04:41 10/06/23 04:41 Assessment and Plan Assessment: Acute dyspnea, secondary to suspected acute COPD exacerbation. Chest x-ray done on admission does not show any focal infiltrates or evidence of pneumonia. No acute cardiopulmonary process noted. Negative for influenza, RSV, COVID on arrival. Daily angiogram shows no evidence of any pulmonary embolism. Presentation is typical for an acute COPD exacerbation. Acute COPD exacerbation with secondary bronchospasm wheezing. The patient's presentation is typical for COPD exacerbation. In the current presentation has nothing to do with his previous history of pulmonary embolism. I reviewed the most recent CAT scan of the chest from April 2023 and there is no filling defect and the patient had surgical thrombectomy. History of bilateral DVTs and pulmonary embolism, patient was seen June, at our facility and chest CTA identified a right hilar masslike density with associated decreased blood flow to the right lower lobe, later determined to be a thrombus. Patient was transferred to [facility] and then reportedly diverted to [facility], he underwent open surgical intervention, possibly PTE. Follow-up chest CTA done November, shows resolution of the chronic PE and improved filling of the lower lobe pulmonary arteries. History of IVC filter placement in 2019 History of severe pulmonary hypertension, on sildenafil Chronic ongoing tobacco dependence, smoking 1/2 pack/day currently Chronic obstructive pulmonary disease Obstructive sleep apnea, with home CPAP with a pressure of 5 Chronic back pain Severe dehydration and reduced oral intake Acute kidney injury, possibly secondary to above and ATN History of GI bleed History of celiac disease and IBS History of acute hepatitis History of anxiety/depression History of daily alcohol use Chronic bilateral lower extremity edema Essential tremors Plan: The patient was seen and evaluated Medications reviewed Stable on 2 L nasal cannula Does have home oxygen Does have home CPAP Continued on Eliquis Educated regarding smoking cessation I have personally seen and examined the patient, performed the documentation and the assessment and plan as written. Number of minutes spent on the visit: 10.
--- NOTE | 2023-10-09 13:56 | PN ---
PROGRESS NOTE SUBJECTIVE: The patient was admitted with shortness of breath. He was on 2 L nasal cannula. His oxygen level is in the 80s. White count is 4.05, up from 1.74. Hemoglobin is 12.1. Sodium 134. Potassium 4.6. Sugars in the mid 100s to 200s. He has maintained O2 saturation 90% on 2 L, not back to his baseline. Some wheezing. MEDICATIONS: 1. DuoNeb. 2. Solu-Medrol. 3. Singulair. 4. Remains on antibiotic Zosyn, anticoagulated with Eliquis. Hold diuretics. OBJECTIVE: VITAL SIGNS: Blood pressure 166/56. GENERAL: He looks weak, fatigued, expiratory wheeze. Inspiratory and expiratory stridor. CARDIOVASCULAR: S1 and S2. LUNGS: Scattered wheeze and rhonchi. ABDOMEN: Soft. Nontender. SKIN: No rash, excoriation, or bruising. White count increased to 4.05. He has acute kidney injury secondary to above and ATN, severe dehydration, chronic back pain, sleep apnea, COPD, history of IVC filter, severe pulmonary hypertension, celiac disease, IBS, and history of hepatitis. Prognosis is extremely guarded. He has severe poor environment with breathing. Continue on Eliquis. Home CPAP oxygen. Medication reviewed. Prognosis guarded. Please see further orders. MMODL / IJN: [id number] /
[2023-10-10] MEDS: SYMBICORT 160-4.5 MCG INHALER INHALATION SCH (09:13)
--- NOTE | 2023-10-10 09:13 | CDI ---
Documentation Clarification Form Date: 10/10/2023 From: Emily Nguyen Phone: [phone] Admit Date: 10/04/2023 07:05:00 PM Patient Name: Steven Steele Visit Number: [id number] Discharge Date: ATTENTION: The Clinical Documentation Specialists (CDI) and [facility] Coding Staff appreciate your assistance in clarifying documentation. Please respond to the clarification below the line at the bottom and electronically sign. The CDI & [facility] Coding staff will review the response and follow-up if needed. Please note: Queries are made part of the Legal Health Record. If you have any questions, please contact the author of this message via ITS. Dr. Luisito Langford MORALES possibly secondary to dehydration and ATN is documented in the Pulmonology consult which may lack sufficient clinical evidence/support in the medical record. Additional clarification is requested. History/Risk Factors: 68year old male with a history of COPD, pulmonary HTN, DVT/PEs on Eliquis who presents with worsening SOB and severe cough and found to have acute exacerbation of COPD Clinical Indicators: 10/04 Critical Care consult, Assessment and Plan: "Severe dehydration and reduced oral intake, Acute kidney injury, possibly secondary to above and ATN." 10/08 IM PN:" He has acute kidney injury secondary to above and ATN" 10/03-10/05 BUN: 15, 16.3, 23.6 Creatinine: 1.27, 1.1, 1.1 10/03 EGFR-NonAf: 58 Treatment: Normal Saline IV 20cc/hour start 10/05 Monitor BUN/Creatinine Please clarify if MORALES with ATN is a valid diagnosis? [ ] Yes, MORALES with ATN is present as evidence by (additional clinical support): [ ] No, MORALES with ATN is ruled out [ ] Other (please specify diagnosis) [ ] Unable to determine MTDD
--- NOTE | 2023-10-10 09:35 | CDI ---
Documentation Clarification Form Date: 10/10/2023 From: Emily Nguyen Phone: [phone] Admit Date: 10/04/2023 07:05:00 PM Patient Name: Steven Steele Visit Number: [id number] Discharge Date: ATTENTION: The Clinical Documentation Specialists (CDI) and [facility] Coding Staff appreciate your assistance in clarifying documentation. Please respond to the clarification below the line at the bottom and electronically sign. The CDI & [facility] Coding staff will review the response and follow-up if needed. Please note: Queries are made part of the Legal Health Record. If you have any questions, please contact the author of this message via ITS. Dr. Luisito Langford: Acute hypoxic respiratory failure is documented in the H&P on 10/05 which may lack sufficient clinical evidence/support in the medical record. Additional clarification is requested. History/Risk Factors: 68year old male with a history of COPD, LUMA on CPAP, pulmonary HTN, DVT/PEs on Eliquis who presents with worsening SOB and severe cough and found to have acute exacerbation of COPD Clinical Indicators: 10/03 Triage VS: 111/69, 98.2, 82, 16, 95% on room air 10/05 H&P, HPI: "He cannot breathe at home even though he is on oxygen 2 L all the time." Impression: "Acute hypoxic respiratory failure secondary to chronic obstructive pulmonary disease." 10/03- 10/09 O2 sat range: 90% (10/05)-100% (10/04) 10/03-10/04 Patient on room air, with CPAP at night of the on and off alternating with room air 10/04 Patient on room air 10/05 CPAP at night, then 2 liters nasal cannula 10/05 starting at 0703 until 1915- back to room air 10/06 2 liters nasal cannula resumed at 10/08 Patient on 2liters nasal cannula 10/09 Room air 10/07 Room air at 0116 and CPAP at 0700, then room air until 1730 when 2liters nasal cannula resumed Treatment: CPAP at night 2liters nasal cannula titrated Albuterol Nebulized 2.5mg QID PRN given once 10/05 Symbicort 160-4.5mcg inhaler BID- no doses given Duoneb 0.5mg-3mg QID start 10/05 Please clarify if Acute hypoxic respiratory failure is a valid diagnosis? [ ] Yes, Acute hypoxic respiratory failure is present as evidence by (additional clinical support): [ ] No, Acute hypoxic respiratory failure is ruled out [ ] Other (please specify diagnosis) [ ] Unable to determine MTDD
--- NOTE | 2023-10-10 13:46 | P.PN ---
Subjective Progress Note Date: 10/10/23 Patient is a 68-year-old white male with past medical history significant for chronic obstructive pulmonary disease, chronic ongoing tobacco dependence, obstructive sleep apnea with home CPAP, pulmonary hypertension, DVT/PEs with IVC filter, chronically anticoagulated on Eliquis. Of note, back in June, patient was noted to have a chest CTA revealing a masslike density in the right hilum with some infiltration of the pulmonary artery, indicating possible thrombus or tumor. Patient was transferred to a tertiary care facility, originally [facility], but then subsequently diverted to [facility]. Patient describes that he had open surgical removal of his pulmonary embolism, possible pulmonary thromboendarterectomy. He also had a repair of a "hole" in his heart. Most recent chest CTA done April, which showed resolution of the presumed chronic thrombus. Patient has seen Dr. Arriaza in the pulmonary office in the past, but does not routinely follow-up. His primary care provider is Dr. Luisito Langford. Patient presented to emergency room last night complaining of progressively worsening shortness of breath and severe cough that was originally noted about a week ago. Originally started with URI-like symptoms including runny nose, sore throat, and a minimally productive cough. Now is producing milky sputum. He endorses chest tightness and wheezing. Denies any chest pain. No lightheadedness or syncope. No hemoptysis. He is chronically anticoagulated on Eliquis. He does have chronic lower extremity swelling and history of bilateral DVTs. He also was having nausea and vomiting, but not in the last 3 days. His appetite has been reduced. He denies any fevers. Denies sick contacts. Chest x-ray done admission does not show any acute cardiopulmonary process. There are midline sternotomy wires present. CBC unremarkable, no leukocytosis. Hemoglobin stable at 12.6. BMP includes a sodium 130, potassium 4.1, chloride 96, serum bicarb 24, BUN 15, creatinine 1.27, glucose 82. Normal saline infusing at 130 MLS per hour. LFTs not elevated. Troponin less than 0.012. Negative for influenza, RSV, COVID. Patient is currently sitting up in bed, on room air, in no acute distress. SpO2 reading 94%. Speaks in full sentences without dyspnea. He states that he recently started smoking again within the last 5 weeks. Smoking about 1/2 pack/day. He did try to quit after his surgery at [facility] in June,. Remaining vital signs are also stable. Patient is being seen for a follow-up. The patient is doing slightly better compared to yesterday. Less bronchospastic and wheezy. He is currently being treated for an acute exacerbation. CT of the chest was done and showed noticeably pulmonary embolism with filling defects. Echocardiogram showed a preserved LV function without any significant pulm hypertension. Remains on anticoagulation with Eliquis. Remains on Zosyn and Zithromax. Remains on IV Solu-Medrol. Blood work from today shows a white cell count of 4 with a hemoglobin 12 and platelet count of 153. BUN is at 23 with a creatinine of 1.1 and sodium is at 134. 10/07/2023, the patient is being seen for a follow-up. He is bronchospastic and wheezy without any major changes in his condition compared to yesterday. Remains on DuoNeb. Remains on IV Solu-Medrol 60 mg every 6 hours. Remains on empiric antibiotic coverage with IV Zosyn. The patient is seen today October 09, 2023 in follow-up on the regular medical floor. He is currently sitting up in bed. Awake and alert in no acute distress. He is maintaining O2 saturations in the 90s on 2 L/min per nasal cannula. He is improved but not quite back to his baseline. Still with some wheezing. He is continued on DuoNeb inhalations, Solu-Medrol, Singulair. Remains on antibiotics in the form of Zosyn. Anticoagulated with Eliquis. Remains on oral diuretics. The patient is seen today October 10, 2023 in follow-up on the regular medical floor. He is awake and alert in no acute distress. Currently sitting up in the chair at the bedside. He is feeling a bit better not quite back to his baseline. Less coughing and congestion. Still with some bronchospasm and wheez ing. He remains on DuoNeb inhalations, Symbicort, Solu-Medrol. Anticoagulated with Eliquis. Antibiotics in the form of Zosyn. Remains on oral diuretics. No new labs today. Objective - Vital Signs Vital signs: Vital Signs Temp 98.3 F 10/10/23 07:00 Pulse 92 10/10/23 09:14 Resp 16 05/29/24 07:00 BP 155/83 10/10/23 07:00 Pulse Ox 93 L 10/10/23 09:14 FiO2 Intake & Output 10/09/23 10/10/23 10/10/23 18:59 06:59 18:59 Intake Total 1392 118 Balance 1392 118 Intake: Oral 1392 118 Other: Voiding Method Urinal # Voids 2 2 - Exam GENERAL EXAM: Alert, pleasant 68-year-old male, on room air, comfortable in no apparent distress. HEAD: Normocephalic and atraumatic EYES: Normal reaction of pupils, equal size. NOSE: Clear with pink turbinates. THROAT: No erythema or exudates. NECK: No masses, no JVD. CHEST: No chest wall deformity. LUNGS: Equal air entry with expiratory wheezes heard with forced expiratory maneuver. CVS: S1 and S2 normal with no audible murmur, regular rhythm. No extra heart sounds. ABDOMEN: No hepatosplenomegaly, active bowel sounds, no guarding or rigidity. SPINE: No scoliosis or deformity SKIN: No rashes CENTRAL NERVOUS SYSTEM: No focal deficits, tone is normal in all 4 extremities. EXTREMITIES: There is bilateral lower extremity nonpitting edema with chronic venous stasis changes. Peripheral pulses are intact. - Labs CBC & Chem 7: 10/06/23 04:41 10/06/23 04:41 Assessment and Plan Assessment: Acute dyspnea, secondary to suspected acute COPD exacerbation. Chest x-ray done on admission does not show any focal infiltrates or evidence of pneumonia. Procalcitonin negative. No acute cardiopulmonary process noted. Negative for influenza, RSV, COVID on arrival. Daily angiogram shows no evidence of any pulmonary embolism. Presentation is typical for an acute COPD exacerbation. Acute COPD exacerbation with secondary bronchospasm wheezing. The patient's presentation is typical for COPD exacerbation. The current presentation has nothing to do with his previous history of pulmonary embolism. Most recent CAT scan of the chest from April 2023 and there is no filling defect and the patient had surgical thrombectomy. History of bilateral DVTs and pulmonary embolism, patient was seen June, at our facility and chest CTA identified a right hilar masslike density with associated decreased blood flow to the right lower lobe, later determined to be a thrombus. Patient was transferred to [facility] and then reportedly diverted to [facility], he underwent open surgical intervention, possibly PTE. Follow-up chest CTA done November, shows resolution of the chronic PE and improved filling of the lower lobe pulmonary arteries. History of IVC filter placement in 2019 History of severe pulmonary hypertension, on sildenafil Chronic ongoing tobacco dependence, smoking 1/2 pack/day currently Chronic obstructive pulmonary disease Obstructive sleep apnea, with home CPAP with a pressure of 5 Chronic back pain Severe dehydration and reduced oral intake Acute kidney injury, possibly secondary to above and ATN History of GI bleed History of celiac disease and IBS History of acute hepatitis History of anxiety/depression History of daily alcohol use Chronic bilateral lower extremity edema Essential tremors Plan: The patient was seen and evaluated Medications reviewed Procalcitonin was negative Antibiotics discontinued Stable on room air Does have home oxygen Does have home CPAP Educated regarding smoking cessation We will transition to oral prednisone in a.m. I have personally seen and examined the patient, performed the documentation and the assessment and plan as written. Number of minutes spent on the visit: 10.
--- NOTE | 2023-10-10 23:59 | PN ---
PROGRESS NOTE SUBJECTIVE: The patient is much improved. A 68-year-old white male, remains on Solu-Medrol breathing treatments. He has less tremors today. He has feels better. He is resting better. OBJECTIVE: VITAL SIGNS: 96 on room air, blood pressure 137/66, temp 98.3, pulse 70 to 80, respiratory rate 16 to 18. CARDIOVASCULAR: S1, S2. LUNGS: Scattered rhonchi and wheeze. HEMATOLOGY: Negative for Homans. PSYCH: Fair mood and affect. LABORATORY DATA: White count 4.05, hemoglobin 12.1. Repeat labs in the morning, appears to be improving. Continue his home medications as ordered. Breathing is greatly improved with medications. Smoking cessation exposure at home discussed with the patient. Possibly go home the next day or 2. PROGNOSIS: Guarded. Please see further orders. MMODL / IJN: [id number] /
[2023-10-11] MEDS: ZOLPIDEM 5 MG TAB PO PRN (01:00)
[2023-10-11 08:26] LABS: Basophils # (A) 0 X 10*3/uL (0.00-0.10); Basophils % (A) 0 %; Eosinophils # (A) 0 X 10*3/uL (0.04-0.35); Eosinophils % (A) 0 %; HCT 39.2 % (39.6-50.0); HGB 13.2 g/dL (13.0-17.0); Lymphocytes # (A) 0.22 X 10*3/uL (0.90-5.00); MCH 32.8 pg (27.0-32.0); MCHC 33.7 g/dL (32.0-37.0); MCV 97.3 FL (80.0-97.0); Monocytes # (A) 0.28 X 10*3/uL (0.20-1.00); Monocytes % (A) 6.4 %; NRBC Per 100 WBC 0 X 10*3/uL (0.00-0.01); Neutrophils # (A) 3.87 X 10*3/uL (1.80-7.70); Neutrophils % (A) 88.4 %; Platelet Count 147 X 10*3/uL (140-440); RBC 4.03 X 10*6/uL (4.40-5.60); RDW 13.7 % (11.5-14.5); WBC 4.38 X 10*3/uL (4.50-10.00)
[2023-10-11 08:57] LABS: ALT 86 U/L (10-49); AST 49 U/L (14-35); Albumin 4.2 g/dL (3.8-4.9); Albumin/Globulin Ratio 1.83 Ratio (1.60-3.17); Alkaline Phosphatase 40 U/L (41-126); BUN/Creat Ratio 27.85 Ratio (12.00-20.00); Blood Urea Nitrogen 36.2 mg/dL (9.0-27.0); Calcium 9.6 mg/dL (8.7-10.3); Carbon Dioxide 25.2 mmol/L (21.6-31.8); Chloride 94 mmol/L (96-109); Globulin 2.3 g/dL (1.6-3.3); Glucose 216 mg/dL (70-110); Potassium 4.5 mmol/L (3.5-5.5); Sodium 132 mmol/L (135-145); Total Bilirubin 0.4 mg/dL (0.3-1.2); Total Protein 6.5 g/dL (6.2-8.2)
[2023-10-11] MEDS: predniSONE 20 MG TAB PO SCH (10:16)
[2023-10-11 13:11] VITALS: BMI 28.3
--- NOTE | 2023-10-11 14:25 | P.PN ---
Subjective Progress Note Date: 10/11/23 Patient is a 68-year-old white male with past medical history significant for chronic obstructive pulmonary disease, chronic ongoing tobacco dependence, obstructive sleep apnea with home CPAP, pulmonary hypertension, DVT/PEs with IVC filter, chronically anticoagulated on Eliquis. Of note, back in June, patient was noted to have a chest CTA revealing a masslike density in the right hilum with some infiltration of the pulmonary artery, indicating possible thrombus or tumor. Patient was transferred to a tertiary care facility, originally [facility], but then subsequently diverted to [facility]. Patient describes that he had open surgical removal of his pulmonary embolism, possible pulmonary thromboendarterectomy. He also had a repair of a "hole" in his heart. Most recent chest CTA done April, which showed resolution of the presumed chronic thrombus. Patient has seen Dr. Arriaza in the pulmonary office in the past, but does not routinely follow-up. His primary care provider is Dr. Luisito Langford. Patient presented to emergency room last night complaining of progressively worsening shortness of breath and severe cough that was originally noted about a week ago. Originally started with URI-like symptoms including runny nose, sore throat, and a minimally productive cough. Now is producing milky sputum. He endorses chest tightness and wheezing. Denies any chest pain. No lightheadedness or syncope. No hemoptysis. He is chronically anticoagulated on Eliquis. He does have chronic lower extremity swelling and history of bilateral DVTs. He also was having nausea and vomiting, but not in the last 3 days. His appetite has been reduced. He denies any fevers. Denies sick contacts. Chest x-ray done admission does not show any acute cardiopulmonary process. There are midline sternotomy wires present. CBC unremarkable, no leukocytosis. Hemoglobin stable at 12.6. BMP includes a sodium 130, potassium 4.1, chloride 96, serum bicarb 24, BUN 15, creatinine 1.27, glucose 82. Normal saline infusing at 130 MLS per hour. LFTs not elevated. Troponin less than 0.012. Negative for influenza, RSV, COVID. Patient is currently sitting up in bed, on room air, in no acute distress. SpO2 reading 94%. Speaks in full sentences without dyspnea. He states that he recently started smoking again within the last 5 weeks. Smoking about 1/2 pack/day. He did try to quit after his surgery at [facility] in June,. Remaining vital signs are also stable. Patient is being seen for a follow-up. The patient is doing slightly better compared to yesterday. Less bronchospastic and wheezy. He is currently being treated for an acute exacerbation. CT of the chest was done and showed noticeably pulmonary embolism with filling defects. Echocardiogram showed a preserved LV function without any significant pulm hypertension. Remains on anticoagulation with Eliquis. Remains on Zosyn and Zithromax. Remains on IV Solu-Medrol. Blood work from today shows a white cell count of 4 with a hemoglobin 12 and platelet count of 153. BUN is at 23 with a creatinine of 1.1 and sodium is at 134. 10/07/2023, the patient is being seen for a follow-up. He is bronchospastic and wheezy without any major changes in his condition compared to yesterday. Remains on DuoNeb. Remains on IV Solu-Medrol 60 mg every 6 hours. Remains on empiric antibiotic coverage with IV Zosyn. The patient is seen today October 09, 2023 in follow-up on the regular medical floor. He is currently sitting up in bed. Awake and alert in no acute distress. He is maintaining O2 saturations in the 90s on 2 L/min per nasal cannula. He is improved but not quite back to his baseline. Still with some wheezing. He is continued on DuoNeb inhalations, Solu-Medrol, Singulair. Remains on antibiotics in the form of Zosyn. Anticoagulated with Eliquis. Remains on oral diuretics. The patient is seen today October 10, 2023 in follow-up on the regular medical floor. He is awake and alert in no acute distress. Currently sitting up in the chair at the bedside. He is feeling a bit better not quite back to his baseline. Less coughing and congestion. Still with some bronchospasm and wheez ing. He remains on DuoNeb inhalations, Symbicort, Solu-Medrol. Anticoagulated with Eliquis. Antibiotics in the form of Zosyn. Remains on oral diuretics. No new labs today. The patient is seen today October 11, 2023 in follow-up on the regular medical floor. He is currently sitting up in the bedside. Awake and alert in no acute distress. He is maintaining O2 saturations in the 90s on room air. He is afebrile. Hemodynamically stable. White count 4.3. Hemoglobin 13.2. Platelets 147. Sodium 132. Potassium 4.5. Bicarb 25. BUN 36. Creatinine 1.3. Glucose 216. AST 49. ALT 86. He is continued on DuoNeb inhalations, Symbicort, Solu-Medrol. Objective - Vital Signs Vital signs: Vital Signs Temp 98.7 F 10/11/23 08:00 Pulse 82 10/11/23 12:13 Resp 18 10/11/23 08:00 BP 142/87 10/11/23 08:00 Pulse Ox 94 L 10/11/23 09:44 FiO2 Intake & Output 10/10/23 10/11/23 10/11/23 18:59 06:59 18:59 Intake Total 236 240 Balance 236 240 Weight 87.09 kg Intake: Oral 236 240 Other: Voiding Method Urinal # Voids 3 3 - Exam GENERAL EXAM: Alert, 68-year-old male, sitting up at the bedside, on room air, in no apparent distress. HEAD: Normocephalic and atraumatic EYES: Normal reaction of pupils, equal size. NOSE: Clear with pink turbinates. THROAT: No erythema or exudates. NECK: No masses, no JVD. CHEST: No chest wall deformity. LUNGS: Equal air entry with expiratory wheezes heard with forced expiratory maneuver. CVS: S1 and S2 normal with no audible murmur, regular rhythm. No extra heart sounds. ABDOMEN: No hepatosplenomegaly, active bowel sounds, no guarding or rigidity. SPINE: No scoliosis or deformity SKIN: No rashes CENTRAL NERVOUS SYSTEM: No focal deficits, tone is normal in all 4 extremities. EXTREMITIES: There is bilateral lower extremity nonpitting edema with chronic venous stasis changes. Peripheral pulses are intact. - Labs CBC & Chem 7: 10/11/23 06:14 10/11/23 06:14 Labs: Abnormal Lab Results - Last 24 Hours (Table) 10/11/23 10/11/23 Range/Units 06:14 06:14 WBC 4.38 L (4.50-10.00) X 10*3/uL RBC 4.03 L (4.40-5.60) X 10*6/uL Hct 39.2 L (39.6-50.0) % MCV 97.3 H (80.0-97.0) FL MCH 32.8 H (27.0-32.0) pg Lymphocytes # 0.22 L (0.90-5.00) X 10*3/uL Eosinophils # 0 L (0.04-0.35) X 10*3/uL Sodium 132 L (135-145) mmol/L Chloride 94 L (96-109) mmol/L Anion Gap 12.80 H (4.00-12.00) mmol/L BUN 36.2 H (9.0-27.0) mg/dL BUN/Creatinine Ratio 27.85 H (12.00-20.00) Ratio Glucose 216 H (70-110) mg/dL AST 49 H (14-35) U/L ALT 86 H (10-49) U/L Alkaline Phosphatase 40 L (41-126) U/L Assessment and Plan Assessment: Acute dyspnea, secondary to suspected acute COPD exacerbation. Chest x-ray done on admission does not show any focal infiltrates or evidence of pneumonia. Procalcitonin negative. No acute cardiopulmonary process noted. Negative for influenza, RSV, COVID on arrival. CT angiogram shows no evidence of any pulmonary embolism. Presentation is typical for an acute COPD exacerbation. Acute COPD exacerbation with secondary bronchospasm wheezing. The patient's presentation is typical for COPD exacerbation. The current presentation has nothing to do with his previous history of pulmonary embolism. Most recent CAT scan of the chest from April 2023 and there is no filling defect and the patient had surgical thrombectomy. History of bilateral DVTs and pulmonary embolism, patient was seen June, at our facility and chest CTA identified a right hilar masslike density with associated decreased blood flow to the right lower lobe, later determined to be a thrombus. Patient was transferred to [facility] and then reportedly diverted to [facility], he underwent open surgical intervention, possibly PTE. Follow-up chest CTA done November, shows resolution of the chronic PE and improved filling of the lower lobe pulmonary arteries. History of IVC filter placement in 2019 History of severe pulmonary hypertension, on sildenafil Chronic ongoing tobacco dependence, smoking 1/2 pack/day currently Chronic obstructive pulmonary disease Obstructive sleep apnea, with home CPAP with a pressure of 5 Chronic back pain Severe dehydration and reduced oral intake Acute kidney injury, possibly secondary to above and ATN History of GI bleed History of celiac disease and IBS History of acute hepatitis History of anxiety/depression History of daily alcohol use Chronic bilateral lower extremity edema Essential tremors Plan: The patient was seen and evaluated Medications and labs reviewed Does have home oxygen, Cpap Educated regarding smoking cessation Cleared for discharge from the pulmonary standpoint Continue Symbicort, albuterol HFA Continue a prednisone taper Follow-up in the office in 1 week I have personally seen and examined the patient, performed the documentation and the assessment and plan as written. Number of minutes spent on the visit: 10.
[2023-10-12 07:59] VITALS: BP 148/85; PULSE 63; RESP 18; TEMP 97.5
--- NOTE | 2023-10-12 13:10 | P.PN ---
Subjective Progress Note Date: 10/12/23 Patient is a 68-year-old white male with past medical history significant for chronic obstructive pulmonary disease, chronic ongoing tobacco dependence, obstructive sleep apnea with home CPAP, pulmonary hypertension, DVT/PEs with IVC filter, chronically anticoagulated on Eliquis. Of note, back in June, patient was noted to have a chest CTA revealing a masslike density in the right hilum with some infiltration of the pulmonary artery, indicating possible thrombus or tumor. Patient was transferred to a tertiary care facility, originally [facility], but then subsequently diverted to [facility]. Patient describes that he had open surgical removal of his pulmonary embolism, possible pulmonary thromboendarterectomy. He also had a repair of a "hole" in his heart. Most recent chest CTA done April, which showed resolution of the presumed chronic thrombus. Patient has seen Dr. Arriaza in the pulmonary office in the past, but does not routinely follow-up. His primary care provider is Dr. Luisito Langford. Patient presented to emergency room last night complaining of progressively worsening shortness of breath and severe cough that was originally noted about a week ago. Originally started with URI-like symptoms including runny nose, sore throat, and a minimally productive cough. Now is producing milky sputum. He endorses chest tightness and wheezing. Denies any chest pain. No lightheadedness or syncope. No hemoptysis. He is chronically anticoagulated on Eliquis. He does have chronic lower extremity swelling and history of bilateral DVTs. He also was having nausea and vomiting, but not in the last 3 days. His appetite has been reduced. He denies any fevers. Denies sick contacts. Chest x-ray done admission does not show any acute cardiopulmonary process. There are midline sternotomy wires present. CBC unremarkable, no leukocytosis. Hemoglobin stable at 12.6. BMP includes a sodium 130, potassium 4.1, chloride 96, serum bicarb 24, BUN 15, creatinine 1.27, glucose 82. Normal saline infusing at 130 MLS per hour. LFTs not elevated. Troponin less than 0.012. Negative for influenza, RSV, COVID. Patient is currently sitting up in bed, on room air, in no acute distress. SpO2 reading 94%. Speaks in full sentences without dyspnea. He states that he recently started smoking again within the last 5 weeks. Smoking about 1/2 pack/day. He did try to quit after his surgery at [facility] in June,. Remaining vital signs are also stable. Patient is being seen for a follow-up. The patient is doing slightly better compared to yesterday. Less bronchospastic and wheezy. He is currently being treated for an acute exacerbation. CT of the chest was done and showed noticeably pulmonary embolism with filling defects. Echocardiogram showed a preserved LV function without any significant pulm hypertension. Remains on anticoagulation with Eliquis. Remains on Zosyn and Zithromax. Remains on IV Solu-Medrol. Blood work from today shows a white cell count of 4 with a hemoglobin 12 and platelet count of 153. BUN is at 23 with a creatinine of 1.1 and sodium is at 134. 10/07/2023, the patient is being seen for a follow-up. He is bronchospastic and wheezy without any major changes in his condition compared to yesterday. Remains on DuoNeb. Remains on IV Solu-Medrol 60 mg every 6 hours. Remains on empiric antibiotic coverage with IV Zosyn. The patient is seen today October 09, 2023 in follow-up on the regular medical floor. He is currently sitting up in bed. Awake and alert in no acute distress. He is maintaining O2 saturations in the 90s on 2 L/min per nasal cannula. He is improved but not quite back to his baseline. Still with some wheezing. He is continued on DuoNeb inhalations, Solu-Medrol, Singulair. Remains on antibiotics in the form of Zosyn. Anticoagulated with Eliquis. Remains on oral diuretics. The patient is seen today October 10, 2023 in follow-up on the regular medical floor. He is awake and alert in no acute distress. Currently sitting up in the chair at the bedside. He is feeling a bit better not quite back to his baseline. Less coughing and congestion. Still with some bronchospasm and wheez ing. He remains on DuoNeb inhalations, Symbicort, Solu-Medrol. Anticoagulated with Eliquis. Antibiotics in the form of Zosyn. Remains on oral diuretics. No new labs today. The patient is seen today October 11, 2023 in follow-up on the regular medical floor. He is currently sitting up in the bedside. Awake and alert in no acute distress. He is maintaining O2 saturations in the 90s on room air. He is afebrile. Hemodynamically stable. White count 4.3. Hemoglobin 13.2. Platelets 147. Sodium 132. Potassium 4.5. Bicarb 25. BUN 36. Creatinine 1.3. Glucose 216. AST 49. ALT 86. He is continued on DuoNeb inhalations, Symbicort, Solu-Medrol. The patient is seen today October 12, 2023 in follow-up on the regular medical floor. He is awake and alert in no acute distress. Sitting up in a chair. Denies any worsening shortness of breath, cough or congestion. He is maintaining good O2 saturations in the 90s on room air. No new labs today. Remains on Symbicort, DuoNeb inhalations, prednisone taper. He is anticoagulated with Eliquis. Objective - Vital Signs Vital signs: Vital Signs Temp 97.5 F L 10/12/23 07:37 Pulse 63 10/12/23 07:37 Resp 18 10/12/23 07:37 BP 148/85 10/12/23 07:37 Pulse Ox 99 10/12/23 07:37 FiO2 Intake & Output 10/11/23 10/12/23 10/12/23 18:59 06:59 18:59 Intake Total 501 240 Balance 501 240 Weight 87.09 kg Intake: Oral 501 240 Other: Voiding Method Urinal Toilet Urinal # Voids 1 4 - Exam GENERAL EXAM: Alert, pleasant 68-year-old male, sitting up in a chair, on room air, in no distress. HEAD: Normocephalic and atraumatic EYES: Normal reaction of pupils, equal size. NOSE: Clear with pink turbinates. THROAT: No erythema or exudates. NECK: No masses, no JVD. CHEST: No chest wall deformity. LUNGS: Equal air entry with expiratory wheezes heard with forced expiratory maneuver. CVS: S1 and S2 normal with no audible murmur, regular rhythm. No extra heart sounds. ABDOMEN: No hepatosplenomegaly, active bowel sounds, no guarding or rigidity. SPINE: No scoliosis or deformity SKIN: No rashes CENTRAL NERVOUS SYSTEM: No focal deficits, tone is normal in all 4 extremities. EXTREMITIES: There is bilateral lower extremity nonpitting edema with chronic venous stasis changes. Peripheral pulses are intact. - Labs CBC & Chem 7: 10/11/23 06:14 10/11/23 06:14 Assessment and Plan Assessment: Acute dyspnea, secondary to suspected acute COPD exacerbation. Chest x-ray done on admission does not show any focal infiltrates or evidence of pneumonia. Procalcitonin negative. No acute cardiopulmonary process noted. Negative for influenza, RSV, COVID on arrival. CT angiogram shows no evidence of any pulmonary embolism. Presentation is typical for an acute COPD exacerbation. Acute COPD exacerbation with secondary bronchospasm wheezing. The patient's presentation is typical for COPD exacerbation. The current presentation has nothing to do with his previous history of pulmonary embolism. Most recent CAT scan of the chest from April 2023 and there is no filling defect and the patient had surgical thrombectomy. History of bilateral DVTs and pulmonary embolism, patient was seen June, at our facility and chest CTA identified a right hilar masslike density with associated decreased blood flow to the right lower lobe, later determined to be a thrombus. Patient was transferred to [facility] and then reportedly diverted to [facility], he underwent open surgical intervention, possibly PTE. Follow-up chest CTA done November, shows resolution of the chronic PE and improved filling of the lower lobe pulmonary arteries. History of IVC filter placement in 2019 History of severe pulmonary hypertension, on sildenafil Chronic ongoing tobacco dependence, smoking 1/2 pack/day currently Chronic obstructive pulmonary disease Obstructive sleep apnea, with home CPAP with a pressure of 5 Chronic back pain Severe dehydration and reduced oral intake Acute kidney injury, possibly secondary to above and ATN History of GI bleed History of celiac disease and IBS History of acute hepatitis History of anxiety/depression History of daily alcohol use Chronic bilateral lower extremity edema Essential tremors Plan: The patient was seen and evaluated Medications reviewed Does have home oxygen, Cpap Continue Symbicort, albuterol HFA Continue a prednisone taper Follow-up in the office in 1 week after discharge This patient was seen independently by the pulmonary nurse practitioner addressing pulmonary issues I have personally seen and examined the patient, performed the documentation and the assessment and plan as written. Number of minutes spent on the visit: 24.
--- NOTE | 2023-10-13 04:23 | PN ---
PROGRESS NOTE Acute kidney injury with ATN secondary to dehydration, poor oral intake, pneumonia, sepsis. MMODL / IJN: [id number] /
--- NOTE | 2023-10-13 04:35 | PN ---
PROGRESS NOTE Acute hypoxemic respiratory failure secondary to pneumonia, COPD, pulmonary hypertension. MMODL / IJN: [id number] /
== END 2023-10-12 10:59 | disposition home or self-care (01) | DRG 190 ==
LOC: EC 16:07 → 6NMEDSUR 19:04 → OBSVTOIN 19:05 → 6NMEDSUR 21:31
PROVIDERS: ADMIT Family Medicine; ATTEND Family Medicine
DX: J44.1 Chronic obstructive pulmonary disease with (acute) exacerbation (principal); J96.01 Acute respiratory failure with hypoxia; N17.0 Acute kidney failure with tubular necrosis; E46 Unspecified protein-calorie malnutrition; B17.9 Acute viral hepatitis, unspecified; G47.33 Obstructive sleep apnea (adult) (pediatric); I10 Essential (primary) hypertension; I27.23 Pulmonary hypertension due to lung diseases and hypoxia; K90.0 Celiac disease; E86.0 Dehydration; F17.210 Nicotine dependence, cigarettes, uncomplicated; F32.A Depression, unspecified; G25.0 Essential tremor; G89.29 Other chronic pain; I71.21 Aneurysm of the ascending aorta, without rupture; J43.9 Emphysema, unspecified; Z79.01 Long term (current) use of anticoagulants; Z79.899 Other long term (current) drug therapy; Z86.711 Personal history of pulmonary embolism; Z86.718 Personal history of other venous thrombosis and embolism; Z95.828 Presence of other vascular implants and grafts; Z71.6 Tobacco abuse counseling
CPT/HCPCS: 36415; 71046; 71250; 80053; 83735; 84100; 84145; 84484; 85025; 85379; 85610; 85730; 87636; 93005; 93306; 94640; 94660; 94760; 96361; 96365; 96375; 99285

== ENCOUNTER → 2023-12-10 | Outpatient (CLI) | payer MEDICARE ==
--- NOTE | 2023-12-10 15:59 | US ---
EXAMINATION TYPE: US venous doppler duplex LE BI DATE OF EXAM: 12/10/2023 3:05 PM COMPARISON: 03/16/2023 CLINICAL INDICATION: Male, 68 years old with history of I82.503 CHRONIC EMBLSM AND THOMBOS UNSP DEEP VEINS; on thinners, h/o chronic DVT SIDE PERFORMED: Bilateral TECHNIQUE: The lower extremity deep venous system is examined utilizing real time linear array sonog karlo with graded compression, doppler sonography and color-flow sonography. VESSELS IMAGED: Common Femoral Vein Deep Femoral Vein Greater Saphenous Vein * Femoral Vein Popliteal Vein Small Saphenous Vein * Proximal Calf Veins (* superficial vessels) Right Leg: Thready flow with internal echoes at right CFV/PRX FV - probable chronic DVT, no acute pr ocess seen Left Leg: Collateral veins at mid/dist FV level, no acute DVT seen IMPRESSION: Chronic DVT right leg, no evidence for acute deep vein tendinosis of the left leg.
== END | disposition home or self-care (01) ==
LOC: RADUSWWP 14:25
PROVIDERS: ATTEND Family Medicine
DX: I82.501 Chronic embolism and thrombosis of unspecified deep veins of right lower extremity (principal)
CPT/HCPCS: 93970

== ENCOUNTER → 2024-02-14 | Outpatient (CLI) | payer MEDICARE ==
--- NOTE | 2024-03-05 09:06 | MR ---
EXAMINATION TYPE: MR lumbar spine wo con DATE OF EXAM: 02/14/2024 COMPARISON: 04/12/2021 HISTORY: Low back pain into lu legs, difficulty walking TECHNIQUE: Multiplanar, multisequence images of the lumbar spine were acquired without IV contrast. L1-L2: Normal disc appearance without desiccation. No herniation, protrusion or disc bulging. No ca nal stenosis is present. Foramina are patent bilaterally. L2-L3: Severe disc desiccation posterior disc bulge. Left lateral recess stenosis without central rodriguez nosis. Moderate left-sided foraminal encroachment. L3-L4: Severe disc desiccation with posterior disc bulge. Effacement ventral thecal sac with bilatera l left greater than right lateral recess stenosis and bilateral foraminal encroachment. No evidence f or herniation or central stenosis. L4-L5: Moderate disc desiccation with posterior disc bulge. Mild effacement ventral thecal sac withou t evidence for central stenosis or herniation. Moderate bilateral foraminal encroachment left greater than right. L5-S1: Moderate disc desiccation with posterior disc bulge. Mild effacement ventral thecal sac withou t evidence for central stenosis or herniation. Moderate bilateral foraminal encroachment left greater than right. Lumbar segments are intact. No paraspinal masses are identified. Conus medullaris has a normal appe arance. Ventral spondylosis. L3 hemangioma. IMPRESSION: 1. Multilevel degenerative disc disease 2. Lateral recess stenosis and foraminal encroachment as outlined above. [facility], , 03/05/2024 9:04 AM
== END | disposition home or self-care (01) ==
LOC: RADMRIMAIN 12:52
PROVIDERS: ATTEND Orthopaedic Surgery
DX: M48.061 Spinal stenosis, lumbar region without neurogenic claudication (principal); M62.81 Muscle weakness (generalized); M51.370 Other intervertebral disc degeneration, lumbosacral region with discogenic back pain only
CPT/HCPCS: 72148

== ENCOUNTER → 2024-05-19 | Outpatient (CLI) | payer MEDICARE | END | disposition home or self-care (01) | LOC: LABWHC1 16:00 | PROVIDERS: ATTEND Orthopaedic Surgery | DX: Z01.812 Encounter for preprocedural laboratory examination (principal); M47.26 Other spondylosis with radiculopathy, lumbar region; M48.061 Spinal stenosis, lumbar region without neurogenic claudication; Z22.322 Carrier or suspected carrier of Methicillin resistant Staphylococcus aureus | CPT/HCPCS: 86850; 86900; 86901; 87070 ==

== ENCOUNTER 2024-05-26 07:30 | Inpatient (IN) | payer MEDICARE ==
--- NOTE | 2024-05-25 14:18 | P.HPOR ---
History of Present Illness H&P Date: 05/21/24 .D:Date: 05/21/24 : 05:46pm .T:Title: *PRE-OP H1 [facility] [address] [place] [id number]| PROVIDER: DANNY MOYA DO CLINICAL SUMMARY: *Mr. Steele is a 69-year-old disabled male presenting with severe lumbar pain (VAS 6/10) that radiates into bilateral hip and groin areas, exacerbated by gyj-pg-durse transitions, walking, and bending. He requires a walker for ambulation and reports shooting and stabbing pain unrelieved by [place]. Recent imaging reveals moderate to severe L2-3 spondylosis with stenosis, acute segmental kyphosis at L3-4 with disc space collapse, and significant central and foraminal stenosis with osteophyte formation. Physical examination demonstrates restricted lumbar ROM, bilateral lower extremity weakness (4/5 strength), and L3-5 dermatomal deficits. Conservative management including physical therapy, medications (NSAIDs, muscle relaxants, gabapentin), and alternative interventions has failed to provide sustained relief. Due to progressive neurological decline affecting activities of daily living, the patient is scheduled for L2-4 staged lateral interbody fusion with posterolateral instrumented fusion and decompression. The patient denies fever, chills, shortness of breath, chest pain, perineal numbness/tingling, and bowel/bladder incontinence. DEMOGRAPHICS: Age: 69 year Height: 5'8" Weight: 197 lbs BP:118/80 BMI: 30.04 kg/m2 Occupation: *Disabled CC: *lumbar pain VAS: * 6 HISTORY: Mr. Steele presents to the office today, 05/21/24, for *a preoperative appointent preceding his L2-4 STAGED LATERAL INTERBODY FUSION WITH POSTEROLATERAL INSTRUMENTED FUSION WITH DECOMPRESSION. Patient continues to report pain across the low back that radiates into the bilateral hip and groin area. Patient states his pain is increased with sit to stand, walking, and bending. He describes this pain as shooting and stabbing. He is currently taking [place] without resolution of his symptoms. Patient ambulates with a walker. * Patient denies any f/c/sob/cp, perineal numbness or tingling, bowel, or bladder incontinence/retention. * The patients past social, medical, family, surgical history, as well as review of systems, have been reviewed. Please refer to the History and Physical form that has been scanned into our electronic medical record system. * 16 points review of systems completed and as stated in HPI, all other systems reviewed are negative. PAST TREATMENTS: PAST IMAGING: -YES -MRI, XR, TRAUMA RELATED: -NO - WORK RELATED: -NO - PT IN LAST 6 MONTHS: -YES, no relief - PHYSICIAN DIRECTED HOME EXERCISE PROGRAM: -YES -Minimal relilef ACTIVITY MODIFICATION: -YES -LIMITED BLTPP 20 LBS AND REST. SOME RELIEF, NON-LASTING MEDICATIONS: -YES -MOTRIN, TYLENOL, MOBIC, CELEBREX, FLEXERIL, GABAPENTIN. MINIMAL NURSING HOME RELIEF ALTERNATIVE INTERVENTIONS (CHIROPRACTIC, ACUPUNCTURE, MASSAGE, RICE): -YES -MASSAGE, RICE BRACING: -NO - INJECTIONS (VICKY, TF, RFA): NO MEDICAL HISTORY: Past Medical History: REVIEWED STATED IN CHART Past Surgical History: REVIEWED STATED IN CHART Social History: REVIEWED STATED IN CHART SMOKING: Never smoker ETOH: None SUBSTANCES: None Family History: REVIEWED STATED IN CHART P1 Current Medications: Rx: albuterol sulfate HFA 90 mcg/actuation aerosol inhaler Ref: 0 Instructions: inhale 1 - 2 puffs (90 - 180 mcg) by inhalation route every 4 hours as needed Rx: Flomax 0.4 mg capsule Ref: 0 Instructions: take 1 capsule (0.4 mg) by oral route once daily 1/2 hour following the same meal each day Rx: Xanax 1 mg tablet Ref: 0 Instructions: take 1 tablet (1 mg) by oral route 3 times per day Rx: HYDROcodone 10 mg-acetaminophen 325 mg tablet Ref: 0 Instructions: take 1 tablet by oral route every 4 hours as needed for pain Rx: allopurinoL 300 mg tablet Ref: 0 Instructions: take 1 tablet (300 mg) by oral route once daily Rx: B12 5,000 mcg-100 mcg sublingual lozenge Ref: 0 Rx: montelukast 5 mg chewable tablet Ref: 0 Instructions: chew 2 tablets (10 mg) by oral route once daily in the evening Rx: omeprazole 20 mg capsule,delayed release Ref: 0 Instructions: take 1 capsule (20 mg) by oral route once daily 30 minutes to 1 hour before a meal Rx: tiotropium bromide 18 mcg capsule with inhalation device Ref: 0 Instructions: inhale the contents of one capsule (18 mcg) using 2 inhalations by inhalation route once daily via handihaler Rx: warfarin 5 mg tablet Ref: 0 Instructions: take 1 tablet (5 mg) by oral route once daily Rx: cyclobenzaprine 10 mg tablet Ref: 0 Instructions: take 1 tablet (10 mg) by oral route 2 times per day as needed for muscle spasms Rx: cyclobenzaprine 10 mg tablet Ref: 0 Instructions: take 1 tablet (10 mg) by oral route 2 times per day P1 PHYSICAL EXAM: General: AOX3, NAD, Well hydrate, well nourished HEENT: No lumps or masses Extremities: No color changes, no pooling INTEGUMENT: Appearance: Normal color and turgor Surgical Incisions: healed Hairy Patches: ABSENT Dorsal Skin Dimples: Normal [employer] spots: ABSENT PALPATION: TTP Midline: NO Paracervical: NO Parathoracic: NO Paralumbar: YES SIJ TESTING: TESTED * [place] Finger: POS LEFT * FABER4: POS LEFT * Compression: POS LEFT * Distraction: L>R * Thigh thrust: POS LEFT Hip thrust: POS LEFT POSTURAL BALANCE: Coronal: BALANCED Sagittal: BALANCED Shoulder height: LEVEL Pelvic Girdle: LEVEL ROM AND APPEARANCE: Neck: UNRESTRICTED Lumbar: RESTRICTED with pain Shoulders: Symmetrical Hips: Symmetrical Knees: Symmetrical Hands: Symmetrical Feet: Symmetrical VASCULAR STATUS: PALPABLE PULSES B/L UE AND LE 2/4 RAD/ULNAR/DP/PT Edema: NONE NEUROLOGICAL EXAMINATION: Mental Status: Awake, alert, fully oriented with normal attention, concentration, and memory. Fluent appropriate speech. CRANIAL NERVES: I: Olfactory not assessed. II: Visual acuity normal, no visual field deficit noted with confrontation. III, IV: Normal pupillary reflexes & intact extraocular movements without nystagmus. V, : Intact symmetrical facial sensation. VII: Intact symmetrical facial motor movement: Hearing intact. IX, X: Intact gag, swallow, & normal voice. XI: Sternocleidomastoid, trapezius function intact. XII: Tongue midline with normal movements. TENSIONING: * L'HERMITTE'S SIG:NEG SPURLUNG'S SIGN:NEG UPPER EXTREMITY TENSIONING SIGNS: NEG CUBITAL TUNNEL COMPRESSION:NEG TINELS AT WRIST:NEG STRAIGH LEG RAISE:NEG CONTRALATERAL STRAIGHT LEG RAISE: NEG MOTOR EXAM (0-5/5, NT) Muscle appearance: Symmetrical, without signs of atrophy or dystrophy UPPER EXTREMITY RIGHT LEFT Shoulder Abduction 5 5 Biceps 5 5 Triceps 5 5 Wrist Extension 5 5 Hand Intrinsics 5 5 Supervisor Graphite 5 5 LOWER EXTREMITY RIGHT LEFT Hip Flexion 4 4 Knee Extension 4 4 Knee Flexion 4 4 Dorsiflexion 4 4 Plantarflexion 4 4 EHL 4 4 FHL 4 4 REFLEXES (0-4/2, NT): RIGHT LEFT Bicep 2 2 Brachioradialis 2 2 Triceps 2 2 Patellar 2 2 Achilles 2 2 PATHOLOGICAL REFLEXES: RIGHT LEFT PELAYO'S ABSENT ABSENT CLONUS ABSENT ABSENT BABINSKI ABSENT ABSENT RECTAL TONE: INTACT/NT SENSATION (0-4, NT): Sensation intact to LT and Pain * C5-T1 distribution BUE * L2-S2 distribution BLE *Exceptions below* DERMATOMAL DEFICIT/RADICULAR PATTERN: L3-5 BLE GAIT AND FUNCTIONAL EVALUATION: AMBULATORY AID walker ROMBERG'S TEST INTACT HAND AND FINGER DEXTERITY INTACT YES DYSDIADOCHOKINESIA EXAM NEG B/L YES TOE/HEEL WALK INTACT WITH GOOD BALANCE YES SQUAT AND RISE W/O ASSISTANCE TO 60 DEG KNEE FLEXION YES SINGLE LEG STANCE INTACT [place] NEG IMAGING: XRAY Date: 02/06/24 Location: [facility] Region: LUMBAR Views: AP/LAT IMAGES ARE REVIEWED WITH THE PATIENT IN OFFICE AND DEMONSTRATE THE FOLLOWING: FINDINGS: NO INTERVAL CHANGES TO THE CAGE OR SCREWS AT L2-3 WITH SUBSIDENCE OF THE CAGE DESCRIBED BEFORE. NO CHANGES IN THIS AND CAGE REMAINS IN STABLE POSITION WITH STABLE ALIGNMENT, DECOMPRESSION WELL STABLE SREWS WITHOUT EVIDENCE OF LOOSENING, FRACTURE OR MIGRATION. SPONDYLOSIS OF L4-S1 NOTED WITH FACET ARTHROSIS NOTED. MRI Date: 02/14/24 Location: [facility] Region: Lumbar Contrast: N IMAGES ARE REVIEWED WITH THE PATIENT IN OFFICE AND DEMONSTRATE THE FOLLOWING: FINDINGS: L2-3 SPONDYLOSIS WITH STENOSIS THAT IS MODERATE TO SEVERE DUE TO DEGENERATIVE CHANGES, DISC HERNIATION AND HEIGHT LOSS, BONY AND LIGAMENTAL STENOSIS RELATED TO OVERGROWTH, HYPERTROPHY AND OSTEOPHYTE FORMATION. THERE IS CENTRAL AND FORAMINAL STENOSIS THAT IS MODERATE TO SEVERE IN THESE AREA. NO ACUTE FRACTURES NOTED. NO LESIONS NOTED. THER IS WHAT APPEARST TO BE MORE ACUTE SEGMENTAL KYPHOSIS OF THE L3-4 SEGMENT DUE TO COLLAPSE OF THE DISC SPACE WITH SOME HYPERINTENSE T2 SIGNAL SUGGESTING INJJURY. NO EVIDENCE OF OSTEOMYELITIS AND PT HAS NOT BEEN SICK. IMPRESSION: It was my pleasure to have seen and examined Steven. I reviewed the patient's clinical syndrome, physical findings, and imaging studies during the appointment today. It is my impression that the patient has a diagnosis of. 1.L2-3 spondylosis with stenosis 2.L3-4 kyphosis 3.Low back pain 4. Lower extremity radiculopathy 5. Lower extremity weakness PLAN: DISCUSSION: -I have discussed with the patient their clinical signs and symptoms, imaging, and treatment options. We have discussed risks, benefits, potential outcomes and natural course as pertains top their issues. The patient understands and would like to proceed as follows below: SURGICAL RECOMMENDATION -L2-4 STAGED LATERAL INTERBODY FUSION WITH POSTEROLATERAL INSTRUMENTED FUSION WITH DECOMPRESSION. Surgical Procedure Risk Review Steven Steele is a 68 year old male presenting for evaluation of sudden onset of CONTINUED LOW BACK PAIN, LE PAIN AND WEAKNESS AND PROGRESSION TO NEED OF WALKER. It was my pleasure to have seen and examined Mr. Steele. In our visit today we have had a chance to go over subjective complaints, physical examination findings and treatments, including the natural course history without intervention and various interventional options. The imaging demonstrates L2-4 SEVERE DEGENERATIVE CHANGES WITH STENOSIS THAT IS SEVERE CE NTRAL AND B/L FORAMINAL. THERE ARE OSTEOPHYTE FORMATIONS, BONY AND LIGAMENTAL STENOSIS WELL DISC HERNIATIONS CONTRIBUTING . ACUTE KYPHOSIS NOTED AT THE L3-4 LEVEL SUGGESTING INJURY . On physical exam, Mr. Steele demonstrates PAIN WITH ROM OF THE LUMBAR SPINE, DIFFICULTY WITH AMBULATION AND PROGRESSIVE AMBULATORY DECLINE DUE TO LEG WEAKNESS, PARESTHESIASA AND RADICULOPATHY TO THE POINT OF NOT BEING ABLE TO COMPLETE HIS ADLS APPROPRIATELY . I explained to the patient that as his condition progresses it could cause CONTINUED AND PROGRESSIVE CHANGES IF NOT ADDRESSED . At this time, based on the patients imaging and physical exam, I recommend surgery in the form or a: L2-4 STAGED LATERAL INTERBODY FUSION WITH POSTEROLATERAL INSTRUMENTED FUSION WITH DECOMPRESSION. . I discussed the risk and benefits of this procedure at length with Mr. Steele. The patient agreed to consider pursuing the procedure mentioned above. Plan: 1. L2-4 STAGED LATERAL INTERBODY FUSION WITH POSTEROLATERAL INSTRUMENTED FUSION WITH DECOMPRESSION. 2. Follow up with PCP for surgical clearance 3. Review of surgical risks and benefits as well as an educational packet on the proposed surgical procedure. Risks: All surgical procedures come with inherent risks, including those related to positioning, anesthesia, intraoperative findings, and postoperative complications. It is important to understand that surgery does not come with any guarantee of a successful outcome as complications and adverse events are always possible. The patient was given a handout in office today discussing the surgical procedure and risks associated with the intervention, both of which were discussed with the patient. These risks include but are not limited to the following: ? Experiencing same, different or even worse symptoms in back, neck, arms, or legs compared to before surgery. ? Requiring further surgery or other forms of treatment presently or at some time in the future at same or other levels of the intended spine surgery. ? On an extreme but fortunately relatively rare basis severe complication such as blindness, stroke, heart attack, temporary and/or permanent nerve injury, paralysis, coma, or may occur, sometimes without known explanation. ? Surgical complications may include but are not limited to risk of infection, fluid accumulation in the surgical dissection site, including a seroma or hematoma, that requires additional surgery, wound drainage, bleeding, new numbness or weakness, vision changes/loss, spinal fluid leakage, non-healing and/or infected incision, headaches, difficulty or inability to swallow, hoarseness, hemopneumothorax, pneumothorax, impotence, retrograde ejaculation, vaginal dryness; injury to nerves, spinal cord, blood vessels, lymphatics or other vital organs (i.e., bowel injury, injury to the great vessels); heterotop ic bone formation; complications related to the hardware such as screws, rods, cages including misplaced hardware, device failure, instrumentation at the wrong spine level, hardware fracture/breakage, or hardware loosening; vertebral failure of the spinal column above or below the newly placed hardware; retained surgical instrumentations or devices and the need for further surgery. ? Medical risks of the planned spine surgery include but are not limited to generalized Infections to the whole body or local areas outside of the surgical site (sepsis), heart attack, bleeding, anaphylaxis, meningitis, seizure, epilepsy, hearing loss, burn brown, laceration of the head or other areas of the body, bruising, hypersensitivity of the skin, bladder over distension; allergic reaction; shoulder injury related to positioning; fat, blood and air clots to other areas of the body like heart, lungs, brain; failure of internal organs such as lungs, kidneys, liver and excessive bleeding. If blood transfusions are necessary, note that transfusions may cause intolerance reactions such as anaphylaxis or other complex reactions. Despite best efforts, the results of spine surgery might not heal in terms of bone, soft tissues such as skin, fascia, ligaments, and joints. Additionally, in order to achieve best possible results, spine surgery may be carried out beyond the initially planned levels and involve decompression, fusion including insertion of hardware at levels other than the original intended area of surgical interest change some portions of the procedure in order to ensure the best possible outcomes. With spine surgery and spinal fusion, there are different off label uses of instrumentation (devices, implants and hardware) as well as biological substances (bone morphogenic proteins, demineralized bone matrix) as well as using extra bone from allograft sources (i.e. cadaver bone) or autograft (iliac crest bone, ribs, or the spine itself). The patient has been given information about these practices and their inherent risks and benefits. [facility] Physician Assistants are medically trained surgical providers who function in the outpatient, inpatient, and operating room setting under the direct supervision of the attending surgeon.They assist in the operating room with direct supervision of the attending surgeons. The patient has had a chance to review all the listed information, has been given print outs detailing this information, and has had all his/her questions answered to their satisfaction. It was my pleasure to have seen and examined Mr. Steele. In our visit today we have had a chance to go over my understanding of our patient's current condition, the natural course history without intervention and various interventional options. Questions were invited and answered, and the patient wishes to proceed as outlined above. I have seen and examined the patient for 25 minutes and we have spent more than 50% of the time in repeat and detailed counseling about the patient's condition, its natural course history with out and as much as can be predicted with surgery and re-review of various surgical treatment options. In conclusion,Mr. Steele and his spouse/partner requested we proceed with the above suggested surgery and are willing to accept risks and limitations of the suggested surgery as nature of the disease process and our best attempts at treatment for the condition. Medical Necessity Rationale Medical necessity for L2-4 staged lateral interbody fusion with posterolateral instrumented fusion and decompression is established based on: Diagnostic Imaging Evidence: MRI (02/14/24) demonstrates moderate to severe L2-3 spondylosis with stenosis Evidence of acute segmental kyphosis at L3-4 with disc space collapse Presence of central and foraminal stenosis Multiple level degenerative changes with osteophyte formation and ligamental hypertrophy Clinical Findings: Progressive neurological decline with lower extremity weakness (4/5 strength bilaterally) Requirement of assistive device (walker) for ambulation Persistent radiculopathy despite conservative management Functional decline affecting activities of daily living L3-5 dermatomal deficits bilaterally Failed Conservative Management: Documented trial of physical therapy without relief Multiple medication trials including NSAIDs, muscle relaxants, and neurological medications Activity modification with limited weight bearing showing only temporary relief Alternative interventions including massage therapy have been unsuccessful Authorization Request Justification Surgery is indicated based on: Progressive neurological deterioration with documented weakness Failure of comprehensive conservative management Correlation between clinical symptoms and radiographic findings Significant impact on activities of daily living and quality of life Risk of further neurological deterioration without surgical intervention The proposed surgical intervention represents the most appropriate treatment option given the patient's: Multi-level pathology requiring comprehensive decompression and stabilization Progressive functional decline Failed response to conservative measures Clear radiographic evidence of structural pathology Age and overall health status supporting potential for positive surgical outcome The staged approach is recommended to minimize surgical risks while maximizing potential for optimal outcomes in addressing both the stenosis and kyphotic deformity. FOLLOW UP: POST-OP PLAN AT NEXT VISIT: * RECHECK PATIENT EDUCATION: Medications Reviewed: YES In our visit today Mr. Steele and I have had a chance to go over my understanding of the patient's current condition, the natural course history without intervention and various interventional options. Questions were invited and answered, and the patient wishes to proceed as outlined above. I will be sure to keep you updated after Mr. Steele returns here for further follow-up. Thank you again for your referral. Please do not hesitate to contact me if you have any further questions. Signed and authenticated by: Danny Alcala [facility] [address] [place] [id number] . This message is confidential, intended only for the named recipient(s) and may contain information that is privileged or exempt from disclosure under applicable law. If you are not the intended recipient(s), you are notified that the dissemination, distribution or copying of this information is prohibited. If you received this message in error, please notify the sender then delete this message. Past Medical History Past Medical History: Asthma, COPD, CVA/TIA, GI Bleed, Myocardial Infarction (CO), Osteoarthritis (OA), Prostate Disorder, Pulmonary Embolus (PE), Sleep Apnea/CPAP/BIPAP Additional Past Medical History / Comment(s): celiac disease, IBS, colitis, central tremors, hepatitis at 12 , reports may 2023 he just "dropped over in his bedroom " had cpr [facility] Last Myocardial Infarction Date:: unk History of Any Multi-Drug Resistant Organisms: None Reported Past Surgical History: Appendectomy, Cholecystectomy, Heart Catheterization Additional Past Surgical History / Comment(s): removed bone from throat that causes internal bleeding, part of esophagus removed, repair of "hole in heart" may 2023 see above for detail. Past Anesthesia/Blood Transfusion Reactions: No Reported Reaction Additional Past Anesthesia/Blood Transfusion Reaction / Comment(s): reports no blood tx hx Smoking Status: Former smoker - Past Family History Father Family Medical History: Deep Vein Thrombosis (DVT) Medications and Allergies Home Medications Medication Instructions Recorded Confirmed Type Albuterol Sulfate [Ventolin HFA] 2 puff INHALATION RT-Q4H PRN 04/09/20 05/23/24 History Tamsulosin HCl [Flomax] 0.4 mg PO DAILY 04/09/20 05/23/24 History ALPRAZolam [Xanax] 1 mg PO BID 12/05/21 05/23/24 History allopurinoL 300 mg PO DAILY 12/05/21 05/23/24 History Montelukast [Singulair] 10 mg PO DAILY 06/14/22 05/23/24 History Sildenafil [Revatio] 20 mg PO AC-TID 06/14/22 05/23/24 History lamoTRIgine 100 mg PO BID 06/14/22 05/23/24 History Ipratropium-Albuterol Nebulize 3 ml INHALATION RT-QID 04/12/23 05/23/24 History [Duoneb 0.5 mg-3 mg/3 ml Soln] Potassium Chloride ER [K-Dur 20] 20 meq PO DAILY 10/04/23 05/23/24 History Acetaminophen Tab [Tylenol] 650 mg PO Q6HR PRN tab 10/12/23 05/23/24 Rx Budesonide-Formot 160-4.5 Mcg 2 puff INHALATION RT-BID 30 Days 10/12/23 05/23/24 Rx [Symbicort 160-4.5 Mcg Inhaler] #1 each Furosemide [Lasix] 20 mg PO DAILY 30 Days #30 tab 10/12/23 05/23/24 Rx Hydrocodone-Acetamin 10 - 325 mg PO TID PRN 05/23/24 05/23/24 History Midodrine [ProAmatine] 5 mg PO TID 05/23/24 05/23/24 History Pantoprazole [Protonix] 40 mg PO DAILY 05/23/24 05/23/24 History Warfarin Sodium [Jantoven] 7.5 mg PO Q48H 05/23/24 05/23/24 History Allergies Allergy/AdvReac Type Severity Reaction Status Date / Time No Known Allergies Allergy Verified 05/23/24 12:25 Physical Examination Osteopathic Statement: *. No significant issues noted on an osteopathic structural exam other than those noted in the History and Physical/Consult.
[~2024-05-26 07:30] MED LIST: LIDOCAINE 1% (10MG/ML) FOR IV START INTRADERMA PRN; ONDANSETRON 4 MG/2 ML VIAL IVP PRN; TRANEXAMIC 1,000 MG/100ML-NACL 1,000 MG in SALINE 1 100ML.BAG IVPB PRN; fentaNYL (PF) 50 MCG/ML 2 ML AMP IV PRN
[2024-05-26] MEDS: IV FLUID CONTINUATION 1,000 ML IV ONE ×2 (09:14)
[2024-05-26] MEDS: ACETAMINOPHEN TAB 500 MG TAB PO PRN (09:55)
[2024-05-26] MEDS: GABAPENTIN 300 MG CAP PO PRN (09:55)
[2024-05-26] MEDS: ONDANSETRON 4 MG/2 ML VIAL IVP ONE (09:55)
[2024-05-26] MEDS: LACTATED RINGERS 1,000 ML IV SCH (09:55)
[2024-05-26] MEDS: MIDAZOLAM 2 MG/2 ML VIAL IV ONE (10:04)
[2024-05-26 11:07] LABS: INR 1.1 (<1.2); Prothrombin Time 11.8 sec (10.0-12.5)
[2024-05-26] MEDS ORDERED: ROCURONIUM 10 MG/ML (5 ML VIAL) IV ONE (11:52)
[2024-05-26] MEDS ORDERED: fentaNYL (PF) 50 MCG/ML 2 ML AMP ONE (11:52)
[2024-05-26] MEDS ORDERED: LIDOCAINE 1% INJ 10MG/ML (20 ML MDV) ONE (11:52)
[2024-05-26] MEDS ORDERED: TRANEXAMIC 1,000 MG/100ML-NACL PREMIX BAG ONE (11:52)
[2024-05-26] MEDS ORDERED: PHENYLEPHRINE-0.9% NACL SYG 1,000 MCG/10 ML SYRINGE ONE (11:52)
[2024-05-26] MEDS ORDERED: GLYCOPYRROLATE 0.2 MG/ML 2 ML VIAL ONE (11:52)
[2024-05-26] MEDS ORDERED: SUCCINYLCHOLINE CHLORIDE 200 MG/10 ML VIAL IV ONE (11:52)
[2024-05-26] MEDS ORDERED: HYDROmorphone (PF) 1 MG/ML ONE (11:52)
[2024-05-26] MEDS ORDERED: NEOSTIGMINE 1 MG/ML 10 ML VIAL ONE (11:52)
[2024-05-26] MEDS ORDERED: KETAMINE HCL IN 0.9 % NACL 50 MG/5 ML SYRINGE ONE (11:52)
[2024-05-26] MEDS ORDERED: PROPOFOL 10 MG/ML 20 ML VIAL IV ONE (11:52)
[2024-05-26] MEDS: THROMBIN (BOVINE) 5,000 UNIT VIAL TOPICAL ONE (12:44)
[2024-05-26] MEDS: GELATIN SPONGE,ABSORBABLE 1 GM POWDER TOPICAL ONE (12:51)
[2024-05-26] MEDS: BUPIVACAINE (PF) 0.25% 30 ML VIAL SQ ONE (12:51)
[2024-05-26] MEDS: VANCOMYCIN 1,000 MG VIAL MISCELLANE ONE (12:52)
[2024-05-26] MEDS: LACTATED RINGERS 500 ML IV ONE (15:15)
[2024-05-26] MEDS: LIDOCAINE 2%-EPI 1:100,000 20 ML VIAL SQ ONE (15:20)
[2024-05-26] MEDS: BUPIVACAINE (PF) 0.5% 30 ML VIAL SQ ONE (15:20)
--- NOTE | 2024-05-26 15:37 | P.OP ---
Date of Procedure: 05/26/24 Preoperative Diagnosis: 1. 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 DEGENERATIVE DISC DISEASE, SEVERE, L2-4 4. NEUROGENIC CLAUDICATION 5. LUMBAR STENOSIS WITH NC 6. LOW BACK PAIN Postoperative Diagnosis: 1. 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 DEGENERATIVE DISC DISEASE, SEVERE, L2-4 4. NEUROGENIC CLAUDICATION 5. LUMBAR STENOSIS WITH NC 6. LOW BACK PAIN Procedure(s) Performed: STAGE I: 1. L2-3 LATERAL INTERBODY FUSION 2. L3-4 LATERAL INTERBODY FUSION 3. L2-3, L3-4 ANTERIOR INSTRUMENTATION 4. L2-3, L3-4 INSERTION OF BIOMECHANICAL DEVICES, x2 CAGES USE OF IONM, LUMBAR PLEXUS REMAINED SAFE DURING PROCEDURE AND TIME IN PSOAS DID NOT EXCEED 20 MIN FOR EITHER LEVEL. STAGE II: 1. L2-3 AND L3-4 POSTEROLATERAL INSTRUMENTED FUSION 2. L2-4 SEGMENTAL INSTRUMENTATION 3. USE OF [employer] NAVIGATION FOR ASSISTANCE IN ACCURATE SCREW PLACEMENT USE OF IONM ALL SCREWS TESTING > 20 mA Implants: -EDDIE EVEREST RODS AND SCREWS -GLOBUS RISE L CAGES X2 15 DEG, 8-16 MM, 55MM -CONTOUR, ARTHROCELL, ALLOCELL, MAGNATOS, AUTOGRAFT Anesthesia: GETA Surgeon: Danny Khalil Registered Nurse Float Pool #1: Roman Del Cid (WAS PRESENT AND ASSISTED WITH ALL ASPECTS OF THE CASE FROM POSITION TO DRESSINGPLACEMENT) Estimated Blood Loss (ml): 150 IV fluids (ml): 1,700 Urine output (ml): 290 Pathology: none sent Condition: stable Disposition: PACU Indications for Procedure: Steven Steele is a 68 year old male presenting for evaluation of sudden onset of CONTINUED LOW BACK PAIN, LE PAIN AND WEAKNESS AND PROGRESSION TO NEED OF WALKER. It was my pleasure to have seen and examined Mr. Steele. In our visit today we have had a chance to go over subjective complaints, physical examination findings and treatments, including the natural course history without intervention and various interventional options. The imaging demonstrates L2-4 SEVERE DEGENERATIVE CHANGES WITH STENOSIS THAT IS SEVERE CENTRAL AND B/L FORAMINAL. THERE ARE OSTEOPHYTE FORMATIONS, BONY AND LIGAMENTAL STENOSIS WELL DISC HERNIATIONS CONTRIBUTING . ACUTE KYPHOSIS NOTED AT THE L3-4 LEVEL SUGGESTING INJURY . On physical exam, Mr. tSeele demonstrates PAIN WITH ROM OF THE LUMBAR SPINE, DIFFICULTY WITH AMBULATION AND PROGRESSIVE AMBULATORY DECLINE DUE TO LEG WEAKNESS, PARESTHESIASA AND RADICULOPATHY TO THE POINT OF NOT BEING ABLE TO COMPLETE HIS ADLS APPROPRIATELY . I explained to the patient that as his condition progresses it could cause CONTINUED AND PROGRESSIVE CHANGES IF NOT ADDRESSED . At this time, based on the patients imaging and physical exam, I recommend surgery in the form or a: L2-4 STAGED LATERAL INTERBODY FUSION WITH POSTEROLATERAL INSTRUMENTED FUSION WITH DECOMPRESSION. . I discussed the risk and benefits of this procedure at length with Mr. Steele. The patient agreed to consider pursuing the procedure mentioned above. Plan: 1. L2-4 STAGED LATERAL INTERBODY FUSION WITH POSTEROLATERAL INSTRUMENTED FUSION WITH DECOMPRESSION. Description of Procedure: L2-4 lateral interbody fusion with posterolateral instrumented fusion (KAIN) TWO STAGE SAME DAY. STAGE I: The patient was seen and examined in the preoperative area. All preoperative protocols were followed. Informed consent was obtained, risks and benefits of the procedure were discussed at length. Risks including bleeding infection damage to the surrounding tissue and risk of reoperation were discussed with the patient. Risk of anesthesia up to and including was discussed with the patient. These are outlined in the risk review. They were willing to accept these risks and all of the risks of surgery. The patient was given a weight- based dose of antibiotics in the form of 2 g Ancef. The patient was seen and evaluated by the anesthesia team who deemed them fit for surgery. The site was marked, the patient was willing to proceed with the procedure. The patient was transferred to the operative suite by the Department of anesthesia. They were then drifted off to sleep by the department anesthesia and GETA was performed. The patient tolerated this well. Duckworth catheter was placed by nursing staff, atraumatically. Once confirmation of lines and ventilation the patient was transferred to a flat Richard table and placed in the right lateral decubitus position. Axillary roll was placed. Hip Bump was placed. All bony prominences including wrists, elbows, axilla, chest, hips, and thighs, and feet were padded very well. Special attention was paid to the genitalia and these were padded accordingly. SCDs were placed on bilateral lower extremities and were connected. Arms were well padded and placed on armboard pillows. The patient was taped to the table and secured. Once in position, again we confirmed good ventilation capabilities and that lines were running appropriately. The patient's left lateral lumbar and flank was then exposed. 1010s were placed outlining the incision site. Standard alcohol was used to clean the incision site and allowed to dry. C-arm was used to biomark the patient and confirm level for incision which was marked with a skin marker. Operative briefing was performed with all teams and everyone in agreement to proceed. The patient was then prepped and draped in a normal sterile fashion. Timeout was then performed and all parties were in agreement with the procedure to be performed. Transverse skin incision was then made over the previously biomarker area and dissection taken down with EC to the external oblique fascia. This was then identified and two large liv clamps then used for blunt dissection through the external, internal and transverse abdominis inline with the level to be exposed. Once the transversalis fascia was identified the retroperitoneal space was entered bluntly and blunt dissection was used to sweep abdominal contents anteriorly. Retroperitoneal fat was identified and the psoas as well as TVP was palpated. Once this was identified a blunt probe was placed with the help of biplanar fluoroscopy at the L2-3 level to start. Once it was in good position in the posterior aspect of the body and at the disc space, a wire was passed. IONM was used to stimulate the probes before at 2 and 5 mA with no responses in all 4 quadrants. Dilator was then placed over the probe and stimulated and there was no response again. Retractor blades were then chosen and retractor placed and secured in position and to the table. The blades were carefully then opened slightly and the IONM probe sent down all 4 quadrants again without any responses at 2, 5 and 10 mA. The retractor was then opened further for visualization and the dilators and wire removed. Disc space was visible and a combination of bipolar and EC were used to clean margins and identify disc. Once it was identified, rongeur was used to remove outer osteophytes. An osteotome was then used to pass through the disc space under fluoroscopic guidance once this was passed a Ibarra was then passed in a similar fashion through to the opposite side to release the osteophytes on this side as well. Once these were released sequential trial osteotomes were passed in a similar fashion until the disc had been completely removed. Good bleeding endplates were noted. Pituitary was used to remove any floating or excess fragments. The trial was then sized for length and height. The disc space was irrigated. A [55 mm x 18 mm 8-16 mm] expandable lateral cage was then selected and placed under fluoroscopic guidance. The cage was then expanded to its desired height, reducing a and restoring disc space height and lordosis and alignment. The cage was backfilled with autograft, arthrocell and allocell. The glass inserter was then removed and the area inspected. No injury was evident, minimal bleeding was cauterized and AP and Lateral images confirmed good placement of cage. The retractor was then removed under direct visualization at 18 min in the psoas. The wound was copiously irrigated with NSS and we proceeded to the L3-4 level. At L3-4; again a blunt probe was placed with the help of biplanar fluoroscopy at the L3-4 level. Once it was in good position in the posterior aspect of the body and at the disc space, a wire was passed. IONM was used to stimulate the probes before at 2 and 5 mA with no responses in all 4 quadrants. Dilator was then placed over the probe and stimulated and there was no response again. Retractor blades were then chosen and retractor placed and secured in position and to the table. The blades were carefully then opened slightly and the IONM probe sent down all 4 quadrants again without any responses at 2, 5 and 10 mA. The retractor was then opened further for visualization and the dilators and wire removed. Disc space was visible and a combination of bipolar and EC were used to clean margins and identify disc. Once it was identified, rongeur was used to remove outer osteophytes. An osteotome was then used to pass through the disc space under fluoroscopic guidance once this was passed a Ibarra was then passed in a similar fashion through to the opposite side to release the osteophytes on this side as well. Once these were released sequential trial osteotomes were passed in a similar fashion until the disc had been completely removed. Good bleeding endplates were noted. Pituitary was used to remove any floating or excess fragments. The trial was then sized for length and height. The disc space was irrigated. A similar [55 mm x 18 mm 8-16 mm] expandable lateral cage was then selected and placed under fluoroscopic guidance. The cage was then expanded to its desired height, reducing a and restoring disc space height and lordosis and alignment. The cage was backfilled with autograft, arthrocell and allocell. The glass inserter was then removed and the area inspected. No injury was evident, minimal bleeding was cauterized and AP and Lateral images confirmed good placement of cage. The retractor was then removed under direct visualization at 9 min in the psoas. The wound was copiously irrigated with NSS. The deep fascia was then closed with 0 Vicryl superficial closed with 2-0 Vicryl and the skin was closed with skin ishmael. Wound was cleaned and dressed with an optifoam dressing. The patient was transferred back to their hospital bed atraumatically and the beds were flipped for the second stage posteriorly. ---- STAGE II: Pt was then positioned prone on a [employer] spine top table. All bony prominences including wrists, elbows, axilla, chest, hips, and thighs, and feet were padded very well. Special attention was paid to the genitalia and these were padded accordingly. SCDs were placed on bilateral lower extremities and were connected. Arms were well padded and placed on armboard pillows. The patient was taped to the table and secured. Once in position, again we confirmed good ventilation capabilities and that lines were running appropriately. The patient's left lateral lumbar and flank was then exposed. 1010s were placed outlining the incision site. Standard alcohol was used to clean the incision site and allowed to dry. C-arm was used to biomark the patient and confirm level for incision which was marked with a skin marker. Operative briefing was performed with all teams and everyone in agreement to proceed. The patient was then prepped and draped in a normal sterile fashion. Timeout was then performed and all parties were in agreement with the procedure to be performed. Skin nicks were then made over the PSIS on the Right side and pins placed for the [employer] tracker system. This was then secured. A 3D Ziehm spin was then obtained and registered. Once it was confirmed to be accurate, pedicles were targeted through bilateral skin incisions over L2, L3 AND L4. Navigated Brittani was used to plan screws followed by a navigated drill bit. Once drilled a wire was placed in the pedicle and they were all confirmed to be in good position on AP and Lateral imaging. Navigated awl tap was passed followed by navigated measured screw. Screws had good purchase. Once in position screws were tested and all tested above 20 mA. Rods were then selected and bent appropriately. Posterolateral gutters were decorticated with a high speed radhames and [employer] bio placed in the PL gutters for fusion. Rods were then placed through tulip heads, subfascial and secured with set screws. Set screws were then finally tightened. Tabs were broken off. AP and Lateral imaging confirmed good placement of screws with reduction of height, lordosis and alignment. W ounds were copiously irrigated with NSS. Local anesthetic is placed remote to the incision for the block. The deep fascia was closed with 0 vicryl. Superficial closed with 2-0 Vicryl and skin closed with ishmael. Wound edges approximated very well. Wounds were then cleaned and dressed sterilly with optifoam dressing. The patient was then transferred to their hospital bed atraumatically. Patient was then awakened and extubated by the department of anesthesia having tolerated the procedure very well with no complications. They were transferred to the postoperative care unit in stable condition.
[2024-05-26] MEDS ORDERED: MAGNESIUM HYDROXIDE 2,400 MG/30 ML CUP PO PRN (15:49)
[2024-05-26] MEDS ORDERED: SENNOSIDES-DOCUSATE SODIUM 1 EACH TAB PO PRN (15:49)
[2024-05-26] MEDS ORDERED: ONDANSETRON 4 MG/2 ML VIAL IVP PRN (15:49)
[2024-05-26] MEDS: HYDROmorphone 0.5 MG/0.5 ML SYRINGE IVP PRN ×2 (16:03→16:19)
--- NOTE | 2024-05-26 16:19 | XR ---
Intraoperative/procedural fluoroscopic services were provided for L2-L4 lumbar fusion. Total fluorosc opy time is 3:11.7 minutes with a total of 14 submitted images to PACS. Total DAP 43.450 Gycm2. Addi castillo see the operative note for further details. [facility], , 05/26/2024 4:17 PM
[2024-05-26] MEDS: LABETALOL SYRINGE 5 MG/ML (4 ML SYR) IVP STA (16:38)
[2024-05-26] MEDS: GABAPENTIN 300 MG CAP PO SCH (17:19)
[2024-05-26] MEDS: oxyCODONE-APAP 7.5-325MG 1 EACH TAB PO PRN (17:19)
[2024-05-26] MEDS: ACETAMINOPHEN TAB 325 MG TAB PO SCH (17:21)
[2024-05-26] MEDS ORDERED: ACETAMINOPHEN TAB 325 MG TAB PO PRN (17:47)
[2024-05-26] MEDS ORDERED: ALBUTEROL NEBULIZED 2.5 MG/3 ML INHALATION PRN (17:47)
[2024-05-26] MEDS: MIDODRINE 5 MG TAB PO SCH (18:03)
--- NOTE | 2024-05-26 18:35 | CT ---
EXAMINATION TYPE: CT lumbar spine wo con DATE OF EXAM: 05/26/2024 6:20 PM COMPARISON: 10/06/2023. CLINICAL INDICATION: Male, 69 years old with history of s/p L2-L4 MIS PLIF, post-op TECHNIQUE: Multiple axial images were obtained from the midportion of T11 through the sacroiliac david nts. Soft tissue and bone windows in coronal and sagittal planes were obtained and reviewed. 3-D ref ormats of the bones were created on a separate workstation and submitted for review. Contrast used: mL of , (None, if empty). Oral contrast used: (None, if empty). CT DLP: 1200.5 mGycm, Automated exposure control for dose reduction was used. FINDINGS: Postsurgical changes to the lumbar spine with fixation hardware at L2-L4 with discectomy at L4-L3 and L3-L4.. Hardware limits evaluation at these levels. Hardware appears intact. No evidence of fracture . Postsurgical changes in the soft tissues with foci of gas present. IVC filter present. Cholecystectomy clips present. Severe atherosclerosis of the arterial vasculature . IMPRESSION: Postsurgical changes without evidence of immediate post operative complication. [facility], , 05/26/2024 6:33 PM
[2024-05-26] MEDS: WARFARIN 7.5 MG TAB PO ONE (18:42)
[2024-05-26] MEDS ORDERED: hydrALAZINE HCL 20 MG/ML 1 ML VIAL IM PRN (18:47)
[2024-05-26] MEDS: hydrALAZINE HCL 20 MG/ML 1 ML VIAL IVP PRN (18:54)
[2024-05-26] MEDS: ALPRAZolam 1 MG TAB PO SCH (19:48)
[2024-05-26] MEDS: SILDENAFIL 20 MG TAB PO STA (19:49)
[2024-05-26] MEDS: SYMBICORT 160-4.5 MCG INHALER INHALATION SCH (21:02)
[2024-05-26] MEDS: IPRATROPIUM-ALBUTEROL 3 ML NEB INHALATION SCH (21:02)
[2024-05-26] MEDS: HYDROcodone/APAP 10-325MG 1 EACH TAB PO PRN (21:44)
[2024-05-26] MEDS: lamoTRIgine 100 MG TAB PO SCH (21:44)
[2024-05-27 04:47] LABS: Prothrombin Time 11.3 sec (10.0-12.5)
--- NOTE | 2024-05-27 06:40 | CONS ---
CONSULTATION HISTORY OF PRESENT ILLNESS: A 69-year-old white male, post laminectomy of the lumbar spine. He says he was in the operating room a long time. He says he had severe pain despite an epidural. Home medications have been reordered. PHYSICAL EXAMINATION: VITAL SIGNS: Blood pressure is elevated 199 to 175 over 102 to 117. Sat 100% on 2 L, pulse 60s to 70s. CARDIOVASCULAR: S1, S2. LUNGS: Transmitted upper sounds. GI: Soft. HEMATOLOGY: Negative Homans. PSYCH: Fair mood and affect. OPHTHALMOLOGIC: Pupils equal, round, reactive. NEUROLOGIC: Alert and oriented x3. DIAGNOSES: Status post lumbar surgery, hypertension acceleration secondary to chronic pain, gave hydralazine p.r.n. if elevated over 160 q.4 to 6 hours IV. Started home pain medicines, home blood pressure medications. Prognosis guarded. Ambulate as tolerated. Continue with breathing treatments, oxygen that he takes at home. Please see further orders. MMODL / IJN: [id number] /
[2024-05-27] MEDS: allopurinoL 300 MG TAB PO SCH (08:39)
[2024-05-27] MEDS: SILDENAFIL 20 MG TAB PO SCH (08:39)
[2024-05-27] MEDS: CYCLOBENZAPRINE 5 MG TAB PO PRN (08:39)
[2024-05-27] MEDS: TAMSULOSIN 0.4 MG CAP.ER.24H PO SCH (08:39)
[2024-05-27] MEDS: PANTOPRAZOLE 40 MG TABLET PO SCH (08:40)
[2024-05-27] MEDS: POTASSIUM CHLORIDE ER 20 MEQ TAB.ER PO SCH (08:40)
[2024-05-27] MEDS: MONTELUKAST 10 MG TAB PO SCH (08:40)
[2024-05-27] MEDS: FUROSEMIDE 20 MG TAB PO SCH (08:40)
[2024-05-27 09:09] LABS: ALT 18 U/L (10-49); AST 41 U/L (14-35); Albumin 3.7 g/dL (3.8-4.9); Albumin/Globulin Ratio 1.61 Ratio (1.60-3.17); Alkaline Phosphatase 61 U/L (41-126); Blood Urea Nitrogen 8.6 mg/dL (9.0-27.0); Calcium 8.4 mg/dL (8.7-10.3); Carbon Dioxide 25.7 mmol/L (21.6-31.8); Chloride 98 mmol/L (96-109); Globulin 2.3 g/dL (1.6-3.3); Glucose 125 mg/dL (70-110); Potassium 4.4 mmol/L (3.5-5.5); Sodium 136 mmol/L (135-145); Total Bilirubin 0.7 mg/dL (0.3-1.2)
[2024-05-27 10:22] LABS: Basophils # (A) 0.01 X 10*3/uL (0.00-0.10); Basophils % (A) 0.1 %; Eosinophils # (A) 0.01 X 10*3/uL (0.04-0.35); Eosinophils % (A) 0.1 %; HCT 34.6 % (39.6-50.0); HGB 11.4 g/dL (13.0-17.0); Lymphocytes # (A) 0.65 X 10*3/uL (0.90-5.00); Lymphocytes % (A) 7.7 %; MCH 31.9 pg (27.0-32.0); MCHC 32.9 g/dL (32.0-37.0); MCV 96.9 FL (80.0-97.0); Monocytes # (A) 1.15 X 10*3/uL (0.20-1.00); Monocytes % (A) 13.6 %; NRBC Per 100 WBC 0 X 10*3/uL (0.00-0.01); Neutrophils # (A) 6.64 X 10*3/uL (1.80-7.70); Neutrophils % (A) 78.3 %; Platelet Count 228 X 10*3/uL (140-440); RBC 3.57 X 10*6/uL (4.40-5.60); RDW 15.1 % (11.5-14.5); WBC 8.48 X 10*3/uL (4.50-10.00)
[2024-05-27] MEDS: HYDROmorphone 1 MG/ML 1 ML SYRINGE IVP PRN (10:59)
--- NOTE | 2024-05-27 14:04 | P.PN ---
Subjective Progress Note Date: 05/27/24 Principal diagnosis: Status post L2-L4 lateral fusion, status post L2-L4 posterior instrumented fusion Patient was evaluated today at bedside, he is sitting up in his hospital chair resting. Patient is having some discomfort on the lateral and posterior aspects of the lower back. He has no chest pain or shortness of breath at this time. Patient did not minimal activity with physical therapy today, he is able to get to the bedside in his chair with use of the walker. He states that his blood pressure was running a little low this morning. He does have IV fluids running still at this time. Urinary catheter was removed earlier today, monitoring urinary output at this time. Patient denies headaches, headedness, chest pain shortness of breath Objective - Vital Signs Vital signs: Vital Signs Temp 99.2 F 05/27/24 08:00 Pulse 80 05/27/24 11:45 Resp 16 05/27/24 08:00 BP 112/74 05/27/24 08:00 Pulse Ox 94 L 05/27/24 08:00 FiO2 Intake & Output 05/26/24 05/27/24 05/27/24 18:59 06:59 18:59 Intake Total 2150 Output Total 700 2450 400 Balance 1450 -2450 -400 Weight 84.4 kg Intake: IV 2150 Output: Urine 550 2450 400 Uretheral (Duckworth) 400 Estimated Blood Loss 150 Other: Voiding Method Indwelling Catheter - Exam Gen: AOx3, NAD VSS stable at this time Integument: Posterior and lateral incision bandages are in good position condition, no active drainage appreciated Palpation: Mild tenderness with palpation of the lower lumbar spine ROM: Full range of motion in all major muscle groups of the bilateral upper and lower extremities Sensory Exam: Senory exam to light touch is intact C5-T1 Senosry exam to light touch is intact L2-S1 Motor: 5/5 strength appreciated to the bilateral upper extremities with shoulder elevation, shoulder abduction, elbow extension, elbow flexion, wrist extension, wrist flexion, technical operations vice president 4/5 strength appreciated the bilateral lower extremities with hip flexion, knee extension, knee flexion, plantarflexion, dorsiflexion, EHL, FHL Reflexes: 2/4 in all UE and LE Negative Mia's bilaterally Negative Babinski bilaterally Negative clonus bilaterally - Labs CBC & Chem 7: 05/27/24 04:02 05/27/24 04:02 Labs: Abnormal Lab Results - Last 24 Hours (Table) 05/27/24 05/27/24 Range/Units 04:02 04:02 RBC 3.57 L (4.40-5.60) X 10*6/uL Hgb 11.4 L (13.0-17.0) g/dL Hct 34.6 L (39.6-50.0) % RDW 15.1 H (11.5-14.5) % Lymphocytes # 0.65 L (0.90-5.00) X 10*3/uL Monocytes # 1.15 H (0.20-1.00) X 10*3/uL Eosinophils # 0.01 L (0.04-0.35) X 10*3/uL Anion Gap 12.30 H (4.00-12.00) mmol/L BUN 8.6 L (9.0-27.0) mg/dL BUN/Creatinine Ratio 8.60 L (12.00-20.00) Ratio Glucose 125 H (70-110) mg/dL Calcium 8.4 L (8.7-10.3) mg/dL AST 41 H (14-35) U/L Total Protein 6.0 L (6.2-8.2) g/dL Albumin 3.7 L (3.8-4.9) g/dL Assessment and Plan Assessment: Postoperative day #1 status post stage I: L2-L4 lateral interbody fusion, stage II: L2-L4 posterior lateral instrumented fusion Plan: Pain control, continue with current medications. Advised patient to try to limit the IV pain medication. Continue scheduled stool softeners DVT prophylaxis, Coumadin has been restarted Encourage incentive spirometer Wound care, monitor surgical dressing. Plan for dressing change of the posterior aspect on 05/28/2024 PT/OT Weight-bear as tolerated, utilize walker. No bending, lifting or twisting Medical recommendations appreciated Discharge planning: Had discussed with case management possibility of inpatient rehab for this individual, will continue to follow during hospital stay Time with Patient: Less than 30
[2024-05-27] MEDS: SENNOSIDES-DOCUSATE SODIUM 1 EACH TAB PO SCH (15:07)
[2024-05-27] MEDS: WARFARIN 7.5 MG TAB PO ONE (17:20)
--- NOTE | 2024-05-27 22:23 | P.PN ---
Progress Note - Text Progress Note Date: 05/27/24 I am rounding for Dr. Luisito Langford who called me this evening, not feeling well Interval history: May 27, 2024: Patient yesterday underwent lumbar surgery. Up in a chair. Some pain present. Duckworth was discontinued later this afternoon. Has not made urine. Patient since age 12 been having tremors in the body. Has a CPAP machine at home but does not use it. Unclear if he uses oxygen at home. Active Medications Acetaminophen (Acetaminophen Tab 325 Mg Tab) 650 mg PO Q6HR [facility] Last Admin: 05/27/24 17:20 Dose: Not Given Hydrocodone Bitart/Acetaminophen (Hydrocodone/Apap 10-325mg 1 Each Tab) 1 each PO Q6H PRN PRN Reason: Pain Scale 6 To 8 Last Admin: 05/27/24 17:16 Dose: 1 each Albuterol Sulfate (Albuterol Nebulized 2.5 Mg/3 Ml) 2.5 mg INHALATION RT-Q4H PRN PRN Reason: Shortness Of Breath Albuterol/Ipratropium (Ipratropium-Albuterol 3 Ml Neb) 3 ml INHALATION RT-QID [facility] Last Admin: 05/27/24 22:07 Dose: 3 ml Allopurinol (Allopurinol 300 Mg Tab) 300 mg PO DAILY [facility] Last Admin: 05/27/24 08:39 Dose: 300 mg Alprazolam (Alprazolam 1 Mg Tab) 1 mg PO BID [facility] Last Admin: 05/27/24 08:39 Dose: 1 mg Budesonide/Formoterol Fumarate (Symbicort 160-4.5 Mcg Inhaler) 2 puff INHALATION RT-BID [facility] Last Admin: 05/27/24 22:07 Dose: 2 puff Cyclobenzaprine HCl (Cyclobenzaprine 5 Mg Tab) 5 mg PO TID PRN PRN Reason: Muscle Spasm Last Admin: 05/27/24 08:39 Dose: 5 mg Furosemide (Furosemide 20 Mg Tab) 20 mg PO DAILY [facility] Last Admin: 05/27/24 08:40 Dose: 20 mg Gabapentin (Gabapentin 300 Mg Cap) 300 mg PO TID [facility] Last Admin: 05/27/24 17:16 Dose: 300 mg Hydralazine HCl (Hydralazine Hcl 20 Mg/Ml 1 Ml Vial) 10 mg IVP Q6HR PRN PRN Reason: Blood Pressure - High Last Admin: 05/26/24 18:54 Dose: 10 mg Hydromorphone HCl (Hydromorphone 0.5 Mg/0.5 Ml Syringe) 0.5 mg IVP Q3HR PRN PRN Reason: Pain Scale 4 - 6 Last Admin: 05/27/24 04:38 Dose: 0.5 mg Hydromorphone HCl (Hydromorphone 1 Mg/Ml 1 Ml Syringe) 1 mg IVP Q3HR PRN PRN Reason: Pain Scale of 7 - 10 Last Admin: 05/27/24 10:59 Dose: 1 mg Lactated Ringer's (Lactated Ringers) 1,000 mls @ 20 mls/hr IV .Q24H [facility] Last Admin: 05/27/24 08:40 Dose: 20 mls/hr Lamotrigine (Lamotrigine 100 Mg Tab) 100 mg PO BID [facility] Last Admin: 05/27/24 21:48 Dose: 100 mg Magnesium Hydroxide (Magnesium Hydroxide 2,400 Mg/30 Ml Cup) 2,400 mg PO DAILY PRN PRN Reason: Constipation Midodrine (Midodrine 5 Mg Tab) 5 mg PO AC-TID [facility] Last Admin: 05/27/24 13:10 Dose: 5 mg Miscellaneous Information (Warfarin Per Pharmacy) 0 each MISCELLANE DIRECTED PRN PRN Reason: INR Montelukast Sodium (Montelukast 10 Mg Tab) 10 mg PO DAILY [facility] Last Admin: 05/27/24 08:40 Dose: 10 mg Ondansetron HCl (Ondansetron 4 Mg/2 Ml Vial) 4 mg IVP Q8HR PRN PRN Reason: Nausea And Vomiting Oxycodone/Acetaminophen (Oxycodone-Apap 7.5-325mg 1 Each Tab) 1 each PO Q6HR PRN PRN Reason: Pain Scale 9 To 10 Last Admin: 05/27/24 21:48 Dose: 1 each Pantoprazole Sodium (Pantoprazole 40 Mg Tablet) 40 mg PO DAILY [facility] Last Admin: 05/27/24 08:40 Dose: 40 mg Potassium Chloride (Potassium Chloride Er 20 Meq Tab.Er) 20 meq PO DAILY [facility] Last Admin: 05/27/24 08:40 Dose: 20 meq Senna/Docusate Sodium (Sennosides-Docusate Sodium 1 Each Tab) 2 each PO DAILY [facility] Last Admin: 05/27/24 15:07 Dose: 2 each Sildenafil Citrate (Sildenafil 20 Mg Tab) 20 mg PO AC-TID [facility] Last Admin: 05/27/24 17:16 Dose: 20 mg Tamsulosin HCl (Tamsulosin 0.4 Mg Cap.Er.24h) 0.4 mg PO DAILY [facility] Last Admin: 05/27/24 08:39 Dose: 0.4 mg On examination: VITAL SIGNS: [97.6, 82, 16, 94 x 65, 99% 3 L] GENERAL APPEARANCE: BMI 27.5, sitting up in chair awake a bit tired HEENT: Normal external appearance of nose and ear. Oral cavity normal EYES: Pupils equal. Conjunctiva normal. NECK: JVD not raised. Mass not palpable. RESPIRATORY: Respiratory effort normal. Lungs clear to auscultation. CARDIOVASCULAR: First and second sounds normal. No edema. ABDOMEN: Soft. Liver and spleen not palpable. No tenderness. No mass palpable. PSYCHIATRY: Alert and oriented x3. Mood and affect normal. Neurological: Intermittent jerking movements. INVESTIGATIONS, reviewed in the clinical context: May 27: White count 8.4 hemoglobin 9.4 platelets 228 sodium 136 potassium 4.4 BUN 8.6 creatinine 1.0 Previous labs: Hemoglobin 13.02 Oct 2023 Assessment plan: -L2 L4 spondylosis, severe with stenosis, spondylolisthesis with retrolisthesis and anterolisthesis. Neurogenic claudication. Low back pain. Followed by surgical intervention by Dr. Khalil. On May 26, 2024 -Anxiety disorder not otherwise specified, depression Xanax 1 mg twice daily -COPD no previous smoker Symbicort. DuoNeb -GERD Protonix -Acute postprocedure blood loss anemia IV Ferrlecit -BPH Flomax -Hyperuricemia Allopurinol -Chronic tremor since age of 12. -Chronic PE On Coumadin. To be resumed when okay with Dr. Khalil's team -IBS, colitis -Celiac disease -Full code
[2024-05-28] MEDS: SODIUM FERRIC GLUCONAT-SUCROSE 125 MG in SODIUM CHLORIDE 0.9% 100 ML IVPB SCH (00:36)
[2024-05-28 05:28] LABS: Prothrombin Time 10.9 sec (10.0-12.5)
[2024-05-28] MEDS: FERROUS SULFATE 325 MG TAB PO SCH (12:25)
--- NOTE | 2024-05-28 13:22 | P.PN ---
Subjective Progress Note Date: 05/28/24 Principal diagnosis: Status post L2-L4 lateral fusion, status post L2-L4 posterior instrumented fusion Patient was evaluated today at bedside, he is sitting up in his hospital chair resting. Patient is having some discomfort on the lateral and posterior aspects of the lower back. He has no chest pain or shortness of breath at this time. Patient has been urinating fine since removal of the catheter. Patient feels that his upper extremity tremors are increased today. Back pain seems to be stable at this time with current medicine regimen. Patient denies headaches, headedness, chest pain shortness of breath Objective - Vital Signs Vital signs: Vital Signs Temp 98.0 F 05/28/24 08:00 Pulse 86 05/28/24 12:16 Resp 18 05/28/24 08:00 BP 113/69 05/28/24 08:00 Pulse Ox 94 L 05/28/24 09:06 FiO2 Intake & Output 05/27/24 05/28/24 05/28/24 18:59 06:59 18:59 Intake Total 850 Output Total 400 350 Balance 450 -350 Intake: Intake, IV Titration 50 Amount ceFAZolin 2 gm In Sodium 50 Chloride 0.9% 50 ml @ 100 mls/hr IVPB Q8H [facility] Rx#: [id number] Oral 800 Output: Urine 400 350 Uretheral (Duckworth) 400 - Exam Gen: AOx3, NAD VSS stable at this time Integument: Posterior and lateral incision bandages are in good position condition, no active drainage appreciated Palpation: Mild tenderness with palpation of the lower lumbar spine ROM: Full range of motion in all major muscle groups of the bilateral upper and lower extremities Sensory Exam: Senory exam to light touch is intact C5-T1 Senosry exam to light touch is intact L2-S1 Motor: 5/5 strength appreciated to the bilateral upper extremities with shoulder elevation, shoulder abduction, elbow extension, elbow flexion, wrist extension, wrist flexion, loader malt house 4/5 strength appreciated the bilateral lower extremities with hip flexion, knee extension, knee flexion, plantarflexion, dorsiflexion, EHL, FHL Reflexes: 2/4 in all UE and LE Negative Mia's bilaterally Negative Babinski bilaterally Negative clonus bilaterally - Labs CBC & Chem 7: 05/27/24 04:02 05/27/24 04:02 Assessment and Plan Assessment: Postoperative day #2 status post stage I: L2-L4 lateral interbody fusion, stage II: L2-L4 posterior lateral instrumented fusion Plan: Pain control, continue with current medications. Continue scheduled stool softeners DVT prophylaxis, patient has not received his Coumadin the last day or so. I did discuss with nursing today and also pharmacy that we will begin this as of today Encourage incentive spirometer Wound care, dressing stable at this time. Will likely change dressing on 05/29/2024 PT/OT Weight-bear as tolerated, utilize walker. No bending, lifting or twisting Medical recommendations appreciated Discharge planning: Planning for discharge to rehab, will continue to follow during hospital stay Time with Patient: Less than 30
--- NOTE | 2024-05-28 13:34 | P.PN ---
Progress Note - Text Progress Note Date: 05/28/24 I am rounding for Dr. Luisito Langford who called me this evening, not feeling well Interval history: May 27, 2024: Patient yesterday underwent lumbar surgery. Up in a chair. Some pain present. Duckworth was discontinued later this afternoon. Has not made urine. Patient since age 12 been having tremors in the body. Has a CPAP machine at home but does not use it. Unclear if he uses oxygen at home. May 28: Discussed with patient about primidone. Apparently some previous interaction with anticoagulation since this not to be given. Patient been placed on his Coumadin per orthopedic team. Up in a chair. Did make urine. Eating fair. Some pain at the operative site. Probably will need inpatient rehab. Active Medications Acetaminophen (Acetaminophen Tab 325 Mg Tab) 650 mg PO Q6HR [facility] Last Admin: 05/28/24 12:25 Dose: 650 mg Hydrocodone Bitart/Acetaminophen (Hydrocodone/Apap 10-325mg 1 Each Tab) 1 each PO Q6H PRN PRN Reason: Pain Scale 6 To 8 Last Admin: 05/27/24 17:16 Dose: 1 each Albuterol Sulfate (Albuterol Nebulized 2.5 Mg/3 Ml) 2.5 mg INHALATION RT-Q4H PRN PRN Reason: Shortness Of Breath Albuterol/Ipratropium (Ipratropium-Albuterol 3 Ml Neb) 3 ml INHALATION RT-QID [facility] Last Admin: 05/28/24 12:05 Dose: 3 ml Allopurinol (Allopurinol 300 Mg Tab) 300 mg PO DAILY [facility] Last Admin: 05/28/24 08:42 Dose: 300 mg Alprazolam (Alprazolam 1 Mg Tab) 1 mg PO BID [facility] Last Admin: 05/28/24 08:42 Dose: 1 mg Budesonide/Formoterol Fumarate (Symbicort 160-4.5 Mcg Inhaler) 2 puff INHALATION RT-BID [facility] Last Admin: 05/28/24 09:03 Dose: 2 puff Cyclobenzaprine HCl (Cyclobenzaprine 5 Mg Tab) 5 mg PO TID PRN PRN Reason: Muscle Spasm Last Admin: 05/28/24 12:25 Dose: 5 mg Ferrous Sulfate (Ferrous Sulfate 325 Mg Tab) 325 mg PO W/LUNCH [facility] Last Admin: 05/28/24 12:25 Dose: 325 mg Furosemide (Furosemide 20 Mg Tab) 20 mg PO DAILY [facility] Last Admin: 05/28/24 08:42 Dose: 20 mg Gabapentin (Gabapentin 300 Mg Cap) 300 mg PO TID [facility] Last Admin: 05/28/24 08:42 Dose: 300 mg Hydralazine HCl (Hydralazine Hcl 20 Mg/Ml 1 Ml Vial) 10 mg IVP Q6HR PRN PRN Reason: Blood Pressure - High Last Admin: 05/26/24 18:54 Dose: 10 mg Hydromorphone HCl (Hydromorphone 0.5 Mg/0.5 Ml Syringe) 0.5 mg IVP Q3HR PRN PRN Reason: Pain Scale 4 - 6 Last Admin: 05/28/24 12:34 Dose: 0.5 mg Hydromorphone HCl (Hydromorphone 1 Mg/Ml 1 Ml Syringe) 1 mg IVP Q3HR PRN PRN Reason: Pain Scale of 7 - 10 Last Admin: 05/27/24 10:59 Dose: 1 mg Lactated Ringer's (Lactated Ringers) 1,000 mls @ 20 mls/hr IV .Q24H [facility] Last Admin: 05/28/24 08:47 Dose: 20 mls/hr Ferric Sodium Gluconate 125 mg (/ Sodium Chloride) 110 mls @ 100 mls/hr IVPB DAILY [facility] Stop: 05/29/24 10:05 Last Admin: 05/28/24 08:51 Dose: 100 mls/hr Lamotrigine (Lamotrigine 100 Mg Tab) 100 mg PO BID [facility] Last Admin: 05/28/24 08:42 Dose: 100 mg Magnesium Hydroxide (Magnesium Hydroxide 2,400 Mg/30 Ml Cup) 2,400 mg PO DAILY PRN PRN Reason: Constipation Midodrine (Midodrine 5 Mg Tab) 5 mg PO AC-TID [facility] Last Admin: 05/28/24 12:25 Dose: 5 mg Miscellaneous Information (Warfarin Per Pharmacy) 0 each MISCELLANE DIRECTED PRN PRN Reason: INR Montelukast Sodium (Montelukast 10 Mg Tab) 10 mg PO DAILY [facility] Last Admin: 05/28/24 08:41 Dose: 10 mg Ondansetron HCl (Ondansetron 4 Mg/2 Ml Vial) 4 mg IVP Q8HR PRN PRN Reason: Nausea And Vomiting Oxycodone/Acetaminophen (Oxycodone-Apap 7.5-325mg 1 Each Tab) 1 each PO Q6HR PRN PRN Reason: Pain Scale 9 To 10 Last Admin: 05/27/24 21:48 Dose: 1 each Pantoprazole Sodium (Pantoprazole 40 Mg Tablet) 40 mg PO DAILY [facility] Last Admin: 05/28/24 08:42 Dose: 40 mg Potassium Chloride (Potassium Chloride Er 20 Meq Tab.Er) 20 meq PO DAILY [facility] Last Admin: 05/28/24 08:42 Dose: 20 meq Senna/Docusate Sodium (Sennosides-Docusate Sodium 1 Each Tab) 2 each PO DAILY [facility] Last Admin: 05/28/24 08:41 Dose: 2 each Sildenafil Citrate (Sildenafil 20 Mg Tab) 20 mg PO AC-TID [facility] Last Admin: 05/28/24 12:25 Dose: 20 mg Tamsulosin HCl (Tamsulosin 0.4 Mg Cap.Er.24h) 0.4 mg PO DAILY [facility] Last Admin: 05/28/24 08:42 Dose: 0.4 mg Warfarin Sodium (Warfarin 7.5 Mg Tab) 7.5 mg PO ONCE@1800 ONE Stop: 05/28/24 18:01 On examination: VITAL SIGNS: 98, 90, 16, 113/69, 96% on 3 L GENERAL APPEARANCE: BMI 27.5, sitting up in chair awake a bit tired HEENT: Normal external appearance of nose and ear. Oral cavity normal EYES: Pupils equal. Conjunctiva normal. NECK: JVD not raised. Mass not palpable. RESPIRATORY: Respiratory effort normal. Lungs clear to auscultation. CARDIOVASCULAR: First and second sounds normal. No edema. ABDOMEN: Soft. Liver and spleen not palpable. No tenderness. No mass palpable. PSYCHIATRY: Alert and oriented x3. Mood and affect normal. Neurological: Intermittent jerking movements. INVESTIGATIONS, reviewed in the clinical context: May 27: White count 8.4 hemoglobin 9.4 platelets 228 sodium 136 potassium 4.4 BUN 8.6 creatinine 1.0 Previous labs: Hemoglobin 13.02 Oct 2023 Assessment plan: -L2 L4 spondylosis, severe with stenosis, spondylolisthesis with retrolisthesis and anterolisthesis. Neurogenic claudication. Low back pain. Followed by surgical intervention by Dr. Khalil. On May 26, 2024 -Anxiety disorder not otherwise specified, depression Xanax 1 mg twice daily -COPD no previous smoker Symbicort. DuoNeb -GERD Protonix -Acute postprocedure blood loss anemia IV Ferrlecit -BPH Flomax -Hyperuricemia Allopurinol -Chronic tremor since age of 12. -Chronic PE On Coumadin. To be resumed when okay with Dr. Khalil's team -IBS, colitis -Celiac disease -Full code Discussed with patient probably will need rehab.
[2024-05-28] MEDS: WARFARIN 7.5 MG TAB PO ONE (18:52)
[2024-05-28 21:47] VITALS: RESP 16
[2024-05-29 07:45] LABS: INR 0.9 (<1.2); Prothrombin Time 10.4 sec (10.0-12.5)
--- NOTE | 2024-05-29 08:39 | P.DS ---
Providers Date of admission: 05/26/24 08:42 Expected date of discharge: 05/29/24 Attending physician: Danny Khalil DO Consults: 05/26/24 15:49 Consult Physician Routine Consulting Provider: Luisito Langford Reason/Comments: medical management s/p L2-L4 MIS PLIF Do you want consulting provider notified?: Yes Primary care physician: Luisito Langford [facility] Course: Date of admission: 05/26/2024 Date of discharge: 05/29/2024 Admission diagnosis: 1. 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 DEGENERATIVE DISC DISEASE, SEVERE, L2-4 4. NEUROGENIC CLAUDICATION 5. LUMBAR STENOSIS WITH NC 6. LOW BACK PAIN Discharge diagnosis: Same Attending physician: Dr. Khalil Surgical procedures: L2-L4 posterolateral interbody fusion Brief history: Patient is a 69-year-old male with a history of L3-4 spondylosis, severe with stenosis; L3-4 spondylolisthesis; degenerative disc disease; neurogenic claudication and low back pain. At this point patient has failed conservative treatment measures and has opted to proceed with a elective L2-4 posterior lateral interbody fusion. Hospital course: Details of patient's surgery can be found in operative report. Patient tolerated the procedure well and was subsequently transported to orthopedic floor. Patient's orthopeidc and medical care was provided daily. Patient had daily laboratory tests performed for evaluation of overall blood counts. Patient had daily physical therapy to include strengthening range of motion as well as education with walker ambulation. Patient was noted to have a relatively uneventful postoperative course. Patient reported satisfactory pain control with oral pain medications by postoperative day 3. Patient showed satisfactory progress with physical therapy. Patient moved steadily through the program and had no difficulty meeting the goals by postoperative day 3. Given patient's otherwise satisfactory course and having met physical therapy goals, plan is to discharge patient to rehab on postoperative day 3. Discharge condition/disposition: Patient will be discharged home in stable condition. Discharge medications: Instructions are given on resumption of patient's normal daily medications per primary care recommendation, in addition patient will be prescribed Seanor; senna; Duricef; Flexeril; gabapentin Spine Discharge and Recovery Instructions Date of Surgery: 05/26/2024 Diagnosis: 1. 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 DEGENERATIVE DISC DISEASE, SEVERE, L2-4 4. NEUROGENIC CLAUDICATION 5. LUMBAR STENOSIS WITH NC 6. LOW BACK PAIN Procedure: L2-L4 posterolateral interbody fusion Medications: See medication list All medication refills should be obtained through your primary care doctor or your clinic spine surgeon. Please discuss prescription refills at your follow up appointment. Do not call the hospital for medication refills. Dressing: Leave your dressing in place for a total of 5 days post operatively. Then you may remove your dressing and leave open to air. Keep the area clean and if not able to keep area clean, then cover with sterile gauze and tape. Showering: You may shower 3 days after your procedure allowing soap and water to run over incision. Do not scrub. Do not soak. Blot dry. Follow up: Please confirm a follow up appointment with your surgeon 3 weeks post operatively. Please make an appointment to follow up with your PCP in 1-2 weeks after surgery for evaluation '3 phase, 3-week plan' POST OP WEEKS 1-3 1. Lifting/carrying/pushing/pulling limited to less than 5 pounds. 2. Do not sit for longer than 15 minutes at one time. Get up and walk around. Prolonged sitting is NOT advised. If you lay down, see if you can tolerate laying down on you front (belly side) 3. Walk for periods of 15 minutes = 1 mile but no longer; do it multiple times times each day. 4. Ice your low back after activity. POST OP WEEKS 3-6 1. Lifting limited to less than 20 pounds. 2. Do not sit for longer than 30 minutes at a time. Frequently change positions. Use a sit-to stand workstation or take frequent breaks from sitting if you have returned to work. 3. Walk for 30 minutes each day. If possible, do these three or more times a day POST OP WEEKS 6+ At your 6-week appointment we will give you a physical therapy referral to focus on a core stabilization and strengthening program. You should also work on leg & buttock strengthening, hamstring & quadriceps stretching, and continue a low impact aerobic activity program such as swimming, walking, or riding a stationary bicycle. During the initial 6 weeks after your surgery, you are at the highest risk of re-injuring your spine. You should generally avoid BLT's (bending, lifting and twisting combination motions) and follow the above guidelines to reduce the chance of reinjury. You can anticipate post op appointments in our office at approximately 3 weeks and 6 weeks after your surgery. INCISION CARE: If your incision is not draining you do NOT need to cover it with a dressing. Keep your incision clean, dry and intact. In most cases, we apply skin glue, ishmael or sutures to the incision at the time of surgery. This will be like a crust or have the appearance of a scab and will fall off in time on its own. The stitches or ishmael need to be removed at 3 weeks post op appointment. You may begin to shower 3 days after surgery (this allows the glue to malik well). However, please avoid scrubbing the incision site or peeling off any of the skin glue. This will ensure optimal healing of your incision. Also, during this time avoid soaking the incision area in water - this includes swimming pools, hot tubs or baths. No ointments, lotions or oils on the incision until your surgeon allows. Leave ishmael, sutures or glue in place. Neurological dysfunction that comes on suddenly can also be a sign of a stroke. Below some common symptoms of a stroke are listed: B - balance difficulty such as sudden onset walking or leaning to one side - NEW E - eye problem such as sudden double vision or trouble seeing on one side - NEW F - Facial weakness or numbness on one side - NEW A - Arm or leg weakness or numbness on one side - NEW S - Slurred speech or difficulty with word finding - NEW T - Time is BRAIN! Call 911 as soon as you recognize these symptoms Diet: Consume a regular diet rich in vegetables and lean protein such as chicken or fish. You should consume in a ratio of approximately 20% fats|40% carbohydrates|40%protein. Vegetables, sweet potatoes, brown rice or quinoa are examples of good carbohydrates. Chips, white bread, cookies and sweets/sugar are examples of bad carbohydrates. Limit your bad carbs, go wild with good carbs. "Life's Simple 7" Guidelines as per [place] [employer] These will help you reclaim your life after surgery and joiner helper in your recovery, keeping in mind your restrictions. (1) Get Active. Physical activity can help people lose weight, control high blood pressure and cholesterol, feel emotionally better, and sleep better. (2) Control Cholesterol. Avoid a diet high in saturated fat, trans fat, & cholesterol. Limit whole milk & cream, ice cream, butter, egg yolks, processed meats (like sausage and hot dogs), and fatty meats. Choose healthy foods that are low in saturated fat, trans fat and cholesterol which include: Fruits and vegetables, fiber rich grain products (like whole grain pasta and brown rice), lean meat such as chicken, fish, nuts, seeds, and legumes. (3) Eat Better. Eat small portions. Shop at the grocery with a list and do not stray from it. Tips for a healthy diet include: Limit sodium intake to less than 1500mg daily, avoid prepackaged, processed, and fast foods, choose a diet rich in fruits, vegetables, and whole grain, high fiber foods, and limit saturated & cholesterol in your diet. (4) Manage Blood Pressure. If you have high blood pressure, you should have a cuff at home so that you can check your blood pressure regularly. Be sure you have a good cuff. An arm one is generally better than a wrist one. Bring the cuff to a doctor's appointment to validate that the measurements that your cuff are taking are accurate. Take your blood pressure twice daily when you are sitting down and relaxing. Record the numbers in a log and bring this log with you to your doctors' appointments. (5) Lose Weight if your BMI is above 25. A healthy BMI is between 19-25. To ca lculate Your BMI, you may use a Standard BMI Calculator on the NIH BMI website: <www.nhlbi.nih.gov/guidelines/obesity/BMI/bmicalc.htm>. Weigh oneself daily. If you are overweight, set a goal to lose weight. A pound a week loss if needed is a good target. (6) Reduce Blood Sugar. Limit foods and liquids with "added sugars." (Added sugars include sucrose, fructose, glucose, maltose, dextrose, high fructose corn syrup, corn syrup, concentrated fruit juice and honey). (7) Stop Smoking. If you smoke, quitting smoking is one of the best things that you can do for your health. Smoking increases your risk of heart attack, stroke, and peripheral vascular disease, which is a build-up of plaque in your arteries. Please discard all the cigarettes and lighters in your house. Have a plan for what you will do when you have the urge to smoke. Direct and second- hand smoke shortens your life as well as the lives of your family, friends and others around you. For your health and the health of those around you, please consider quitting! Proper Bending Body Mechanics: Maintain a wide stance with one foot slightly in front of the other. Keep your back straight. Bend utilizing the strength in your hips and knees. Do not bend at the waist. Maintain the lifted object at your waist-level close to your body. Avoid lifting weight that causes immediately pain or pain anywhere in the body afterwards. Smoking/Nicotine If there was ever one thing that you could do to increase your overall health, decrease your risk of cardiovascular problems by about 39% the second you make the choice, it is to STOP SMOKING. Your body's most instant gratification is the second you stop smoking. We have all heard the studies, read the articles but it is true, smoking is extremely bad for your overall health, and moreover it is detrimental to your bone health. Nicotine, IN ANY FORM, kills bone cells, prevents your body from healing fractures, and significantly prolongs healing after surgery. In spine surgery specifically, it increases your risk of not healing your bones to create a fusion and increases your risk of having a revision surgery due to this up to 60%. I know it is hard. I know it feels impossible. But there are ways. Take control of your life. We are here to help you through it. And when you are ready, ask us and we can direct you to help if you desire. Use the START Plan to Quit Smoking (please visit the Helpguide.org website listed below for more information): S = Set a quit date. Choose a date within the next 2 weeks, so you have enough time to prepare without losing your motivation to quit. If you mainly smoke at work, quit on the weekend, so you have a few days to adjust to the change. T = Tell family, friends, and co-workers that you plan to quit. Let your friends and family in on your plan to quit smoking and tell them you need their support and encouragement to stop. Look for a quit chris who wants to stop smoking as well. You can help each other get through the rough times. A = Anticipate and plan for the challenges you'll face while quitting. Most people who begin smoking again do so within the first 3 months. You can help yourself make it through by preparing ahead for common challenges, such as nicotine withdrawal and cigarette cravings. R = Remove cigarettes and other tobacco products from your home, car, and work. Throw away all your cigarettes (no emergency pack!), lighters, ashtrays, and matches. Wash your clothes and freshen up anything that smells like smoke. Shampoo your car, clean your drapes and carpet, and steam your furniture. T = Talk to your doctor about getting help to quit. Your doctor can prescribe medication to help with withdrawal and suggest other alternatives. If you can't see a doctor, you can get many products over the counter at your local pharmacy or grocery store, including the nicotine patch, nicotine lozenges, and nicotine gum. Resources for Quitting Smoking: <https://www.[place].gov/documents/[facility]/Quit_Tobacco_Resources_for_patients_313 480_7.pdf> Supplementation: Take recommended dosages of Vitamin D and Calcium to help fortify your bones and help them to heal. See your health maintenance packet for dosages and recommended levels. DVT/VTE prophylaxis: You will be given compression stockings from the hospital. Wear these daily for the first two weeks after surgery. You may take them off at night. You may be prescribed a medication to help thin your blood. Take this as directed. If you are not prescribed this medication, early and frequent ambulation has been shown to be the best prophylaxis to deep vein thrombosis and sequelae related to this event. Assessment: 1. 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 DEGENERATIVE DISC DISEASE, SEVERE, L2-4 4. NEUROGENIC CLAUDICATION 5. LUMBAR STENOSIS WITH NC 6. LOW BACK PAIN Procedures: L2-L4 posterolateral fusion Patient Condition at Discharge: Good Plan - Discharge Summary Discharge Rx Participant: No New Discharge Prescriptions: New HYDROcodone/APAP 10-325MG [Seanor 10-325] 1 tab PO Q6HR PRN #24 tab PRN Reason: Pain Gabapentin [Neurontin] 300 mg PO TID #30 cap Sennosides/Docusate Sodium [Senna Plus 8.6-50 mg Softgel] 1 each PO DAILY #20 capsule cefaDROXiL [Duricef] 500 mg PO Q12HR 5 Days #10 cap Cyclobenzaprine [Flexeril] 5 mg PO TID #21 tablet No Action Tamsulosin HCl [Flomax] 0.4 mg PO DAILY Albuterol Sulfate [Ventolin HFA] 2 puff INHALATION RT-Q4H PRN PRN Reason: Shortness Of Breath Ipratropium-Albuterol Nebulize [Duoneb 0.5 mg-3 mg/3 ml Soln] 3 ml INHALATION RT-QID Furosemide [Lasix] 20 mg PO DAILY 30 Days #30 tab Budesonide-Formot 160-4.5 Mcg [Symbicort 160-4.5 Mcg Inhaler] 2 puff INHALATION RT-BID 30 Days #1 each Midodrine [ProAmatine] 5 mg PO TID Pantoprazole [Protonix] 40 mg PO DAILY Warfarin Sodium [Jantoven] 7.5 mg PO Q48H allopurinoL 300 mg PO DAILY ALPRAZolam [Xanax] 1 mg PO BID lamoTRIgine 100 mg PO BID Montelukast [Singulair] 10 mg PO DAILY Sildenafil [Revatio] 20 mg PO AC-TID Potassium Chloride ER [K-Dur 20] 20 meq PO DAILY Acetaminophen Tab [Tylenol] 650 mg PO Q6HR PRN tab PRN Reason: Mild Pain Or Fever > 100.5 Hydrocodone-Acetamin 10 - 325 mg PO TID PRN PRN Reason: Pain Discharge Medication List Albuterol Sulfate [Ventolin HFA] 2 puff INHALATION RT-Q4H PRN 04/09/20 [History] Tamsulosin HCl [Flomax] 0.4 mg PO DAILY 04/09/20 [History] ALPRAZolam [Xanax] 1 mg PO BID 12/05/21 [History] allopurinoL 300 mg PO DAILY 12/05/21 [History] Montelukast [Singulair] 10 mg PO DAILY 06/14/22 [History] Sildenafil [Revatio] 20 mg PO AC-TID 06/14/22 [History] lamoTRIgine 100 mg PO BID 06/14/22 [History] Ipratropium-Albuterol Nebulize [Duoneb 0.5 mg-3 mg/3 ml Soln] 3 ml INHALATION RT-QID 04/12/23 [History] Potassium Chloride ER [K-Dur 20] 20 meq PO DAILY 10/04/23 [History] Acetaminophen Tab [Tylenol] 650 mg PO Q6HR PRN tab 10/12/23 [Rx] Budesonide-Formot 160-4.5 Mcg [Symbicort 160-4.5 Mcg Inhaler] 2 puff INHALATION RT-BID 30 Days #1 each 10/12/23 [Rx] Furosemide [Lasix] 20 mg PO DAILY 30 Days #30 tab 10/12/23 [Rx] Hydrocodone-Acetamin 10 - 325 mg PO TID PRN 05/23/24 [History] Midodrine [ProAmatine] 5 mg PO TID 05/23/24 [History] Pantoprazole [Protonix] 40 mg PO DAILY 05/23/24 [History] Warfarin Sodium [Jantoven] 7.5 mg PO Q48H 05/23/24 [History] Cyclobenzaprine [Flexeril] 5 mg PO TID #21 tablet 05/29/24 [Rx] Gabapentin [Neurontin] 300 mg PO TID #30 cap 05/29/24 [Rx] HYDROcodone/APAP 10-325MG [Seanor 10-325] 1 tab PO Q6HR PRN #24 tab 05/29/24 [Rx] Sennosides/Docusate Sodium [Senna Plus 8.6-50 mg Softgel] 1 each PO DAILY #20 capsule 05/29/24 [Rx] cefaDROXiL [Duricef] 500 mg PO Q12HR 5 Days #10 cap 05/29/24 [Rx] Follow up Appointment(s)/Referral(s): Hao Ware [NON-STAFF] - As Needed Danny Khalil DO [Doctor of Osteopathic Medicine] - 06/11/24 2:00 pm Activity/Diet/Wound Care/Special Instructions: Spine Discharge and Recovery Instructions Date of Surgery: 05/27/2024 Diagnosis: 1. 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 DEGENERATIVE DISC DISEASE, SEVERE, L2-4 4. NEUROGENIC CLAUDICATION 5. LUMBAR STENOSIS WITH NC 6. LOW BACK PAIN Procedure: L2-L4 posterolateral interbody fusion Medications: See medication list All medication refills should be obtained through your primary care doctor or your clinic spine surgeon. Please discuss prescription refills at your follow up appointment. Do not call the hospital for medication refills. Dressing: Leave your dressing in place for a total of 5 days post operatively. Then you may remove your dressing and leave open to air. Keep the area clean and if not able to keep area clean, then cover with sterile gauze and tape. Showering: You may shower 3 days after your procedure allowing soap and water to run over incision. Do not scrub. Do not soak. Blot dry. Follow up: Please confirm a follow up appointment with your surgeon 3 weeks post operatively. Please make an appointment to follow up with your PCP in 1-2 weeks after surgery for evaluation '3 phase, 3-week plan' POST OP WEEKS 1-3 1. Lifting/carrying/pushing/pulling limited to less than 5 pounds. 2. Do not sit for longer than 15 minutes at one time. Get up and walk around. Prolonged sitting is NOT advised. If you lay down, see if you can tolerate laying down on you front (belly side) 3. Walk for periods of 15 minutes = 1 mile but no longer; do it multiple times times each day. 4. Ice your low back after activity. POST OP WEEKS 3-6 1. Lifting limited to less than 20 pounds. 2. Do not sit for longer than 30 minutes at a time. Frequently change positions. Use a sit-to stand workstation or take frequent breaks from sitting if you have returned to work. 3. Walk for 30 minutes each day. If possible, do these three or more times a day POST OP WEEKS 6+ At your 6-week appointment we will give you a physical therapy referral to focus on a core stabilization and strengthening program. You should also work on leg & buttock strengthening, hamstring & quadriceps stretching, and continue a low impact aerobic activity program such as swimming, walking, or riding a stationary bicycle. During the initial 6 weeks after your surgery, you are at the highest risk of re-injuring your spine. You should generally avoid BLT's (bending, lifting and twisting combination motions) and follow the above guidelines to reduce the chance of reinjury. You can anticipate post op appointments in our office at approximately 3 weeks and 6 weeks after your surgery. INCISION CARE: If your incision is not draining you do NOT need to cover it with a dressing. Keep your incision clean, dry and intact. In most cases, we apply skin glue, ishmael or sutures to the incision at the time of surgery. This will be like a crust or have the appearance of a scab and will fall off in time on its own. The stitches or ishmael need to be removed at 3 weeks post op appointment. You may begin to shower 3 days after surgery (this allows the glue to malik well). However, please avoid scrubbing the incision site or peeling off any of the skin glue. This will ensure optimal healing of your incision. Also, during this time avoid soaking the incision area in water - this includes swimming pools, hot tubs or baths. No ointments, lotions or oils on the incision until your surgeon allows. Leave ishmael, sutures or glue in place. Neurological dysfunction that comes on suddenly can also be a sign of a stroke. Below some common symptoms of a stroke are listed: B - balance difficulty such as sudden onset walking or leaning to one side - NEW E - eye problem such as sudden double vision or trouble seeing on one side - NEW F - Facial weakness or numbness on one side - NEW A - Arm or leg weakness or numbness on one side - NEW S - Slurred speech or difficulty with word finding - NEW T - Time is BRAIN! Call 911 as soon as you recognize these symptoms Diet: Consume a regular diet rich in vegetables and lean protein such as chicken or fish. You should consume in a ratio of approximately 20% fats|40% carbohydrat es|40%protein. Vegetables, sweet potatoes, brown rice or quinoa are examples of good carbohydrates. Chips, white bread, cookies and sweets/sugar are examples of bad carbohydrates. Limit your bad carbs, go wild with good carbs. "Life's Simple 7" Guidelines as per [place] [employer] These will help you reclaim your life after surgery and joiner helper in your recovery, keeping in mind your restrictions. (1) Get Active. Physical activity can help people lose weight, control high blood pressure and cholesterol, feel emotionally better, and sleep better. (2) Control Cholesterol. Avoid a diet high in saturated fat, trans fat, & cholesterol. Limit whole milk & cream, ice cream, butter, egg yolks, processed meats (like sausage and hot dogs), and fatty meats. Choose healthy foods that are low in saturated fat, trans fat and cholesterol which include: Fruits and vegetables, fiber rich grain products (like whole grain pasta and brown rice), lean meat such as chicken, fish, nuts, seeds, and legumes. (3) Eat Better. Eat small portions. Shop at the grocery with a list and do not stray from it. Tips for a healthy diet include: Limit sodium intake to less than 1500mg daily, avoid prepackaged, processed, and fast foods, choose a diet rich in fruits, vegetables, and whole grain, high fiber foods, and limit saturated & cholesterol in your diet. (4) Manage Blood Pressure. If you have high blood pressure, you should have a cuff at home so that you can check your blood pressure regularly. Be sure you have a good cuff. An arm one is generally better than a wrist one. Bring the cuff to a doctor's appointment to validate that the measurements that your cuff are taking are accurate. Take your blood pressure twice daily when you are sitting down and relaxing. Record the numbers in a log and bring this log with you to your doctors' appointments. (5) Lose Weight if your BMI is above 25. A healthy BMI is between 19-25. To calculate Your BMI, you may use a Standard BMI Calculator on the NIH BMI website: <www.nhlbi.nih.gov/guidelines/obesity/BMI/bmicalc.htm>. Weigh oneself daily. If you are overweight, set a goal to lose weight. A pound a week loss if needed is a good target. (6) Reduce Blood Sugar. Limit foods and liquids with "added sugars." (Added sugars include sucrose, fructose, glucose, maltose, dextrose, high fructose corn syrup, corn syrup, concentrated fruit juice and honey). (7) Stop Smoking. If you smoke, quitting smoking is one of the best things that you can do for your health. Smoking increases your risk of heart attack, stroke, and peripheral vascular disease, which is a build-up of plaque in your arteries. Please discard all the cigarettes and lighters in your house. Have a plan for what you will do when you have the urge to smoke. Direct and second- hand smoke shortens your life as well as the lives of your family, friends and others around you. For your health and the health of those around you, please consider quitting! Proper Bending Body Mechanics: Maintain a wide stance with one foot slightly in front of the other. Keep your back straight. Bend utilizing the strength in your hips and knees. Do not bend at the waist. Maintain the lifted object at your waist-level close to your body. Avoid lifting weight that causes immediately pain or pain anywhere in the body afterwards. Smoking/Nicotine If there was ever one thing that you could do to increase your overall health, decrease your risk of cardiovascular problems by about 39% the second you make the choice, it is to STOP SMOKING. Your body's most instant gratification is the second you stop smoking. We have all heard the studies, read the articles but it is true, smoking is extremely bad for your overall health, and moreover it is detrimental to your bone health. Nicotine, IN ANY FORM, kills bone cells, prevents your body from healing fractures, and significantly prolongs healing after surgery. In spine surgery specifically, it increases your risk of not healing your bones to create a fusion and increases your risk of having a revision surgery due to this up to 60%. I know it is hard. I know it feels impossible. But there are ways. Take control of your life. We are here to help you through it. And when you are ready, ask us and we can direct you to help if you desire. Use the START Plan to Quit Smoking (please visit the Helpguide.org website listed below for more information): S = Set a quit date. Choose a date within the next 2 weeks, so you have enough time to prepare without losing your motivation to quit. If you mainly smoke at work, quit on the weekend, so you have a few days to adjust to the change. T = Tell family, friends, and co-workers that you plan to quit. Let your friends and family in on your plan to quit smoking and tell them you need their support and encouragement to stop. Look for a quit chris who wants to stop smoking as well. You can help each other get through the rough times. A = Anticipate and plan for the challenges you'll face while quitting. Most people who begin smoking again do so within the first 3 months. You can help yourself make it through by preparing ahead for common challenges, such as nicotine withdrawal and cigarette cravings. R = Remove cigarettes and other tobacco products from your home, car, and work. Throw away all your cigarettes (no emergency pack!), lighters, ashtrays, and matches. Wash your clothes and freshen up anything that smells like smoke. Shampoo your car, clean your drapes and carpet, and steam your furniture. T = Talk to your doctor about getting help to quit. Your doctor can prescribe medication to help with withdrawal and suggest other alternatives. If you can't see a doctor, you can get many products over the counter at your local pharmacy or grocery store, including the nicotine patch, nicotine lozenges, and nicotine gum. Resources for Quitting Smoking: <https://www.[place].gov/documents/[facility]/Quit_Tobacco_Resources_for_patients_313 480_7.pdf> Supplementation: Take recommended dosages of Vitamin D and Calcium to help fortify your bones and help them to heal. See your health maintenance packet for dosages and recommended levels. DVT/VTE prophylaxis: You will be given compression stockings from the hospital. Wear these daily for the first two weeks after surgery. You may take them off at night. You may be prescribed a medication to help thin your blood. Take this as directed. If you are not prescribed this medication, early and frequent ambulation has been shown to be the best prophylaxis to deep vein thrombosis and sequelae related to this event. Discharge Disposition: TRANSFER TO SNF/ECF
[2024-05-29 08:41] VITALS: PULSE 86; TEMP 98.3
[2024-05-29] MEDS: bisacodyL 10 MG SUPP RECTAL STA (12:00)
[2024-05-29 12:10] VITALS: BP 147/88
--- NOTE | 2024-05-29 12:51 | P.PN ---
Subjective Progress Note Date: 05/29/24 Principal diagnosis: 1. 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 DEGENERATIVE DISC DISEASE, SEVERE, L2-4 4. NEUROGENIC CLAUDICATION 5. LUMBAR STENOSIS WITH NC 6. LOW BACK PAIN Patient was seen at bedside this morning lying in semirecumbent position with dressing was placed over lumbar spine. Patient says his pain does seem to be improving over the past couple days. He says he is still having a difficult time getting up out of bed under his own power does okay once he is able to stand up with assistance. Patient says he is looking forward to going to [facility] today. Patient denies any other significant orthopedic complaints at this time. Objective - Vital Signs Vital signs: Vital Signs Temp 98.3 F 05/29/24 07:20 Pulse 86 05/29/24 09:20 Resp 16 05/29/24 09:20 BP 136/80 05/29/24 07:20 Pulse Ox 98 05/29/24 08:27 FiO2 Intake & Output 05/28/24 05/29/24 05/29/24 18:59 06:59 18:59 Output Total 1200 1400 Balance -1200 -1400 Output: Urine 1200 1400 Other: Voiding Method Urinal # Voids 1 - Exam There does appear to be some spotting on the dressings over lumbar spine. Dressings were taken down. Cowen appear to be well aligned and intact. New dressings placed over incisions. Sensation is equal, symmetric, by intact throughout the extremities on exam. There is some generalized tenderness to palpation near incisions. Nontender throughout rest of exam. Patient does have good range of motion throughout bilateral upper and lower extremities on exam. 4+/5 in all major motor groups in bilateral upper extremities. 4/5 in all major motor groups in bilateral lower extremities. radial pulses intact bilaterally. negative Winston bilaterally. Negative clonus bilaterally. Negative Mia bilaterally. - Labs CBC & Chem 7: 05/27/24 04:02 05/27/24 04:02 Assessment and Plan Assessment: 1. 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 DEGENERATIVE DISC DISEASE, SEVERE, L2-4 4. NEUROGENIC CLAUDICATION 5. LUMBAR STENOSIS WITH NC 6. LOW BACK PAIN -Postop day 3 status post L2-4 posterior lateral interbody fusion Plan: 1. L2-4 SPONDYLOSIS, SEVERE WITH STENOSIS, SEVERE; L2-4 SPONDYLOLISTHESIS WITH RETROLISTHESIS AND ANTERIOLISTHESIS; DEGENERATIVE DISC DISEASE, SEVERE, L2-4; NEUROGENIC CLAUDICATION; LUMBAR STENOSIS WITH NC; LOW BACK PAIN -surgery for 05/26/2024L2-4 posterior lateral interbody fusion. Patient stable at bedside this morning. Dressing changed at bedside. Dressing appears to be clean, dry, intact. Pain has been under control with oral medication. Discharge to rehab today. Follow-up in office in [address] Khalil 2. Appreciate medical management 3. Pain management -[place]; Flexeril; gabapentin 4. DVT prophylaxis recs 5. GI prophylaxis -senna; MiraLAX 6. PT/OT -weightbearing as tolerated with walker and assistance as necessary 7. Encourage incentive spirometer use 8. Discharge planning -discharge to rehab today Time with Patient: Less than 30
--- NOTE | 2024-05-29 16:13 | P.PN ---
Progress Note - Text Progress Note Date: 05/29/24 I am rounding for Dr. Luisito Langford who called me this evening, not feeling well Interval history: May 27, 2024: Patient yesterday underwent lumbar surgery. Up in a chair. Some pain present. [place] was discontinued later this afternoon. Has not made urine. Patient since age 12 been having tremors in the body. Has a CPAP machine at home but does not use it. Unclear if he uses oxygen at home. May 28: Discussed with patient about primidone. Apparently some previous interaction with anticoagulation since this not to be given. Patient been placed on his Coumadin per orthopedic team. Up in a chair. Did make urine. Eating fair. Some pain at the operative site. Probably will need inpatient rehab. May 29: Tolerating diet. No new issues. Coumadin has been resumed. Will be going to rehab. On examination: VITAL SIGNS: 98.3, 86, 16, 147 x 88, 98% 2 L GENERAL APPEARANCE: BMI 27.5, comfortable HEENT: Normal external appearance of nose and ear. Oral cavity normal EYES: Pupils equal. Conjunctiva normal. NECK: JVD not raised. Mass not palpable. RESPIRATORY: Respiratory effort normal. Lungs clear to auscultation. CARDIOVASCULAR: First and second sounds normal. No edema. ABDOMEN: Soft. Liver and spleen not palpable. No tenderness. No mass palpable. PSYCHIATRY: Alert and oriented x3. Mood and affect normal. Neurological: Intermittent jerking movements. INVESTIGATIONS, reviewed in the clinical context: May 27: White count 8.4 hemoglobin 9.4 platelets 228 sodium 136 potassium 4.4 BUN 8.6 creatinine 1.0 Previous labs: Hemoglobin 13.02 Oct 2023 Assessment plan: -L2 L4 spondylosis, severe with stenosis, spondylolisthesis with retrolisthesis and anterolisthesis. Neurogenic claudication. Low back pain. Followed by surgical intervention by Dr. Khalil. On May 26, 2024 -Anxiety disorder not otherwise specified, depression Xanax 1 mg twice daily -COPD no previous smoker Symbicort. DuoNeb -GERD Protonix -Acute postprocedure blood loss anemia IV Ferrlecit -BPH Flomax -Hyperuricemia Allopurinol -Chronic tremor since age of 12. Has had a problem with primidone within the reactions previously -Chronic PE Coumadin resumed -IBS, colitis -Celiac disease -Full code Discussed with patient. Medications discussed. Being discharged to rehab
[2024-05-29] MEDS ORDERED: WARFARIN 7.5 MG TAB PO ONE (18:00)
--- NOTE | 2024-05-30 07:06 | P.ANPRN ---
Procedure Note - Anesthesia - Invasive Line Right Arterial Line Time Out Performed: Yes Date of Procedure: 05/26/24 Time of Procedure: 10:19 Location of Patient: PreOp Preparation: Sterile Prep, Sterile Dressing Arterial Line Location: Briachial Ultrasound Used: No Purpose - Visualization and Identification of Vasculature: No Image Stored and Saved: No Narrative: Invasive line placement per sterile protocol utilized.
== END 2024-05-29 13:20 | DRG 427 ==
LOC: 2ORMAIN 08:42 → 4SSUR 16:36
PROVIDERS: ADMIT Orthopaedic Surgery; ATTEND Orthopaedic Surgery
PROC: 0SG10J1 Fusion of 2 or more Lumbar Vertebral Joints with Synthetic Substitute, Posterior Approach, Posterior Column, Open Approach (ICD-10-PCS; 2024-05-26)
PROC: 0SG10A0 Fusion of 2 or more Lumbar Vertebral Joints with Interbody Fusion Device, Anterior Approach, Anterior Column, Open Approach (ICD-10-PCS; principal; 2024-05-26 11:15)
PROC: 01NB0ZZ Release Lumbar Nerve, Open Approach (ICD-10-PCS; principal; 2024-05-26 11:15)
PROC: 0ST20ZZ Resection of Lumbar Vertebral Disc, Open Approach (ICD-10-PCS; principal; 2024-05-26 11:15)
PROC: 4A11X4G Monitoring of Peripheral Nervous Electrical Activity, Intraoperative, External Approach (ICD-10-PCS; principal; 2024-05-26 11:15)
DX: M47.26 Other spondylosis with radiculopathy, lumbar region (principal); D62 Acute posthemorrhagic anemia; J44.89 Other specified chronic obstructive pulmonary disease; I10 Essential (primary) hypertension; G47.30 Sleep apnea, unspecified; M48.062 Spinal stenosis, lumbar region with neurogenic claudication; M43.16 Spondylolisthesis, lumbar region; M51.16 Intervertebral disc disorders with radiculopathy, lumbar region; M40.209 Unspecified kyphosis, site unspecified; I25.2 Old myocardial infarction; K90.0 Celiac disease; K58.9 Irritable bowel syndrome, unspecified; G25.0 Essential tremor; M19.90 Unspecified osteoarthritis, unspecified site; N42.9 Disorder of prostate, unspecified; Z79.51 Long term (current) use of inhaled steroids; Z79.01 Long term (current) use of anticoagulants; Z79.899 Other long term (current) drug therapy; Z86.711 Personal history of pulmonary embolism; Z87.891 Personal history of nicotine dependence; Z86.73 Personal history of transient ischemic attack (TIA), and cerebral infarction without residual deficits
CPT/HCPCS: 72100; 72131; 80053; 85025; 85610; 94640; 94760